=== PATIENT | female | born 1935 | race Caucasian/White ===

== ENCOUNTER 2020-04-22 07:34 | Outpatient (REF) | payer MEDICARE, SELFPAY ==
[2020-04-22 11:00] LABS: Alanine Aminotransferase 15 U/L (0-31); Albumin Level 4.4 g/dL (3.5-5.0); Alkaline Phosphatase 70 U/L (39-117); Anion Gap 14 (12-20); Aspartate Amino Transferase 21 U/L (5-31); Bilirubin Total 0.5 mg/dL (0.0-1.0); Blood Urea Nitrogen 15 mg/dL (9-16); Carbon Dioxide 26 mmol/L (22-29); Chloride 104 mmol/L (96-108); Estimated Glomerular Filt Rate > 60; Glucose Fasting 88 mg/dL (60-99); Potassium 4.1 mmol/l (3.3-5.1); Sodium 140 mmol/L (135-145)
[2020-04-22 11:11] LABS: Calcium 10.7 mg/dL (8.4-10.2)
[2020-04-22 11:14] LABS: Vitamin D 25-OH Total 26.2 ng/mL (>30)
[2020-04-30 01:57] LABS: N-Telopeptide 19 (see note); NTXCreaRU 128 mg/dL (20-275)
== END 2020-04-22 07:35 | disposition home or self-care (01) ==
LOC: HO.10HDL 07:34
PROVIDERS: Visit Provider Internal Medicine Endocrinology, Diabetes & Metabolism
DX: M81.0 Age-related osteoporosis without current pathological fracture (principal)
CPT/HCPCS: 80053; 82306; 82523

== ENCOUNTER 2020-04-25 13:48 | Outpatient (REF) | payer MEDICARE, SELFPAY ==
--- NOTE | 2020-04-25 | MM_ITS ---
EXAMINATION: MM SCREENING DIGITAL BREAST TOMOSYNTHESIS, BILATERAL CLINICAL INFORMATION: Screening. Asymptomatic. The lifetime risk of breast cancer based on the Tyrer-Cuzick Model is 1%. COMPARISON: Mammography: 04/20/2019, 01/10/2018, 10/08/2016, 04/16/2014 TECHNIQUE: Digital breast tomosynthesis is performed in both the craniocaudal and mediolateral oblique views along with computer-aided detection (CAD). Synthesized 2D images are generated from the tomosynthesis. FINDINGS: The breasts are heterogeneously dense, which may obscure small masses (ACR BI-RADS breast composition Category c). There are no significant masses, abnormal calcifications, or other abnormalities. Low left axillary tail node on MLO view similar to prior exams. There are bilateral vascular calcifications. The skin contours are smooth. MM/MM tomosynthesis screening BI IMPRESSION: No significant changes from prior studies. ASSESSMENT: BI-RADS 2: Benign RECOMMENDATION: Routine annual mammography screening. This patient's information was entered into a reminder system with a target due date for their next mammogram.
== END 2020-04-25 13:49 | disposition home or self-care (01) ==
LOC: HO.MAMMO 13:48
PROVIDERS: PCP Internal Medicine; Visit Provider Internal Medicine
DX: Z12.31 Encounter for screening mammogram for malignant neoplasm of breast (principal)
CPT/HCPCS: 77063; 77067

== ENCOUNTER → 2020-05-01 08:26 | Outpatient (BNVA) | payer MEDICARE, OTHER, SELFPAY | PROVIDERS: PCP Internal Medicine; Visit Provider Internal Medicine Endocrinology, Diabetes & Metabolism | DX: M81.0 Age-related osteoporosis without current pathological fracture (principal); E83.52 Hypercalcemia; E83.41 Hypermagnesemia; E55.9 Vitamin D deficiency, unspecified; Z79.899 Other long term (current) drug therapy | CPT/HCPCS: 96372; 99212; J0897 ==

== ENCOUNTER 2020-05-21 07:35 | Outpatient (REF) | payer MEDICARE, SELFPAY ==
[2020-05-21 10:22] LABS: Basophils Percent Auto 0.2 % (0-2); Eosinophils Percent Auto 0.9 % (0-4); Hematocrit 42.4 % (37-47); Hemoglobin 13.7 g/dl (12.0-16.0); Imm Gran Abs Auto 0.02 X10*3/uL (0.00-0.03); Imm Gran Pct Auto 0.4 % (0.0-0.4); Lymphocytes Absolute Auto 0.6 X10*3/uL (1.2-4.9); Lymphocytes Percent Auto 14.2 % (20-40); MANUAL DIFF FLAG SCAN; Mean Corpuscular HGB Conc 32.3 g/dl (31.0-35.0); Mean Corpuscular Hemoglobin 30.9 pg (27.0-33.0); Mean Corpuscular Volume 95.7 fL (80-98); Mean Platelet Volume 10.4 fL (9.4-12.3); Monocytes Absolute Auto 0.3 X10*3/uL (0.1-1.2); Monocytes Percent Auto 5.8 % (2-11); Neutrophils Absolute Auto 3.5 X10*3/uL (2.0-8.3); Neutrophils Percent Auto 78.5 % (45-73); Platelet Count 173 X10*3/uL (160-400); Red Blood Count 4.43 X10*6/uL (4.20-5.50); Red Cell Distribution Width 12.6 % (11.0-16.0); SCAN SMEAR FLAG 1; White Blood Count 4.5 X10*3/uL (4.8-10.8)
[2020-05-21 10:33] LABS: Alanine Aminotransferase 16 U/L (0-31); Albumin Level 4.3 g/dL (3.5-5.0); Alkaline Phosphatase 77 U/L (39-117); Anion Gap 12 (12-20); Aspartate Amino Transferase 21 U/L (5-31); Bilirubin Total 0.7 mg/dL (0.0-1.0); Blood Urea Nitrogen 17 mg/dL (9-16); Calcium 10.5 mg/dL (8.4-10.2); Carbon Dioxide 26 mmol/L (22-29); Chloride 107 mmol/L (96-108); Cholesterol 198 mg/dL; Estimated Glomerular Filt Rate > 60; Glucose Fasting 103 mg/dL (60-99); HDL Cholesterol 81 mg/dL; LDL Cholesterol Calculated 101 mg/dl; Potassium 3.8 mmol/l (3.3-5.1); Sodium 141 mmol/L (135-145); Total Protein 6.9 g/dL (6.5-8.0); Triglycerides 82 mg/dL
[2020-05-21 10:51] LABS: Glucose Urine UA NEG (NEG); Leukocyte Esterase Urine NEG (NEG); Nitrite Urine NEG (NEG); Specific Gravity - Urine 1.025 (1.005-1.025); Urine Blood NEG (NEG); Urine Ketones NEG (NEG); Urine Protein NEG (NEG-TRACE)
[2020-05-21 10:55] LABS: Appearance Urine CLEAR; Color Urine YELLOW
[2020-05-21 10:55] LABS: Vitamin D 25-OH Total 23.5 ng/mL (>30)
[2020-05-21 11:01] LABS: RBC Urine 0 /HPF (0); Squamous Epithelial Cell Urine 1+ /LPF; WBC Urine 0 /HPF (0-4)
[2020-05-21 11:36] LABS: SLIDE REVIEW VERIFIED
== END 2020-05-21 07:36 | disposition home or self-care (01) ==
LOC: HO.10HDL 07:35
PROVIDERS: Visit Provider Internal Medicine
DX: E78.5 Hyperlipidemia, unspecified (principal); I10 Essential (primary) hypertension; K21.9 Gastro-esophageal reflux disease without esophagitis; E83.52 Hypercalcemia; E55.9 Vitamin D deficiency, unspecified; M81.0 Age-related osteoporosis without current pathological fracture
CPT/HCPCS: 36415; 80053; 80061; 81001; 82306; 85025

== ENCOUNTER 2020-07-10 | Outpatient (REF) | payer MEDICARE, SELFPAY | END 2020-07-10 00:01 | disposition home or self-care (01) | LOC: HO.VC | PROVIDERS: Visit Provider Internal Medicine | DX: Z23 Encounter for immunization (principal) | CPT/HCPCS: 0011A ==

== ENCOUNTER 2020-08-06 | Outpatient (REF) | payer MEDICARE, SELFPAY | END 2020-08-06 00:01 | disposition home or self-care (01) | LOC: HO.VC | PROVIDERS: Visit Provider Internal Medicine | DX: Z23 Encounter for immunization (principal) | CPT/HCPCS: 0012A ==

== ENCOUNTER 2020-10-01 07:34 | Outpatient (REF) | payer MEDICARE, SELFPAY ==
[2020-10-01 10:43] LABS: Basophils Percent Auto 0.2 % (0-2); Eosinophils Percent Auto 0.7 % (0-4); Hematocrit 42.6 % (37-47); Hemoglobin 13.9 g/dl (12.0-16.0); Lymphocytes Absolute Auto 0.6 X10*3/uL (1.2-4.9); Lymphocytes Percent Auto 10.9 % (20-40); MANUAL DIFF FLAG SCAN; Mean Corpuscular HGB Conc 32.6 g/dl (31.0-35.0); Mean Corpuscular Hemoglobin 31.5 pg (27.0-33.0); Mean Corpuscular Volume 96.6 fL (80-98); Mean Platelet Volume 10.4 fL (9.4-12.3); Monocytes Absolute Auto 0.3 X10*3/uL (0.1-1.2); Monocytes Percent Auto 4.9 % (2-11); Neutrophils Absolute Auto 4.8 X10*3/uL (2.0-8.3); Neutrophils Percent Auto 83.3 % (45-73); Platelet Count 169 X10*3/uL (160-400); Red Blood Count 4.41 X10*6/uL (4.20-5.50); Red Cell Distribution Width 12.9 % (11.0-16.0); SCAN SMEAR FLAG 1; White Blood Count 5.7 X10*3/uL (4.8-10.8)
[2020-10-01 11:04] LABS: Glucose Urine UA NEG (NEG); Leukocyte Esterase Urine NEG (NEG); Nitrite Urine NEG (NEG); PH 5.5 (5.0-8.0); Specific Gravity - Urine 1.025 (1.005-1.025); Urine Blood TRACE (NEG); Urine Ketones NEG (NEG); Urine Protein NEG (NEG-TRACE)
[2020-10-01 11:06] LABS: Appearance Urine CLEAR; Color Urine YELLOW
[2020-10-01 11:16] LABS: SLIDE REVIEW VERIFIED
[2020-10-01 11:19] LABS: TSH reflex Free T4 1.47 uIU/mL (0.32-4.0)
[2020-10-01 11:23] LABS: Alanine Aminotransferase 12 U/L (0-31); Albumin Level 4.4 g/dL (3.5-5.0); Alkaline Phosphatase 75 U/L (39-117); Anion Gap 12 (12-20); Aspartate Amino Transferase 22 U/L (5-31); Bilirubin Total 0.7 mg/dL (0.0-1.0); Blood Urea Nitrogen 14 mg/dL (9-16); Carbon Dioxide 27 mmol/L (22-29); Chloride 106 mmol/L (96-108); Cholesterol 184 mg/dL; Estimated Glomerular Filt Rate > 60; Glucose Fasting 90 mg/dL (60-99); HDL Cholesterol 75 mg/dL; LDL Cholesterol Calculated 91 mg/dl; Potassium 3.9 mmol/L (3.3-5.1); Sodium 141 mmol/L (135-145); Triglycerides 91 mg/dL
[2020-10-01 11:30] LABS: WBC Urine 0-2 /HPF (0-4)
[2020-10-01 11:31] LABS: Mucus Urine 1+ /LPF; RBC Urine 0-2 /HPF (0); Squamous Epithelial Cell Urine 1+ /LPF
[2020-10-01 11:38] LABS: Calcium 11.4 mg/dL (8.4-10.2)
== END 2020-10-01 07:35 | disposition home or self-care (01) ==
LOC: HO.10HDL 07:34
PROVIDERS: Visit Provider Internal Medicine
DX: I10 Essential (primary) hypertension (principal); E78.00 Pure hypercholesterolemia, unspecified; K21.9 Gastro-esophageal reflux disease without esophagitis
CPT/HCPCS: 36415; 80053; 80061; 81001; 81003; 84443; 85025

== ENCOUNTER 2020-10-22 07:36 | Outpatient (REF) | payer MEDICARE, SELFPAY ==
[2020-10-22 10:49] LABS: Alanine Aminotransferase 20 U/L (0-31); Albumin Level 4.3 g/dL (3.5-5.0); Alkaline Phosphatase 76 U/L (39-117); Anion Gap 14 (12-20); Aspartate Amino Transferase 27 U/L (5-31); Bilirubin Total 0.8 mg/dL (0.0-1.0); Blood Urea Nitrogen 16 mg/dL (9-16); Carbon Dioxide 25 mmol/L (22-29); Chloride 107 mmol/L (96-108); Estimated Glomerular Filt Rate > 60; Glucose Fasting 85 mg/dL (60-99); Potassium 4.1 mmol/L (3.3-5.1); Sodium 142 mmol/L (135-145)
[2020-10-22 11:06] LABS: Vitamin D 25-OH Total 25.9 ng/mL (>30)
[2020-10-23 12:57] LABS: Calcium (PTHI) 10.9 mg/dL (8.6-10.4); PTHI 90 pg/mL (14-64)
[2020-10-27 06:02] LABS: N-Telopeptide 20 (see note); NTXCreaRU 121 mg/dL (20-275)
== END 2020-10-22 07:37 | disposition home or self-care (01) ==
LOC: HO.10HDL 07:36
PROVIDERS: Visit Provider Internal Medicine Endocrinology, Diabetes & Metabolism
DX: M81.0 Age-related osteoporosis without current pathological fracture (principal)
CPT/HCPCS: 36415; 80053; 82306; 82523; 83970

== ENCOUNTER → 2020-10-29 07:22 | Outpatient (BNVA) | payer MEDICARE, OTHER, SELFPAY | PROVIDERS: PCP Internal Medicine; Visit Provider Internal Medicine Endocrinology, Diabetes & Metabolism | DX: M81.0 Age-related osteoporosis without current pathological fracture (principal); E83.52 Hypercalcemia; E55.9 Vitamin D deficiency, unspecified | CPT/HCPCS: 96372; 99212; J0897 ==

== ENCOUNTER 2021-01-28 07:31 | Outpatient (REF) | payer MEDICARE, OTHER, SELFPAY ==
[2021-01-28 10:15] LABS: MANUAL DIFF FLAG NO
[2021-01-28 10:19] LABS: Basophils Percent Auto 0.4 % (0-2); Eosinophils Absolute Auto 0.1 X10*3/uL (0.0-0.4); Hematocrit 42.7 % (37-47); Hemoglobin 14.1 g/dl (12.0-16.0); Imm Gran Abs Auto 0.01 X10*3/uL (0.00-0.03); Imm Gran Pct Auto 0.2 % (0.0-0.4); Lymphocytes Absolute Auto 0.7 X10*3/uL (1.2-4.9); Mean Corpuscular Hemoglobin 31.7 pg (27.0-33.0); Mean Platelet Volume 10.9 fL (9.4-12.3); Monocytes Absolute Auto 0.3 X10*3/uL (0.1-1.2); Monocytes Percent Auto 5.3 % (2-11); Neutrophils Absolute Auto 3.9 X10*3/uL (2.0-8.3); Neutrophils Percent Auto 79.1 % (45-73); Platelet Count 166 X10*3/uL (160-400); Red Blood Count 4.45 X10*6/uL (4.20-5.50); White Blood Count 4.9 X10*3/uL (4.8-10.8)
[2021-01-28 10:58] LABS: TSH reflex Free T4 2.78 uIU/mL (0.32-4.0); Vitamin D 25-OH Total 29.2 ng/mL (>30)
[2021-01-28 11:02] LABS: Alanine Aminotransferase 13 U/L (0-31); Albumin Level 4.5 g/dL (3.5-5.0); Alkaline Phosphatase 71 U/L (39-117); Anion Gap 10 (12-20); Aspartate Amino Transferase 21 U/L (5-31); Bilirubin Total 0.7 mg/dL (0.0-1.0); Blood Urea Nitrogen 10 mg/dL (9-16); Calcium 11.5 mg/dL (8.4-10.2); Carbon Dioxide 29 mmol/L (22-29); Chloride 107 mmol/L (96-108); Cholesterol 185 mg/dL; Estimated Glomerular Filt Rate > 60; Glucose Fasting 96 mg/dL (60-99); HDL Cholesterol 79 mg/dL; LDL Cholesterol Calculated 87 mg/dl; Potassium 4.3 mmol/L (3.3-5.1); Sodium 142 mmol/L (135-145); Total Protein 7.2 g/dL (6.5-8.0); Triglycerides 95 mg/dL
[2021-01-28 13:17] LABS: Glucose Urine UA NEG (NEG); Leukocyte Esterase Urine NEG (NEG); Nitrite Urine NEG (NEG); PH 5.5 (5.0-8.0); Urine Blood NEG (NEG); Urine Ketones NEG (NEG); Urine Protein NEG (NEG-TRACE)
[2021-01-28 13:30] LABS: Appearance Urine HAZY; Color Urine YELLOW
== END 2021-01-28 07:32 | disposition home or self-care (01) ==
LOC: HO.10HDL 07:31
PROVIDERS: Visit Provider Internal Medicine
DX: E78.00 Pure hypercholesterolemia, unspecified (principal); E83.52 Hypercalcemia; I10 Essential (primary) hypertension; K21.9 Gastro-esophageal reflux disease without esophagitis
CPT/HCPCS: 36415; 80053; 80061; 81003; 82306; 84443; 85025

== ENCOUNTER → 2021-04-08 09:09 | Outpatient (BNVA) | payer MEDICARE, OTHER, SELFPAY | PROVIDERS: PCP Internal Medicine; Referring Provider Internal Medicine; Visit Provider Internal Medicine | DX: I10 Essential (primary) hypertension (principal); Z95.3 Presence of xenogenic heart valve | CPT/HCPCS: 93005; 99212 ==

== ENCOUNTER 2021-05-20 07:13 | Outpatient (REF) | payer MEDICARE, OTHER, SELFPAY ==
--- NOTE | ~2021-05-20 | MM_ITS ---
EXAMINATION: MM SCREENING DIGITAL BREAST TOMOSYNTHESIS, BILATERAL CLINICAL INFORMATION: Screening. Asymptomatic. The lifetime risk of breast cancer based on the Tyrer-Cuzick Model is under 1%. COMPARISON: Mammography: 04/25/2020 and prior studies dating back to 03/07/2009. TECHNIQUE: Digital breast tomosynthesis is performed in both the craniocaudal and mediolateral oblique views along with computer-aided detection (CAD). Synthesized 2D images are generated from the tomosynthesis. Additional exaggerated left CC view is provided. FINDINGS: The breasts are heterogeneously dense, which may obscure small masses (ACR BI-RADS breast composition Category c). There is focal asymmetric density around 1.2 cm in size posterior inferior breast just lateral to midline extending beyond the [id number] on MLO and exaggerated CC projections. Patient will be recalled for additional imaging. The right breast shows no significant changes from prior studies. There are bilateral vascular calcifications. The axilla and skin contours are unremarkable. MM/MM tomosynthesis screening BI IMPRESSION: 1. Left: Focal asymmetric density deep posterior inferior breast just lateral to midline and extending beyond field of view. 2. Right: No mammographic evidence of malignancy. ASSESSMENT: BI-RADS 0: Incomplete - Need Additional Imaging Evaluation RECOMMENDATION: 1. Additional views of the left breast (spot MLO; rolled exaggerated CC). 2. Targeted ultrasound left breast. 3. Radiology department staff will contact the patient for additional imaging. This patient's information was entered into a reminder system with a target due date for their next mammogram.
--- NOTE | 2021-05-20 08:04 | CA_ITS ---
Transthoracic Echocardiogram Patient (Last, First, Middle): Jordon Mobley E Gender: Female Date of : 1935 Age: 85 Procedure Date: 05/20/2021 Procedure Type: Transthoracic Echocardiogram Location: OP Height: 160.02 cm Weight: 55.79 kg BSA: 1.57 m2 Heart Rate: bpm BP: 140 / 80 mmHg Cabin Equipment Supervisor: DSEugenio Referring MD: Keo Tovar MD Symptoms: Z95.3 - Presence of xenogenic heart valve Conclusions: - 1. Normal LV systolic function with impaired relaxation filling pattern 2. Presence of bioprosthetic aortic valve with mean gradient of 26 mm Hg which is elevated, however finding suggestive of patient prosthesis mismatch, unchanged from before 3. Severe mitral calcification 4. Normal RV systolic pressure 5. No gross pericardial effusion 6. Mildly dilated ascending aorta Findings Left Ventricle Normal left ventricular size, thickness, and systolic function. The visually estimated ejection fraction is between 65-70%. Spectral Doppler is indicative of an impaired relaxation filling pattern. E/E prime ratio is between 8 and 15 consistent with indeterminate filling pressures. There is mild septal asymmetric hypertrophy. Right Ventricle Normal right ventricular cavity size and systolic function. Atria The left atrium is likely dilated. There is lipomatous hypertrophy of the interatrial septum. There is no evidence of interatrial shunt. The right atrium is mildly dilated. Aortic Valve A bioprosthetic aortic valve is present. The peak aortic gradient is 45 mmHg.The mean gradient is 26 mmHg. the valve is well seated with no abnormal rocking motion. The mean gradients are similar to study from last year. There is relatively steep upstroke of the aortic and will up consistent with patient prosthesis mismatch. Mitral Valve There is mild anterior and moderate posterior mitral leaflet thickening. There is severe mitral annular calcification. There is trace mitral valve regurgitation. There is no mitral valve stenosis. Pulmonic Valve The pulmonic valve was not well visualized. There is mild pulmonic valve regurgitation. Tricuspid Valve Normal tricuspid valve structure. There is mild tricuspid valve regurgitation. The right ventricular systolic pressure is normal. The right ventricular systolic pressure is 25 mmHg. Normal right atrial pressure. There is no evidence of pulmonary hypertension. Great Vessels The pulmonary artery was not well visualized. There is mild dilatation of the ascending aorta measuring 3.90 cm. Venous The inferior vena cava is normal in size and collapses greater than 50% with inspiration. Pericardium/Pleural There is no evidence of pericardial effusion. Prior Study Comparison No significant change compared to prior study dated: 12/01/2018. Measurements 2D Linear Measurements IVSd: 1.02 0.6-0.9/0.6-1.0 cm LVIDd: 4.19 3.9-5.3/4.2-5.9 cm LVIDd Index: 2.67 2.4-3.2/2.2-3.1 cm/m2 LVIDs: 2.60 2.0-3.6 cm LVPWd: 1.01 0.7-1.1 cm LA Diam: 3.70 2.7-3.8/3.0-4.0 cm LAIDs Index: 2.36 1.5-2.3 cm/m2 LV Mass: 173.77 67-162/88-224 g LV Mass Index: 110.68 43-95/49-115 g/m2 LVOT Diam: 1.80 3.0+(-)1.3 cm 2D Systolic Function EF 4C: 75.00 >55% Mitral Valve MV Pk E: 0.64 MV PK A: 0.95 MV Decel Time: 206.00 E/A: 0.70 E'Lateral: 4.90 E'Medial: 4.68 E/E' Med: 13.70 E/E' Lat: 13.10 PHT: 61.00 MVA PHT: 3.61 Decel [place]: 3.17 Aortic Valve AoV Pk Andrew: 3.34 AoV Mn Andrew: 2.33 AoV VTI: 0.70 AoV Pk Grad: 45.00 Aov Mn Grad: 26.00 ROSSY Cont.VTI: 0.83 LVOT LVOT Pk Andrew: 1.17 LVOT Mn Andrew: 0.86 LVOT VTI: 0.23 LVOT Pk Grad: 5.00 LVOT Mn Grad: 4.00 LVOT Diam: 1.80 LVOT Area: 2.54 Diastolic Function MV Pk E: 0.64 MV Pk A: 0.95 E/A: 0.70 E'Medial: 4.68 E/E' Med: 13.70 E' Laterial: 4.90 E/E' Lat: 13.10 Right Ventricle TAPSE (mm): 1.83 Tricuspid Valve TR Pk Andrew: 2.34 TR Pk Grad: 22.00 RA Press: 3.00 RVSP: 25.00 Great Vessels Aorta Ao Asc: 3.90 2.1-3.4 cm Updated in Other Vendor System with Status of Final Shelton Marina MD electronically signed on 05/20/2021 4:19:27 PM with status of Final
== END 2021-05-20 07:14 | disposition home or self-care (01) ==
LOC: HO.MAMMO 07:13
PROVIDERS: PCP Internal Medicine; Visit Provider Internal Medicine
DX: Z12.31 Encounter for screening mammogram for malignant neoplasm of breast (principal); Z95.3 Presence of xenogenic heart valve
CPT/HCPCS: 77063; 77067; 93306

== ENCOUNTER → 2021-05-21 08:23 | Outpatient (BNVA) | payer MEDICARE, OTHER, SELFPAY | PROVIDERS: PCP Internal Medicine; Visit Provider Internal Medicine | DX: M81.0 Age-related osteoporosis without current pathological fracture (principal) | CPT/HCPCS: 96372; J0897 ==

== ENCOUNTER 2021-05-26 12:32 | Outpatient (REF) | payer MEDICARE, OTHER, SELFPAY ==
--- NOTE | ~2021-05-26 | US_ITS ---
EXAMINATION: MM DIAGNOSTIC DIGITAL BREAST TOMOSYNTHESIS, LEFT US DIAGNOSTIC ULTRASOUND BREAST, LEFT CLINICAL INFORMATION: Recall from screening for focal asymmetric density deep posterior inferior left breast, lateral to midline, and extending beyond the [id number]. COMPARISON: Mammography: 05/20/2021 and prior studies dating back to 2009 TECHNIQUE: Digital breast tomosynthesis is performed. 2D images are generated from the tomosynthesis. The following views are obtained: Spot exaggerated CC, spot ML. Ultrasound left breast is targeted to the posterior lower outer quadrant using grayscale imaging and color Doppler without and with harmonics. Additional imaging left axilla also performed. FINDINGS: There are scattered areas of fibroglandular density (ACR BI-RADS breast composition Category b). The additional views show irregular mass at least at least 1.5 cm, extending beyond the posterior film margin posterior 5:00 position. This corresponds to finding on recent screening. Ultrasound demonstrates a macrolobulated heterogeneous hypoechoic mass posterior 5:00 position measuring approximately 2.1 x 1.7 x 1.0 cm. There is no increased or decreased through transmission of sound. There is prominent color flow associated with the lesion. The deep wall is defined. No visible chest wall involvement on ultrasound. Additional imaging left axilla shows no lymphadenopathy. Results are discussed with the patient at time of visit. Ultrasound-guided core biopsy is recommended. Results and recommendation called to medical office asst (Nika) for Dr. Rosario on 05/26/2021. US/US breast LT limited IMPRESSION: 1. Left breast mass posterior 5:00 position measuring 2.1 cm. 2. No visible lymphadenopathy left axilla. ASSESSMENT: BI-RADS 4: Suspicious (subcategory 4C: High suspicion for malignancy) RECOMMENDATION: Ultrasound-guided core biopsy. This patient's information was entered into a reminder system with a target due date for their next mammogram.
--- NOTE | ~2021-05-26 | MM_ITS ---
EXAMINATION: MM DIAGNOSTIC DIGITAL BREAST TOMOSYNTHESIS, LEFT US DIAGNOSTIC ULTRASOUND BREAST, LEFT CLINICAL INFORMATION: Recall from screening for focal asymmetric density deep posterior inferior left breast, lateral to midline, and extending beyond the [id number]. COMPARISON: Mammography: 05/20/2021 and prior studies dating back to 2009 TECHNIQUE: Digital breast tomosynthesis is performed. 2D images are generated from the tomosynthesis. The following views are obtained: Spot exaggerated CC, spot ML. Ultrasound left breast is targeted to the posterior lower outer quadrant using grayscale imaging and color Doppler without and with harmonics. Additional imaging left axilla also performed. FINDINGS: There are scattered areas of fibroglandular density (ACR BI-RADS breast composition Category b). The additional views show irregular mass at least at least 1.5 cm, extending beyond the posterior film margin posterior 5:00 position. This corresponds to finding on recent screening. Ultrasound demonstrates a macrolobulated heterogeneous hypoechoic mass posterior 5:00 position measuring approximately 2.1 x 1.7 x 1.0 cm. There is no increased or decreased through transmission of sound. There is prominent color flow associated with the lesion. The deep wall is defined. No visible chest wall involvement on ultrasound. Additional imaging left axilla shows no lymphadenopathy. Results are discussed with the patient at time of visit. Ultrasound-guided core biopsy is recommended. Results and recommendation called to central office equipment installer (Nika) for Dr. Rosario on 05/26/2021. MM/MM tomosynthesis added views L IMPRESSION: 1. Left breast mass posterior 5:00 position measuring 2.1 cm. 2. No visible lymphadenopathy left axilla. ASSESSMENT: BI-RADS 4: Suspicious (subcategory 4C: High suspicion for malignancy) RECOMMENDATION: Ultrasound-guided core biopsy. This patient's information was entered into a reminder system with a target due date for their next mammogram.
== END 2021-05-26 12:33 | disposition home or self-care (01) ==
LOC: HO.MAMMO 12:32
PROVIDERS: Visit Provider Internal Medicine
DX: R92.2 Inconclusive mammogram (principal)
CPT/HCPCS: 76642; 77061; 77065

== ENCOUNTER 2021-06-10 09:51 | Outpatient (REF) | payer MEDICARE, OTHER, SELFPAY ==
--- NOTE | ~2021-06-10 | MM_ITS ---
EXAMINATION: ULTRASOUND GUIDED CORE BIOPSY BREAST, LEFT POST PROCEDURE DIGITAL MAMMOGRAM, LEFT CLINICAL INFORMATION: Mass posterior 5:00 left breast, 2.1 cm. COMPARISON: Mammography 05/20/2021, 05/26/2021, targeted left breast ultrasound 05/26/2021. FINDINGS: Proper informed consent is obtained from the patient after discussion of the procedure, potential risks and complications, and alternatives. Patient was given an opportunity for questions. The patient appeared to understand. The patient consented to the procedure and signed the consent form. GUIDANCE: Ultrasound-guided; aseptic technique. LESION: Macrolobulated hypoechoic mass posterior 5:00 position 2.1 x 1.7 x 1.0 cm. APPROACH: Medial lateral. ANESTHESIA: 9 mL carbonated 1% lidocaine. DERMATOTOMY: Single skin rohith dermatotomy performed. NEEDLE: 14-gauge Achieve core biopsy device with 13.5-gauge co-axial guide needle. CORES: 5. CLIP: HydroMARK; shape: butterfly. Deployment of the clip is visualized during real-time ultrasound. Specular echo from clip imaged. POST PROCEDURE UNILATERAL DIGITAL MAMMOGRAM: The post biopsy mammogram is performed in separate room using separate digital mammography equipment from the biopsy procedure. CC, exaggerated CC x2, ML, MLO views are obtained. There are scattered areas of fibroglandular density (breast composition category: b). The clip marker is not within the [id number]. The lesion extends beyond the [id number]. No gross hematoma. The patient tolerated the procedure well. No immediate complications. Home instructions reviewed with the patient. Final pathology results are pending. MM/MM tomosynthesis diagnostic LT IMPRESSION: 1. Status post ultrasound-guided core biopsy left breast. 2. Clip placed: HydroMARK; shape: butterfly. Clip deployment visualized during real-time ultrasound (beyond field of view on post procedure mammography). 3. Pathology pending. An addendum report will be issued.
== END 2021-06-10 09:52 | disposition home or self-care (01) ==
LOC: HO.MAMMO 09:51
PROVIDERS: Visit Provider Surgery
DX: C50.512 Malignant neoplasm of lower-outer quadrant of left female breast (principal); Z17.0 Estrogen receptor positive status [ER+]; I10 Essential (primary) hypertension; E78.00 Pure hypercholesterolemia, unspecified; E55.9 Vitamin D deficiency, unspecified; M81.0 Age-related osteoporosis without current pathological fracture; Z95.2 Presence of prosthetic heart valve; Z83.3 Family history of diabetes mellitus; Z82.49 Family history of ischemic heart disease and other diseases of the circulatory system; Z83.6 Family history of other diseases of the respiratory system; Z81.1 Family history of alcohol abuse and dependence; Z88.8 Allergy status to other drugs, medicaments and biological substances; Z79.2 Long term (current) use of antibiotics; Z79.82 Long term (current) use of aspirin; Z79.899 Other long term (current) drug therapy
CPT/HCPCS: 19083; 77061; 77065; 88305; 88341; 88342; 88360; 99202

== ENCOUNTER 2021-06-11 07:35 | Outpatient (REF) | payer MEDICARE, OTHER, SELFPAY ==
[2021-06-11 07:54] LABS: MANUAL DIFF FLAG NO
[2021-06-11 08:41] LABS: Basophils Percent Auto 0.2 % (0-2); Eosinophils Percent Auto 0.7 % (0-4); Hematocrit 44.4 % (37.0-47.0); Hemoglobin 14.5 g/dl (12.0-16.0); Imm Gran Abs Auto 0.01 X10*3/uL (0.00-0.03); Imm Gran Pct Auto 0.2 % (0.0-0.4); Lymphocytes Absolute Auto 0.6 X10*3/uL (1.2-4.9); Lymphocytes Percent Auto 13.5 % (20-40); Mean Corpuscular HGB Conc 32.7 g/dl (31.0-35.0); Mean Corpuscular Hemoglobin 31.6 pg (27.0-33.0); Mean Corpuscular Volume 96.7 fL (80.0-98.0); Mean Platelet Volume 10.2 fL (9.4-12.3); Monocytes Absolute Auto 0.2 X10*3/uL (0.1-1.2); Monocytes Percent Auto 5.3 % (2-11); Neutrophils Absolute Auto 3.5 x10*3/uL (2.0-8.3); Neutrophils Percent Auto 80.1 % (45-73); Platelet Count 162 X10*3/uL (160-400); Red Blood Count 4.59 X10*6/uL (4.20-5.50); Red Cell Distribution Width 12.7 % (11.0-16.0); White Blood Count 4.4 X10*3/uL (4.8-10.8)
[2021-06-11 09:04] LABS: Albumin Level 4.5 g/dL (3.5-5.0)
[2021-06-11 09:12] LABS: Appearance Urine HAZY; Color Urine YELLOW; Glucose Urine UA NEG (NEG); Leukocyte Esterase Urine NEG (NEG); Nitrite Urine NEG (NEG); Urine Blood NEG (NEG); Urine Ketones NEG (NEG); Urine Protein NEG (NEG-TRACE)
[2021-06-11 09:18] LABS: Alanine Aminotransferase 15 U/L (0-31); Albumin Level 4.5 g/dL (3.5-5.0); Alkaline Phosphatase 81 U/L (39-117); Anion Gap 9 (12-20); Aspartate Amino Transferase 20 U/L (5-31); Bilirubin Total 0.7 mg/dL (0.0-1.0); Blood Urea Nitrogen 14 mg/dL (9-16); Calcium 10.8 mg/dL (8.4-10.2); Carbon Dioxide 27 mmol/L (22-29); Chloride 109 mmol/L (96-108); Cholesterol 187 mg/dL; Estimated Glomerular Filt Rate > 60; Glucose Fasting 92 mg/dL (60-99); HDL Cholesterol 80 mg/dL; LDL Cholesterol Calculated 92 mg/dl; Potassium 4.4 mmol/L (3.3-5.1); Sodium 141 mmol/L (135-145); Total Protein 7.3 g/dL (6.5-8.0); Triglycerides 75 mg/dL
[2021-06-11 09:28] LABS: TSH reflex Free T4 2.53 uIU/mL (0.32-4.0); Vitamin D 25-OH Total 23.2 ng/mL (>30)
[2021-06-12 12:26] LABS: Calcium (PTHI) 10.8 mg/dL (8.6-10.4); PTHI 163 pg/mL (14-64)
== END 2021-06-11 07:36 | disposition home or self-care (01) ==
LOC: HO.LAB 07:35
PROVIDERS: Internal Medicine; Internal Medicine Endocrinology, Diabetes & Metabolism; PCP Internal Medicine; Visit Provider Internal Medicine
DX: M81.0 Age-related osteoporosis without current pathological fracture (principal); I10 Essential (primary) hypertension; E55.9 Vitamin D deficiency, unspecified; E78.00 Pure hypercholesterolemia, unspecified
CPT/HCPCS: 36415; 80053; 80061; 81003; 82040; 82306; 82310; 83970; 84443; 85025

== ENCOUNTER → 2021-06-17 09:45 | Outpatient (BNVA) | payer MEDICARE, OTHER, SELFPAY | PROVIDERS: PCP Internal Medicine; Referring Provider Internal Medicine; Visit Provider Surgery | DX: R92.8 Other abnormal and inconclusive findings on diagnostic imaging of breast (principal) | CPT/HCPCS: 99212 ==

== ENCOUNTER 2021-06-20 08:15 | Outpatient (REF) | payer MEDICARE, OTHER, SELFPAY ==
[2021-06-20 10:47] LABS: Estimated Glomerular Filt Rate > 60
== END 2021-06-20 08:16 | disposition home or self-care (01) ==
LOC: HO.LAB 08:15
PROVIDERS: PCP Internal Medicine; Visit Provider Internal Medicine
DX: M81.0 Age-related osteoporosis without current pathological fracture (principal)
CPT/HCPCS: 36415; 82565

== ENCOUNTER 2021-07-02 06:50 | Day surgery (SDC) | payer MEDICARE, OTHER, SELFPAY ==
[2021-06-26 13:39] VITALS: BMI 21.2
--- NOTE | 2021-07-01 11:49 | HO.ANESPROP2 ---
Documented by User: Nohemi Nelson NP 07/01/21 11:53 HPI - Anesthesia Eval Consult details Narrative: 85yo F for Left [place] Node Biopsy, Breast Biopsy Needle Localization, Breast Lumpectomy Per cardiology 04/2021 visit with ECHO Echo is similar to before. Prosthetic valve is showing its age, but still functioning OK. 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 (Acute) Medicare annual wellness visit, initial (Acute) Status post aortic valve replacement with bioprosthetic valve (Acute) Essential hypertension (Acute) Abnormal mammogram of left breast (Acute) Abnormal ultrasound of breast (Acute) Left breast mass (Acute) GERD without esophagitis (Acute) Pure hypercholesterolemia (Acute) Benign essential hypertension (Acute) Vitamin D deficiency (Acute) Familial hypocalciuric hypercalcemia syndrome (Acute) Osteoporosis (Acute) Past Medical History Medical History Benign essential hypertension Familial hypocalciuric hypercalcemia syndrome GERD without esophagitis History of aortic valve stenosis 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 Left breast mass Osteoporosis Pure hypercholesterolemia Vitamin D deficiency Family History Family History Father Diabetes CVA (cerebral vascular accident) CVD (cardiovascular disease) Myocardial infarct Mother Emphysema of lung Alcoholism /alcohol abuse Surgical History Surgical History Hx of aortic valve replacement (~07/04/12) Hx of cataract removal with insertion of prosthetic lens (~08/2017) Social History Social History Housing: Condominium Are you a primary palliative care physician to a significant other at home: No Do you presently have visiting nurse or other home services: No Alcohol intake: current Alcohol intake frequency: holidays/special occasions only Alcohol type: wine Patient Tobacco Use Status: Never used Tobacco Second Hand Smoke Exposure: Yes Use of substances other than those prescribed or required for medical reasons: No Have you been hit, kicked, punched, or otherwise hurt by someone within the past year? If so, by whom?: No Are you DNR?: No Advance Directives: No Advance Directives Information Provided: Yes (Mailed to patient - States it would be her daughter Joann Gustafson) Advance Directives on File: No Recently lost weight without trying: No Eating poorly because of decreased appetite: No Nutrition Risks: No Nutritional Risk Patient : No service: No Current occupational status: retired Meds Allergies Allergy/AdvReac Type Severity Reaction Status Date / Time hydrochlorothiazide Allergy Unknown upset Verified 06/26/21 13:09 stomach,dizziness lisinopril Allergy Unknown SWOLLEN Verified 06/26/21 13:09 THROAT/angioedema metoprolol Allergy Unknown severe Verified 06/26/21 13:09 dizziness esomeprazole [Nexium] AdvReac Unknown headaches Verified 06/26/21 13:09 Home Medications Medication Instructions Recorded Confirmed Last Taken Type aspirin 81 mg tablet,delayed 81 mg PO DAILY 05/01/20 06/26/21 Unknown History release (Adult Aspirin Regimen) multivitamin,sn-qumw-xiheoxdf 1 tab PO DAILY 05/01/20 06/26/21 Unknown History (Complete Multivitamin) denosumab 60 mg/mL subcutaneous 60 mg SUBCUT [id number] 10/29/20 06/26/21 Unknown History syringe (Prolia) amoxicillin 500 mg tablet 2,000 mg PO ONCE PRN tab 06/17/21 Unknown History Exam Exam Date and Time: July 01, 2021 1149 Height,Weight and Vital Signs: Height 5 ft 3 in Weight 54.431 kg Pertinent Lab Results Pertinent Lab Results: Laboratory Tests 06/11/21 06/11/21 06/20/21 07:53 07:53 08:31 WBC 4.4 L Hgb 14.5 Hct 44.4 Plt Count 162 Sodium 141 Potassium 4.4 Chloride 109 H Carbon Dioxide 27 BUN 14 Creatinine 0.68 Narrative Narrative: EKG 04/2021 sinus rhythm at 63/Min; no significant ST-T changes and otherwise unremarkable ECHO 05/2021 Conclusions: - ? 1.? Normal LV systolic function with impaired relaxation ? ? filling pattern? 2. Presence of bioprosthetic aortic valve with mean gradient of? 26 mm Hg which is elevated, however finding suggestive of patient prosthesis mismatch, unchanged from before ? 3.? Severe mitral calcification? 4.? Normal RV systolic pressure? 5. No gross pericardial effusion ? 6. Mildly dilated ascending aorta? 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 Left breast mass Osteoporosis Pure hypercholesterolemia Vitamin D deficiency Family History Family History Father Diabetes CVA (cerebral vascular accident) CVD (cardiovascular disease) Myocardial infarct Mother Emphysema of lung Alcoholism /alcohol abuse Surgical History Surgical History Hx of aortic valve replacement (~07/04/12) Hx of cataract removal with insertion of prosthetic lens (~08/2017) History of Problems with Anesthesia: No Social History Social History Housing: Condominium Are you a primary palliative care physician to a significant other at home: No Do you presently have visiting nurse or other home services: No Alcohol intake: current Alcohol intake frequency: holidays/special occasions only Alcohol type: wine Patient Tobacco Use Status: Never used Tobacco Second Hand Smoke Exposure: Yes Use of substances other than those prescribed or required for medical reasons: No Have you been hit, kicked, punched, or otherwise hurt by someone within the past year? If so, by whom?: No Are you DNR?: No Advance Directives: No Advance Directives Information Provided: Yes (Mailed to patient - States it would be her daughter Joann Gustafson) Advance Directives on File: No Recently lost weight without trying: No Eating poorly because of decreased appetite: No Nutrition Risks: No Nutritional Risk Patient : No service: No Current occupational status: retired Meds Allergies Allergy/AdvReac Type Severity Reaction Status Date / Time hydrochlorothiazide Allergy Unknown upset Verified 06/26/21 13:09 stomach,dizziness lisinopril Allergy Unknown SWOLLEN Verified 06/26/21 13:09 THROAT/angioedema metoprolol Allergy Unknown severe Verified 06/26/21 13:09 dizziness esomeprazole [Nexium] AdvReac Unknown headaches Verified 06/26/21 13:09 Home Medications Medication Instructions Recorded Confirmed Last Taken Type aspirin 81 mg tablet,delayed 81 mg PO DAILY 05/01/20 06/26/21 Unknown History release (Adult Aspirin Regimen) multivitamin,qn-iyxr-uyzrcncv 1 tab PO DAILY 05/01/20 06/26/21 Unknown History (Complete Multivitamin) denosumab 60 mg/mL subcutaneous 60 mg SUBCUT [id number] 10/29/20 06/26/21 Unknown History syringe (Prolia) amoxicillin 500 mg tablet 2,000 mg PO ONCE PRN tab 06/17/21 Unknown History Exam Airway Mallampati Class: II TM Dist: >3cm Neck ROM: Limited Loose/Missing/Broken Teeth: No Heart: RRR Lungs: CTA Assessment and Plan Assessment Anesthesia Assessment: Anesthesia Plan Discussed Final Anesthetic Review History of Problems with Anesthesia: No NPO: Yes ASA Class: III Final Preanesthetic Review: Meds/Allgs Chart Reviewed, Consent Obtained/Reviewed and Anes Risks/Benef Reviewed Patient Risk: Intermediate Procedure Risk: Low Anesthetic Plan Anesthetic Plan: GA Disposition: Standard PACU
[2021-07-02] VITALS (12 sets, daily range): BP systolic 135–158; BP diastolic 61–76; PULSE 68–76; RESP 16–20; TEMP 36.7–36.8; O2SAT 96–100
--- NOTE | ~2021-07-02 | MM_ITS ---
EXAMINATION: US ULTRASOUND-GUIDED NEEDLE LOCALIZATION BREAST, LEFT MM DIGITAL MAMMOGRAPHY BREAST POST LOCALIZATION, LEFT NEEDLE LOCALIZATION SPECIMEN RADIOGRAPH FROM THE LEFT BREAST CLINICAL INFORMATION: Recent diagnosis invasive lobular cancer posterior 5:00 left breast. COMPARISON: Mammography 05/20/2021, 05/26/2021, 06/10/2021, ultrasound left breast 05/26/2021, ultrasound-guided biopsy 06/10/2021. TECHNIQUE NEEDLE LOC: Proper informed consent is obtained from the patient after discussion of the procedure, potential risks and complications, and alternatives including declining the procedure today. Consent for sentinel lymph node mapping also obtained at same discussion. Patient was given an opportunity for questions. The patient appeared to understand. The patient consented to the procedure and signed the consent form. GUIDANCE: Real time ultrasound guidance APPROACH: Medial Lateral TARGET: Irregular hypoechoic mass with biopsy clip marker posterior 5:00 position ANESTHESIA: 9 cc carbonated lidocaine 1% LOCALIZATION MARKER: Fordyce MammaLok 7.5 cm length. The skin is prepped and local anesthesia administered. The needle is positioned and position assessed with real time ultrasound. The wire is hooked into position. Ferdinand needle protector placed. The patient tolerated the procedure well and had no immediate complication. Following the procedure, 1% lidocaine ointment was administered to the left areola and covered with Tegaderm in anticipation of nuclear lymphoscintigraphy injection for sentinel lymph node mapping. Procedure findings called to medical housekeeper (Sofia) for Dr. Lewis prior to surgery. POSTPROCEDURE UNILATERAL DIGITAL MAMMOGRAM: Mammography is performed using digital mammography in [facility]. There are scattered areas of fibroglandular density (ACR BI-RADS breast composition Category b). The clip marker is visible. The localization needle passes adjacent to the clip marker and deep to the field of view. TECHNIQUE SPECIMEN RADIOGRAPH: Single radiograph of the excised breast tissue is performed. FINDINGS SPECIMEN RADIOGRAPH: The specimen shows the distal needle and distal hookwire are delivered intact. The proximal needle and hookwire are sectioned in the OR prior to delivery of the specimen. The biopsy clip marker is identified in the specimen. Results were called to Dr. Adiel Lewis in the operating room at the time of imaging. MM/MM tomosynthesis diagnostic BI IMPRESSION: 1. Status post ultrasound-guided left breast needle localization with wire hooked into position. 2. Postoperative specimen radiograph obtained.
--- NOTE | ~2021-07-02 | NM_ITS ---
EXAMINATION: NM LYMPHOSCINTIGRAPHY CLINICAL INFORMATION: Left breast invasive lobular carcinoma. COMPARISON: None TECHNIQUE: Following explaining left breast lymphoscintigraphy procedure, benefits and risk, a written consent was obtained by Dr. Valdez. The 4% lidocaine around the left breast areola was removed. The area around the left breast areola was cleaned in sterile fashion. 0.5 mCi of 99m technetium lymphoseek divided in 4 equal doses was injected in 4 quadrants around the left breast areola. Imaging was obtained up to 15 minutes. Patient tolerated procedure extremely well. FINDINGS: Imaging at 20 minutes and 50 minutes over the chest reveals four areas of isotope activity around the left breast areola. No abnormal activity seen in the left axilla or medial chest to suspect any sentinel nodes. NM/NM sentinel node w imaging IMPRESSION: No lymph node activity seen in the left axilla or the medial chest on left breast lymphoscintigraphy.
[2021-07-02] MEDS: Lactated Ringers 1,000 ML 100 ML IVCONT (07:38)
--- NOTE | 2021-07-02 10:59 | P.HPSUR_ITS ---
Pre-Procedural Eval Section A Date of Service: 07/02/21 The patient is an INPATIENT: No Changes since office visit: Yes Patient answered all questions; No Cold of Flu in the past 2 weeks, No New Medical Problems and No Changes in Medication The History & Physical has been completed within 30 days and I have reviewed it.: Yes Section B Chief Complaint: Abnormal ultrasound of breast Allergies: Allergies Allergy/AdvReac Type Severity Reaction Status Date / Time hydrochlorothiazi Allergy Unknown upset Verified 06/26/21 13:09 de stomach,dizzines s lisinopril Allergy Unknown SWOLLEN Verified 06/26/21 13:09 THROAT/angioedem a metoprolol Allergy Unknown severe Verified 06/26/21 13:09 dizziness esomeprazole AdvReac Unknown headaches Verified 06/26/21 13:09 [Nexium] Plan Diagnosis/Plan: Unchanged I have reviewed the history and physical and performed a pertinent physical examination on my patient. No changes have occurred unless specified.
--- NOTE | 2021-07-02 13:49 | W.PM.OPN ---
Operative Note Operative Note Date of Service: 07/02/21 Narrative: Preoperative diagnosis: Left breast invasive lobular carcinoma Postoperative diagnosis: same Procedure: left breast lumpectomy with needle localization, left axillary sentinel node biopsy Surgeon: Adiel Lewis MD Waste Machine Offbearer: no physician Anesthesia: general LMA Indications for procedure: 85-year-old female patient with a palpable mass in the left breast at the lower inner quadrant, status post ultrasound-guided core biopsy. Pathology revealed invasive lobular carcinoma. She returns today for ectomy and axillary sentinel node biopsy. Preoperative sentinel node identification scanning revealed no axillary nodes. Operative findings: Palpable tumor in the lower inner quadrant of the left breast extending close to chest wall. Tumor measures approximately 2 cm diameter. A single sentinel node was identified and removed. No other palpable nodes could be identified. Specimen: Left breast lumpectomy, left axillary sentinel node 1, Wider excision left breast Estimated blood loss: 20 mL Complications: none Procedure details: the patient was brought to the OR and placed in a supine position. After administering general anesthesia the patient's left breast was prepped with ChloraPrep and draped in a sterile fashion. A surgical time-out was called the consent confirmed. Patient received preoperative antibiotics and Venodyne boots were placed. Local anesthesia consisting of 0.5% Sensorcaine plain was infiltrated around the localizing needle in the lower inner quadrant. A transverse incision was made just below the localizing needle in the lower inner quadrant. Incision was carried down through subcutaneous tissue. Thin skin flaps were created both above and below the incision. Electrocautery and sharp dissection was then used to dissect the palpable tumor with the intact needle. The mass extended to the chest wall therefore portion of the pectoralis muscle was removed along with the specimen. The specimen was sent to pathology for further examination. Hemostasis was assured using electrocautery and free ties of 3-0 Polysorb. Attention was then directed to the left axilla. Scanning of the axilla with the Neoprobe revealed a small amount of radio activity in the anterior axilla. Incision was then made over this area after applying local anesthesia was carried out through subcutaneous tissue down around the pectoralis major muscle into the axillary compartment. Scanning of this area revealed very weak radio activity in the axilla. Palpation revealed a single palpable node which when scan with the a probe did in fact have a low level of radio activity ( 77). This was sent as sentinel node 1. Additional scanning of the axilla revealed no additional radio activity. Palpation revealed no additional palpable nodes. Wounds were then irrigated with saline solution suctioned dry. Dermis was then reapproximated using interrupted 3-0 Polysorb sutures. Skin was closed using a running subcuticular 4-0 Polysorb suture. Attention was then directed back to the breast. Pathology report indicated margins close to the posterior superior and posterior inferior margins. As a result a wider excision of this posterior superior down to posterior inferior margin was obtained. This was sent as a separate specimen. Wounds were then irrigated with saline solution and suctioned dry. Wounds were checked for hemostasis. Breast tissue was then mobilized over the chest wall and below the subcutaneous tissue. Breast tissue was the reapproximated to the inferior margin of the breast tissue. This was done using interrupted 3-0 Polysorb sutures. Subcutaneous tissue and dermis were then reapproximated using interrupted 3-0 Polysorb sutures. Skin was then closed using a running subcuticular 4-0 Polysorb suture. Steri-Strips, Telfa, and Tegaderm were then applied. The patient tolerated the procedure well. Sponge, instrument, and needle counts reported as correct. The patient was transferred to PACU in stable condition.
--- NOTE | 2021-07-02 13:52 | PC.NURSE ---
PATIENT RIGHT EYE SCHLERA NOTED TO BE RED. PER ANESTHESIA WAS SAME PREOP
[2021-07-02] MEDS: Acetaminophen 325 MG TABLET 650 MG PO (14:44)
[2021-07-02] MEDS: fentaNYL citrate/PF 100 MCG/2 ML VIAL 25 MCG IVPUSH ×2 (14:45→15:07)
== END 2021-07-02 16:20 | disposition home or self-care (01) ==
PROVIDERS: PCP Internal Medicine; Visit Provider Surgery
PROC: (CPT 19301; principal; 2021-07-02 11:00)
PROC: (CPT 19301; 2021-07-02 11:00)
PROC: (CPT 19301; 2021-07-02 11:00)
DX: C50.512 Malignant neoplasm of lower-outer quadrant of left female breast (principal); Z17.0 Estrogen receptor positive status [ER+]; M81.0 Age-related osteoporosis without current pathological fracture; I10 Essential (primary) hypertension; E83.52 Hypercalcemia; E78.00 Pure hypercholesterolemia, unspecified; K21.9 Gastro-esophageal reflux disease without esophagitis; Z79.01 Long term (current) use of anticoagulants; Z95.2 Presence of prosthetic heart valve; Z79.82 Long term (current) use of aspirin; Z79.899 Other long term (current) drug therapy; Z88.8 Allergy status to other drugs, medicaments and biological substances
CPT/HCPCS: 19301; 38525; 19285; 77062; 77066; 78195; 88307; 88329; 88341; 88342; A4648; A9520; J0690; J3010

== ENCOUNTER → 2021-07-11 09:49 | Outpatient (BNVA) | payer MEDICARE, OTHER, SELFPAY | PROVIDERS: PCP Internal Medicine; Referring Provider Internal Medicine; Visit Provider Surgery | DX: C50.512 Malignant neoplasm of lower-outer quadrant of left female breast (principal); Z17.0 Estrogen receptor positive status [ER+]; Z98.890 Other specified postprocedural states | CPT/HCPCS: 99212 ==

== ENCOUNTER → 2021-07-18 15:08 | Outpatient (BNV) | payer MEDICARE, OTHER, SELFPAY | PROVIDERS: PCP Internal Medicine; Referring Provider Surgery; Visit Provider Internal Medicine | DX: C50.912 Malignant neoplasm of unspecified site of left female breast (principal) | CPT/HCPCS: 99204; 99212; 99213; 99214; 99215 ==

== ENCOUNTER 2021-07-24 13:41 | Outpatient (REF) | payer MEDICARE, OTHER, SELFPAY ==
--- NOTE | ~2021-07-24 | MM_ITS ---
EXAMINATION: BONE DENSITOMETRY CLINICAL INDICATION: Osteoporosis, evaluate response to Prolia. COMPARISON: Previous BD dated 06/10/2018 and baseline BD dated 09/17/2006. TECHNIQUE: Using a [employer] DXA System (software version: 13.1) manufactured by [employer], dual-energy x-ray absorptiometry was performed of the lumbar spine and left hip. The images are of good technical quality. Summary results are attached. FINDINGS: AP SPINE L1-L4: Current: BMD 0.926 g/cm2, Z-score 0.1, T-score -2.1, osteopenia, 8.6% increase from previous, 15.3% increase from baseline (<5% change is not significant). Prior: BMD 0.853 g/cm2. Baseline: BMD 0.803 g/cm2. LEFT FEMUR, NECK: Current: BMD 0.720 g/cm2, Z-score 0.2, T-score -2.3, osteopenia. Prior: BMD 0.703 g/cm2. Baseline: BMD 0.727 g/cm2. LEFT FEMUR, TOTAL: Current: BMD 0.758 g/cm2, Z-score 0.4, T-score -2.0, osteopenia, 4.1% increase from previous, 2.0% increase from baseline (<5% change is not significant). Prior: BMD 0.728 g/cm2. Baseline: BMD 0.743 g/cm2. IDENTIFIED RISK FACTORS: Renal, dementia, low calcium intake. Early menopause, secondary osteoporosis. HISTORY OF FRACTURE: None listed. MEDICATIONS: Calcium supplements or multivitamin, vitamin D, Prolia. MM/XR DEXA axial skeleton IMPRESSION: 1. DIAGNOSIS: Osteopenia based on the lowest T-score value of -2.3 in the femoral neck applying World Health Organization criteria. 2. 10-YEAR FRACTURE RISK PREDICTION, FRAX: Major osteoporotic fracture (clinical spine, forearm, hip or shoulder) 17.3%. Hip fracture 6.0%. 3. Treatment Recommendations: NOF guidelines recommend consideration for treatment in postmenopausal women and men age 50 and older presenting with the following: -A hip or vertebral (clinical or morphometric) fracture. -T-score less than or equal to -2.5 at the femoral neck or spine after appropriate evaluation to exclude secondary causes. -Low bone mass at the hip or spine and a 10-year fracture probability by FRAX of greater than or equal to 3% for hip fracture or greater than or equal to 20% for major osteoporotic fracture based on the [place] adapted WHO algorithm. 4. Other Recommendations: All treatment decisions require clinical judgment and consideration of individual patient factors, including patient preferences, comorbidities, previous drug use, risk factors not captured in the FRAX model (e.g. frailty, falls, vitamin D deficiency, increased bone turnover, interval significant decline in bone density) and possible under or overestimation of fracture risk by FRAX. Additional medical evaluation for secondary cause of low bone mineral density may be appropriate. FUTURE SCAN RECOMMENDATION: People with diagnosed cases of osteoporosis or at high risk for fracture should have regular bone mineral density tests. For patients eligible for Medicare, routine testing is allowed once every 2 years. The testing frequency can be increased to one year for patients who have rapidly progressing disease, those who are receiving or discontinuing medical therapy to restore bone mass, or have additional risk factors.
== END 2021-07-24 13:42 | disposition home or self-care (01) ==
LOC: HO.MAMMO 13:41
PROVIDERS: Visit Provider Internal Medicine
DX: Z13.820 Encounter for screening for osteoporosis (principal); M81.0 Age-related osteoporosis without current pathological fracture; Z78.0 Asymptomatic menopausal state; Z79.899 Other long term (current) drug therapy
CPT/HCPCS: 77080

== ENCOUNTER → 2021-08-08 09:49 | Outpatient (BNVA) | payer MEDICARE, OTHER, SELFPAY | PROVIDERS: PCP Internal Medicine; Referring Provider Internal Medicine; Visit Provider Surgery | DX: C50.312 Malignant neoplasm of lower-inner quadrant of left female breast (principal); Z17.0 Estrogen receptor positive status [ER+]; E83.52 Hypercalcemia; M81.0 Age-related osteoporosis without current pathological fracture; I10 Essential (primary) hypertension; E78.00 Pure hypercholesterolemia, unspecified; Z88.8 Allergy status to other drugs, medicaments and biological substances; Z79.82 Long term (current) use of aspirin; Z79.899 Other long term (current) drug therapy | CPT/HCPCS: 99212 ==

== ENCOUNTER 2021-10-07 07:28 | Outpatient (REF) | payer MEDICARE, OTHER, SELFPAY ==
[2021-10-07 07:44] LABS: MANUAL DIFF FLAG NO
[2021-10-07 08:25] LABS: Basophils Percent Auto 0.2 % (0-2); Eosinophils Absolute Auto 0.1 X10*3/uL (0.0-0.4); Eosinophils Percent Auto 1.1 % (0-4); Hemoglobin 13.5 g/dl (12.0-16.0); Imm Gran Abs Auto 0.01 X10*3/uL (0.00-0.03); Imm Gran Pct Auto 0.2 % (0.0-0.4); Lymphocytes Absolute Auto 0.5 X10*3/uL (1.2-4.9); Lymphocytes Percent Auto 10.1 % (20-40); Mean Corpuscular HGB Conc 32.9 g/dl (31.0-35.0); Mean Corpuscular Hemoglobin 31.5 pg (27.0-33.0); Mean Corpuscular Volume 95.8 fL (80.0-98.0); Mean Platelet Volume 10.4 fL (9.4-12.3); Monocytes Absolute Auto 0.3 X10*3/uL (0.1-1.2); Monocytes Percent Auto 5.6 % (2-11); Neutrophils Absolute Auto 3.7 x10*3/uL (2.0-8.3); Neutrophils Percent Auto 82.8 % (45-73); Platelet Count 135 X10*3/uL (160-400); Red Blood Count 4.28 X10*6/uL (4.20-5.50); White Blood Count 4.5 X10*3/uL (4.8-10.8)
[2021-10-07 08:51] LABS: Alanine Aminotransferase 19 U/L (0-31); Albumin Level 4.1 g/dL (3.5-5.0); Alkaline Phosphatase 69 U/L (39-117); Anion Gap 11 (12-20); Aspartate Amino Transferase 25 U/L (5-31); Bilirubin Total 0.8 mg/dL (0.0-1.0); Blood Urea Nitrogen 14 mg/dL (9-16); Carbon Dioxide 29 mmol/L (22-29); Chloride 106 mmol/L (96-108); Cholesterol 196 mg/dL; Estimated Glomerular Filt Rate > 60; Glucose Fasting 91 mg/dL (60-99); HDL Cholesterol 76 mg/dL; LDL Cholesterol Calculated 103 mg/dl; Potassium 3.8 mmol/L (3.3-5.1); Sodium 142 mmol/L (135-145); Total Protein 6.9 g/dL (6.5-8.0); Triglycerides 86 mg/dL
[2021-10-07 08:55] LABS: Appearance Urine CLEAR; Color Urine YELLOW; Glucose Urine UA NEG (NEG); Leukocyte Esterase Urine NEG (NEG); Nitrite Urine NEG (NEG); Specific Gravity - Urine 1.015 (1.005-1.025); Urine Blood NEG (NEG); Urine Ketones NEG (NEG); Urine Protein NEG (NEG-TRACE)
[2021-10-07 09:03] LABS: Calcium 11.7 mg/dL (8.4-10.2)
[2021-10-07 09:12] LABS: TSH reflex Free T4 1.95 uIU/mL (0.32-4.0); Vitamin D 25-OH Total 24.7 ng/mL (>30)
== END 2021-10-07 07:29 | disposition home or self-care (01) ==
LOC: HO.LAB 07:28
PROVIDERS: PCP Internal Medicine; Visit Provider Internal Medicine
DX: E83.52 Hypercalcemia (principal); E55.9 Vitamin D deficiency, unspecified; I10 Essential (primary) hypertension; E78.00 Pure hypercholesterolemia, unspecified
CPT/HCPCS: 36415; 80053; 80061; 81003; 82306; 84443; 85025

== ENCOUNTER → 2021-11-11 09:33 | Outpatient (BNVA) | payer MEDICARE, OTHER, SELFPAY | PROVIDERS: PCP Internal Medicine; Referring Provider Internal Medicine; Visit Provider Surgery | DX: C50.912 Malignant neoplasm of unspecified site of left female breast (principal); Z79.811 Long term (current) use of aromatase inhibitors; Z17.0 Estrogen receptor positive status [ER+]; Z92.3 Personal history of irradiation | CPT/HCPCS: 99212 ==

== ENCOUNTER 2021-11-12 13:35 | Outpatient (REF) | payer MEDICARE, OTHER, SELFPAY ==
[2021-11-12 14:44] LABS: Albumin Level 4.3 g/dL (3.5-5.0); Estimated Glomerular Filt Rate > 60
[2021-11-13 15:51] LABS: Calcium (PTHI) 11.1 mg/dL (8.6-10.4); PTHI 125 pg/mL (16-77)
== END 2021-11-12 13:36 | disposition home or self-care (01) ==
LOC: HO.LAB 13:35
PROVIDERS: Absent Provider Internal Medicine; PCP Internal Medicine; Visit Provider Internal Medicine Endocrinology, Diabetes & Metabolism
DX: E83.52 Hypercalcemia (principal)
CPT/HCPCS: 36415; 82040; 82565; 83970

== ENCOUNTER 2021-11-19 08:53 | Outpatient (REF) | payer MEDICARE, OTHER, SELFPAY ==
[2021-11-19 10:13] LABS: Creatinine, mg/dL 58.16
[2021-11-19 10:19] LABS: Creatinine, 24Hr Urine 0.3 G/Day (1.0-2.0); Total Volume 24 Hour Urine 600 mL
[2021-11-21 18:41] LABS: Calcium, 24 Hr Urine 21 mg/24 h; Calcium/Creatinine Ratio 60 mg/g creat (30-275); Creatinine 24Hr Urine 0.35 g/24 h (0.50-2.15)
== END 2021-11-19 08:54 | disposition home or self-care (01) ==
LOC: HO.LNP 08:53
PROVIDERS: Visit Provider Internal Medicine Endocrinology, Diabetes & Metabolism
DX: E83.52 Hypercalcemia (principal)
CPT/HCPCS: 82340; 82570

== ENCOUNTER → 2021-11-25 08:24 | Outpatient (BNVA) | payer MEDICARE, OTHER, SELFPAY | PROVIDERS: PCP Internal Medicine; Visit Provider Internal Medicine Endocrinology, Diabetes & Metabolism | DX: M81.0 Age-related osteoporosis without current pathological fracture (principal); E83.52 Hypercalcemia | CPT/HCPCS: 96372; 99212; J0897 ==

== ENCOUNTER 2022-01-29 07:40 | Outpatient (REF) | payer MEDICARE, OTHER, SELFPAY ==
[2022-01-29 07:54] LABS: MANUAL DIFF FLAG NO
[2022-01-29 08:15] LABS: Basophils Percent Auto 0.5 % (0-2); Hematocrit 41.6 % (37.0-47.0); Hemoglobin 13.8 g/dl (12.0-16.0); Imm Gran Abs Auto 0.01 X10*3/uL (0.00-0.03); Imm Gran Pct Auto 0.2 % (0.0-0.4); Lymphocytes Absolute Auto 0.5 X10*3/uL (1.2-4.9); Lymphocytes Percent Auto 11.7 % (20-40); Mean Corpuscular HGB Conc 33.2 g/dl (31.0-35.0); Mean Corpuscular Hemoglobin 31.7 pg (27.0-33.0); Mean Corpuscular Volume 95.6 fL (80.0-98.0); Mean Platelet Volume 10.4 fL (9.4-12.3); Monocytes Absolute Auto 0.3 X10*3/uL (0.1-1.2); Monocytes Percent Auto 6.5 % (2-11); Neutrophils Absolute Auto 3.4 x10*3/uL (2.0-8.3); Neutrophils Percent Auto 80.1 % (45-73); Platelet Count 145 X10*3/uL (160-400); Red Blood Count 4.35 X10*6/uL (4.20-5.50); Red Cell Distribution Width 13.1 % (11.0-16.0); White Blood Count 4.2 X10*3/uL (4.8-10.8)
[2022-01-29 08:42] LABS: Alanine Aminotransferase 14 U/L (0-31); Albumin Level 4.2 g/dL (3.5-5.0); Alkaline Phosphatase 70 U/L (39-117); Anion Gap 12 (12-20); Aspartate Amino Transferase 20 U/L (5-31); Bilirubin Total 0.7 mg/dL (0.0-1.0); Blood Urea Nitrogen 14 mg/dL (9-16); Carbon Dioxide 28 mmol/L (22-29); Chloride 107 mmol/L (96-108); Cholesterol 178 mg/dL; Estimated Glomerular Filt Rate > 60; Glucose Fasting 93 mg/dL (60-99); HDL Cholesterol 77 mg/dL; LDL Cholesterol Calculated 87 mg/dl; Potassium 3.9 mmol/L (3.3-5.1); Sodium 143 mmol/L (135-145); Total Protein 6.8 g/dL (6.5-8.0); Triglycerides 71 mg/dL
[2022-01-29 09:04] LABS: TSH reflex Free T4 1.45 uIU/mL (0.32-4.0); Vitamin D 25-OH Total 25.5 ng/mL (>30)
[2022-01-29 10:34] LABS: Appearance Urine Clear; Color Urine Yellow; Glucose Urine UA Negative (Negative); Leukocyte Esterase Urine Negative (Negative); Nitrite Urine Negative (Negative); Urine Blood Negative (Negative); Urine Ketones Negative (Negative); Urine Protein Negative (Neg-Trace)
== END 2022-01-29 07:41 | disposition home or self-care (01) ==
LOC: HO.LAB 07:40
PROVIDERS: PCP Internal Medicine; Visit Provider Internal Medicine
DX: I10 Essential (primary) hypertension (principal); E55.9 Vitamin D deficiency, unspecified; E78.00 Pure hypercholesterolemia, unspecified
CPT/HCPCS: 36415; 80053; 80061; 81003; 82306; 84443; 85025

== ENCOUNTER → 2022-02-17 09:59 | Outpatient (BNVA) | payer MEDICARE, OTHER, SELFPAY | PROVIDERS: PCP Internal Medicine; Visit Provider Surgery | DX: C50.512 Malignant neoplasm of lower-outer quadrant of left female breast (principal); Z79.811 Long term (current) use of aromatase inhibitors; Z17.0 Estrogen receptor positive status [ER+]; Z79.899 Other long term (current) drug therapy | CPT/HCPCS: 99212 ==

== ENCOUNTER → 2022-05-21 08:53 | Outpatient (BNVA) | payer MEDICARE, OTHER, SELFPAY | PROVIDERS: PCP Internal Medicine; Visit Provider Surgery | DX: C50.512 Malignant neoplasm of lower-outer quadrant of left female breast (principal); Z17.0 Estrogen receptor positive status [ER+]; M81.0 Age-related osteoporosis without current pathological fracture; I10 Essential (primary) hypertension; E78.00 Pure hypercholesterolemia, unspecified; E55.9 Vitamin D deficiency, unspecified; Z92.3 Personal history of irradiation; Z79.890 Hormone replacement therapy | CPT/HCPCS: 99212 ==

== ENCOUNTER → 2022-05-25 12:48 | Outpatient (BNVA) | payer MEDICARE, OTHER, SELFPAY | PROVIDERS: PCP Internal Medicine; Visit Provider Internal Medicine | DX: I10 Essential (primary) hypertension (principal); Z95.3 Presence of xenogenic heart valve | CPT/HCPCS: 93005; 99212 ==

== ENCOUNTER 2022-06-03 08:32 | Outpatient (REF) | payer MEDICARE, OTHER, SELFPAY ==
--- NOTE | ~2022-06-03 | MM_ITS ---
EXAMINATION: MM DIAGNOSTIC DIGITAL BREAST TOMOSYNTHESIS, BILATERAL CLINICAL INFORMATION: Left lumpectomy July 02, 2021 COMPARISON: Mammography: July 02, 2021 and studies dating back to June 05, 2015 TECHNIQUE: Digital breast tomosynthesis is performed in both the craniocaudal and mediolateral oblique views along with computer-aided detection (CAD). Synthesized 2D images are generated from the tomosynthesis. Additional spot magnification views performed in craniocaudal and 90 degree mediolateral views. FINDINGS: The breasts are heterogeneously dense, which may obscure small masses (ACR BI-RADS breast composition Category c). There is a stable parenchymal pattern within the right breast with no new abnormal dominant mass or suspicious grouping of microcalcifications. Postsurgical changes seen within the left breast with no suspicious grouping of microcalcifications identified. Results are provided to the patient at time of visit by the technologist. MM/MM tomosynthesis diagnostic BI IMPRESSION: Status post left breast lumpectomy. No specific mammographic findings to suggest malignancy. ASSESSMENT: BI-RADS 2: Benign RECOMMENDATION: Diagnostic mammography at time of next annual exam, due in 12 months. This patient's information was entered into a reminder system with a target due date for their next mammogram.
== END 2022-06-03 08:33 | disposition home or self-care (01) ==
LOC: HO.MAMMO 08:32
PROVIDERS: Visit Provider Surgery
DX: Z85.3 Personal history of malignant neoplasm of breast (principal)
CPT/HCPCS: 77062; 77066

== ENCOUNTER → 2022-06-11 09:48 | Outpatient (REF) | payer MEDICARE, OTHER, SELFPAY ==
--- NOTE | 2022-06-11 09:51 | CA_ITS ---
Transthoracic Echocardiogram Patient (Last, First, Middle): Jordon Mobley E Gender: Female Date of : 1935 Age: 86 Procedure Date: 06/11/2022 Procedure Type: Transthoracic Echocardiogram Location: OP Height: 160.02 cm Weight: 53.98 kg BSA: 1.55 m2 Heart Rate: bpm BP: 130 / 68 mmHg Event Coordinator Marketing And Sales: TO Referring MD: Keo Tovar MD Symptoms: Z95.3 - Presence of xenogenic heart valve Study Quality: Fair ECG Rhythm: Sinus Conclusions: - The left ventricular systolic function is normal. The visually estimated ejection fraction is between 65-70%. - A bioprosthetic aortic valve is present. The prosthetic aortic valve appears to be functioning abnormally. - There is mild dilatation of the ascending aorta measuring 4.20 cm. Findings Left Ventricle Normal left ventricular cavity size. There is mildly increased left ventricular wall thickness. The left ventricular systolic function is normal. The visually estimated ejection fraction is between 65-70%. There is no evidence of regional wall motion abnormalities. Evidence suggests grade I (mild) diastolic dysfunction. Right Ventricle Normal right ventricular cavity size. There is mildly decreased right ventricular systolic function. Atria Both atria are normal in size. Aortic Valve A bioprosthetic aortic valve is present. The prosthetic aortic valve appears to be functioning abnormally. The peak aortic velocity is 3.70 m/s with a calculated peak gradient of 55 mmHg. The mean gradient is 30 mmHg. The aortic valve area is 0.68 cm2. There is no aortic valve regurgitation. Acceleration time 95ms. Overall, probable patient prosthesis mismatch +/- stenosis. Mitral Valve The mitral valve appears normal. There is mild mitral annular calcification. There is trace mitral valve regurgitation. There is no mitral valve stenosis. Pulmonic Valve There is trace pulmonic valve regurgitation. Tricuspid Valve There is mild tricuspid valve regurgitation. There is no evidence of pulmonary hypertension. Great Vessels There is mild dilatation of the ascending aorta measuring 4.20 cm. Venous The inferior vena cava is normal in size and collapses greater than 50% with inspiration. Pericardium/Pleural There is a small loculated pericardial effusion overlying the left ventricle and right atrium. Prior Study Comparison Changes noted compared to prior study dated: 04/20/2021. Gradients across the aortic valve higher. Pericardial effusion not described in prior study. Measurements 2D Linear Measurements IVSd: 1.15 0.6-0.9/0.6-1.0 cm LVIDd: 4.09 3.9-5.3/4.2-5.9 cm LVIDd Index: 2.64 2.4-3.2/2.2-3.1 cm/m2 LVIDs: 2.72 2.0-3.6 cm LVPWd: 1.07 0.7-1.1 cm LA Diam: 3.30 2.7-3.8/3.0-4.0 cm LAIDs Index: 2.13 1.5-2.3 cm/m2 LV Mass: 190.13 67-162/88-224 g LV Mass Index: 122.67 43-95/49-115 g/m2 LVOT Diam: 1.70 3.0+(-)1.3 cm 2D Systolic Function EF 4C: 59.90 >55% Mitral Valve MV Pk E: 0.57 MV PK A: 0.93 MV Decel Time: 301.00 E/A: 0.60 E'Lateral: 4.13 E'Medial: 4.68 E/E' Med: 12.30 E/E' Lat: 13.90 PHT: 88.00 MVA PHT: 2.50 Decel [place]: 1.91 Aortic Valve AoV Pk Andrew: 3.70 AoV Mn Andrew: 2.55 AoV VTI: 0.71 AoV Pk Grad: 55.00 Aov Mn Grad: 30.00 ROSSY Cont.VTI: 0.68 LVOT LVOT Pk Andrew: 1.17 LVOT Mn Andrew: 0.80 LVOT VTI: 0.21 LVOT Pk Grad: 5.00 LVOT Mn Grad: 3.00 LVOT Diam: 1.70 LVOT Area: 2.27 Diastolic Function MV Pk E: 0.57 MV Pk A: 0.93 E/A: 0.60 E'Medial: 4.68 E/E' Med: 12.30 E' Laterial: 4.13 E/E' Lat: 13.90 Right Ventricle TAPSE (mm): 13.00 TVS' Andrew: 9.25 Tricuspid Valve TR Pk Andrew: 2.47 TR Pk Grad: 24.00 RA Press: 3.00 RVSP: 27.00 Great Vessels Aorta Sinus of Valsalva: 3.32 2.0-3.5 cm Ao Asc: 4.20 2.1-3.4 cm Ao Arch: 3.30 Updated in Other Vendor System with Status of Final Keo Tovar MD electronically signed on 06/13/2022 12:09:59 PM with status of Final
== END ==
LOC: HO.CARD 09:48
PROVIDERS: Visit Provider Internal Medicine
DX: Z95.3 Presence of xenogenic heart valve (principal)
CPT/HCPCS: 93306

== ENCOUNTER 2022-07-06 13:52 | Emergency (ER) | payer MEDICARE, OTHER, SELFPAY ==
--- NOTE | ~2022-07-06 | XR_ITS ---
EXAMINATION: XR CHEST CLINICAL INFORMATION: Syncope. COMPARISON: None TECHNIQUE: 2 views of the chest were obtained. XR/XR chest 2V FINDINGS/IMPRESSION: There is no acute radiographic finding. No acute infiltrate, effusion, pneumothorax is seen. There are biapical fibrotic changes with mild retraction of the bharati. The heart is upper normal in size. The patient is status post aortic valve replacement. The aorta is mildly atherosclerotic and uncoiled, raising suspicion for hypertension. Suspect decreased bone mineral density. Mild degenerative changes of the spine. Status post median sternotomy.
--- NOTE | 2022-07-06 14:03 | ED.FALL ---
HPI - Fall General Chief Complaint: Fall Stated Complaint: fall Related Data Home Medications Medication Instructions Recorded Confirmed aspirin 81 mg tablet,delayed 81 mg PO DAILY 05/01/20 06/22/22 release (Adult Aspirin Regimen) multivitamin,mo-tbpj-navxdifi 1 tab PO DAILY 05/01/20 06/22/22 (Complete Multivitamin tablet) Previous Rx's Medication Instructions Recorded cholecalciferol (vitamin D3) 25 25 mcg PO DAILY 90 days #90 caps 10/29/20 mcg (1,000 unit) capsule amlodipine 2.5 mg tablet 2.5 mg PO DAILY 90 days #90 tabs 06/17/21 nystatin 100,000 unit/gram topical 1 appl topical BID #30 grams 11/10/21 powder (Nystop) letrozole 2.5 mg tablet 2.5 mg PO DAILY #30 tabs 03/03/22 simvastatin 5 mg tablet 5 mg PO BEDTIME 90 days #90 tabs 05/19/22 Allergies Allergy/AdvReac Type Severity Reaction Status Date / Time hydrochlorothiazide Allergy Unknown upset Verified 07/06/22 14:05 stomach,dizziness lisinopril Allergy Unknown SWOLLEN Verified 07/06/22 14:05 THROAT/angioedema metoprolol Allergy Unknown severe Verified 07/06/22 14:05 dizziness esomeprazole [Nexium] AdvReac Unknown headaches Verified 07/06/22 14:05 PMFSH Past Medical History Medical History Benign essential hypertension Familial hypocalciuric hypercalcemia syndrome GERD without esophagitis History of aortic valve stenosis 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 Osteoporosis Pure hypercholesterolemia Vitamin D deficiency Surgical History History of lumpectomy of left breast (~07/02/21) Hx of aortic valve replacement (~07/04/12) Hx of cataract removal with insertion of prosthetic lens (~08/2017) Family History Family History Father Diabetes CVA (cerebral vascular accident) CVD (cardiovascular disease) Myocardial infarct Mother Emphysema of lung Alcoholism /alcohol abuse Social History Social History Household Members: None Housing: Condominium Are you a primary care transition mgr to a significant other at home: No Do you presently have visiting nurse or other home services: No Alcohol intake: current Alcohol intake frequency: holidays/special occasions only Alcohol type: wine Patient Tobacco Use Status: Never used Tobacco e-Cigarette/Vaping Use: Never Used Second Hand Smoke Exposure: Yes service: No Current occupational status: retired Cognitive needs: No Hearing needs: Yes Vision needs: Yes Physical Exam Vital Signs: Vital Signs: Last Vital Signs Temp 97.5 F 07/06/22 14:11 Pulse 77 07/06/22 14:11 Resp 18 07/06/22 14:11 BP 125/65 07/06/22 14:11 Pulse Ox 100 07/06/22 14:11 O2 Del Method 07/06/22 14:11 BMI result Body Mass Index 21.0 Course Course Course Narrative: This is rapid medical exam. Deferred additional HPI, ROS, PE to primary provider. 86 yo female with past medical history of HLD, HTN, breast cancer s/p removal/radiation on oral chemotherapy, TAVR w/ bovine valve here with complaints of weakness with fall to the ground, felt vision go black and felt SOB but NO LOC. No injury from fall. Feels good now. Per daughter patient told recently she needs new heart valve. WIll obtain labs, EKG, CXR, covid screen. VSS Medical Decision Making Lab Data 07/06/22 14:24 07/06/22 14:24 Labs: Lab Results 07/06/22 07/06/22 07/06/22 Range/Units 14:24 14:24 14:24 WBC 7.3 (4.8-10.8) X10*3/uL RBC 4.07 L (4.20-5.50) X10*6/uL Hgb 12.7 (12.0-16.0) g/dl Hct 38.8 (37.0-47.0) % MCV 95.3 (80.0-98.0) fL MCH 31.2 (27.0-33.0) pg MCHC 32.7 (31.0-35.0) g/dl RDW 12.5 (11.0-16.0) % Plt Count 142 L (160-400) X10*3/uL MPV 10.2 (9.4-12.3) fL Immature Gran % (Auto) 0.4 (0.0-0.4) % Neut % (Auto) 89.7 H (45-73) % Lymph % (Auto) 5.1 L (20-40) % [place] % (Auto) 4.4 (2-11) % Eos % (Auto) 0.1 (0-4) % Baso % (Auto) 0.3 (0-2) % Lymph # (Auto) 0.4 L (1.2-4.9) X10*3/uL [place] # (Auto) 0.3 (0.1-1.2) X10*3/uL Eos # (Auto) 0.0 (0.0-0.4) X10*3/uL Baso # (Auto) 0.0 (0.0-0.2) X10*3/uL Abs Immat Gran (auto) 0.03 (0.00-0.03) X10*3/uL Absolute Neuts (auto) 6.5 (2.0-8.3) x10*3/uL Absolute Nucleated RBC 0.000 (0.0-0.012) X10*3/uL Nucleated RBC % (auto) 0.0 (0.0-0.2) /100WBC PT (10.0-13.1) SEC INR (0.9-1.1) Sodium 137 (135-145) mmol/L Potassium 4.2 (3.3-5.1) mmol/L Chloride 104 (96-108) mmol/L Carbon Dioxide 26 (22-29) mmol/L Anion Gap 11 L (12-20) BUN 16 (9-16) mg/dL Creatinine 0.77 (0.5-1.4) mg/dL Estim Creat Clear Calc 44.1 Estimated GFR > 60 Random Glucose 107 (60-115) mg/dL Calcium 11.0 H (8.4-10.2) mg/dL Magnesium 2.4 (1.6-2.6) mg/dL Total Bilirubin 0.6 (0.0-1.0) mg/dL Direct Bilirubin 0.2 (0.0-0.5) mg/dL AST 20 (5-31) U/L ALT 13 (0-31) U/L Alkaline Phosphatase 79 (39-117) U/L Troponin I High Sens 4.9 (<3.5-17.0) ng/L Total Protein 6.4 L (6.5-8.0) g/dL Albumin 4.0 (3.5-5.0) g/dL COVID-19 (DYLAN) (Negative) COVID-19 Clin Com 07/06/22 07/06/22 Range/Units 14:24 14:24 WBC (4.8-10.8) X10*3/uL RBC (4.20-5.50) X10*6/uL Hgb (12.0-16.0) g/dl Hct (37.0-47.0) % MCV (80.0-98.0) fL MCH (27.0-33.0) pg MCHC (31.0-35.0) g/dl RDW (11.0-16.0) % Plt Count (160-400) X10*3/uL MPV (9.4-12.3) fL Immature Gran % (Auto) (0.0-0.4) % Neut % (Auto) (45-73) % Lymph % (Auto) (20-40) % [place] % (Auto) (2-11) % Eos % (Auto) (0-4) % Baso % (Auto) (0-2) % Lymph # (Auto) (1.2-4.9) X10*3/uL [place] # (Auto) (0.1-1.2) X10*3/uL Eos # (Auto) (0.0-0.4) X10*3/uL Baso # (Auto) (0.0-0.2) X10*3/uL Abs Immat Gran (auto) (0.00-0.03) X10*3/uL Absolute Neuts (auto) (2.0-8.3) x10*3/uL Absolute Nucleated RBC (0.0-0.012) X10*3/uL Nucleated RBC % (auto) (0.0-0.2) /100WBC PT 11.2 (10.0-13.1) SEC INR 1.0 (0.9-1.1) Sodium (135-145) mmol/L Potassium (3.3-5.1) mmol/L Chloride (96-108) mmol/L Carbon Dioxide (22-29) mmol/L Anion Gap (12-20) BUN (9-16) mg/dL Creatinine (0.5-1.4) mg/dL Estim Creat Clear Calc Estimated GFR Random Glucose (60-115) mg/dL Calcium (8.4-10.2) mg/dL Magnesium (1.6-2.6) mg/dL Total Bilirubin (0.0-1.0) mg/dL Direct Bilirubin (0.0-0.5) mg/dL AST (5-31) U/L ALT (0-31) U/L Alkaline Phosphatase (39-117) U/L Troponin I High Sens (<3.5-17.0) ng/L Total Protein (6.5-8.0) g/dL Albumin (3.5-5.0) g/dL COVID-19 (DYLAN) Negative (Negative) COVID-19 Clin Com See Note Discharge Plan Discharge Clinical Impression: Fall Patient Disposition: Elopement Prescriptions: No Action simvastatin 5 mg tablet 5 mg PO BEDTIME 90 Days Qty: 90 1RF nystatin [Nystop] 100,000 unit/gram Powder 1 appl TOPICAL BID Qty: 30 0RF letrozole 2.5 mg Tablet 2.5 mg PO DAILY Qty: 30 5RF amlodipine 2.5 mg tablet 2.5 mg PO DAILY 90 Days Qty: 90 3RF Complete Multivitamin Tablet 1 tab PO DAILY aspirin [Adult Aspirin Regimen] 81 mg tablet,delayed release (DR/EC) 81 mg PO DAILY cholecalciferol (vitamin D3) 25 mcg (1,000 unit) capsule 25 mcg PO DAILY 90 Days Qty: 90 2RF Interventions: ED Discharge Assessment Last Done: 07/06/22 23:06 Discharge Date/Time: 07/06/22 23:06
[2022-07-06 14:05] VITALS: BP 125/65; PULSE 77; RESP 18; TEMP 36.4; O2SAT 100
--- NOTE | 2022-07-06 14:07 | ECG_ITS ---
Test Reason : weakness Blood Pressure : / mmHG Vent. Rate : 070 BPM Atrial Rate : 070 BPM P-R Int : 170 ms QRS Dur : 088 ms QT Int : 376 ms P-R-T Axes : 077 -06 043 degrees QTc Int : 406 ms Normal sinus rhythm Normal ECG When compared with ECG of 12-FEB-2020 07:46, No significant change was found Referred By: Munira Alicea Electronically Signed By:Alok De León
[2022-07-06 14:11] VITALS: BP 125/65; PULSE 77; RESP 18; TEMP 36.4; O2SAT 100; BMI 21.0
[2022-07-06 14:35] LABS: MANUAL DIFF FLAG NO
[2022-07-06 14:42] LABS: Prothrombin Time 11.2 SEC (10.0-13.1)
[2022-07-06 14:46] LABS: Basophils Percent Auto 0.3 % (0-2); Eosinophils Percent Auto 0.1 % (0-4); Hematocrit 38.8 % (37.0-47.0); Hemoglobin 12.7 g/dl (12.0-16.0); Imm Gran Abs Auto 0.03 X10*3/uL (0.00-0.03); Imm Gran Pct Auto 0.4 % (0.0-0.4); Lymphocytes Absolute Auto 0.4 X10*3/uL (1.2-4.9); Lymphocytes Percent Auto 5.1 % (20-40); Mean Corpuscular HGB Conc 32.7 g/dl (31.0-35.0); Mean Corpuscular Hemoglobin 31.2 pg (27.0-33.0); Mean Corpuscular Volume 95.3 fL (80.0-98.0); Mean Platelet Volume 10.2 fL (9.4-12.3); Monocytes Absolute Auto 0.3 X10*3/uL (0.1-1.2); Monocytes Percent Auto 4.4 % (2-11); Neutrophils Absolute Auto 6.5 x10*3/uL (2.0-8.3); Neutrophils Percent Auto 89.7 % (45-73); Platelet Count 142 X10*3/uL (160-400); Red Blood Count 4.07 X10*6/uL (4.20-5.50); Red Cell Distribution Width 12.5 % (11.0-16.0); White Blood Count 7.3 X10*3/uL (4.8-10.8)
[2022-07-06 15:02] LABS: COVID-19 Test Negative (Negative); IDNOW Serial# BCCEAD1C; Troponin-I High Sensitivity 4.9 ng/L (<3.5-17.0)
[2022-07-06 15:03] LABS: Alanine Aminotransferase 13 U/L (0-31); Alkaline Phosphatase 79 U/L (39-117); Anion Gap 11 (12-20); Aspartate Amino Transferase 20 U/L (5-31); Bilirubin Direct 0.2 mg/dL (0.0-0.5); Bilirubin Total 0.6 mg/dL (0.0-1.0); Blood Urea Nitrogen 16 mg/dL (9-16); Carbon Dioxide 26 mmol/L (22-29); Chloride 104 mmol/L (96-108); Creatinine Clr Calc Pharmacy 44.1; Estimated Glomerular Filt Rate > 60; Glucose Random 107 mg/dL (60-115); Magnesium 2.4 mg/dL (1.6-2.6); Potassium 4.2 mmol/L (3.3-5.1); Sodium 137 mmol/L (135-145); Total Protein 6.4 g/dL (6.5-8.0)
== END 2022-07-06 23:06 | disposition left against medical advice (07) ==
PROVIDERS: Nurse Practitioner Family; Emergency Provider Emergency Medicine
DX: S29.9XXA Unspecified injury of thorax, initial encounter (principal); R53.1 Weakness; R07.89 Other chest pain; W01.0XXA Fall on same level from slipping, tripping and stumbling without subsequent striking against object, initial encounter; Y93.9 Activity, unspecified; Y92.9 Unspecified place or not applicable; Y99.9 Unspecified external cause status; Z20.822 Contact with and (suspected) exposure to COVID-19; Z20.828 Contact with and (suspected) exposure to other viral communicable diseases; Z79.899 Other long term (current) drug therapy
CPT/HCPCS: 36415; 71046; 80048; 80076; 83735; 84484; 85025; 85610; 87635; 93005; 99283

== ENCOUNTER → 2022-07-16 13:50 | Outpatient (BNVA) | payer MEDICARE, OTHER, SELFPAY | PROVIDERS: PCP Internal Medicine; Referring Provider Internal Medicine; Visit Provider Internal Medicine | DX: I10 Essential (primary) hypertension (principal); I35.0 Nonrheumatic aortic (valve) stenosis; Z95.3 Presence of xenogenic heart valve | CPT/HCPCS: 99212 ==

== ENCOUNTER 2022-10-05 07:39 | Outpatient (REF) | payer MEDICARE, OTHER, SELFPAY ==
[2022-10-05 07:50] LABS: MANUAL DIFF FLAG NO
[2022-10-05 08:10] LABS: Basophils Percent Auto 0.4 % (0-2); Eosinophils Absolute Auto 0.1 X10*3/uL (0.0-0.4); Eosinophils Percent Auto 1.1 % (0-4); Hematocrit 40.5 % (37.0-47.0); Hemoglobin 13.4 g/dl (12.0-16.0); Imm Gran Abs Auto 0.02 X10*3/uL (0.00-0.03); Imm Gran Pct Auto 0.4 % (0.0-0.4); Lymphocytes Absolute Auto 0.5 X10*3/uL (1.2-4.9); Lymphocytes Percent Auto 11.2 % (20-40); Mean Corpuscular HGB Conc 33.1 g/dl (31.0-35.0); Mean Corpuscular Hemoglobin 31.8 pg (27.0-33.0); Mean Corpuscular Volume 96.2 fL (80.0-98.0); Mean Platelet Volume 9.9 fL (9.4-12.3); Monocytes Absolute Auto 0.3 X10*3/uL (0.1-1.2); Monocytes Percent Auto 5.8 % (2-11); Neutrophils Absolute Auto 3.8 x10*3/uL (2.0-8.3); Neutrophils Percent Auto 81.1 % (45-73); Platelet Count 175 X10*3/uL (160-400); Red Blood Count 4.21 X10*6/uL (4.20-5.50); Red Cell Distribution Width 12.9 % (11.0-16.0); White Blood Count 4.6 X10*3/uL (4.8-10.8)
[2022-10-05 08:49] LABS: Alanine Aminotransferase 15 U/L (0-31); Albumin Level 4.4 g/dL (3.5-5.0); Alkaline Phosphatase 119 U/L (39-117); Anion Gap 12 (12-20); Aspartate Amino Transferase 25 U/L (5-31); Bilirubin Total 0.6 mg/dL (0.0-1.0); Blood Urea Nitrogen 11 mg/dL (9-16); Carbon Dioxide 29 mmol/L (22-29); Chloride 107 mmol/L (96-108); Cholesterol 189 mg/dL; Estimated Glomerular Filt Rate > 60; Glucose Fasting 96 mg/dL (60-99); HDL Cholesterol 74 mg/dL; LDL Cholesterol Calculated 90 mg/dl; Potassium 4.1 mmol/L (3.3-5.1); Sodium 144 mmol/L (135-145); Total Protein 7.2 g/dL (6.5-8.0); Triglycerides 128 mg/dL
[2022-10-05 08:54] LABS: Calcium 12.6 mg/dL (8.4-10.2)
[2022-10-05 09:04] LABS: TSH reflex Free T4 1.72 uIU/mL (0.32-4.0); Vitamin D 25-OH Total 42.1 ng/mL (>30)
[2022-10-05 10:19] LABS: Appearance Urine Clear; Color Urine Yellow; Glucose Urine UA Negative (Negative); Leukocyte Esterase Urine Negative (Negative); Nitrite Urine Negative (Negative); Urine Blood Negative (Negative); Urine Ketones Negative (Negative); Urine Protein Negative (Neg-Trace)
== END 2022-10-05 07:40 | disposition home or self-care (01) ==
LOC: HO.LAB 07:39
PROVIDERS: PCP Internal Medicine; Visit Provider Internal Medicine
DX: E55.9 Vitamin D deficiency, unspecified (principal); E78.00 Pure hypercholesterolemia, unspecified; I10 Essential (primary) hypertension
CPT/HCPCS: 36415; 80053; 80061; 81003; 82306; 84443; 85025

== ENCOUNTER 2022-10-25 09:58 | Emergency (ER) | payer MEDICARE, OTHER, SELFPAY ==
--- NOTE | ~2022-10-25 | XR_ITS ---
EXAMINATION: XR CHEST CLINICAL INFORMATION: Back pain. COMPARISON: Chest radiographs dated 07/06/2022. TECHNIQUE: 2 views of the chest were obtained. FINDINGS: The lungs are clear. There are no pleural effusions. The cardiomediastinal silhouette is unchanged. Multilevel sternotomy wires are intact. Aortic valve prosthesis in place. XR/XR chest 2V IMPRESSION: No acute cardiopulmonary process.
--- NOTE | ~2022-10-25 | CT_ITS ---
EXAMINATION: CT ABDOMEN AND PELVIS WITH CONTRAST CLINICAL INFORMATION: Constipation lower back pain, history of breast cancer COMPARISON: None available. TECHNIQUE: Multidetector volumetric images were obtained from the superior aspect of the liver through the pubic symphysis following administration 85 mL of Omnipaque 350 intravenous contrast. Sagittal and coronal reformatted images were obtained on the technologist's workstation. Oral contrast: No Examination performed following uneventful administration of 85 mL of Omnipaque [address] examination was performed using dose optimization techniques as appropriate, variously including the following: *Automated exposure control *Adjustment of mA and/or kV according to patient size (this includes techniques or standardized protocols for targeted exams where dose is matched to indication/reason for exam; i.e. extremities or head) *Use of iterative reconstruction technique DLP: 318 mGy-cm FINDINGS: LUNG BASES: The visualized lung bases are unremarkable. Heart is enlarged with trace of pericardial effusion. LIVER, GALLBLADDER, AND BILIARY TREE: There are a few tiny low-attenuation lesions in the liver most likely very small hepatic cysts with the largest in the right lobe measured 0.6 cm. There is no intrahepatic masses or ductal dilatation. The gallbladder is unremarkable with no evidence of radiopaque gallstones, gallbladder wall thickening, or obvious pericholecystic inflammatory changes. CBD is not dilated. PANCREAS: Mildly prominent pancreatic duct, not dilated. No evidence of pancreatitis or pancreatic masses. SPLEEN: Unremarkable. ADRENAL GLANDS: Unremarkable. KIDNEYS AND URETERS: There is mild fullness of collecting system of both kidneys with postcontrast enhancement of the urothelium of the left kidney BLADDER: Unremarkable. GASTROINTESTINAL TRACT: There is constipation with large amount of retained feces seen through the redundant colon appendix is not seen. ABDOMINAL WALL: No significant hernia is appreciated. LYMPH NODES: Normal. VASCULAR: Unremarkable. PELVIC VISCERA: Calcifications seen in small uterus most likely degenerating uterine fibroids. OSSEOUS STRUCTURES: There are multilevel degenerative changes with mild compression deformity of L4 and large Schmorl's hernia hernia in L3. There are no lytic or blastic lesions seen. Partially visualized T10 suspicious for destructive lesions, follow-up by CT scan or MRI of thoracic spine CT/CT abdomen pelvis w IV con IMPRESSION: 1. Constipation. Redundancy of colon 2. Mild fullness of collecting system of both kidneys with postcontrast enhancement of the urothelium of the left kidney. Correlate with urinary tract infection. 3. Degenerative changes in the spine with mild compression deformity of L4 and large Schmorl's hernia in L3. 4. Partially visualized T10 suspicious for destructive lesions, follow-up by CT scan or MRI of thoracic spine is recommended. Fleischner guidelines were followed.
[2022-10-25 10:01] VITALS: BP 187/92; PULSE 76; RESP 18; TEMP 36.4; O2SAT 98; BMI 19.1
--- NOTE | 2022-10-25 10:32 | ED_ITS ---
HPI - Back Pain/Injury General Chief Complaint: Back Pain/Injury Stated Complaint: Back pain/Constipation Time Seen by Provider: 10/25/22 10:11 Source: patient Mode of arrival: ambulatory Limitations: no limitations History of Present Illness HPI Narrative: 86 yo female with past medical history of HLD, HTN, breast cancer s/p removal/radiation on oral chemotherapy, TAVR w/ bovine valve here with complaints of 2 months of lower back pain. Had fall in September but feels pain began before this. Pain has continued despite taking tylenol, using icy hot patches at home. Pain radiates from lower spine to right hip. Patient denies any radiation to the legs. No associated weakness, numbness or tingling of the leg. No numbness in the groin. No fevers or chills. No bowel or bladder incontinence. Patient reports that she went to Urgent Care on the . She was prescribed tramadol for pain. She took 1 dose but did not feel like it helped so she stopped taking. She reports last 4 days she has had constipation with inability to move her bowels. She denies any associated abdominal pain, vomiting, rectal pain or pressure. Related Data Home Medications Medication Instructions Recorded Confirmed aspirin 81 mg tablet,delayed 81 mg PO DAILY 05/01/20 10/13/22 release (Adult Aspirin Regimen) multivitamin,[id number]-klop-uxckavxr 1 tab PO DAILY 05/01/20 10/13/22 (Complete Multivitamin tablet) Previous Rx's Medication Instructions Recorded cholecalciferol (vitamin D3) 25 25 mcg PO DAILY 90 days #90 caps 10/29/20 mcg (1,000 unit) capsule amlodipine 2.5 mg tablet 2.5 mg PO DAILY 90 days #90 tabs 08/06/22 letrozole 2.5 mg tablet 2.5 mg PO DAILY #30 tabs 08/31/22 simvastatin 5 mg tablet 5 mg PO BEDTIME 90 days #90 tabs 10/14/22 lidocaine 4 % topical patch 1 patch topical DAILY PRN pain #15 10/21/22 (AsperFlex (lidocaine)) ea tramadol 50 mg tablet 25 mg PO BID PRN pain #6 tabs 10/21/22 dexamethasone 2 mg tablet 2 mg PO DAILY #10 tabs 10/25/22 docusate sodium 100 mg capsule 100 mg PO BID #60 caps 10/25/22 (Colace) lactulose 10 gram/15 mL oral 15 ml PO DAILY PRN constipation 10/25/22 solution #90 mL polyethylene glycol 3350 17 17 g PO BID #238 grams 10/25/22 gram/dose oral powder (Miralax) tramadol 50 mg tablet 50 mg PO BID PRN pain #8 tabs 10/25/22 Allergies Allergy/AdvReac Type Severity Reaction Status Date / Time hydrochlorothiazide Allergy Unknown upset Verified 10/25/22 10:01 stomach,dizziness lisinopril Allergy Unknown SWOLLEN Verified 10/25/22 10:01 THROAT/angioedema metoprolol Allergy Unknown severe Verified 10/25/22 10:01 dizziness esomeprazole [Nexium] AdvReac Unknown headaches Verified 10/25/22 10:01 Review of Systems Review of Systems: Yes all other systems are reviewed and are negative Constitutional: Constitutional: Reports no additional constitutional complaints, Denies body ache(s), Denies chills, Denies fever(s), Denies headache(s) and Denies weakness Eyes: Eyes: Reports no additional eye complaints and Denies change in vision ENT: Reports system reviewed and no additional complaints, except as documented, Denies dizziness, Denies headache(s), Denies nasal congestion, Denies nasal discharge and Denies neck pain Cardiovascular: Cardiovascular: Reports no additional cardiovascular complaints, Denies chest pain, Denies leg edema and Denies dyspnea Respiratory: Respiratory: Reports no additional respiratory complaints, Denies cough and Denies dyspnea Gastrointestinal: Gastrointestinal: Reports no additional gastrointestinal complaints, Denies abdominal pain, Reports constipation, Denies diarrhea, Denies nausea and Denies vomiting Genitourinary: Genitourinary: Reports no additional female genitourinary complaints and Denies urinary incontinence Musculoskeletal: Musculoskeletal: Reports no additional musculoskeletal complaints, Reports back pain, Denies arthralgias, Denies joint swelling, Denies neck pain, Denies numbness and Denies tingling Integumentary/Breasts: Skin/Breast: Reports system reviewed and no additional complaints, except as docu and Denies rash Neurologic: Reports system reviewed and no additional complaints, except as documented, Denies Abnormal speech present, Denies dizziness, Denies headache(s), Denies numbness, Denies tingling and Denies weakness PMFSH Past Medical History Attestation statement: The following information was validated with the patient. 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 Osteoporosis Pure hypercholesterolemia Vitamin D deficiency Surgical History History of lumpectomy of left breast (~07/02/21) Hx of aortic valve replacement (~07/04/12) Hx of cataract removal with insertion of prosthetic lens (~08/2017) Family History Family History Father Diabetes CVA (cerebral vascular accident) CVD (cardiovascular disease) Myocardial infarct Mother Emphysema of lung Alcoholism /alcohol abuse Social History Social History Household Members: None [facility] Are you a primary child care lead teacher to a significant other at home: No Do you presently have visiting nurse or other home services: No Alcohol intake: current Alcohol intake frequency: holidays/special occasions only Alcohol type: wine Patient Tobacco Use Status: Never used Tobacco Smoked in Last 30 Days: No e-Cigarette/Vaping Use: Never Used Second Hand Smoke Exposure: Yes Use of substances other than those prescribed or required for medical reasons: No Advance Directives: No Advance Directives Information Provided: No service: No Current occupational status: retired Cognitive needs: No Hearing needs: Yes Vision needs: Yes Physical Exam Vital Signs: Vital Signs: Last Vital Signs Temp 97.9 F 10/25/22 12:01 Pulse 75 10/25/22 14:00 Resp 16 10/25/22 14:00 BP 133/72 10/25/22 14:00 Pulse Ox 98 10/25/22 14:00 O2 Del Method Room Air 10/25/22 14:00 BMI result Body Mass Index 19.1 Const: General: cooperative, healthy appearing, comfortable and no acute distress Orientation/consciousness: patient oriented x3 Limitations: no limitations HEENT: Head: Yes normal to inspection Ears: hearing grossly normal bilaterally General nose exam: Normal external nose present Face and sinus: Yes normal facial exam Mouth: Normal oral and palatal mucosa present Throat: Yes posterior oropharynx normal Eyes: General: appearance normal, both eyes and all related structures Pupils: Equal, round and reactive pupils present Neck: Neck: Yes normal visual inspection Chest: Chest palpation & inspection: normal inspection of the chest Resp: Effort & Inspection: normal respiratory effort Auscultation: clear to auscultation bilaterally Cardio: Rate: regular rate Rhythm: regular rhythm Peripheral pulses: Peripheral pulses 2+ throughout GI: Inspection: Yes normal to inspection Palpation (GI): Soft to palpation and nontender Auscultation: normal bowel sounds Rectal Exam - Female: visual inspection normal, normal sphincter tone and No fecal impaction Back/Spine/Pelvis: Other: There is tenderness the lumbar mid spine as well as the lumbar soft tissues bilaterally with no midline step-offs, or deformities Pain is worsened with bilateral straight leg raise Thoracic/Lumbar Spine: thoracic and lumbar spine normal to inspection Skin: General skin exam: no rashes or lesions noted Neuro: General: patient oriented x3, no focal motor deficits and normal sensation to monofilament Cranial nerves: Yes CN's II-XII intact bilaterally, Yes Equal, round and reactive pupils present, Yes Bilaterally intact EOM present, Yes Nystagmus not present, Yes Normal facial strength present and Yes Midline tongue present Cognition (Neuro): normal cognition Speech: No Abnormal speech present Gait exam (Neuro): Normal gait present Motor exam (neuro): 5/5 motor strength present throughout Sensory Exam: Normal double simultaneous stimulation for sensation Deep tendon reflexes (DTR's): Right patellar reflex intensity grade: 2+ and Left patellar reflex intensity grade: 2+ Extrem: General: Yes normal to inspection, Yes no pedal edema and Yes no calf tenderness Course Course Course Narrative: The patient has a CT scan of concerning for a compression deformity at L4 as well as destructive lesions in the thoracic spine. With patient's history of breast cancer consider metastatic disease. Patient has no neurological deficits on exam to suggest stat MRI although I do believe that she will need urgent MRI outpatient. I did speak to her oncologist Dr. Ba who will follow-up with the patient outpatient. Her oncologist is requesting that we put her on 2 mg of dexamethasone daily. Patient has a few doses of tramadol left at home. I will give her a additional supply. I will also give her a bowel regimen as she has some mild constipation seen on CT scan. Patient is comfortable going home. She was able to walk into the emergency room with a steady gait. Reviewed worrisome signs and symptoms of when to return to the emergency room. Comfortable plan for discharge home. Medications Administered Discontinued Medications Generic Name Dose Route Start Last Admin Trade Name Lora PRN Reason Stop Dose Admin Acetaminophen 975 mg 10/25/22 13:12 10/25/22 13:17 Acetaminophen 325 Mg Tablet PO 10/25/22 13:13 975 mg ONCE ONE Administration Iohexol 100 ml 10/25/22 11:49 10/25/22 11:50 Iohexol 350 Mg/Ml 100 Ml Infus..Btl IV 10/25/22 11:50 85 ml ONCE ONE Administration Medical Decision Making Medical Decision Making [facility] Narrative: 86-year-old female here with 2 months of increasing back pain despite taking Tylenol and using icy Hot patches for pain. Patient with remote fall but feels that she may have had pain before the fall. Patient also complaining of constipation for the last 4 days. She has not tried any brlv-[id number]-[id number] medications for this. There is no associated abdominal pain or vomiting with th e constipation. Patient has no reports of red flag symptoms or neurological deficits (no fevers, chills, night sweats, weight loss) She does have midline lumbar TTP Will obtain labs, UA, CT A/P Differential Diagnosis Differential Diagnoses: The differential diagnosis associated with the presentation includes Constipation, low concern for bowel obstruction UTI, renal colic, pyelonephritis Malignancy cord compression/cauda equina, epidural abscess(less likely within normal neurological exam) Consult Healthcare Provider Management of the patient was discussed with: Adult Specialist Concern for bony metastatic disease seen on CT scan-spoke to patient's oncologist who will follow-up with the patient for an urgent MRI Lab Data [facility] Lab Attestation statement: I reviewed the patient's lab results. 10/25/22 10:38 10/25/22 10:37 Labs: Lab Results 10/25/22 10/25/22 10/25/22 Range/Units 10:37 10:38 12:03 WBC 5.6 (4.8-10.8) X10*3/uL RBC 3.86 L (4.20-5.50) X10*6/uL Hgb 12.3 (12.0-16.0) g/dl Hct 36.3 L (37.0-47.0) % MCV 94.0 (80.0-98.0) fL MCH 31.9 (27.0-33.0) pg MCHC 33.9 (31.0-35.0) g/dl RDW 13.1 (11.0-16.0) % Plt Count 163 (160-400) X10*3/uL MPV 9.2 L (9.4-12.3) fL Immature Gran % (Auto) 0.7 H (0.0-0.4) % Neut % (Auto) 87.8 H (45-73) % Lymph % (Auto) 5.9 L (20-40) % Trinity % (Auto) 5.0 (2-11) % Eos % (Auto) 0.2 (0-4) % Baso % (Auto) 0.4 (0-2) % Lymph # (Auto) 0.3 L (1.2-4.9) X10*3/uL [place] # (Auto) 0.3 (0.1-1.2) X10*3/uL Eos # (Auto) 0.0 (0.0-0.4) X10*3/uL Baso # (Auto) 0.0 (0.0-0.2) X10*3/uL Abs Immat Gran (auto) 0.04 H (0.00-0.03) X10*3/uL Absolute Neuts (auto) 4.9 (2.0-8.3) x10*3/uL Absolute Nucleated RBC 0.000 (0.0-0.012) X10*3/uL Nucleated RBC % (auto) 0.0 (0.0-0.2) /100WBC Sodium 137 (135-145) mmol/L Potassium 3.9 (3.3-5.1) mmol/L Chloride 103 (96-108) mmol/L Carbon Dioxide 27 (22-29) mmol/L Anion Gap 11 L (12-20) BUN 15 (9-16) mg/dL Creatinine 0.70 (0.5-1.4) mg/dL Estim Creat Clear Calc 45.4 Estimated GFR > 60 Random Glucose 113 (60-115) mg/dL Calcium 11.8 H D (8.4-10.2) mg/dL Total Bilirubin 0.9 (0.0-1.0) mg/dL Direct Bilirubin 0.3 (0.0-0.5) mg/dL AST 26 (5-31) U/L ALT 32 H (0-31) U/L Alkaline Phosphatase 148 H (39-117) U/L Total Protein 6.4 L (6.5-8.0) g/dL Albumin 4.0 (3.5-5.0) g/dL Lipase 31 (8-78) U/L Urine Color Yellow Urine Appearance Clear Urine pH 6.5 (5.0-9.0) Ur Specific [place] 1.015 (1.005-1.025) Urine Protein Negative (Neg-Trace) mg/dL Urine Glucose (UA) Negative (Negative) mg/dL Urine Ketones Trace (Negative) mg/dL Urine Blood Negative (Negative) Urine Nitrite Negative (Negative) Ur Leukocyte Esterase Negative (Negative) Independent Interpretation I performed an independent interpretation of an: Plain X-Ray and CT Scan Interpretation: I independently reviewed the CT scan and chest x-ray agree with radiologist's report Radiology Impression Discussion of test interpretation with radiology: I have reviewed the radiologist's reading. Radiologist Impression: * [address] [address]UD Scan ReportSigned Patient: Jordon Mobley [facility]#: [id number]: 1935cct:[id number]/Sex: 86 / FADM Date: 10/25/22Loc: [address] Dr: Ordering Physician: Munira Ji NP Date of Service: 10/25/22 Procedure(s): CT abdomen pelvis w IV con Accession Number(s): [id number] cc: Munira Ji NP~ EXAMINATION: CT ABDOMEN AND PELVIS WITH CONTRAST? CLINICAL INFORMATION: Constipation lower back pain, history of breast cancer? COMPARISON: None available. TECHNIQUE: Multidetector volumetric images were obtained from the superior aspect of the liver through the pubic symphysis following administration 85 mL of Omnipaque 350 intravenous contrast. Sagittal and coronal reformatted images were obtained on the technologist's workstation.? Oral contrast: No Examination performed following uneventful administration of 85 mL of Omnipaque [address] examination was performed using dose optimization techniques as appropriate, variously including the following: *Automated exposure control *Adjustment of mA and/or kV according to patient size (this includes techniques or standardized protocols for targeted exams where dose is matched to indication/reason for exam; i.e. extremities or head) *Use of iterative reconstruction technique DLP: 318 mGy-cm FINDINGS: LUNG BASES: The visualized lung bases are unremarkable. Heart is enlarged with trace of pericardial effusion. LIVER, GALLBLADDER, AND BILIARY TREE: There are a few tiny low-attenuation lesions in the liver most likely very small hepatic cysts with the largest in the right lobe measured 0.6 cm. There is no intrahepatic masses or ductal dilatation. The gallbladder is unremarkable with no evidence of radiopaque gallstones, gallbladder wall thickening, or obvious pericholecystic inflammatory changes. CBD is not dilated. PANCREAS: Mildly prominent pancreatic duct, not dilated. No evidence of pancreatitis or pancreatic masses.? SPLEEN: Unremarkable.? ADRENAL GLANDS: Unremarkable.? KIDNEYS AND URETERS: There is mild fullness of collecting system of both kidneys with postcontrast enhancement of the urothelium of the left kidney? BLADDER: Unremarkable.? GASTROINTESTINAL TRACT: There is constipation with large amount of retained feces seen through the redundant colon appendix is not seen.? ABDOMINAL WALL: No significant hernia is appreciated.? LYMPH NODES: Normal. VASCULAR: Unremarkable. PELVIC VISCERA: Calcifications seen in small uterus most likely degenerating uterine fibroids.? OSSEOUS STRUCTURES: There are multilevel degenerative changes with mild compression deformity of L4 and large Schmorl's hernia hernia in L3. There are no lytic or blastic lesions seen. Partially visualized T10 suspicious for destructive lesions, follow-up by CT scan or MRI of thoracic spine? CT/CT abdomen pelvis w IV con IMPRESSION: 1.? Constipation. Redundancy of colon 2.? Mild fullness of collecting system of both kidneys with postcontrast enhancement of the urothelium of the left kidney. Correlate with urinary tract infection. 3.? Degenerative changes in the spine with mild compression deformity of L4 and large Schmorl's hernia in L3. 4.? Partially visualized T10 suspicious for destructive lesions, follow-up by CT scan or MRI of thoracic spine is recommended. [address] [address] XRay Report Signed Patient: Jordon Mobley MR#: [id number] : 1935 Acct:[id number] Age/Sex: 86 / F ADM Date: 10/25/22 Loc: HO.ED Attending Dr: Ordering Physician: Munira Ji NP Date of Service: 10/25/22 Procedure(s): XR chest 2V Accession Number(s): [id number] cc: Munira Ji NP~ EXAMINATION: XR CHEST CLINICAL INFORMATION: Back pain. COMPARISON: Chest radiographs dated 07/06/2022. TECHNIQUE: 2 views of the chest were obtained. FINDINGS: The lungs are clear. There are no pleural effusions. The cardiomediastinal silhouette is unchanged. Multilevel sternotomy wires are intact. Aortic valve prosthesis in place. XR/XR chest 2V IMPRESSION: No acute cardiopulmonary process. ? Discharge Plan Discharge Clinical Impression: Compression fracture of lumbar vertebra, Constipation Patient Disposition: Home, Self-Care Instructions: Constipation (ED), Vertebral Compression Fracture (ED) Additional Instructions: Your CT scan shows a compression fracture in her lower spine which normally occurs from age. You also have some lesions noted in your mid spine and we are concerned that these may be lesions that have spread from your breast cancer. You will need to have an MRI outpatient to look at these further. We spoke to your oncologist Dr. Ba. We recommend that you call her tomorrow to schedule an appointment to follow-up with her office this week. Please return if you have fever, numbness in your groin, incontinence of urine or stool, difficulty walking You are constipated on your CT scan. Please increase your fluid and fiber in your diet You are being prescribed narcotic pain medication. This may make you sleepy so please be careful with taking this. Do not drive while taking this. Prescriptions: New polyethylene glycol 3350 [Miralax] 17 gram/dose powder 17 g PO BID Qty: 238 0RF docusate sodium [Colace] 100 mg capsule 100 mg PO BID Qty: 60 0RF lactulose 10 gram/15 mL solution 15 ml PO DAILY PRN (Reason: constipation) Qty: 90 0RF tramadol 50 mg tablet 50 mg PO BID PRN (Reason: pain) Qty: 8 0RF dexamethasone 2 mg tablet 2 mg PO DAILY Qty: 10 0RF No Action amlodipine 2.5 mg tablet 2.5 mg PO DAILY 90 Days Qty: 90 3RF simvastatin 5 mg tablet 5 mg PO BEDTIME 90 Days Qty: 90 1RF letrozole 2.5 mg Tablet 2.5 mg PO DAILY Qty: 30 5RF lidocaine [AsperFlex (lidocaine)] 4 % adhesive patch,medicated 1 patch topical DAILY PRN (Reason: pain) Qty: 15 0RF tramadol 50 mg tablet 25 mg PO BID PRN (Reason: pain) Qty: 6 0RF Complete Multivitamin Tablet 1 tab PO DAILY aspirin [Adult Aspirin Regimen] 81 mg tablet,delayed release (DR/EC) 81 mg PO DAILY cholecalciferol (vitamin D3) 25 mcg (1,000 unit) capsule 25 mcg PO DAILY 90 Days Qty: 90 2RF Interventions: ED Discharge Assessment Last Done: 10/25/22 14:29 Discharge Date/Time: 10/25/22 14:29
--- NOTE | 2022-10-25 10:43 | PC.NURSE ---
pt AOx3. reporting back pain and constipation x4 days. labs drawn and IV inserted, awaiting CT scan.
[2022-10-25 10:44] LABS: MANUAL DIFF FLAG NO
[2022-10-25 10:48] LABS: Basophils Percent Auto 0.4 % (0-2); Eosinophils Percent Auto 0.2 % (0-4); Hematocrit 36.3 % (37.0-47.0); Hemoglobin 12.3 g/dl (12.0-16.0); Imm Gran Abs Auto 0.04 X10*3/uL (0.00-0.03); Imm Gran Pct Auto 0.7 % (0.0-0.4); Lymphocytes Absolute Auto 0.3 X10*3/uL (1.2-4.9); Lymphocytes Percent Auto 5.9 % (20-40); Mean Corpuscular HGB Conc 33.9 g/dl (31.0-35.0); Mean Corpuscular Hemoglobin 31.9 pg (27.0-33.0); Mean Platelet Volume 9.2 fL (9.4-12.3); Monocytes Absolute Auto 0.3 X10*3/uL (0.1-1.2); Neutrophils Absolute Auto 4.9 x10*3/uL (2.0-8.3); Neutrophils Percent Auto 87.8 % (45-73); Platelet Count 163 X10*3/uL (160-400); Red Blood Count 3.86 X10*6/uL (4.20-5.50); Red Cell Distribution Width 13.1 % (11.0-16.0); White Blood Count 5.6 X10*3/uL (4.8-10.8)
[2022-10-25 11:16] LABS: Alanine Aminotransferase 32 U/L (0-31); Alkaline Phosphatase 148 U/L (39-117); Anion Gap 11 (12-20); Aspartate Amino Transferase 26 U/L (5-31); Bilirubin Direct 0.3 mg/dL (0.0-0.5); Bilirubin Total 0.9 mg/dL (0.0-1.0); Blood Urea Nitrogen 15 mg/dL (9-16); Calcium 11.8 mg/dL (8.4-10.2); Carbon Dioxide 27 mmol/L (22-29); Chloride 103 mmol/L (96-108); Creatinine Clr Calc Pharmacy 45.4; Estimated Glomerular Filt Rate > 60; Glucose Random 113 mg/dL (60-115); Lipase 31 U/L (8-78); Potassium 3.9 mmol/L (3.3-5.1); Sodium 137 mmol/L (135-145); Total Protein 6.4 g/dL (6.5-8.0)
[2022-10-25] MEDS: iohexoL 350 MG/ML 100 ML INFUS..BTL IV (11:50)
[2022-10-25 12:01] VITALS: BP 137/67; PULSE 73; RESP 18; TEMP 36.6; O2SAT 96
[2022-10-25 12:16] LABS: Appearance Urine Clear; Color Urine Yellow; Glucose Urine UA Negative (Negative); Leukocyte Esterase Urine Negative (Negative); Nitrite Urine Negative (Negative); PH 6.5 (5.0-9.0); Specific Gravity - Urine 1.015 (1.005-1.025); Urine Blood Negative (Negative); Urine Ketones Trace mg/dL (Negative); Urine Protein Negative (Neg-Trace)
--- NOTE | 2022-10-25 12:59 | PC.NURSE ---
pt reports severe pain in back, mostly on the right side. this is making it difficult for her to get up out of bed, for her to stand and walk.
[2022-10-25] MEDS: Acetaminophen 325 MG TABLET 975 MG PO (13:17)
[2022-10-25 14:00] VITALS: BP 133/72; PULSE 75; RESP 16; O2SAT 98
== END 2022-10-25 14:29 | disposition home or self-care (01) ==
PROVIDERS: Nurse Practitioner Family; Emergency Provider Emergency Medicine Emergency Medical Services; PCP Internal Medicine
DX: M54.50 Low back pain, unspecified (principal); K59.00 Constipation, unspecified; R07.89 Other chest pain; R10.10 Upper abdominal pain, unspecified; Z79.899 Other long term (current) drug therapy
CPT/HCPCS: 36415; 71046; 74177; 80048; 80076; 81003; 83690; 85025; 99284; Q9967

== ENCOUNTER → 2022-10-27 14:45 | Outpatient (BNVA) | payer MEDICARE, OTHER, SELFPAY | PROVIDERS: PCP Internal Medicine; Visit Provider Internal Medicine Endocrinology, Diabetes & Metabolism | DX: M81.0 Age-related osteoporosis without current pathological fracture (principal); E21.3 Hyperparathyroidism, unspecified; E55.9 Vitamin D deficiency, unspecified; Z79.620 Long term (current) use of immunosuppressive biologic | CPT/HCPCS: 99212 ==

== ENCOUNTER 2022-10-28 14:04 | Outpatient (REF) | payer MEDICARE, OTHER, SELFPAY ==
--- NOTE | ~2022-10-28 | CT_ITS ---
EXAMINATION: CT THORACIC SPINE WITHOUT CONTRAST CLINICAL INFORMATION: Bone metastases. Rule out cord compression. COMPARISON: CT of the abdomen and pelvis 10/25/2022 TECHNIQUE: Axial images through the thoracic spine without contrast. Sagittal and coronal reconstructions on the technologist workstation were performed. This CT examination was performed using dose optimization techniques as appropriate, variously including the following: *Automated exposure control *Adjustment of mA and/or kV according to patient size (this includes techniques or standardized protocols for targeted exams where dose is matched to indication/reason for exam; i.e. extremities or head) *Use of iterative reconstruction technique DLP: 314 mGy-cm FINDINGS: There are lytic lesions in the T2, T4, T10 and T8 T11 vertebral bodies. 1 cm lytic lesion in the posterior superior endplate of the T2 vertebral body. Question small amount of abnormal adjacent soft tissue in the spinal canal/questionable for impending cord compression. 1.2 x 1.5 cm lytic lesion in the T4 vertebral body without evidence of cord compression. There is a mild compression fracture of the T10 vertebral body. There is abnormal soft tissue seen in the right side of the spinal canal displacing the cord to the left suggestive of mild cord compression. There is also abnormal soft tissue seen in the right T9-T10 neuroforamen. There is abnormal paraspinal soft tissue seen and bone destruction adjacent to the right lower lobe. Small right posterior T11 vertebral body/proximal anterior pedicle lytic lesion measuring 5 mm. Mild compression fractures of the superior endplates of the L1 and L2 vertebral bodies these appear unchanged from previous CT of the abdomen and pelvis 10/25/2022. Multilevel degenerative changes of the spine. Median sternotomy wires. No rib lesion seen. The visualized lungs are clear. There is subsegmental atelectasis at the right lung base. The heart is slightly enlarged. Aortic valve replacement partially visualized. Coronary artery calcification. Low-attenuation liver lesions questionable for metastatic disease. CT/CT thoracic spine wo IV con IMPRESSION: Mild pathologic compression fracture of the T10 vertebral body. Abnormal soft tissue extending into the spinal canal displacing the cord to the left suggestive of mild cord compression. There is also abnormal soft tissue seen in the right T9-T10 neural foramen and abnormal paraspinal soft tissue. 1 cm lesion in the posterior superior endplate of the T2 vertebral body with slight abnormal posterior soft tissue in the spinal canal questionable for impending cord compression. Smaller lytic bone lesions in the T4 and T11 vertebral bodies. Likely pathologic compression fractures of L1 and L2 similar to recent abdominal and pelvic CT scan. Findings will be communicated by the [place] work flow development mechanic. Fleischner guidelines were followed.
== END 2022-10-28 14:05 | disposition home or self-care (01) ==
LOC: HO.CT 14:04
PROVIDERS: PCP Internal Medicine; Visit Provider Internal Medicine
DX: M89.9 Disorder of bone, unspecified (principal); C50.912 Malignant neoplasm of unspecified site of left female breast
CPT/HCPCS: 72128

== ENCOUNTER 2022-11-06 08:08 | Outpatient (REF) | payer MEDICARE, OTHER, SELFPAY ==
--- NOTE | ~2022-11-06 | MR_ITS ---
EXAMINATION: MR THORACIC SPINE WITH/WITHOUT CONTRAST MR LUMBAR SPINE WITH/WITHOUT CONTRAST CLINICAL INFORMATION: Back pain, history of breast cancer COMPARISON: Thoracic spine CT 10/28/[address] abdomen pelvis 10/25/2022 TECHNIQUE: MRI of the thoracic and lumbar spine was obtained using routine sequences with and without contrast. Intravenous contrast: Gadavist 4.5 mL. FINDINGS: Motion degraded examination. THORACIC SPINE: There are several enhancing marrow replacing lesions with corresponding osteolytic lesions on recent CT, compatible with osseous metastatic disease. A dominant lesion involving the T10 vertebral body extends into the right T10 pedicle with expansile and small volume epidural disease within the right ventral spinal canal and partially effacing the fat within the right T9-T10 and T10-T11 neural foramina. Associated pathologic T10 biconcave compression fracture with mild height loss no bony retropulsion. There is no significant spinal canal compromise or cord compression. Additional marrow replacing lesions in the T2 and T4 vertebral bodies are again noted. Enhancing marrow replacement along the anterior T11 upper endplate and left posterior T11 inferior endplate may reflect metastases versus type I Modic endplate change. Normal thoracic kyphosis is preserved. No significant spondylolisthesis. Diffuse disc desiccation with mild multilevel disc height loss. Trace annular disc bulge at T11-T12. There is no significant spinal canal or neural foraminal stenosis at any level. The thoracic spinal cord is normal in signal and morphology. No abnormal intramedullary or leptomeningeal enhancement within the limitations of motion artifact. 6 mm T1 hyperintense left thyroid nodule/cyst. Several enhancing lesions within the right hepatic lobe. Susceptibility artifact related to prior median sternotomy. The descending thoracic aorta is of normal contour and caliber. LUMBAR SPINE: Multiple enhancing marrow replacing lesions involving the L1, L3, L4, and L5 vertebral bodies, and S1 segment of the sacrum, compatible with osseous metastatic disease. Pathologic L4 compression fracture with approximately 35% height loss and mild bony retropulsion of the L4 posterior upper endplate. Diffuse marrow replacement of the L4 vertebral body probably a combination of metastatic infiltration and reactive marrow edema. Additional acute-appearing L1 and L2 endplate compression fractures with subjacent enhancing marrow edema paralleling the upper endplates on a background of osseous metastatic disease at L1. Resultant mild height loss, mild bony retropulsion of the posterior upper endplates without spinal canal compromise. L3 upper endplate compression fracture with subjacent Schmorl's node and metastasis with mild height loss without bony retropulsion. No epidural disease within the lumbar spine. No abnormal intramedullary or leptomeningeal enhancement. Normal lumbar lordosis is preserved. No significant spondylolisthesis. Diffuse disc desiccation with moderate L5-S1 disc height loss. Multilevel anterior osteophytic spurring is seen.There are multilevel degenerative changes with level by level detail as follows: L1-L2: Broad-based left paracentral disc protrusion and mild bilateral facet arthrosis. No spinal canal or neural foraminal stenosis. L2-L3: Trace annular disc bulge and mild bilateral facet arthrosis with ligamentum flavum thickening. No spinal canal or neural foraminal stenosis. L3-L4: Trace annular disc bulge with moderate bilateral facet arthrosis and ligamentum flavum thickening. No spinal canal stenosis, noting left-sided ligamentum flavum medially displaces several cauda equina within the left aspect of the thecal sac. Mild bilateral neural foraminal encroachment. L4-L5: Annular disc bulge with enhancing central annular fissure and moderate bilateral facet arthrosis and ligamentum flavum thickening. No spinal canal stenosis. Mild to moderate bilateral neural foraminal stenosis. L5-S1: Disc osteophyte complex with superimposed superiorly migrated central disc extrusion and mild bilateral facet arthrosis. No spinal canal stenosis. Mild to moderate right greater than left neural foraminal stenosis with mass effect along the extraforaminal right L5 nerve root from right lateral disc osteophyte. The conus medullaris terminates at the level of L1-L2. Moderate to severe fatty atrophy of the paraspinal musculature. Redemonstrated left greater than right hydroureteronephrosis. The abdominal aorta is of normal contour and caliber. MR/MR thoracic spine wo/w con IMPRESSION: 1. 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 2. Pathologic compression fractures of the T10 and L1-L4 vertebral bodies with up to 35% height loss at L4 and otherwise mild associated height loss. A dominant lesion T10 vertebral body metastasis extends into the right T10 pedicle with small volume epidural disease within the right ventral spinal canal and partially effacing the fat within the right T9-T10 and T10-T11 neural foramina. No significant spinal canal compromise or cord compression. 3. Several enhancing lesions in the right hepatic lobe may reflect hepatic metastases and can be correlated with PET-CT. 4. Redemonstrated left greater than right hydroureteronephrosis.
== END 2022-11-06 08:09 | disposition home or self-care (01) ==
LOC: HO.MRI 08:08
PROVIDERS: PCP Internal Medicine; Visit Provider Internal Medicine
DX: C50.912 Malignant neoplasm of unspecified site of left female breast (principal); M54.9 Dorsalgia, unspecified; M84.48XD Pathological fracture, other site, subsequent encounter for fracture with routine healing
CPT/HCPCS: 72157; 72158; A9585

== ENCOUNTER → 2022-11-10 08:57 | Outpatient (REF) | payer MEDICARE, OTHER, SELFPAY ==
--- NOTE | 2022-11-10 08:59 | CA_ITS ---
Transthoracic Echocardiogram Patient (Last, First, Middle): Jordon Mobley E Gender: Female Date of : 1935 Age: 86 Procedure Date: 11/10/2022 Procedure Type: Transthoracic Echocardiogram Location: OP Height: 160.02 cm Weight: 47.63 kg BSA: 1.47 m2 Heart Rate: bpm BP: 138 / 78 mmHg Child Care Leader: GEOVANNA Referring MD: Keo Tovar MD Symptoms: Z95.3 - Presence of xenogenic heart valve Study Quality: Adequate ECG Rhythm: Sinus Conclusions: - The left ventricular systolic function is normal. The calculated ejection fraction is 69% by biplane method. - A bioprosthetic aortic valve is present. The prosthetic aortic valve appears to be functioning abnormally. - There is mild dilatation of the ascending aorta measuring 4.20 cm. Findings Left Ventricle Normal left ventricular cavity size. The left ventricular systolic function is normal. The calculated ejection fraction is 69% by biplane method. There is no evidence of regional wall motion abnormalities. E/E prime ratio is >15, consistent with elevated filling pressures. Evidence suggests grade I (mild) diastolic dysfunction. There is mild septal and mild basal asymmetric hypertrophy. LV peak GLS -19.6%. Right Ventricle Mildly increased right ventricular cavity size. There is low normal right ventricular systolic function. Atria Mild biatrial enlargement. Aortic Valve A bioprosthetic aortic valve is present. The prosthetic aortic valve appears to be functioning abnormally. The peak aortic velocity is 4.08 m/s with a calculated peak gradient of 67 mmHg. The mean gradient is 36 mmHg. The aortic valve area is 0.67 cm2. There is no aortic valve regurgitation. Mitral Valve There is mild mitral annular calcification. There is mild mitral valve regurgitation. There is no mitral valve stenosis. Pulmonic Valve There is mild pulmonic valve regurgitation. Tricuspid Valve Normal tricuspid valve structure. There is mild tricuspid valve regurgitation. There is no evidence of pulmonary hypertension. Great Vessels There is mild dilatation of the ascending aorta measuring 4.20 cm. Small plaque is seen in the sino tubular ridge. Venous The inferior vena cava is normal in size and collapses greater than 50% with inspiration. Pericardium/Pleural There is a small loculated pericardial effusion overlying the left ventricle. Prior Study Comparison Changes noted compared to prior study dated: 06/11/2022. Increase in gradients across the aortic valve. Measurements 2D Linear Measurements IVSd: 1.11 0.6-0.9/0.6-1.0 cm LVIDd: 3.96 3.9-5.3/4.2-5.9 cm LVIDd Index: 2.69 2.4-3.2/2.2-3.1 cm/m2 LVIDs: 2.90 2.0-3.6 cm LVPWd: 0.92 0.7-1.1 cm LA Diam: 3.00 2.7-3.8/3.0-4.0 cm LAIDs Index: 2.04 1.5-2.3 cm/m2 LV Mass: 158.94 67-162/88-224 g LV Mass Index: 108.12 43-95/49-115 g/m2 LVOT Diam: 1.70 3.0+(-)1.3 cm 2D Systolic Function EF 4C: 70.00 >55% EF 2C: 66.80 >55% EF BiP: 69.40 >55% Mitral Valve MV Pk E: 0.72 MV PK A: 0.80 MV Decel Time: 301.00 E/A: 0.90 E'Lateral: 4.57 E'Medial: 3.81 E/E' Med: 18.90 E/E' Lat: 15.80 PHT: 88.00 MVA PHT: 2.50 Decel Greene: 2.39 Aortic Valve AoV Pk Andrew: 4.08 AoV Mn Andrew: 2.80 AoV VTI: 0.93 AoV Pk Grad: 67.00 Aov Mn Grad: 36.00 ROSSY Cont.VTI: 0.67 LVOT LVOT Pk Andrew: 1.19 LVOT Mn Andrew: 0.86 LVOT VTI: 0.27 LVOT Pk Grad: 6.00 LVOT Mn Grad: 3.00 LVOT Diam: 1.70 LVOT Area: 2.27 Diastolic Function MV Pk E: 0.72 MV Pk A: 0.80 E/A: 0.90 E'Medial: 3.81 E/E' Med: 18.90 E' Laterial: 4.57 E/E' Lat: 15.80 Right Ventricle TAPSE (mm): 19.20 TVS' Andrew: 10.10 Tricuspid Valve TR Pk Andrew: 2.67 TR Pk Grad: 29.00 RA Press: 3.00 RVSP: 32.00 Great Vessels Aorta Sinus of Valsalva: 3.30 2.0-3.[address] [place]: 2.16 1.7-3.4 cm Ao Asc: 4.20 2.1-3.4 cm Updated in Other Vendor System with Status of Final Keo Tovar MD electronically signed on 11/11/2022 11:57:45 AM with status of Final
== END ==
LOC: HO.CARD 08:57
PROVIDERS: PCP Internal Medicine; Visit Provider Internal Medicine
DX: Z95.3 Presence of xenogenic heart valve (principal)
CPT/HCPCS: 93306; 93356

== ENCOUNTER 2022-11-10 11:51 | Outpatient (REF) | payer MEDICARE, OTHER, SELFPAY ==
--- NOTE | ~2022-11-10 | PE_ITS ---
EXAMINATION: Fluorine-18 FDG PET/CT Scan CLINICAL INDICATION: Initial treatment management. Left breast carcinoma. Suspected osseous metastatic disease, initially identified on the CT of the abdomen and pelvis done on 10/25/2022 and subsequently confirmed with CT of the thoracic spine and MRI of the thoracic and lumbar spine done on 10/28/2022 and 11/06/2022 respectively. PROCEDURE: 67 minutes following the intravenous administration of 16.2 mCi of fluorine 18 FDG, images from the base of the skull to the mid thighs were obtained using a combined PET/CT scanner with CT scan based attenuation correction. No intravenous contrast was administered. Transverse, coronal, sagittal, and volume reconstruction projections were obtained. The patient's blood glucose as determined by a finger stick, was 87 mg/dl immediately prior to injection. The radiotracer was injected intravenously through right antecubital superficial vein, without any complications. Total CT exam dose-length product 187.86 mGy-cm * These CT images were obtained using dose optimization techniques as appropriate, variously including the following: Automated exposure control * Adjustment of mA and/or kV according to patient size (this includes techniques or standardized protocols for targeted exams where dose is matched to indication/reason for exam; i.e. extremities or head) * Use of iterative reconstruction technique COMPARISON: CT of the abdomen and pelvis done on 10/25/[address] of the thoracic spine done on 10/29/2019 through MRI of the thoracic and lumbar spine done on 11/06/2022. FINDINGS: NECK AND VISUALIZED HEAD: Asymmetric FDG avidity is noted within the right oropharynx with underlying punctate foci of calcification with SUV max of 4.6 (21/223), for which direct visualization/endoscopy is recommended. THORAX: No FDG avid mediastinal, hilar, axillary or internal mammary lymphadenopathy or FDG avid lung parenchymal or pleural disease. Hypoventilatory changes are present at both lung bases. Small volume simple appearing pericardial effusion is present with mean Hounsfield value of 5.1 (108/223). No evidence of any pleural disease/effusion. No FDG avid disease within either breast. ABDOMEN AND PELVIS: No FDG avid focal liver or splenic disease. The left adrenal gland appears thickened and nodular without any FDG avidity. The right adrenal gland is unremarkable. The gallbladder, biliary tree, pancreas appear unremarkable. Both kidneys as well as both adrenal pelvicalyceal system and both ureters and the bladder appear unremarkable. The bowel loops are decompressed. Significant fecal residual is noted within the large bowel. MUSCULOSKELETAL: Concordant with prior MRI of the thoracic and lumbosacral spine done on 11/06/2022, previously documented multifocal osseous disease involving T2, T4, T10 vertebral bodies and L1 vertebral body shows variable increased FDG avidity with most intense disease focus seen involving the right posterior part of T10 vertebral body with SUV max of 4.3 (97/223), remain suspicious for multifocal metastatic disease. Please note that the local disease extension is better delineated on prior MRI study. Focal abnormal increased FDG avidity is also noted within the S1 vertebral body to the left of the midline with SUV max of 3.1 (163/223), also suspicious for metastatic involvement.. VASCULAR: The ascending thoracic aorta measures 3.9 x 3.9 cm, upper limits of normal. Calcific atherosclerotic coronary arterial disease is present. Calcific atherosclerotic disease of the abdominal aorta and is branches. No evidence of any aneurysm. SUV max OF MEDIASTINAL BLOOD POOL: 1.7 SUV max OF LIVER: 2.0 PET/PET CT fusion skull to thigh IMPRESSION: 1. Concordant with prior CT of the thoracic spine and MRI of the thoracic and lumbosacral spine done on 10/28/2022 and 11/06/2022 respectively, there are FDG avid disease identified corresponding to the previously detected multifocal sites involving the thoracic and lumbosacral spine, consistent with osseous metastatic disease. The most intense FDG avid disease is present at T10 vertebral body with SUV max of 4.3 (97/223). 2. Asymmetric increased FDG avidity (SUV max of 4.6-21/223) is noted within the right-sided oropharynx associated underlying nonspecific calcifications, for which direct visualization is recommended. 3. No definite FDG avid focal liver disease to suspect metastasis. 4. Small volume non-FDG avid simple appearing pericardial effusion.
== END 2022-11-10 11:52 | disposition home or self-care (01) ==
LOC: HO.PET 11:51
PROVIDERS: PCP Internal Medicine; Visit Provider Internal Medicine
DX: Z13.89 Encounter for screening for other disorder (principal)

== ENCOUNTER 2022-11-19 10:11 | Day surgery (SDC) | payer MEDICARE, OTHER, SELFPAY ==
--- NOTE | 2022-11-16 10:02 | PC.NURSE ---
pt rescheduled by radiology
[2022-11-19] VITALS (7 sets, daily range): BP systolic 112–139; BP diastolic 51–73; PULSE 64–74; RESP 14–16; TEMP 36.2–36.6; O2SAT 95; BMI 18.7
--- NOTE | ~2022-11-19 | CT_ITS ---
PROCEDURE: CT GUIDED BIOPSY, BONE CLINICAL INFORMATION: Lytic lesion T12 vertebra with compression fracture. History of breast cancer. COMPARISON: None available. TECHNIQUE: Following explaining CT fluoroscopy-guided T10 bone marrow biopsy procedure, benefits and risks, a written consent was obtained. Patient was placed prone on CT fluoroscopy table and preliminary CT imaging was obtained from T9 through L1 vertebra. An optimal site was selected along the left paravertebral soft tissues on axial image and the area was marked. The marked area was cleaned and draped in usual sterile manner. 1% lidocaine was injected at puncture site. Through a small incision a 20-gauge Chiba needle was advanced from the skin along the left paravertebral soft tissues into the T12 bone marrow. The bone marrow is very soft. Aspiration biopsy was performed of T10 vertebra x3. Postprocedure, needle was withdrawn and complete hemostasis achieved at puncture site. Simple Band-Aid applied postprocedure. Patient tolerated the procedure extremely well. Conscious sedation was utilized for 35 minutes. Patient was monitored by IR nursing and radiologist. This CT examination was performed using dose optimization techniques as appropriate, variously including the following: *Automated exposure control *Adjustment of mA and/or kV according to patient size (this includes techniques or standardized protocols for targeted exams where dose is matched to indication/reason for exam; i.e. extremities or head) *Use of iterative reconstruction technique DLP: 152.46 mGy-cm FINDINGS: On preliminary CT imaging, there is a lytic lesion involving the entire T10 vertebra with mild loss of vertebral height. CT fluoroscopy guided left paravertebral T10 biopsy was performed x3. Preliminary results revealed abnormal cells. Definite results are pending. CT/CT biopsy bone deep IMPRESSION: Successful CT fluoroscopy-guided T10 vertebral body biopsy performed from the left paravertebral approach and without immediate complications.
[2022-11-19 10:36] LABS: MANUAL DIFF FLAG NO
[2022-11-19 10:39] LABS: Eosinophils Percent Auto 0.3 % (0-4); Hematocrit 40.3 % (37.0-47.0); Hemoglobin 13.1 g/dl (12.0-16.0); Imm Gran Abs Auto 0.03 X10*3/uL (0.00-0.03); Imm Gran Pct Auto 0.5 % (0.0-0.4); Lymphocytes Absolute Auto 0.3 X10*3/uL (1.2-4.9); Lymphocytes Percent Auto 4.9 % (20-40); Mean Corpuscular HGB Conc 32.5 g/dl (31.0-35.0); Mean Corpuscular Hemoglobin 31.3 pg (27.0-33.0); Mean Corpuscular Volume 96.2 fL (80.0-98.0); Mean Platelet Volume 9.5 fL (9.4-12.3); Monocytes Absolute Auto 0.5 X10*3/uL (0.1-1.2); Neutrophils Absolute Auto 5.2 x10*3/uL (2.0-8.3); Neutrophils Percent Auto 86.3 % (45-73); Platelet Count 148 X10*3/uL (160-400); Red Blood Count 4.19 X10*6/uL (4.20-5.50); Red Cell Distribution Width 14.6 % (11.0-16.0)
[2022-11-19 10:55] LABS: Anion Gap 9 (12-20); Blood Urea Nitrogen 13 mg/dL (9-16); Carbon Dioxide 27 mmol/L (22-29); Chloride 110 mmol/L (96-108); Estimated Glomerular Filt Rate > 60; Potassium 3.7 mmol/L (3.3-5.1); Sodium 142 mmol/L (135-145)
[2022-11-19 10:56] LABS: Partial Thromboplastin Time 24.9 SEC (26.0-36.4)
[2022-11-19 11:34] LABS: INTERNATIONAL NORM RATIO 0.9 (0.9-1.1); Prothrombin Time 10.4 SEC (10.0-13.1)
== END 2022-11-19 15:04 | disposition home or self-care (01) ==
PROVIDERS: PCP Internal Medicine; Visit Provider Radiology Diagnostic Radiology
DX: C79.51 Secondary malignant neoplasm of bone (principal); Z85.3 Personal history of malignant neoplasm of breast; Z79.82 Long term (current) use of aspirin; Z79.899 Other long term (current) drug therapy; Z88.8 Allergy status to other drugs, medicaments and biological substances
CPT/HCPCS: 20225; 36415; 77012; 80051; 82565; 84520; 85025; 85610; 85730; 88172; 88173; 88305; 88307; 88311; 88313; 88341; 88342; 88360; 99152; 99153; J2250; J3010

== ENCOUNTER 2022-11-24 10:41 | Outpatient (REF) | payer MEDICARE, OTHER, SELFPAY ==
[2022-11-24 15:53] LABS: Alanine Aminotransferase 12 U/L (0-31); Albumin Level 3.7 g/dL (3.5-5.0); Alkaline Phosphatase 102 U/L (39-117); Anion Gap 9 (12-20); Aspartate Amino Transferase 17 U/L (5-31); Bilirubin Total 0.8 mg/dL (0.0-1.0); Blood Urea Nitrogen 14 mg/dL (9-16); Calcium 9.2 mg/dL (8.4-10.2); Carbon Dioxide 26 mmol/L (22-29); Chloride 103 mmol/L (96-108); Estimated Glomerular Filt Rate > 60; Glucose Random 84 mg/dL (60-115); Potassium 3.7 mmol/L (3.3-5.1); Sodium 134 mmol/L (135-145); Total Protein 6.3 g/dL (6.5-8.0)
[2022-11-26 18:58] LABS: Calcium, Random Urine 2.4 mg/dL
== END 2022-11-24 10:42 | disposition home or self-care (01) ==
LOC: HO.HMGCLDS 10:41
PROVIDERS: PCP Internal Medicine; Visit Provider Internal Medicine
DX: E83.52 Hypercalcemia (principal)
CPT/HCPCS: 36415; 80053; 82310

== ENCOUNTER → 2022-11-25 14:32 | Outpatient (BNVA) | payer MEDICARE, OTHER, SELFPAY | PROVIDERS: PCP Internal Medicine; Referring Provider Internal Medicine; Visit Provider Internal Medicine | DX: I10 Essential (primary) hypertension (principal); M79.89 Other specified soft tissue disorders; Z95.3 Presence of xenogenic heart valve; Z79.899 Other long term (current) drug therapy | CPT/HCPCS: 99212 ==

== ENCOUNTER 2022-12-22 09:26 | Outpatient (REF) | payer MEDICARE, OTHER, SELFPAY ==
[2022-12-22 11:25] LABS: MANUAL DIFF FLAG NO
[2022-12-22 11:56] LABS: Basophils Percent Auto 0.3 % (0-2); Hematocrit 36.3 % (37.0-47.0); Hemoglobin 11.5 g/dl (12.0-16.0); Imm Gran Abs Auto 0.02 X10*3/uL (0.00-0.03); Imm Gran Pct Auto 0.5 % (0.0-0.4); Lymphocytes Absolute Auto 0.2 X10*3/uL (1.2-4.9); Lymphocytes Percent Auto 4.2 % (20-40); Mean Corpuscular HGB Conc 31.7 g/dl (31.0-35.0); Mean Corpuscular Hemoglobin 29.9 pg (27.0-33.0); Mean Corpuscular Volume 94.5 fL (80.0-98.0); Mean Platelet Volume 10.4 fL (9.4-12.3); Monocytes Absolute Auto 0.4 X10*3/uL (0.1-1.2); Monocytes Percent Auto 9.4 % (2-11); Neutrophils Absolute Auto 3.2 x10*3/uL (2.0-8.3); Neutrophils Percent Auto 84.6 % (45-73); Platelet Count 206 X10*3/uL (160-400); Red Blood Count 3.84 X10*6/uL (4.20-5.50); Red Cell Distribution Width 15.2 % (11.0-16.0); White Blood Count 3.8 X10*3/uL (4.8-10.8)
[2022-12-22 12:42] LABS: Alanine Aminotransferase 11 U/L (0-31); Albumin Level 3.5 g/dL (3.5-5.0); Alkaline Phosphatase 82 U/L (39-117); Anion Gap 9 (12-20); Aspartate Amino Transferase 18 U/L (5-31); Bilirubin Total 0.9 mg/dL (0.0-1.0); Blood Urea Nitrogen 11 mg/dL (9-16); Calcium 9.6 mg/dL (8.4-10.2); Carbon Dioxide 25 mmol/L (22-29); Chloride 104 mmol/L (96-108); Estimated Glomerular Filt Rate > 60; Glucose Random 117 mg/dL (60-115); Potassium 3.9 mmol/L (3.3-5.1); Sodium 134 mmol/L (135-145); Total Protein 6.3 g/dL (6.5-8.0)
== END 2022-12-22 09:27 | disposition home or self-care (01) ==
LOC: HO.HMGCLDS 09:26
PROVIDERS: PCP Internal Medicine; Visit Provider Internal Medicine
DX: C50.812 Malignant neoplasm of overlapping sites of left female breast (principal)
CPT/HCPCS: 36415; 80053; 85025

== ENCOUNTER 2023-01-05 09:00 | Outpatient (REF) | payer MEDICARE, OTHER, SELFPAY ==
[2023-01-05 11:31] LABS: Eosinophils Percent Auto 2.1 % (0-4); Hematocrit 31.2 % (37.0-47.0); Hemoglobin 9.9 g/dl (12.0-16.0); Imm Gran Abs Auto 0.01 X10*3/uL (0.00-0.03); Lymphocytes Absolute Auto 0.1 X10*3/uL (1.2-4.9); Lymphocytes Percent Auto 13.4 % (20-40); MANUAL DIFF FLAG SCAN; Mean Corpuscular HGB Conc 31.7 g/dl (31.0-35.0); Mean Corpuscular Hemoglobin 30.6 pg (27.0-33.0); Mean Corpuscular Volume 96.3 fL (80.0-98.0); Mean Platelet Volume 10.4 fL (9.4-12.3); Monocytes Percent Auto 4.1 % (2-11); Neutrophils Absolute Auto 0.8 x10*3/uL (2.0-8.3); Neutrophils Percent Auto 78.4 % (45-73); Platelet Count 106 X10*3/uL (160-400); Red Blood Count 3.24 X10*6/uL (4.20-5.50); Red Cell Distribution Width 16.5 % (11.0-16.0); SCAN SMEAR FLAG 1
[2023-01-05 12:04] LABS: SLIDE REVIEW VERIFIED
[2023-01-05 12:15] LABS: Alanine Aminotransferase 14 U/L (0-31); Albumin Level 3.6 g/dL (3.5-5.0); Alkaline Phosphatase 77 U/L (39-117); Anion Gap 14 (12-20); Aspartate Amino Transferase 18 U/L (5-31); Bilirubin Total 0.7 mg/dL (0.0-1.0); Blood Urea Nitrogen 12 mg/dL (9-16); Calcium 10.9 mg/dL (8.4-10.2); Carbon Dioxide 23 mmol/L (22-29); Chloride 110 mmol/L (96-108); Estimated Glomerular Filt Rate > 60; Glucose Random 126 mg/dL (60-115); Potassium 3.6 mmol/L (3.3-5.1); Sodium 143 mmol/L (135-145); Total Protein 6.3 g/dL (6.5-8.0)
== END 2023-01-05 09:01 | disposition home or self-care (01) ==
LOC: HO.HMGCLDS 09:00
PROVIDERS: PCP Internal Medicine; Visit Provider Internal Medicine
DX: C50.912 Malignant neoplasm of unspecified site of left female breast (principal)
CPT/HCPCS: 36415; 80053; 85025

== ENCOUNTER 2023-01-19 08:52 | Outpatient (REF) | payer MEDICARE, OTHER, SELFPAY ==
[2023-01-19 11:31] LABS: Basophils Percent Auto 1.6 % (0-2); Eosinophils Percent Auto 0.8 % (0-4); Hematocrit 27.5 % (37.0-47.0); Hemoglobin 8.8 g/dl (12.0-16.0); Imm Gran Abs Auto 0.01 X10*3/uL (0.00-0.03); Imm Gran Pct Auto 0.8 % (0.0-0.4); Lymphocytes Absolute Auto 0.2 X10*3/uL (1.2-4.9); Lymphocytes Percent Auto 12.4 % (20-40); MANUAL DIFF FLAG SCAN; Mean Corpuscular Hemoglobin 32.5 pg (27.0-33.0); Mean Corpuscular Volume 101.5 fL (80.0-98.0); Monocytes Absolute Auto 0.1 X10*3/uL (0.1-1.2); Monocytes Percent Auto 10.9 % (2-11); Neutrophils Percent Auto 73.5 % (45-73); Platelet Count 148 X10*3/uL (160-400); Red Blood Count 2.71 X10*6/uL (4.20-5.50); Red Cell Distribution Width 22.4 % (11.0-16.0); SCAN SMEAR FLAG 1; White Blood Count 1.3 X10*3/uL (4.8-10.8)
[2023-01-19 11:56] LABS: SLIDE REVIEW VERIFIED
[2023-01-19 13:21] LABS: Alanine Aminotransferase 7 U/L (0-31); Albumin Level 3.7 g/dL (3.5-5.0); Alkaline Phosphatase 58 U/L (39-117); Anion Gap 9 (12-20); Aspartate Amino Transferase 15 U/L (5-31); Bilirubin Total 0.4 mg/dL (0.0-1.0); Blood Urea Nitrogen 11 mg/dL (9-16); Calcium 9.8 mg/dL (8.4-10.2); Carbon Dioxide 24 mmol/L (22-29); Chloride 113 mmol/L (96-108); Estimated Glomerular Filt Rate > 60; Glucose Random 88 mg/dL (60-115); Potassium 3.4 mmol/L (3.3-5.1); Sodium 143 mmol/L (135-145); Total Protein 6.2 g/dL (6.5-8.0)
== END 2023-01-19 08:53 | disposition home or self-care (01) ==
LOC: HO.HMGCLDS 08:52
PROVIDERS: PCP Internal Medicine; Visit Provider Internal Medicine
DX: C50.912 Malignant neoplasm of unspecified site of left female breast (principal)
CPT/HCPCS: 36415; 80053; 85025

== ENCOUNTER 2023-02-09 07:45 | Outpatient (REF) | payer MEDICARE, OTHER, SELFPAY ==
[2023-02-09 08:43] LABS: Basophils Percent Auto 1.1 % (0-2); Eosinophils Percent Auto 1.1 % (0-4); Hematocrit 33.2 % (37.0-47.0); Hemoglobin 10.9 g/dl (12.0-16.0); Imm Gran Abs Auto 0.01 X10*3/uL (0.00-0.03); Imm Gran Pct Auto 0.5 % (0.0-0.4); Lymphocytes Absolute Auto 0.2 X10*3/uL (1.2-4.9); Lymphocytes Percent Auto 11.1 % (20-40); MANUAL DIFF FLAG SCAN; Mean Corpuscular HGB Conc 32.8 g/dl (31.0-35.0); Mean Corpuscular Hemoglobin 34.8 pg (27.0-33.0); Mean Corpuscular Volume 106.1 fL (80.0-98.0); Mean Platelet Volume 10.2 fL (9.4-12.3); Monocytes Absolute Auto 0.1 X10*3/uL (0.1-1.2); Monocytes Percent Auto 5.8 % (2-11); Neutrophils Absolute Auto 1.5 x10*3/uL (2.0-8.3); Neutrophils Percent Auto 80.4 % (45-73); Platelet Count 133 X10*3/uL (160-400); Red Blood Count 3.13 X10*6/uL (4.20-5.50); Red Cell Distribution Width 20.6 % (11.0-16.0); SCAN SMEAR FLAG 1; White Blood Count 1.9 X10*3/uL (4.8-10.8)
[2023-02-09 09:28] LABS: SLIDE REVIEW VERIFIED
[2023-02-09 09:42] LABS: Alanine Aminotransferase 10 U/L (0-31); Albumin Level 4.4 g/dL (3.5-5.0); Alkaline Phosphatase 64 U/L (39-117); Anion Gap 9 (12-20); Aspartate Amino Transferase 18 U/L (5-31); Bilirubin Total 0.7 mg/dL (0.0-1.0); Blood Urea Nitrogen 10 mg/dL (9-16); Calcium 10.8 mg/dL (8.4-10.2); Carbon Dioxide 26 mmol/L (22-29); Chloride 110 mmol/L (96-108); Cholesterol 182 mg/dL (<200); Estimated Glomerular Filt Rate > 60; Glucose Fasting 89 mg/dL (60-99); HDL Cholesterol 92 mg/dL (>40); LDL Cholesterol Calculated 75 mg/dL (<100); Potassium 3.3 mmol/L (3.3-5.1); Sodium 142 mmol/L (135-145); Triglycerides 76 mg/dL (<150)
[2023-02-09 09:59] LABS: TSH reflex Free T4 2.23 uIU/mL (0.32-4.0); Vitamin D 25-OH Total 30.1 ng/mL (>30)
[2023-02-09 10:51] LABS: Appearance Urine Clear; Color Urine Dark Yellow; Glucose Urine UA Negative (Negative); Leukocyte Esterase Urine Trace (Negative); Nitrite Urine Negative (Negative); PH 5.5 (5.0-9.0); UMIC TRIGGER UACC YES; Urine Blood Negative (Negative); Urine Ketones Trace mg/dL (Negative); Urine Protein 30 (1+) mg/dL (Neg-Trace)
[2023-02-09 10:55] LABS: Bacteria Urine None Seen (None Seen); Hyaline Casts Urine 0-2 /LPF (0-2); WBC Urine 0-5 /HPF (0-5)
== END 2023-02-09 07:46 | disposition home or self-care (01) ==
LOC: HO.LAB 07:45
PROVIDERS: PCP Internal Medicine; Visit Provider Internal Medicine
DX: E78.00 Pure hypercholesterolemia, unspecified (principal); E55.9 Vitamin D deficiency, unspecified; I10 Essential (primary) hypertension
CPT/HCPCS: 36415; 80053; 80061; 81001; 82306; 84443; 85025

== ENCOUNTER 2023-02-16 08:26 | Outpatient (REF) | payer MEDICARE, OTHER, SELFPAY ==
[2023-02-16 11:44] LABS: Basophils Percent Auto 1.3 % (0-2); Eosinophils Percent Auto 0.7 % (0-4); Hematocrit 30.5 % (37.0-47.0); Hemoglobin 10.4 g/dl (12.0-16.0); Lymphocytes Absolute Auto 0.2 X10*3/uL (1.2-4.9); Lymphocytes Percent Auto 11.1 % (20-40); MANUAL DIFF FLAG SCAN; Mean Corpuscular HGB Conc 34.1 g/dl (31.0-35.0); Mean Corpuscular Hemoglobin 36.5 pg (27.0-33.0); Mean Platelet Volume 10.8 fL (9.4-12.3); Monocytes Absolute Auto 0.1 X10*3/uL (0.1-1.2); Monocytes Percent Auto 6.5 % (2-11); Neutrophils Absolute Auto 1.2 x10*3/uL (2.0-8.3); Neutrophils Percent Auto 80.4 % (45-73); Platelet Count 105 X10*3/uL (160-400); Red Blood Count 2.85 X10*6/uL (4.20-5.50); Red Cell Distribution Width 20.2 % (11.0-16.0); SCAN SMEAR FLAG 1
[2023-02-16 11:45] LABS: White Blood Count 1.5 X10*3/uL (4.8-10.8)
[2023-02-16 11:58] LABS: Alanine Aminotransferase 11 U/L (0-31); Albumin Level 4.1 g/dL (3.5-5.0); Alkaline Phosphatase 57 U/L (39-117); Anion Gap 8 (12-20); Aspartate Amino Transferase 19 U/L (5-31); Bilirubin Total 0.7 mg/dL (0.0-1.0); Blood Urea Nitrogen 12 mg/dL (9-16); Calcium 10.8 mg/dL (8.4-10.2); Carbon Dioxide 25 mmol/L (22-29); Chloride 111 mmol/L (96-108); Estimated Glomerular Filt Rate > 60; Glucose Random 120 mg/dL (60-115); Potassium 3.8 mmol/L (3.3-5.1); Sodium 140 mmol/L (135-145); Total Protein 6.5 g/dL (6.5-8.0)
[2023-02-16 12:37] LABS: SLIDE REVIEW VERIFIED
[2023-02-22 09:44] LABS: CA 27.29 53 U/mL (<38)
== END 2023-02-16 08:27 | disposition home or self-care (01) ==
LOC: HO.HMGCLDS 08:26
PROVIDERS: Internal Medicine; PCP Internal Medicine; Visit Provider Internal Medicine
DX: C50.912 Malignant neoplasm of unspecified site of left female breast (principal)
CPT/HCPCS: 36415; 80053; 85025; 86300

== ENCOUNTER 2023-02-17 10:06 | Outpatient (AMB) | payer MEDICARE, OTHER, SELFPAY ==
[2023-02-17 10:12] VITALS: BP 130/82; PULSE 74; O2SAT 97; BMI 17.9
--- NOTE | 2023-02-17 10:12 | A.OFFPC_ITS ---
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 Accompanied by: Daughter Allergies hydrochlorothiazide Allergy (Unknown, Verified 02/17/23 12:41) upset stomach,dizziness lisinopril Allergy (Unknown, Verified 02/17/23 12:41) SWOLLEN THROAT/angioedema metoprolol Allergy (Unknown, Verified 02/17/23 12:41) severe dizziness esomeprazole [Nexium] Adverse Reaction (Unknown, Verified 02/17/23 12:41) headaches Medication List - Last Reconciled 02/17/23 by Lyndon Rosario MD amlodipine 2.5 mg PO DAILY 90 days aspirin (Adult Aspirin Regimen) 81 mg PO DAILY cholecalciferol (vitamin D3) 25 mcg PO DAILY 90 days docusate sodium (Colace) 100 mg PO BID food supplemt, lactose-reduced (Ensure oral liquid) 1 can bid lactulose 15 mL PO DAILY PRN lidocaine 4% (AsperFlex (lidocaine)) 1 patch topical DAILY PRN multivitamin,[id number] (Complete Multivitamin tablet) 1 tab PO DAILY ondansetron 8 mg PO Q8H PRN palbociclib (Ibrance) 100 mg PO DAILY simvastatin 5 mg PO BEDTIME 90 days walker As Directed Tobacco use date assessed: 10/13/22 Fall risk assessment: No Falls in past year Last assessed Fall Risk: 02/17/23 Dental Screening Dental Screen Date: 02/17/23 Did you have a dental visit in the last 12 months?: No Did you have a dental problem in the last 6 months where you did not have access to dental care?: No Was dental information given to patient?: Patient has dentist HPI hypercalcemia, hyperlipidemia, HTN HPI Details Patient comes in today for her follow up visit States that she currently feels okay Denies any increased fatigue and she is tolerating her current dose of Ibrance (dose was lowered a month or so ago due to leucopenia) States that she is eating well and takes Ensure as supplements She denies any headaches or dizziness Denies any chest pains, no increased SOB No nausea/vomiting, no abdominal pain No change in bowel habits noted She continues to follow up with Dr. 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 History of aortic valve stenosis GERD without esophagitis Pure hypercholesterolemia Benign essential hypertension Vitamin D deficiency Familial hypocalciuric hypercalcemia syndrome Osteoporosis Surgical History History of lumpectomy of left breast (~07/02/21) Hx of cataract removal with insertion of prosthetic lens (~08/2017) Hx of aortic valve replacement (~07/04/12) Family History Father Diabetes CVA (cerebral vascular accident) CVD (cardiovascular disease) Myocardial infarct Mother Emphysema of lung Alcoholism /alcohol abuse Social History Household Members: None Housing: Condominium Are you a primary rn wound care to a significant other at home: No Do you presently have visiting nurse or other home services: No Alcohol intake: current Alcohol intake frequency: holidays/special occasions only Alcohol type: wine Patient Tobacco Use Status: Never used Tobacco e-Cigarette/Vaping Use: Never Used Second Hand Smoke Exposure: Yes Use of substances other than those prescribed or required for medical reasons: No Have you been hit, kicked, punched, or otherwise hurt by someone within the past year? If so, by whom?: No Do you have thoughts of harming others: None Do you have a plan to hurt others: No Plan Do you have the means to hurt others: No Recently lost weight without trying: No service: No Current occupational status: retired Cognitive needs: No Hearing needs: Yes Vision needs: Yes Female Reproductive History Menstrual Age of Menarche: 16 Questionnaire Thrive Questionnaire Date Thrive assessed: 10/13/22 ISAÍAS-7 AMB Questionnaire ISAÍAS-7 Date ISAÍAS - 7 assessed: 10/13/22 Source: Developed by Drs. Raudel Toussaint, Tania Erickson, Morgan Corcoran and colleagues, with an educational shakira from [employer]. Review of Systems Const Denies chills, Denies fatigue, Denies fever(s) and Denies headache(s) ENT Denies dysphagia, Denies dizziness, Denies otalgia, Denies headache(s), Denies neck pain, Denies odynophagia and Denies sore throat Card Denies chest pain, Denies palpitations and Reports dyspnea on exertion (mild) Resp Denies cough, Reports dyspnea on exertion (mild) and Denies wheezing GI Denies abdominal pain, Denies bloating, Denies constipation, Denies dysphagia, Denies diarrhea, Denies nausea, Denies odynophagia and Denies vomiting Details: (+) urinary frequency lately Denies difficulty voiding, Reports nocturia, Denies dysuria and Denies urinary urgency Musc Reports back pain (mild, at times) and Denies neck pain Skin/Breast Denies rash Neuro Denies dizziness and Denies headache(s) Psych Denies depression Endo Denies fatigue, Reports polydipsia, Reports polyuria and Denies palpitations Aller/Immun Denies wheezing Physical exam (Primary Care) Vital Signs: Last Vital Signs Pulse 74 02/17/23 10:12 BP 130/82 02/17/23 10:12 Pulse Ox 97 02/17/23 10:12 Oxygen Delivery Method Room Air 02/17/23 10:12 BMI result Body Mass Index 17.9 Tobacco/Smoking Status: Tobacco use Status Tobacco use date assessed 10/13/22 02/17/23 10:18 Patient Tobacco Use Status Never used Tobacco 02/17/23 10:18 e-Cigarette/Vaping Use Never Used 02/17/23 10:18 Thrive Assessment: Date of Thrive Assessment Date Thrive assessed 10/13/22 02/17/23 10:18 Const General: no acute distress and alert HENMT Ears: TM's normal bilaterally and EAC's normal Throat: Yes posterior oropharynx normal and Yes tonsils normal (no TP congestion noted) Neck Neck: Yes no lymphadenopathy and Yes supple Resp Auscultation: clear to auscultation bilaterally, no rales and no wheezes Cardio Rate: regular rate Rhythm: regular rhythm Heart sounds: Clicking heart sound present ((+) loud click on the 2nd heart sound) and Murmur heart sound present systolic III/ and at the left sternal border GI Palpation (GI): Soft to palpation and nontender Auscultation: normal bowel sounds Extrem General: Yes no clubbing, cyanosis or edema Results Reviewed Results Reviewed: Laboratory Tests 02/09/23 02/09/23 02/09/23 07:54 07:54 07:54 WBC Hgb Hct Plt Count Sodium Potassium Creatinine Estimated GFR Fasting Glucose 89 Calcium AST ALT Triglycerides 76 Cholesterol 182 LDL Cholesterol, Calc 75 HDL Cholesterol 25-OH Vitamin D Total 30.1 TSH 2.23 Ur Specific [place] Urine Protein Urine Glucose (UA) Urine Blood 02/09/23 02/09/23 02/16/23 07:54 07:57 08:32 WBC 1.5 L Hgb 10.4 L Hct 30.5 L Plt Count 105 L Sodium Potassium 3.8 Creatinine 0.72 Estimated GFR > 60 Fasting Glucose Calcium AST ALT Triglycerides Cholesterol LDL Cholesterol, Calc HDL Cholesterol 92 25-OH Vitamin D Total TSH Ur Specific [place] 1.020 Urine Protein 30 (1+) H Urine Glucose (UA) Negative Urine Blood Negative 02/16/23 02/16/23 08:32 08:32 WBC Hgb Hct Plt Count Sodium 140 Potassium Creatinine Estimated GFR Fasting Glucose Calcium 10.8 H AST 19 ALT 11 Triglycerides Cholesterol LDL Cholesterol, Calc HDL Cholesterol 25-OH Vitamin D Total TSH Ur Specific [place] Urine Protein Urine Glucose (UA) Urine Blood Assessment and Plan Assessment & Plan (1) Pure hypercholesterolemia: Code(s): E78.00 - Pure hypercholesterolemia, unspecified Plan: Results of her labs done last week reviewed and discussed with patient Reinforced low cholesterol diet Continue Simvastatin 5 mg QD Will recheck her labs and fasting lipids in 4 months for follow-up (2) Familial hypocalciuric hypercalcemia syndrome: Code(s): E83.52 - Hypercalcemia Plan: Serum calcium level is still elevated at 10.8 on her recent labs Follow up with endocrinology as scheduled (3) Benign essential hypertension: Code(s): I10 - Essential (primary) hypertension Plan: Reinforced low-sodium diet -? goal is systolic BP of at least 140 mm or less Patient's blood pressure has improved significantly since her valve replacement surgery in 2012 although they have been running high lately Continue Amlodipine 2.5 mg QD (4) Aortic stenosis: Code(s): I35.0 - Nonrheumatic aortic (valve) stenosis Qualifiers: Cardiac valve disease etiology: nonrheumatic Qualified Code(s): I35.0 - Nonrheumatic aortic (valve) stenosis Plan: S/P AVR with a Bioprosthetic #21 mm Heidy -Reynoso pericardial valve (Dr. 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: Code(s): C50.912 - Malignant neoplasm of unspecified site of left female breast Plan: Was diagnosed with grade 3 invasive lobular carcinoma of the left breast in June 2021 Pathology was [id number], ER/MO positive, HER-2 negative Patient underwent lumpectomy and sentinel lymph node biopsy on 07/02/2021 - surgical margins were negative She also completed adjuvant radiation therapy to reduce risk of local recurrence Continue adjuvant treatment with Letrozole 2.5 mg QD to reduce risk of breast cancer recurrence Follow up with oncology as scheduled for continuing surveillance (6) Osteoporosis: Comment: Has been on Prolia since started by Dr. Mao on 04/25/2015 Code(s): M81.0 - Age-related osteoporosis without current pathological fracture Qualifiers: Osteoporosis type: age-related Presence of current pathological fracture: without current pathological fracture Qualified Code(s): M81.0 - Age-related osteoporosis without current pathological fracture Plan: Has been on Prolia 60 mg subcutaneous injection every 6 months since she was started on it by Dr. Mao but had to come off Rx when she was diagnosed with breast cancer Repeat BMD done on 07/24/2021 revealed (+) 8.6% increase in BMD from previous in the lumbar spine and 4.1% increase from previous in the left femur - findings are similar to what was seen on her previous BMD in June 2018 Was going to be started on Reclast back in April 2022 but she cancelled her appt back then; states that she has not rescheduled her appt since Will have her continue to follow-up with endocrinology for her osteoporosis (7) Vitamin D deficiency: Code(s): E55.9 - Vitamin D deficiency, unspecified Plan: Continue Vitamin D3 1000 units daily (8) GERD without esophagitis: Code(s): K21.9 - Gastro-esophageal reflux disease without esophagitis Plan: Dietary restrictions reinforced Plan Follow up in 4 months Orders: Orders Complete Blood Count Auto Diff 4 Months I10 - Essential (primary) hypertension Comprehensive [place]. Panel Fast 4 Months E78.00 - Pure hypercholesterolemia, unspecified TSH reflex Free T4 4 Months E78.00 - Pure hypercholesterolemia, unspecified UA CC w/rflx Micro + Cult 4 Months R30.0 - Dysuria Lipid Panel 4 Months E78.00 - Pure hypercholesterolemia, unspecified Vitamin D 25-OH Total 4 Months E55.9 - Vitamin D deficiency, unspecified Coding Level of Care Code Est Pt Level 4 (95667) Diagnoses Pure hypercholesterolemia E78.00 Familial hypocalciuric hypercalcemia syndrome E83.52 Benign essential hypertension I10 Nonrheumatic aortic valve stenosis I35.0 Cardiac valve disease etiology: nonrheumatic 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
== END 2023-02-17 11:03 | disposition home or self-care (01) ==
PROVIDERS: PCP Internal Medicine; Visit Provider Internal Medicine
DX: E83.52 Hypercalcemia (principal); I10 Essential (primary) hypertension; C50.912 Malignant neoplasm of unspecified site of left female breast; K21.9 Gastro-esophageal reflux disease without esophagitis; E78.00 Pure hypercholesterolemia, unspecified; I35.0 Nonrheumatic aortic (valve) stenosis; M81.0 Age-related osteoporosis without current pathological fracture
CPT/HCPCS: 99214

== ENCOUNTER 2023-04-12 08:31 | Outpatient (REF) | payer MEDICARE, OTHER, SELFPAY ==
[2023-04-12 11:19] LABS: Basophils Percent Auto 1.4 % (0-2); Eosinophils Percent Auto 0.5 % (0-4); Hematocrit 34.8 % (37.0-47.0); Hemoglobin 11.6 g/dl (12.0-16.0); Imm Gran Abs Auto 0.01 X10*3/uL (0.00-0.03); Imm Gran Pct Auto 0.5 % (0.0-0.4); Lymphocytes Absolute Auto 0.4 X10*3/uL (1.2-4.9); Lymphocytes Percent Auto 16.7 % (20-40); MANUAL DIFF FLAG SCAN; Mean Corpuscular HGB Conc 33.3 g/dl (31.0-35.0); Mean Corpuscular Hemoglobin 38.2 pg (27.0-33.0); Mean Corpuscular Volume 114.5 fL (80.0-98.0); Mean Platelet Volume 11.2 fL (9.4-12.3); Monocytes Absolute Auto 0.1 X10*3/uL (0.1-1.2); Monocytes Percent Auto 5.7 % (2-11); Neutrophils Absolute Auto 1.6 x10*3/uL (2.0-8.3); Neutrophils Percent Auto 75.2 % (45-73); Platelet Count 108 X10*3/uL (160-400); Red Blood Count 3.04 X10*6/uL (4.20-5.50); Red Cell Distribution Width 14.9 % (11.0-16.0); SCAN SMEAR FLAG 1; White Blood Count 2.1 X10*3/uL (4.8-10.8)
[2023-04-12 11:33] LABS: Alanine Aminotransferase 11 U/L (0-31); Albumin Level 4.6 g/dL (3.5-5.0); Alkaline Phosphatase 62 U/L (39-117); Anion Gap 11 (12-20); Aspartate Amino Transferase 20 U/L (5-31); Bilirubin Total 0.7 mg/dL (0.0-1.0); Blood Urea Nitrogen 13 mg/dL (9-16); Calcium 11.4 mg/dL (8.4-10.2); Carbon Dioxide 26 mmol/L (22-29); Chloride 108 mmol/L (96-108); Estimated Glomerular Filt Rate > 60; Glucose Random 90 mg/dL (60-115); Potassium 3.7 mmol/L (3.3-5.1); Sodium 141 mmol/L (135-145); Total Protein 7.3 g/dL (6.5-8.0)
[2023-04-12 11:39] LABS: SLIDE REVIEW VERIFIED
[2023-04-13 10:28] LABS: CA 27.29 63 U/mL (<38)
== END 2023-04-12 08:32 | disposition home or self-care (01) ==
LOC: HO.HMGCLDS 08:31
PROVIDERS: PCP Internal Medicine; Visit Provider Internal Medicine
DX: C50.912 Malignant neoplasm of unspecified site of left female breast (principal)
CPT/HCPCS: 36415; 80053; 85025; 86300

== ENCOUNTER 2023-05-10 08:36 | Outpatient (REF) | payer MEDICARE, OTHER, SELFPAY ==
[2023-05-10 11:55] LABS: Alanine Aminotransferase 10 U/L (0-31); Albumin Level 4.4 g/dL (3.5-5.0); Alkaline Phosphatase 59 U/L (39-117); Anion Gap 9 (12-20); Aspartate Amino Transferase 17 U/L (5-31); Basophils Percent Auto 0.9 % (0-2); Bilirubin Total 0.6 mg/dL (0.0-1.0); Blood Urea Nitrogen 18 mg/dL (9-16); Calcium 11.2 mg/dL (8.4-10.2); Carbon Dioxide 27 mmol/L (22-29); Chloride 110 mmol/L (96-108); Eosinophils Percent Auto 0.9 % (0-4); Estimated Glomerular Filt Rate > 60; Glucose Random 126 mg/dL (60-115); Hematocrit 35.1 % (37.0-47.0); Hemoglobin 11.9 g/dl (12.0-16.0); Imm Gran Abs Auto 0.01 X10*3/uL (0.00-0.03); Imm Gran Pct Auto 0.5 % (0.0-0.4); Lymphocytes Absolute Auto 0.3 X10*3/uL (1.2-4.9); Lymphocytes Percent Auto 13.9 % (20-40); MANUAL DIFF FLAG SCAN; Mean Corpuscular HGB Conc 33.9 g/dl (31.0-35.0); Monocytes Absolute Auto 0.1 X10*3/uL (0.1-1.2); Monocytes Percent Auto 4.2 % (2-11); Neutrophils Absolute Auto 1.7 x10*3/uL (2.0-8.3); Neutrophils Percent Auto 79.6 % (45-73); Platelet Count 103 X10*3/uL (160-400); Potassium 3.8 mmol/L (3.3-5.1); Red Blood Count 3.13 X10*6/uL (4.20-5.50); Red Cell Distribution Width 14.1 % (11.0-16.0); SCAN SMEAR FLAG 1; Sodium 142 mmol/L (135-145); Total Protein 7.1 g/dL (6.5-8.0)
[2023-05-10 11:56] LABS: Mean Corpuscular Volume 112.1 fL (80.0-98.0); White Blood Count 2.2 X10*3/uL (4.8-10.8)
[2023-05-10 12:42] LABS: SLIDE REVIEW VERIFIED
== END 2023-05-10 08:37 | disposition home or self-care (01) ==
LOC: HO.HMGCLDS 08:36
PROVIDERS: PCP Internal Medicine; Visit Provider Internal Medicine
DX: C50.912 Malignant neoplasm of unspecified site of left female breast (principal)
CPT/HCPCS: 36415; 80053; 85025

== ENCOUNTER 2023-05-25 08:54 | Outpatient (REF) | payer MEDICARE, OTHER, SELFPAY ==
--- NOTE | ~2023-05-25 | PE_ITS ---
EXAMINATION: Fluorine-18 FDG PET/CT Scan CLINICAL INDICATION: Subsequent treatment management. Assess response to therapy: Malignant neoplasm of left breast. PROCEDURE: 70 minutes following the intravenous administration of 16.7 mCi of fluorine 18 FDG, images from the base of the skull to the mid thighs were obtained using a combined PET/CT scanner with CT scan based attenuation correction. No oral contrast was administered. No intravenous contrast was administered. Transverse, coronal, sagittal, and volume reconstruction projections were obtained. The patient's blood glucose as determined by a finger stick, was 87 mg/dl immediately prior to injection. Total CT exam dose-length product 350.73 mGy-cm * These CT images were obtained using dose optimization techniques as appropriate, variously including the following: Automated exposure control * Adjustment of mA and/or kV according to patient size (this includes techniques or standardized protocols for targeted exams where dose is matched to indication/reason for exam; i.e. extremities or head) * Use of iterative reconstruction technique COMPARISON: The previous FDG PET CT scan dated 11/10/2022 is available for comparison. FINDINGS: NECK AND VISUALIZED HEAD: There is mildly increased activity in the right palatine tonsil region, SUVmax 4.7, slice 30/267. This is associated with a dense calcifications on the corresponding CT images, and there has not been a significant change of these findings since the 11/10/2022 prior, when this focus showed SUVmax 4.6. No other foci of abnormal FDG activity are noted. The distribution of FDG activity is physiological. There is no cervical lymphadenopathy. THORAX: There are no foci of abnormal FDG activity. No pulmonary nodules are visualized. There is no pleural fluid or pneumothorax. A small to moderate amount of pleural fluid is present with no associated abnormal FDG activity and unchanged in appearance from the 11/10/2022 study. There is no mediastinal, supraclavicular, or axillary lymphadenopathy. Poststernotomy changes including multiple sternal wires and a prosthetic aortic valve are unchanged in appearance from 11/10/2022 and neither shows associated abnormal FDG activity. ABDOMEN AND PELVIS: There is FDG activity of varying intensities present throughout the gastrointestinal tract without a suspicious focal component, and likely physiological. There is diverticulosis without evidence of diverticulitis. The hollow viscera are otherwise unremarkable. There is some prominence of the right ureter but this is not definitely abnormal and no hydronephrosis or hydroureter is suggested on the CT images. The liver, gallbladder, spleen, kidneys, adrenal glands and pancreas appear unremarkable. The pelvic organs are unremarkable. There is no retroperitoneal, mesenteric, pelvic or inguinal lymphadenopathy. MUSCULOSKELETAL: Foci of abnormally increased FDG activity in the lower thoracic and upper lumbar spine, most prominently at T10 noted on 11/10/2022 are no longer present. Mixed sclerotic and lytic changes at T2, T4, T10, T12, and L4 are present on the CT images and are similar in appearance to the 11/10/2022 CT images. A focus of mildly increased FDG activity in the left side of the lumbosacral junction present on 11/10/2022 has almost completely resolved with weak FDG activity now present at this site, SUVmax 2.2, slice 170/267 versus SUVmax 3.1 on 11/10/2022. There is mildly increased FDG activity associated with left-sided facet arthropathy at the C3-C4 level, similar in appearance to 11/10/2022. There are no additional foci of abnormal FDG activity now present in the osseous structures. VASCULAR: Diffuse vascular calcifications including coronary. Reference SUVmax Levels: Mediastinal Blood Pool: 2.0, Slice 89/267 Liver: 2.9, Slice 120/267 PET/PET CT fusion skull to thigh IMPRESSION: 1. 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 There are now no FDG avid osseous metastases. 2. Mild FDG activity is present in the left posterior elements of the mid cervical spine, slightly more prominent than on 11/10/2022 but likely due to facet arthropathy. 3. Stable FDG avidity in the right oropharynx region is probably inflammatory in etiology but nonspecific. This could be further characterized with direct visualization, if clinically indicated. 4. Stable non-FDG avid pericardial effusion. 5. No additional abnormalities suspicious for metastatic or other malignant lesions. 6. Vascular calcifications including coronary.
== END 2023-05-25 08:55 | disposition home or self-care (01) ==
LOC: HO.PET 08:54
PROVIDERS: PCP Internal Medicine; Visit Provider Internal Medicine
DX: Z13.89 Encounter for screening for other disorder (principal)

== ENCOUNTER → 2023-05-27 07:50 | Outpatient (REF) | payer MEDICARE, OTHER, SELFPAY ==
--- NOTE | 2023-05-27 07:53 | CA_ITS ---
Transthoracic Echocardiogram Patient (Last, First, Middle): Jordon Mobley E Gender: Female Date of : 1935 Age: 87 Procedure Date: 05/27/2023 Procedure Type: Transthoracic Echocardiogram Location: OP Height: 160.02 cm Weight: 47.17 kg BSA: 1.46 m2 Heart Rate: 69 bpm BP: 138 / 72 mmHg Audit Clerks Supervisor: FALGUNI/RADHA Referring MD: Keo Tovar MD Loss Prevention Detective: Shelton Marina MD Symptoms: I35.0 - Nonrheumatic aortic (valve) stenosis Study Quality: Adequate ECG Rhythm: Sinus Conclusions: - 1. Normal LV ejection fraction of 60 65% with impaired relaxation filling pattern 2. Mildly dilated left atrium 3. Severe stenosis of bioprosthetic aortic valve with mean gradient of 40 mmHg 4. Normal measured RV systolic pressure 5. Mildly dilated ascending aorta at 4.1 cm 6. Small pericardial effusion Findings Left Ventricle Normal left ventricular size, thickness, and systolic function. The visually estimated ejection fraction is between 60-65%. Spectral Doppler is indicative of an impaired relaxation filling pattern. There is mild septal asymmetric hypertrophy. Right Ventricle Normal right ventricular cavity size. There is moderately decreased right ventricular systolic function. Atria The left atrium is mildly dilated. Interatrial shunt cannot be excluded. The right atrium is normal in size. Aortic Valve A bioprosthetic aortic valve is present. The prosthetic aortic valve appears to be functioning abnormally. There is severe aortic valve stenosis. The mean gradient is 40 mmHg. The aortic valve area is 0.76 cm2. There is no aortic valve regurgitation. Mitral Valve There is mild anterior mitral leaflet thickening. There is mild mitral annular calcification. There is trace mitral valve regurgitation. There is no mitral valve stenosis. Pulmonic Valve The pulmonic valve was not well visualized. Tricuspid Valve Likely normal tricuspid valve structure and function. There is mild tricuspid valve regurgitation. The right ventricular systolic pressure is normal. The right ventricular systolic pressure is 25 mmHg. Normal right atrial pressure. There is no evidence of pulmonary hypertension. Great Vessels The pulmonary artery was not well visualized. There is mild dilatation of the ascending aorta measuring 4.10 cm. Venous The inferior vena cava is normal in size and collapses greater than 50% with inspiration. Pericardium/Pleural There is a small circumferential pericardial effusion. Prior Study Comparison No significant change compared to prior study dated: 11/10/2022. Measurements 2D Linear Measurements IVSd: 0.92 0.6-0.9/0.6-1.0 cm LVIDd: 4.51 3.9-5.3/4.2-5.9 cm LVIDd Index: 3.09 2.4-3.2/2.2-3.1 cm/m2 LVIDs: 2.43 2.0-3.6 cm LVPWd: 0.85 0.7-1.1 cm LA Diam: 4.30 2.7-3.8/3.0-4.0 cm LAIDs Index: 2.95 1.5-2.3 cm/m2 LV Mass: 161.19 67-162/88-224 g LV Mass Index: 110.41 43-95/49-115 g/m2 LVOT Diam: 1.90 3.0+(-)1.3 cm 2D Systolic Function EF 2C: 67.50 >55% Mitral Valve MV Pk E: 0.75 MV PK A: 1.04 MV Decel Time: 369.00 E/A: 0.70 E'Lateral: 5.55 E'Medial: 3.15 E/E' Med: 23.80 E/E' Lat: 13.50 PHT: 108.00 MVA PHT: 2.04 Decel [place]: 2.03 Aortic Valve AoV Pk Andrew: 4.39 AoV Mn Andrew: 2.97 AoV VTI: 0.90 AoV Pk Grad: 77.00 Aov Mn Grad: 40.00 ROSSY Cont.VTI: 0.76 LVOT LVOT Pk Andrew: 1.04 LVOT Mn Andrew: 0.75 LVOT VTI: 0.24 LVOT Pk Grad: 4.00 LVOT Mn Grad: 3.00 LVOT Diam: 1.90 LVOT Area: 2.84 Diastolic Function MV Pk E: 0.75 MV Pk A: 1.04 E/A: 0.70 E'Medial: 3.15 E/E' Med: 23.80 E' Laterial: 5.55 E/E' Lat: 13.50 Right Ventricle TAPSE (mm): 11.10 TVS' Andrew: 9.10 Tricuspid Valve TR Pk Andrew: 2.33 TR Pk Grad: 22.00 RA Press: 3.00 RVSP: 25.00 Great Vessels Aorta Sinus of Valsalva: 2.90 2.0-3.5 cm Ao Asc: 4.10 2.1-3.4 cm Ao Arch: 3.30 Pulmonary Valve PV Pk Andrew: 0.98 Peak PV Grad: 4.00 Updated in Other Vendor System with Status of Final Shelton Marina MD electronically signed on 05/28/2023 9:09:12 AM with status of Final
== END ==
LOC: HO.CARD 07:50
PROVIDERS: PCP Internal Medicine; Visit Provider Internal Medicine
DX: I35.0 Nonrheumatic aortic (valve) stenosis (principal)
CPT/HCPCS: 93306

== ENCOUNTER → 2023-05-27 07:53 | Outpatient (BNV) | payer MEDICARE, OTHER, SELFPAY | PROVIDERS: PCP Internal Medicine; Visit Provider Internal Medicine Cardiovascular Disease | DX: I35.0 Nonrheumatic aortic (valve) stenosis (principal); T82.390A Other mechanical complication of aortic (bifurcation) graft (replacement), initial encounter | CPT/HCPCS: 93306 ==

== ENCOUNTER 2023-06-03 12:23 | Outpatient (REF) | payer MEDICARE, OTHER, SELFPAY ==
--- NOTE | ~2023-06-03 | MM_ITS ---
EXAMINATION: MM DIAGNOSTIC DIGITAL BREAST TOMOSYNTHESIS, BILATERAL CLINICAL INFORMATION: Left lumpectomy July 02, 2021. Year 3 follow-up imaging postop. Patient also due for bilateral screening. COMPARISON: Mammography: PET/CT 05/25/2023. Mammography 05/26/2022, 07/02/2021, 06/10/2021, and studies dating back to June 05, 2015 TECHNIQUE: Digital breast tomosynthesis is performed in both the craniocaudal and mediolateral oblique views along with computer-aided detection (CAD). Synthesized 2D images are generated from the tomosynthesis. FINDINGS: The breasts are heterogeneously dense, which may obscure small masses (ACR BI-RADS breast composition Category c). Left breast is extremely small with extensive scarring present, unchanged. There are calcified vessels. The right breast is also somewhat small, with calcified vessels. There are no suspicious masses, suspicious grouped calcifications, or developing new areas of architectural distortion. The parenchymal pattern is stable from prior exams. Reason pelvis CT 05/25/2023 showed no residual PET avid disease in either breast or elsewhere. MM/MM tomosynthesis diagnostic BI IMPRESSION: There are no significant changes from prior study. Stable scarring and postop changes left breast. This completes the 3 year postop follow-up. No suspicious findings in the right breast. Stable benign breast calcifications. Recommend the patient resume routine annual screening mammography if warranted. ASSESSMENT: BI-RADS BI-RADS 2 - Benign Findings RECOMMENDATION: 1 year F/U Results were provided to the patient at time of visit by the technologist. This patient's information was entered into a reminder system with a target due date for their next mammogram.
== END 2023-06-03 12:24 | disposition home or self-care (01) ==
LOC: HO.MAMMO 12:23
PROVIDERS: PCP Internal Medicine; Visit Provider Surgery
DX: Z85.3 Personal history of malignant neoplasm of breast (principal)
CPT/HCPCS: 77062; 77066

== ENCOUNTER → 2023-06-03 13:00 | Outpatient (BNV) | payer MEDICARE, OTHER, SELFPAY | PROVIDERS: PCP Internal Medicine; Visit Provider Radiology Diagnostic Radiology | DX: R92.1 Mammographic calcification found on diagnostic imaging of breast (principal) | CPT/HCPCS: 77062; 77066 ==

== ENCOUNTER 2023-06-08 08:12 | Outpatient (REF) | payer MEDICARE, OTHER, SELFPAY ==
[2023-06-08 11:13] LABS: Appearance Urine Clear; Color Urine Dark Yellow; Glucose Urine UA Negative (Negative); Leukocyte Esterase Urine Negative (Negative); Nitrite Urine Negative (Negative); PH 5.5 (5.0-9.0); Specific Gravity - Urine 1.025 (1.005-1.025); Urine Blood Negative (Negative); Urine Ketones Negative (Negative); Urine Protein Trace mg/dL (Neg-Trace)
[2023-06-08 11:19] LABS: Eosinophils Percent Auto 0.5 % (0-4); Hematocrit 35.7 % (37.0-47.0); Hemoglobin 12.2 g/dl (12.0-16.0); Lymphocytes Absolute Auto 0.3 X10*3/uL (1.2-4.9); Lymphocytes Percent Auto 13.8 % (20-40); Mean Corpuscular HGB Conc 34.2 g/dl (31.0-35.0); Mean Corpuscular Hemoglobin 38.6 pg (27.0-33.0); Mean Platelet Volume 10.8 fL (9.4-12.3); Monocytes Absolute Auto 0.1 X10*3/uL (0.1-1.2); Monocytes Percent Auto 4.3 % (2-11); Neutrophils Absolute Auto 1.7 x10*3/uL (2.0-8.3); Neutrophils Percent Auto 80.4 % (45-73); Platelet Count 116 X10*3/uL (160-400); Red Blood Count 3.16 X10*6/uL (4.20-5.50); Red Cell Distribution Width 13.9 % (11.0-16.0)
[2023-06-08 11:20] LABS: White Blood Count 2.1 X10*3/uL (4.8-10.8)
[2023-06-08 12:00] LABS: Alanine Aminotransferase 15 U/L (0-31); Albumin Level 4.5 g/dL (3.5-5.0); Alkaline Phosphatase 59 U/L (39-117); Anion Gap 12 (12-20); Aspartate Amino Transferase 18 U/L (5-31); Bilirubin Total 0.6 mg/dL (0.0-1.0); Blood Urea Nitrogen 19 mg/dL (9-16); Calcium 10.9 mg/dL (8.4-10.2); Carbon Dioxide 26 mmol/L (22-29); Chloride 110 mmol/L (96-108); Cholesterol 177 mg/dL (<200); Estimated Glomerular Filt Rate > 60; Glucose Fasting 76 mg/dL (60-99); HDL Cholesterol 91 mg/dL (>40); LDL Cholesterol Calculated 67 mg/dL (<100); Potassium 3.8 mmol/L (3.3-5.1); Sodium 144 mmol/L (135-145); Total Protein 7.3 g/dL (6.5-8.0); Triglycerides 98 mg/dL (<150)
[2023-06-08 12:20] LABS: TSH reflex Free T4 1.55 uIU/mL (0.32-4.0); Vitamin D 25-OH Total 28.4 ng/mL (>30)
== END 2023-06-08 08:13 | disposition home or self-care (01) ==
LOC: HO.HMGCLDS 08:12
PROVIDERS: PCP Internal Medicine; Visit Provider Internal Medicine
DX: I10 Essential (primary) hypertension (principal); E78.00 Pure hypercholesterolemia, unspecified; R30.0 Dysuria; E55.9 Vitamin D deficiency, unspecified
CPT/HCPCS: 36415; 80053; 80061; 81003; 82306; 84443; 85025

== ENCOUNTER 2023-06-21 10:27 | Outpatient (AMB) | payer MEDICARE, OTHER, SELFPAY ==
[2023-06-21 10:30] VITALS: BP 134/70; PULSE 68; O2SAT 99; BMI 18.5
--- NOTE | 2023-06-21 10:30 | A.OFFPC_ITS ---
Vital Signs 06/21/23 10:30 Height 5 ft 3 in Weight 104 lb 4 oz BMI 18.5 BP 134/70 Blood Pressure Location Lt brachial Position Sitting Pulse 68 Pulse Source Pulse Oximeter Pulse Oximetry (%) 99 Oxygen Delivery Method Room Air Intake Visit Reasons: breast cancer, hyperlipidemia, HTN Credit Authorizer Required: No Accompanied by: Self / Same As Patient Allergies hydrochlorothiazide Allergy (Unknown, Verified 06/21/23 11:24) upset stomach,dizziness lisinopril Allergy (Unknown, Verified 06/21/23 11:24) SWOLLEN THROAT/angioedema metoprolol Allergy (Unknown, Verified 06/21/23 11:24) severe dizziness esomeprazole [Nexium] Adverse Reaction (Unknown, Verified 06/21/23 11:24) headaches Medication List - Last Reconciled 06/21/23 by Lyndon Rosario MD amlodipine 2.5 mg PO DAILY 90 days aspirin (Adult Aspirin Regimen) 81 mg PO DAILY cholecalciferol (vitamin D3) 25 mcg PO DAILY 90 days food supplemt, lactose-reduced (Ensure oral liquid) 1 can bid multivitamin,[id number] (Complete Multivitamin tablet) 1 tab PO DAILY palbociclib (Ibrance) 100 mg PO DAILY simvastatin 5 mg PO BEDTIME walker As Directed Tobacco use date assessed: 06/21/23 Fall risk assessment: 1 Fall in past year Last assessed Fall Risk: 06/21/23 Dental Screening Dental Screen Date: 06/21/23 Did you have a dental visit in the last 12 months?: No Did you have a dental problem in the last 6 months where you did not have access to dental care?: No Was dental information given to patient?: No HPI breast cancer, hyperlipidemia, HTN HPI Details Patient comes in today for her follow up visit States that she feels okay She denies any headaches or dizziness Denies any chest pains, no increased SOB No nausea/vomiting, no abdominal pain No change in bowel habits noted Needs her Amlodipine Rx refilled Had her follow up labs done a couple of weeks ago - to discuss her results [facility] 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 History of aortic valve stenosis GERD without esophagitis Pure hypercholesterolemia Benign essential hypertension Vitamin D deficiency Familial hypocalciuric hypercalcemia syndrome Osteoporosis Surgical History History of lumpectomy of left breast (~07/02/21) Hx of cataract removal with insertion of prosthetic lens (~08/2017) Hx of aortic valve replacement (~07/04/12) Family History Father Diabetes CVA (cerebral vascular accident) CVD (cardiovascular disease) Myocardial infarct Mother Emphysema of lung Alcoholism /alcohol abuse Social History Household Members: None Housing: Condominium Are you a primary assistant child care teacher to a significant other at home: No Do you presently have visiting nurse or other home services: No Alcohol intake: current Alcohol intake frequency: holidays/special occasions only Alcohol type: wine Patient Tobacco Use Status: Never used Tobacco e-Cigarette/Vaping Use: Never Used Second Hand Smoke Exposure: Yes service: No Current occupational status: retired Cognitive needs: No Hearing needs: Yes Vision needs: Yes Female Reproductive History Menstrual Age of Menarche: 16 Questionnaire PHQ-9 Over the last 2 weeks, how often have you been bothered by any of the following problems? 1. Little interest or pleasure in doing things: not at all 2. Feeling down, depressed, or hopeless: several days 3. Trouble falling or staying asleep, or sleeping too much: several days 4. Feeling tired or having little energy: not at all 5. Poor appetite or overeating: not at all 6. Feeling bad about yourself - or that you are a failure or have let yourself or your family down: not at all 7. Trouble concentrating on things, such as reading the newspaper or watching television: not at all 8. Moving or speaking so slowly that other people could have noticed. Or the opposite - being so fidgety or restless that you have been moving around a lot more than usual: not at all 9. Thoughts that you would be better off or of hurting yourself in some way: not at all Total score: 2 Depression Screening Interpretation: Negative Depression Screening Done: Yes 34936 - PHQ-9 Billing: Yes Source: Developed by Drs. Raudel L. Tania Toussaint Kurt Kroenke and colleagues, with an educational shakira from [employer]. Thrive Questionnaire Date Thrive assessed: 06/21/23 I am a: Patient What is your living situation today?: I have a steady place to live Within the past 12 months, did the food you bought not last and you didn't have the money to get more?: Never true Within the past 12 months, did you worry whether your food would run out before you got money to buy more?: Never true Do you have trouble paying for medicines?: No Do you have trouble getting transportation to medical appointments?: No Do you have trouble paying your heating and electricity bill?: No Do you have trouble taking care of your child, family member or friend?: No Do you have trouble with day-to-day activities such as bathing, preparing meals, shopping, managing finances, etc.?: No Are you currently unemployed and looking for a job?: No Are you interested in more education?: No Please select the resources that you would like help with: None Currently or been in a relationship where the following occur: no concerns reported AUDIT C Alcohol Use Questionnaire (AUDIT-C) 1. How often do you have a drink containing alcohol?: Never 3. How often do you have six or more drinks on one occasion?: Never Total Score: 0 Score Reviewed/Action Taken: Yes ISAÍAS-7 AMB Questionnaire ISAÍAS-7 Date ISAÍAS - 7 assessed: 06/21/23 Feeling nervous, anxious, or on edge: 0 = Not at all Not being able to stop or control worryin = Not at all Worrying too much about different things: 0 = Not at all Trouble relaxin = Not at all Being so restless that it is hard to sit still: 0 = Not at all Becoming easily annoyed or irritable: 0 = Not at all Feeling afraid as if something awful might happen: 0 = Not at all Total ISAÍAS-7 score (0-4 normal; 5-9 mild; 10-14 moderate; 15-21 severe): 0 Source: Developed by Drs. Raudel Toussaint, Morgan Camargo and colleagues, with an educational shakira from [employer]. Review of Systems Const Denies chills, Denies fatigue, Denies fever(s) and Denies headache(s) ENT Denies dysphagia, Denies dizziness, Denies otalgia, Denies headache(s), Denies neck pain, Denies odynophagia and Denies sore throat Card Denies chest pain, Denies palpitations and Reports dyspnea on exertion (mild) Resp Denies cough, Reports dyspnea on exertion (mild) and Denies wheezing GI Denies abdominal pain, Denies bloating, Denies constipation, Denies dysphagia, Denies diarrhea, Denies nausea, Denies odynophagia and Denies vomiting Denies difficulty voiding, Reports nocturia (a couple of times a night at least), Denies dysuria and Denies urinary urgency Musc Reports back pain (mild, at times) and Denies neck pain Skin/Breast Denies rash Neuro Denies dizziness and Denies headache(s) Psych Denies depression Endo Denies fatigue and Denies palpitations Aller/Immun Denies wheezing Physical exam (Primary Care) Vital Signs: Last Vital Signs Pulse 68 06/21/23 10:30 BP 134/70 06/21/23 10:30 Pulse Ox 99 06/21/23 10:30 Oxygen Delivery Method Room Air 06/21/23 10:30 BMI result Body Mass Index 18.5 Tobacco/Smoking Status: Tobacco use Status Tobacco use date assessed 06/21/23 06/21/23 10:32 Patient Tobacco Use Status Never used Tobacco 06/21/23 10:32 e-Cigarette/Vaping Use Never Used 06/21/23 10:32 PHQ-9: PHQ-9 Score PHQ-9: Total score 2 06/21/23 10:44 Depression Screening Interpretation: Negative Thrive Assessment: Date of Thrive Assessment Date Thrive assessed 06/21/23 06/21/23 10:32 Currently or been in a relationship where the following occur: no concerns reported Const General: no acute distress and alert HENMT Ears: TM's normal bilaterally and EAC's normal Throat: Yes posterior oropharynx normal and Yes tonsils normal (no TP congestion noted) Neck Neck: Yes no lymphadenopathy and Yes supple Resp Auscultation: clear to auscultation bilaterally, no rales and no wheezes Cardio Rate: regular rate Rhythm: regular rhythm Heart sounds: Clicking heart sound present ((+) loud click on the 2nd heart sound) and Murmur heart sound present systolic III/ and at the left sternal border GI Palpation (GI): Soft to palpation and nontender Auscultation: normal bowel sounds Extrem General: Yes no clubbing, cyanosis or edema Results Reviewed Results Reviewed: Laboratory Tests 06/08/23 06/08/23 06/08/23 08:18 08:18 08:18 WBC 2.1 L Hgb 12.2 Hct 35.7 L Plt Count 116 L Sodium 144 Potassium 3.8 Creatinine 0.71 Estimated GFR > 60 Fasting Glucose 76 Calcium 10.9 H AST 18 ALT 15 Triglycerides 98 Cholesterol 177 LDL Cholesterol, Calc 67 HDL Cholesterol 91 25-OH Vitamin D Total 28.4 L TSH 1.55 Ur Specific [place] Urine Protein Urine Glucose (UA) Urine Blood Urine Nitrite Ur Leukocyte Esterase 06/08/23 06/08/23 08:20 08:20 WBC Hgb Hct Plt Count Sodium Potassium Creatinine Estimated GFR Fasting Glucose Calcium AST ALT Triglycerides Cholesterol LDL Cholesterol, Calc HDL Cholesterol 25-OH Vitamin D Total TSH Ur Specific [place] 1.025 Urine Protein Trace Urine Glucose (UA) Negative Urine Blood Negative Urine Nitrite Negative Ur Leukocyte Esterase Negative Assessment and Plan Assessment & Plan (1) Pure hypercholesterolemia: Code(s): E78.00 - Pure hypercholesterolemia, unspecified Plan: Results of her labs done a couple of weeks ago reviewed and discussed with patient Reinforced low cholesterol diet Continue Simvastatin 5 mg QD Will recheck her labs and fasting lipids in 4 months for follow-up (2) Familial hypocalciuric hypercalcemia syndrome: Code(s): E83.52 - Hypercalcemia Plan: Serum calcium level is still elevated at 10.9 on her recent labs although they have been steady / controlled for a while now Was seeing endocrinology in the past but was advised by Dr. Stroud at her last visit last year that as long as her serum calcium level remains stable, she can just be followed up by her PCP and be referred back to endocrinology if her numbers change for the worse again (3) Benign essential hypertension: Code(s): I10 - Essential (primary) hypertension Plan: Reinforced low-sodium diet -? goal is systolic BP of at least 140 mm or less Patient's blood pressure has improved significantly since her valve replacement surgery in 2012 although they have been running high lately Continue Amlodipine 2.5 mg QD - Rx refilled (4) Aortic stenosis: Code(s): I35.0 - Nonrheumatic aortic (valve) stenosis Qualifiers: Cardiac valve disease etiology: nonrheumatic Qualified Code(s): I35.0 - Nonrheumatic aortic (valve) stenosis Plan: S/P AVR with a Bioprosthetic #21 mm Heidy -Reynoso pericardial valve (Dr. 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: Code(s): C50.912 - Malignant neoplasm of unspecified site of left female breast Plan: Was diagnosed with grade 3 invasive lobular carcinoma of the left breast in June 2021 Pathology was [id number], ER/WY positive, HER-2 negative Patient underwent lumpectomy and sentinel lymph node biopsy on 07/02/2021 - surgical margins were negative She also completed adjuvant radiation therapy to reduce risk of local recurrence 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 Mao on 04/25/2015 Code(s): M81.0 - Age-related osteoporosis without current pathological fracture Qualifiers: Osteoporosis type: age-related Presence of current pathological fracture: without current pathological fracture Qualified Code(s): M81.0 - Age- related osteoporosis without current pathological fracture Plan: Has been on Prolia 60 mg subcutaneous injection every 6 months since she was started on it by Dr. Mao but had to come off Rx when she was diagnosed with breast cancer Repeat BMD done on 07/24/2021 revealed (+) 8.6% increase in BMD from previous in the lumbar spine and 4.1% increase from previous in the left femur - findings are similar to what was seen on her previous BMD in June 2018 Was going to be started on Reclast back in April 2022 but she cancelled her appt back then; states that she has not rescheduled her appt since She now follows up with oncology (Dr. Ba) for management of her osteoporosis (7) Vitamin D deficiency: Code(s): E55.9 - Vitamin D deficiency, unspecified Plan: Continue Vitamin D3 1000 units daily (8) GERD without esophagitis: Code(s): K21.9 - Gastro-esophageal reflux disease without esophagitis Plan: Dietary restrictions reinforced Plan Follow up in 4 months Orders: Orders Comprehensive [place]. Panel Fast 4 Months E78.00 - Pure hypercholesterolemia, unspecified TSH reflex Free T4 4 Months E78.00 - Pure hypercholesterolemia, unspecified Vitamin D 25-OH Total 4 Months E55.9 - Vitamin D deficiency, unspecified Complete Blood Count Auto Diff 4 Months D64.9 - Anemia, unspecified Lipid Panel 4 Months E78.00 - Pure hypercholesterolemia, unspecified UA CC w/rflx Micro + Cult 4 Months R30.0 - Dysuria Medications: Refilled amlodipine 2.5 mg PO DAILY 90 days 90 tabs 3RF Coding Level of Care Code Est Pt Level 4 (70325) Diagnoses Pure hypercholesterolemia E78.00 Familial hypocalciuric hypercalcemia syndrome E83.52 Benign essential hypertension I10 Nonrheumatic aortic valve stenosis I35.0 Cardiac valve disease etiology: nonrheumatic 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
== END 2023-06-21 11:35 | disposition home or self-care (01) ==
PROVIDERS: PCP Internal Medicine; Visit Provider Internal Medicine
DX: E78.00 Pure hypercholesterolemia, unspecified (principal); C50.912 Malignant neoplasm of unspecified site of left female breast; E83.52 Hypercalcemia; I10 Essential (primary) hypertension; I35.0 Nonrheumatic aortic (valve) stenosis; M81.0 Age-related osteoporosis without current pathological fracture; E55.9 Vitamin D deficiency, unspecified; K21.9 Gastro-esophageal reflux disease without esophagitis
CPT/HCPCS: 99214

== ENCOUNTER 2023-07-05 09:44 | Outpatient (REF) | payer MEDICARE, OTHER, SELFPAY ==
[2023-07-05 13:24] LABS: Basophils Percent Auto 0.9 % (0-2); Eosinophils Percent Auto 0.4 % (0-4); Hematocrit 33.9 % (37.0-47.0); Hemoglobin 11.5 g/dl (12.0-16.0); Imm Gran Abs Auto 0.01 X10*3/uL (0.00-0.03); Imm Gran Pct Auto 0.4 % (0.0-0.4); Lymphocytes Absolute Auto 0.3 X10*3/uL (1.2-4.9); Lymphocytes Percent Auto 12.4 % (20-40); MANUAL DIFF FLAG SCAN; Mean Corpuscular HGB Conc 33.9 g/dl (31.0-35.0); Mean Corpuscular Hemoglobin 37.6 pg (27.0-33.0); Monocytes Absolute Auto 0.1 X10*3/uL (0.1-1.2); Monocytes Percent Auto 5.1 % (2-11); Neutrophils Absolute Auto 1.9 x10*3/uL (2.0-8.3); Neutrophils Percent Auto 80.8 % (45-73); Platelet Count 105 X10*3/uL (160-400); Red Blood Count 3.06 X10*6/uL (4.20-5.50); Red Cell Distribution Width 14.5 % (11.0-16.0); SCAN SMEAR FLAG 1
[2023-07-05 13:25] LABS: Mean Corpuscular Volume 110.8 fL (80.0-98.0); White Blood Count 2.3 X10*3/uL (4.8-10.8)
[2023-07-05 13:56] LABS: Alanine Aminotransferase 11 U/L (0-31); Albumin Level 4.4 g/dL (3.5-5.0); Alkaline Phosphatase 57 U/L (39-117); Anion Gap 13 (12-20); Aspartate Amino Transferase 19 U/L (5-31); Bilirubin Total 0.8 mg/dL (0.0-1.0); Blood Urea Nitrogen 19 mg/dL (9-16); Calcium 10.9 mg/dL (8.4-10.2); Carbon Dioxide 21 mmol/L (22-29); Chloride 111 mmol/L (96-108); Estimated Glomerular Filt Rate > 60; Glucose Random 98 mg/dL (60-115); Potassium 3.6 mmol/L (3.3-5.1); Sodium 141 mmol/L (135-145); Total Protein 7.1 g/dL (6.5-8.0)
[2023-07-05 14:03] LABS: SLIDE REVIEW VERIFIED
[2023-07-07 10:55] LABS: CA 27.29 56 U/mL (<38)
== END 2023-07-05 09:45 | disposition home or self-care (01) ==
LOC: HO.HMGCLDS 09:44
PROVIDERS: PCP Internal Medicine; Visit Provider Internal Medicine
DX: C50.912 Malignant neoplasm of unspecified site of left female breast (principal)
CPT/HCPCS: 36415; 80053; 85025; 86300

== ENCOUNTER 2023-07-09 08:14 | Outpatient (AMB) | payer MEDICARE, OTHER, SELFPAY ==
[2023-07-09 08:21] VITALS: BP 130/62; PULSE 72; BMI 18.9
--- NOTE | 2023-07-09 08:21 | A.OFFVIS_ITS ---
Intake Vital Signs 07/09/23 08:21 Height 5 ft 3 in Weight 106 lb 11.26 oz BMI 18.9 BP 130/62 Blood Pressure Location Lt brachial Position Sitting Pulse 72 Pulse Source Monitor Intake Visit Reasons: 6 month follow up echo Draw Bench Operator Required: No Rail Signal Worker: Rail Signal Worker Present Allergies hydrochlorothiazide Allergy (Unknown, Verified 07/09/23 08:23) upset stomach,dizziness lisinopril Allergy (Unknown, Verified 07/09/23 08:23) SWOLLEN THROAT/angioedema metoprolol Allergy (Unknown, Verified 07/09/23 08:23) severe dizziness esomeprazole [Nexium] Adverse Reaction (Unknown, Verified 07/09/23 08:23) headaches Medication List - Last Reconciled 07/09/23 by Lali Roach EXCEPTIONAL STUDENT EDUCATION AIDE-C amlodipine 2.5 mg PO DAILY 90 days aspirin (Adult Aspirin Regimen) 81 mg PO DAILY cholecalciferol (vitamin D3) 25 mcg PO DAILY 90 days food supplemt, lactose-reduced (Ensure oral liquid) 1 can bid multivitamin,[id number] (Complete Multivitamin tablet) 1 tab PO DAILY palbociclib (Ibrance) 100 mg PO DAILY simvastatin 5 mg PO BEDTIME walker As Directed HPI 6 month follow up echo HPI Details Jordon is an 87-year-old female with past medical history of hypertension, breast CA, bone Mets, bioprosthetic AVR approximately 10-11 years ago, severe stenosis of the bioprosthetic AVR who recently had echocardiogram and now presents for follow-up. Today she reports that she has been doing generally well since her last visit here 11/25/2022. She describes her breast cancer as being stable. No chest discomfort at rest or with activity. No shortness of breath at rest, PND, orthopnea or edema. She will have some shortness of breath if she over exerts. She mostly does only light activities. No palpitations, lightheadedness, presyncope, syncope, falls. Taking meds as directed. Daughter is present. 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 History of aortic valve stenosis GERD without esophagitis Pure hypercholesterolemia Benign essential hypertension Vitamin D deficiency Familial hypocalciuric hypercalcemia syndrome Osteoporosis Surgical History Hx of aortic valve replacement (~07/04/12) History of lumpectomy of left breast (~07/02/21) Hx of cataract removal with insertion of prosthetic lens (~08/2017) Family History Father Diabetes CVA (cerebral vascular accident) CVD (cardiovascular disease) Myocardial infarct Mother Emphysema of lung Alcoholism /alcohol abuse Social History Household Members: None Housing: Condominium Are you a primary home care rn to a significant other at home: No Do you presently have visiting nurse or other home services: No Alcohol intake: current Alcohol intake frequency: holidays/special occasions only Alcohol type: wine Patient Tobacco Use Status: Never used Tobacco e-Cigarette/Vaping Use: Never Used Second Hand Smoke Exposure: Yes service: No Current occupational status: retired Cognitive needs: No Hearing needs: Yes Vision needs: Yes Female Reproductive History Menstrual Age of Menarche: 16 Review of Systems Const All systems reviewed & are unremarkable except as noted in HPI and below ENT Denies dizziness Card Denies chest pain, Denies chest pain at rest, Denies chest pain with activity, Denies rapid heart rate, Denies pedal edema, Denies edema, Denies leg edema, Denies lightheadedness, Denies palpitations, Denies dyspnea, Reports dyspnea on exertion (Over exertion) and Denies orthopnea Resp Denies cough, Denies dyspnea and Reports dyspnea on exertion (Over exertion) GI Denies hematochezia and Denies change in stool character Musc Denies abnormal gait, Reports limited range of motion, Reports muscle cramps, Denies muscle weakness, Denies numbness, Denies radiating pain into limb, Denies stiffness and Denies tingling Neuro Denies abnormal gait, Denies dizziness, Denies numbness and Denies tingling Endo Denies palpitations Physical Exam Vital Signs: Last Vital Signs Pulse 72 07/09/23 08:21 BP 130/62 07/09/23 08:21 BMI result Body Mass Index 18.9 Const General: cooperative, healthy appearing, comfortable and no acute distress Orientation/consciousness: patient oriented x3 Neck Neck: Yes normal visual inspection Resp Effort & Inspection: normal respiratory effort Auscultation: clear to auscultation bilaterally, no crackles, no rales, no rhonchi and no wheezes Cardio Jugular venous distension: no JVD Rate: regular rate Rhythm: regular rhythm Heart sounds: S1 normal heart sound present, S2 normal heart sound present, Murmur heart sound present (3/6 systolic) and no rubs Neuro General: patient oriented x3 Extrem General: Yes normal to inspection, No no pedal edema and No calf tenderness Psych Appearance: grossly normal Mental Status: mental status grossly normal Speech and movement: Normal speech and movement present Office Procedures EKG Details: Today, read by me, normal sinus rhythm, can not exclude anterior infarct, age undetermined, rate 72, QTC 398 milliseconds [id number], Complete Assessment & Plan Assessment & Plan (1) Aortic stenosis: Code(s): I35.0 - Nonrheumatic aortic (valve) stenosis Qualifiers: Cardiac valve disease etiology: nonrheumatic Qualified Code(s): I35.0 - Nonrheumatic aortic (valve) stenosis Plan: History of severe aortic stenosis status post bioprosthetic AVR approximately 10-11 years ago. Echo cardiograms more recent have shown stenosis of the bioprosthetic AVR. Last echo done 05/27/2023 shows EF 60-65%, severe stenosis of bio AVR with mean gradient 40 mmHg, aortic valve area 0.76 centimeter sq. No significant change from echo 11/10/2022. Patient denies any chest discomfort, lightheadedness, presyncope, syncope. She does have some shortness of breath with stair climbing or exertional activities as reported by her daughter. Spent time reviewing echo findings, severe aortic stenosis and need for TAVR procedure. Prior to TAVR referral she will need cardiac catheterization to evaluate for coronary artery disease. Catheterization procedure, risks and potential findings reviewed with her in detail. She is agreeable to proceed. Will order diagnostic cardiac catheterization. Will order preprocedure labs, CBC, BMP, PT/INRs. Cardiology follow-up 2 weeks post procedure. (2) Hx of aortic valve replacement: Onset Date: ~07/04/12 Comment: S/P AVR with a Bioprosthetic #21 mm Heidy -Reynoso pericardial valve (Dr. Magdy Ferreira); no CABG Code(s): Z95.2 - Presence of prosthetic heart valve Plan: As above (3) Benign essential hypertension: Code(s): I10 - Essential (primary) hypertension Plan: Well controlled at present. No medication changes made. 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 Ba. Patient reports her condition as being stable. Plan Time spent on chart review, documentation, interview and assess Orders: Orders Cardiac Cath LT Diagnostic Today I35.0 - Nonrheumatic aortic (valve) stenosis, Z95.2 - Presence of prosthetic heart valve Complete Blood Count Auto Diff Today I35.0 - Nonrheumatic aortic (valve) stenosis Basic Metabolic Panel Today I35.0 - Nonrheumatic aortic (valve) stenosis AMB INR Today C50.912 - Malignant neoplasm of unspecified site of left female breast, Z13.9 - Encounter for screening, unspecified Coding Level of Care Code Est Pt Level 4 (24471) Diagnoses Nonrheumatic aortic valve stenosis I35.0 Cardiac valve disease etiology: nonrheumatic Hx of aortic valve replacement Z95.2 Benign essential hypertension I10 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
== END 2023-07-09 10:26 | disposition home or self-care (01) ==
PROVIDERS: PCP Internal Medicine; Visit Provider Nurse Practitioner Family
DX: I35.0 Nonrheumatic aortic (valve) stenosis (principal); Z95.2 Presence of prosthetic heart valve; I10 Essential (primary) hypertension; C50.912 Malignant neoplasm of unspecified site of left female breast
CPT/HCPCS: 93010; 99214

== ENCOUNTER → 2023-07-09 08:14 | Outpatient (BNVA) | payer MEDICARE, OTHER, SELFPAY | PROVIDERS: PCP Internal Medicine; Visit Provider Nurse Practitioner Family | DX: I35.0 Nonrheumatic aortic (valve) stenosis (principal); I10 Essential (primary) hypertension; C50.912 Malignant neoplasm of unspecified site of left female breast; Z95.2 Presence of prosthetic heart valve | CPT/HCPCS: 93005; 99212 ==

== ENCOUNTER 2023-07-12 07:45 | Outpatient (REF) | payer MEDICARE, OTHER, SELFPAY ==
[2023-07-12 08:51] LABS: Basophils Percent Auto 0.5 % (0-2); Eosinophils Percent Auto 0.5 % (0-4); Hematocrit 32.2 % (37.0-47.0); Hemoglobin 11.1 g/dl (12.0-16.0); Imm Gran Abs Auto 0.01 X10*3/uL (0.00-0.03); Imm Gran Pct Auto 0.5 % (0.0-0.4); Lymphocytes Absolute Auto 0.3 X10*3/uL (1.2-4.9); Lymphocytes Percent Auto 13.6 % (20-40); MANUAL DIFF FLAG SCAN; Mean Corpuscular HGB Conc 34.5 g/dl (31.0-35.0); Mean Platelet Volume 10.6 fL (9.4-12.3); Monocytes Absolute Auto 0.2 X10*3/uL (0.1-1.2); Monocytes Percent Auto 12.6 % (2-11); Neutrophils Absolute Auto 1.4 x10*3/uL (2.0-8.3); Neutrophils Percent Auto 72.3 % (45-73); Platelet Count 108 X10*3/uL (160-400); Red Blood Count 2.92 X10*6/uL (4.20-5.50); Red Cell Distribution Width 14.8 % (11.0-16.0); SCAN SMEAR FLAG 1
[2023-07-12 08:52] LABS: Mean Corpuscular Volume 110.3 fL (80.0-98.0); White Blood Count 1.9 X10*3/uL (4.8-10.8)
[2023-07-12 08:56] LABS: INTERNATIONAL NORM RATIO 0.9 (0.9-1.1); Prothrombin Time 11.3 SEC (11.1-13.3)
[2023-07-12 09:20] LABS: SLIDE REVIEW VERIFIED
[2023-07-12 09:23] LABS: Anion Gap 12 (12-20); Blood Urea Nitrogen 14 mg/dL (9-16); Calcium 10.9 mg/dL (8.4-10.2); Carbon Dioxide 25 mmol/L (22-29); Chloride 108 mmol/L (96-108); Estimated Glomerular Filt Rate > 60; Glucose Random 100 mg/dL (60-115); Potassium 3.9 mmol/L (3.3-5.1); Sodium 141 mmol/L (135-145)
== END 2023-07-12 07:46 | disposition home or self-care (01) ==
LOC: HO.LAB 07:45
PROVIDERS: Nurse Practitioner Family; Visit Provider Internal Medicine
DX: I35.0 Nonrheumatic aortic (valve) stenosis (principal)
CPT/HCPCS: 36415; 80048; 85025; 85610

== ENCOUNTER 2023-08-02 08:34 | Outpatient (REF) | payer MEDICARE, OTHER, SELFPAY ==
[2023-08-02 11:39] LABS: Basophils Percent Auto 0.9 % (0-2); Eosinophils Percent Auto 0.4 % (0-4); Hemoglobin 12.1 g/dl (12.0-16.0); Imm Gran Abs Auto 0.01 X10*3/uL (0.00-0.03); Imm Gran Pct Auto 0.4 % (0.0-0.4); Lymphocytes Absolute Auto 0.3 X10*3/uL (1.2-4.9); Lymphocytes Percent Auto 14.3 % (20-40); Mean Corpuscular HGB Conc 34.6 g/dl (31.0-35.0); Mean Corpuscular Hemoglobin 38.2 pg (27.0-33.0); Mean Platelet Volume 10.7 fL (9.4-12.3); Monocytes Absolute Auto 0.1 X10*3/uL (0.1-1.2); Monocytes Percent Auto 5.2 % (2-11); Neutrophils Absolute Auto 1.8 x10*3/uL (2.0-8.3); Neutrophils Percent Auto 78.8 % (45-73); Platelet Count 102 X10*3/uL (160-400); Red Blood Count 3.17 X10*6/uL (4.20-5.50)
[2023-08-02 11:40] LABS: Mean Corpuscular Volume 110.4 fL (80.0-98.0); White Blood Count 2.3 X10*3/uL (4.8-10.8)
[2023-08-02 12:01] LABS: Alanine Aminotransferase 9 U/L (0-31); Albumin Level 4.5 g/dL (3.5-5.0); Alkaline Phosphatase 59 U/L (39-117); Anion Gap 10 (12-20); Aspartate Amino Transferase 19 U/L (5-31); Bilirubin Total 0.8 mg/dL (0.0-1.0); Blood Urea Nitrogen 19 mg/dL (9-16); Calcium 11.3 mg/dL (8.4-10.2); Carbon Dioxide 27 mmol/L (22-29); Chloride 108 mmol/L (96-108); Estimated Glomerular Filt Rate > 60; Glucose Random 99 mg/dL (60-115); Potassium 3.6 mmol/L (3.3-5.1); Sodium 141 mmol/L (135-145); Total Protein 7.3 g/dL (6.5-8.0)
[2023-08-10 08:34] LABS: CA 27.29 61 U/mL (<38)
== END 2023-08-02 08:35 | disposition home or self-care (01) ==
LOC: HO.HMGCLDS 08:34
PROVIDERS: Visit Provider Internal Medicine
DX: C50.912 Malignant neoplasm of unspecified site of left female breast (principal)
CPT/HCPCS: 36415; 80053; 85025; 86300

== ENCOUNTER 2023-09-27 08:44 | Outpatient (REF) | payer MEDICARE, OTHER, SELFPAY ==
[2023-09-27 10:30] LABS: Basophils Percent Auto 1.4 % (0-2); Hemoglobin 10.8 g/dl (12.0-16.0); Lymphocytes Absolute Auto 0.2 X10*3/uL (1.2-4.9); MANUAL DIFF FLAG SCAN; Mean Corpuscular HGB Conc 33.8 g/dl (31.0-35.0); Mean Corpuscular Hemoglobin 37.6 pg (27.0-33.0); Mean Platelet Volume 11.3 fL (9.4-12.3); Monocytes Absolute Auto 0.1 X10*3/uL (0.1-1.2); Monocytes Percent Auto 4.1 % (2-11); Neutrophils Absolute Auto 1.2 x10*3/uL (2.0-8.3); Neutrophils Percent Auto 83.5 % (45-73); Platelet Count 104 X10*3/uL (160-400); Red Blood Count 2.87 X10*6/uL (4.20-5.50); SCAN SMEAR FLAG 1
[2023-09-27 10:31] LABS: Mean Corpuscular Volume 111.5 fL (80.0-98.0); White Blood Count 1.5 X10*3/uL (4.8-10.8)
[2023-09-27 11:01] LABS: Alanine Aminotransferase 11 U/L (0-31); Albumin Level 4.3 g/dL (3.5-5.0); Alkaline Phosphatase 71 U/L (39-117); Anion Gap 10 (12-20); Aspartate Amino Transferase 25 U/L (5-31); Bilirubin Total 0.9 mg/dL (0.0-1.0); Blood Urea Nitrogen 15 mg/dL (9-16); Calcium 11.3 mg/dL (8.4-10.2); Carbon Dioxide 26 mmol/L (22-29); Chloride 107 mmol/L (96-108); Estimated Glomerular Filt Rate > 60; Glucose Random 111 mg/dL (60-115); Potassium 3.6 mmol/L (3.3-5.1); Sodium 139 mmol/L (135-145); Total Protein 7.3 g/dL (6.5-8.0)
[2023-09-27 11:15] LABS: SLIDE REVIEW VERIFIED
[2023-09-28 09:53] LABS: CA 27.29 54 U/mL (<38)
== END 2023-09-27 08:45 | disposition home or self-care (01) ==
LOC: HO.HMGCLDS 08:44
PROVIDERS: PCP Internal Medicine; Visit Provider Internal Medicine
DX: C50.912 Malignant neoplasm of unspecified site of left female breast (principal)
CPT/HCPCS: 36415; 80053; 85025; 86300

== ENCOUNTER 2023-10-11 08:33 | Outpatient (REF) | payer MEDICARE, OTHER, SELFPAY ==
[2023-10-11 10:30] LABS: Appearance Urine Clear; Color Urine Yellow; Glucose Urine UA Negative (Negative); Leukocyte Esterase Urine Negative (Negative); Nitrite Urine Negative (Negative); PH 6.5 (5.0-9.0); Specific Gravity - Urine 1.015 (1.005-1.025); Urine Blood Negative (Negative); Urine Ketones Negative (Negative); Urine Protein Negative (Neg-Trace)
[2023-10-11 10:39] LABS: Eosinophils Percent Auto 0.5 % (0-4); Hematocrit 29.9 % (37.0-47.0); Hemoglobin 9.9 g/dl (12.0-16.0); Imm Gran Abs Auto 0.02 X10*3/uL (0.00-0.03); Lymphocytes Absolute Auto 0.1 X10*3/uL (1.2-4.9); Lymphocytes Percent Auto 6.3 % (20-40); MANUAL DIFF FLAG SCAN; Mean Corpuscular HGB Conc 33.1 g/dl (31.0-35.0); Mean Corpuscular Hemoglobin 37.2 pg (27.0-33.0); Mean Corpuscular Volume 112.4 fL (80.0-98.0); Mean Platelet Volume 10.4 fL (9.4-12.3); Monocytes Absolute Auto 0.1 X10*3/uL (0.1-1.2); Monocytes Percent Auto 3.4 % (2-11); Neutrophils Absolute Auto 1.8 x10*3/uL (2.0-8.3); Neutrophils Percent Auto 87.8 % (45-73); Platelet Count 217 X10*3/uL (160-400); Red Blood Count 2.66 X10*6/uL (4.20-5.50); Red Cell Distribution Width 15.7 % (11.0-16.0); SCAN SMEAR FLAG 1; White Blood Count 2.1 X10*3/uL (4.8-10.8)
[2023-10-11 11:14] LABS: Alanine Aminotransferase 12 U/L (0-31); Albumin Level 3.9 g/dL (3.5-5.0); Alkaline Phosphatase 66 U/L (39-117); Anion Gap 14 (12-20); Aspartate Amino Transferase 26 U/L (5-31); Bilirubin Total 0.9 mg/dL (0.0-1.0); Blood Urea Nitrogen 12 mg/dL (9-16); Calcium 11.1 mg/dL (8.4-10.2); Carbon Dioxide 23 mmol/L (22-29); Chloride 107 mmol/L (96-108); Cholesterol 154 mg/dL (<200); Estimated Glomerular Filt Rate > 60; Glucose Fasting 111 mg/dL (60-99); HDL Cholesterol 64 mg/dL (>40); LDL Cholesterol Calculated 74 mg/dL (<100); Potassium 3.9 mmol/L (3.3-5.1); Sodium 140 mmol/L (135-145); TSH reflex Free T4 2.23 uIU/mL (0.32-4.0); Total Protein 6.9 g/dL (6.5-8.0); Triglycerides 82 mg/dL (<150); Vitamin D 25-OH Total 37.3 ng/mL (>30)
[2023-10-11 11:38] LABS: SLIDE REVIEW VERIFIED
== END 2023-10-11 08:34 | disposition home or self-care (01) ==
LOC: HO.HMGCLDS 08:33
PROVIDERS: PCP Internal Medicine; Visit Provider Internal Medicine
DX: E78.00 Pure hypercholesterolemia, unspecified (principal); E55.9 Vitamin D deficiency, unspecified; D64.9 Anemia, unspecified; R30.0 Dysuria
CPT/HCPCS: 36415; 80053; 80061; 81003; 82306; 84443; 85025

== ENCOUNTER 2023-10-20 08:49 | Outpatient (AMB) | payer MEDICARE, OTHER, SELFPAY ==
[2023-10-20 08:53] VITALS: BP 118/60; PULSE 78; O2SAT 99; BMI 17.6
--- NOTE | 2023-10-20 08:53 | MHC.OFFVIS ---
Vital Signs 10/20/23 08:53 Height 5 ft 3 in Weight 99 lb 3.328 oz BMI 17.6 BP 118/60 Blood Pressure Location Lt brachial Position Sitting Pulse 78 Pulse Source Pulse Oximeter Pulse Oximetry (%) 99 Oxygen Delivery Method Room Air Intake Visit Reasons: R/S 2 month follow up Allergies hydrochlorothiazide Allergy (Unknown, Verified 09/28/23 11:34) upset stomach,dizziness lisinopril Allergy (Unknown, Verified 09/28/23 11:34) SWOLLEN THROAT/angioedema metoprolol Allergy (Unknown, Verified 09/28/23 11:34) severe dizziness esomeprazole [Nexium] Adverse Reaction (Unknown, Verified 09/28/23 11:34) headaches Medication List - Last Reconciled 10/20/23 by Keo Tovar MD amlodipine 2.5 mg PO DAILY 90 days aspirin (Adult Aspirin Regimen) 81 mg PO DAILY cholecalciferol (vitamin D3) 25 mcg PO DAILY 90 days food supplemt, lactose-reduced (Ensure oral liquid) 1 can bid multivitamin,[id number] (Complete Multivitamin tablet) 1 tab PO DAILY palbociclib (Ibrance) 100 mg PO DAILY simvastatin 5 mg PO BEDTIME walker As Directed HPI Comments Details: Jordon returns for follow-up regarding aortic valve replacement. She underwent bioprosthetic aortic valve replacement about 10 years ago. She had breast cancer diagnosed in 2021. It appears that she also got diagnosed with bone metastases. On chemotherapy. Overall, daughter feels that she is getting short of breath more so recently. She was sent for TAVR assessment. She is seen Dr. Jones. Also some memory issues. Overall, looks frail. 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 History of aortic valve stenosis GERD without esophagitis Pure hypercholesterolemia Benign essential hypertension Vitamin D deficiency Familial hypocalciuric hypercalcemia syndrome Osteoporosis Surgical History Hx of aortic valve replacement (~07/04/12) History of lumpectomy of left breast (~07/02/21) Hx of cataract removal with insertion of prosthetic lens (~08/2017) Family History Father Diabetes CVA (cerebral vascular accident) CVD (cardiovascular disease) Myocardial infarct Mother Emphysema of lung Alcoholism /alcohol abuse Social History Household Members: None Housing: Condominium Are you a primary acute care nurse to a significant other at home: No Do you presently have visiting nurse or other home services: No Alcohol intake: current Alcohol intake frequency: holidays/special occasions only Alcohol type: wine Patient Tobacco Use Status: Never used Tobacco e-Cigarette/Vaping Use: Never Used Second Hand Smoke Exposure: Yes service: No Current occupational status: retired Cognitive needs: No Hearing needs: Yes Vision needs: Yes Female Reproductive History Menstrual Age of Menarche: 16 Review of Systems Const Denies weakness ENT Denies dizziness Card Denies chest pain, Denies chest pain with activity, Denies syncope, Denies rapid heart rate, Denies pedal edema, Denies edema, Denies leg edema, Denies lightheadedness, Denies palpitations, Denies dyspnea, Denies dyspnea on exertion and Denies orthopnea Resp Denies cough, Denies dyspnea and Denies dyspnea on exertion GI Denies hematochezia and Denies change in stool character Musc Denies abnormal gait, Denies muscle cramps, Denies muscle weakness, Denies numbness, Denies radiating pain into limb and Denies tingling Neuro Denies abnormal gait, Denies dizziness, Denies syncope, Denies numbness, Denies tingling and Denies weakness Endo Denies palpitations Physical Exam Vital Signs: Last Vital Signs Pulse 78 10/20/23 08:53 BP 118/60 10/20/23 08:53 Pulse Ox 99 10/20/23 08:53 Oxygen Delivery Method Room Air 10/20/23 08:53 BMI result Body Mass Index 17.6 Const General: comfortable and no acute distress Orientation/consciousness: patient oriented x3 HEENT Other: Unremarkable Head: Yes normal to inspection Neck Neck: Yes normal visual inspection Chest Chest palpation & inspection: normal inspection of the chest Resp Auscultation: crackles and diminished lung sounds Cardio Palpation: normal PMI Heart sounds: S1 normal heart sound present, S2 normal heart sound present, no gallops, Murmur heart sound present systolic III/ and at the right sternal border and no rubs GI Palpation (GI): Soft to palpation Back/Spine/Pelvis Other: unremarkable Skin General skin exam: no rashes or lesions noted Neuro General: patient oriented x3 Extrem General: Yes normal to inspection Psych Mental Status: mental status grossly normal Assessment & Plan Assessment & Plan (1) Status post aortic valve replacement with bioprosthetic valve: Code(s): Z95.3 - Presence of xenogenic heart valve Category: Surgical Plan: In the last echocardiogram from May, mean gradient across aortic valve was 40 mm Hg with a peak of 77 mm Hg. Calculated valve area of 0.76 sq cm. She has been already seen by TAVR team. Considering her age, frailty, breast cancer history, her fernando procedural risks would be much higher than usual. However, daughter would still like her to go through the procedure. She needs a repeat echocardiogram as it has been almost 6 months. (2) Prosthetic valve dysfunction: Code(s): T82.09XA - Other mechanical complication of heart valve prosthesis, initial encounter Category: Medical Plan: As above. (3) Pericardial effusion: Code(s): I31.39 - Other pericardial effusion (noninflammatory) Category: Medical Plan: In the recent CT scan at [facility], description of moderate pericardial effusion. Will need to get an echocardiogram for further assessment. (4) Pulmonary edema: Code(s): J81.1 - Chronic pulmonary edema Category: Medical Plan: Chest CTA at [facility] also shows diffuse interstitial thickness/pulmonary edema. Not entirely clear if it is cardiogenic or noncardiogenic related to the malignancy history. Will discuss with Hematology. (5) Essential hypertension: Code(s): I10 - Essential (primary) hypertension Category: Medical Plan: Remains on amlodipine. No changes. Some side effects from Hydrochlorothiazide as well in the past. Plan Discussed with daughter who came for appointment. Orders: Orders CA echo transthoracic complete Today Z95.3 - Presence of xenogenic heart valve Coding Level of Care Code Est Pt Level 4 (17420) Diagnoses Status post aortic valve replacement with bioprosthetic valve Z95.3 Prosthetic valve dysfunction T82.09XA Pericardial effusion I31.39 Pulmonary edema J81.1 Essential hypertension I10
== END 2023-10-20 09:20 | disposition home or self-care (01) ==
PROVIDERS: PCP Internal Medicine; Referring Provider Internal Medicine; Visit Provider Internal Medicine
DX: T82.09XA Other mechanical complication of heart valve prosthesis, initial encounter (principal); I31.39 Other pericardial effusion (noninflammatory); J81.1 Chronic pulmonary edema; I10 Essential (primary) hypertension; I35.0 Nonrheumatic aortic (valve) stenosis
CPT/HCPCS: 93306; 99214

== ENCOUNTER → 2023-10-20 08:49 | Outpatient (BNVA) | payer MEDICARE, OTHER, SELFPAY | PROVIDERS: PCP Internal Medicine; Visit Provider Internal Medicine ==

== ENCOUNTER → 2023-10-20 14:32 | Outpatient (REF) | payer MEDICARE, OTHER, SELFPAY ==
--- NOTE | 2023-10-20 14:37 | CA_ITS ---
Transthoracic Echocardiogram Patient (Last, First, Middle): Jordon Mobley E Gender: Female Date of : 1935 Age: 87 Procedure Date: 10/20/2023 Procedure Type: Transthoracic Echocardiogram Location: OP Height: 160.02 cm Weight: 44.91 kg BSA: 1.43 m2 Heart Rate: 81 bpm BP: 122 / 64 mmHg Filler Shredder Machine: SB Referring MD: Keo Tovar MD Bookbinding Machine Operator: Shelton Marina MD Symptoms: Z95.3 - Presence of xenogenic heart valve Study Quality: Adequate ECG Rhythm: Sinus Conclusions: - 1. Moderate circumferential pericardial effusion with more severe near the right-sided chamber seen on the subcostal views with no evidence of tamponade 2. Severe stenosis of bioprosthetic aortic valve with mean gradient of 45 mm Hg 3. Normal LV ejection fraction at 65-70% with moderate LVH with impaired relaxation filling pattern 4. Mildly dilated ascending aorta at 4.2 cm 5. Mild to moderately elevated right ventricular systolic pressure Findings Left Ventricle Normal left ventricular size and systolic function. There is moderately increased left ventricular wall thickness. The visually estimated ejection fraction is between 65-70%. Spectral Doppler is indicative of an impaired relaxation filling pattern. E/E prime ratio is between 8 and 15 consistent with indeterminate filling pressures. Right Ventricle Normal right ventricular cavity size and systolic function. Atria The left atrium is moderately dilated. There is no evidence of interatrial shunt. The right atrium is mildly dilated. Aortic Valve A bioprosthetic aortic valve is present. The prosthetic aortic valve appears to be functioning abnormally. There is severe aortic valve stenosis. The mean gradient is 45 mmHg. The aortic valve area is 0.89 cm2. There is no aortic valve regurgitation. Mitral Valve There is mild anterior and posterior mitral leaflet thickening. There is mild mitral annular calcification. There is mild mitral valve regurgitation. There is no mitral valve stenosis. Pulmonic Valve The pulmonic valve was not well visualized. Tricuspid Valve Likely normal tricuspid valve structure and function. There is mild tricuspid valve regurgitation. Normal right atrial pressure. Mild to moderate pulmonary hypertension is present. Great Vessels The pulmonary artery was not well visualized. There is mild dilatation of the ascending aorta measuring 4.20 cm. Venous The inferior vena cava is normal in size and collapses greater than 50% with inspiration. Pericardium/Pleural There is a moderate circumferential pericardial effusion. There are no definitive echocardiographic findings of tamponade physiology. No discernable variation of the mitral valve and tricuspid valve Doppler velocities with respiration. More prominent near the right-sided chambers. Prior Study Comparison Changes noted compared to prior study dated: 05/27/2023. Severity of pericardial effusion is increased to moderate with no evidence of tamponade. Aortic valve mean gradient has increased to 45 mmHg Measurements 2D Linear Measurements IVSd: 1.36 0.6-0.9/0.6-1.0 cm LVIDd: 3.66 3.9-5.3/4.2-5.9 cm LVIDd Index: 2.56 2.4-3.2/2.2-3.1 cm/m2 LVIDs: 1.94 2.0-3.6 cm LVPWd: 1.49 0.7-1.1 cm LA Diam: 4.30 2.7-3.8/3.0-4.0 cm LAIDs Index: 3.01 1.5-2.3 cm/m2 LV Mass: 235.94 67-162/88-224 g LV Mass Index: 164.99 43-95/49-115 g/m2 LVOT Diam: 2.00 3.0+(-)1.3 cm 2D Systolic Function EF 4C: 71.00 >55% EF 2C: 70.40 >55% EF BiP: 69.50 >55% Mitral Valve MV Pk E: 0.82 MV PK A: 0.97 MV Decel Time: 264.00 E/A: 0.80 E'Lateral: 3.05 E'Medial: 4.35 E/E' Med: 18.90 E/E' Lat: 26.90 PHT: 77.00 MVA PHT: 2.86 Decel [place]: 3.11 Aortic Valve AoV Pk Andrew: 4.44 AoV Mn Andrew: 3.13 AoV VTI: 0.90 AoV Pk Grad: 79.00 Aov Mn Grad: 45.00 ROSSY Cont.VTI: 0.89 LVOT LVOT Pk Andrew: 1.21 LVOT Mn Andrew: 0.90 LVOT VTI: 0.25 LVOT Pk Grad: 6.00 LVOT Mn Grad: 4.00 LVOT Diam: 2.00 LVOT Area: 3.14 Diastolic Function MV Pk E: 0.82 MV Pk A: 0.97 E/A: 0.80 E'Medial: 4.35 E/E' Med: 18.90 E' Laterial: 3.05 E/E' Lat: 26.90 Right Ventricle TAPSE (mm): 13.10 TVS' Andrew: 9.57 Tricuspid Valve TR Pk Andrew: 3.26 TR Pk Grad: 43.00 RA Press: 3.00 RVSP: 46.00 Great Vessels Aorta Sinus of Valsalva: 3.00 2.0-3.5 cm Ao Asc: 4.20 2.1-3.4 cm Pulmonary Valve PV Pk Andrew: 1.19 Peak PV Grad: 6.00 Updated in Other Vendor System with Status of Final Shelton Marina MD electronically signed on 10/20/2023 4:03:45 PM with status of Final
== END ==
LOC: HO.CARD 14:32
PROVIDERS: Visit Provider Internal Medicine
DX: Z95.3 Presence of xenogenic heart valve (principal)
CPT/HCPCS: 93306; 99212

== ENCOUNTER 2023-10-21 09:52 | Outpatient (AMB) | payer MEDICARE, OTHER, SELFPAY ==
[2023-10-21 10:04] VITALS: BP 130/62; PULSE 87; O2SAT 90; BMI 17.9
--- NOTE | 2023-10-21 10:04 | MHC.PC.OV ---
Vital Signs 10/21/23 10:04 Height 5 ft 3 in Weight 101 lb BMI 17.9 BP 130/62 Blood Pressure Location Lt brachial Position Sitting Pulse 87 Pulse Source Pulse Oximeter Pulse Oximetry (%) 90 L Oxygen Delivery Method Room Air Intake Visit Reasons: 4 month f/u Ssrs Report Developer Required: No Allergies hydrochlorothiazide Allergy (Unknown, Verified 10/24/23 16:51) upset stomach,dizziness lisinopril Allergy (Unknown, Verified 10/24/23 16:51) SWOLLEN THROAT/angioedema metoprolol Allergy (Unknown, Verified 10/24/23 16:51) severe dizziness esomeprazole [Nexium] Adverse Reaction (Unknown, Verified 10/24/23 16:51) headaches Medication List - Last Reconciled 10/24/23 by Lyndon Rosario MD amlodipine 2.5 mg PO DAILY 90 days aspirin (Adult Aspirin Regimen) 81 mg PO DAILY cetirizine 10 mg PO DAILY PRN 90 days cholecalciferol (vitamin D3) 25 mcg PO DAILY 90 days food supplemt, lactose-reduced (Ensure oral liquid) 1 can bid multivitamin,[id number] (Complete Multivitamin tablet) 1 tab PO DAILY palbociclib (Ibrance) 100 mg PO DAILY simvastatin 5 mg PO BEDTIME walker As Directed Tobacco use date assessed: 10/21/23 Fall risk assessment: No Falls in past year Last assessed Fall Risk: 10/21/23 Dental Screening Dental Screen Date: 06/21/23 HPI 4 month f/u HPI Details Patient comes in today for her follow-up visit States that she feels okay but has been experiencing frequent runny nose, nasal congestion and on and off throat congestion lately She is concerned that she may be coming down with a cold She denies any headaches or dizziness; denies any fever or sore throat Denies any chest pains, no increased shortness of breath No nausea /vomiting, no abdominal pain No change in bowel habits noted Had her follow-up labs done last week - to discuss her results [facility] 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 History of aortic valve stenosis GERD without esophagitis Pure hypercholesterolemia Benign essential hypertension Vitamin D deficiency Familial hypocalciuric hypercalcemia syndrome Osteoporosis Surgical History Hx of aortic valve replacement (~07/04/12) History of lumpectomy of left breast (~07/02/21) Hx of cataract removal with insertion of prosthetic lens (~08/2017) Family History Father Diabetes CVA (cerebral vascular accident) CVD (cardiovascular disease) Myocardial infarct Mother Emphysema of lung Alcoholism /alcohol abuse Social History Household Members: None Housing: Condominium Are you a primary home care manager to a significant other at home: No Do you presently have visiting nurse or other home services: No Alcohol intake: current Alcohol intake frequency: holidays/special occasions only Alcohol type: wine Patient Tobacco Use Status: Never used Tobacco e-Cigarette/Vaping Use: Never Used Second Hand Smoke Exposure: Yes service: No Current occupational status: retired Cognitive needs: No Hearing needs: Yes Vision needs: Yes Female Reproductive History Menstrual Age of Menarche: 16 Questionnaire Thrive Questionnaire Date Thrive assessed: 06/21/23 AUDIT C Alcohol Use Questionnaire (AUDIT-C) 1. How often do you have a drink containing alcohol?: Never 3. How often do you have six or more drinks on one occasion?: Never Total Score: 0 Score Reviewed/Action Taken: Yes ISAÍAS-7 AMB Questionnaire ISAÍAS-7 Date ISAÍAS - 7 assessed: 06/21/23 Source: Developed by Drs. Raudel Toussaint, Tania Erickson, Morgan Corcoran and colleagues, with an educational shakira from [employer]formerly [employer]). Review of Systems Const Denies chills, Reports fatigue, Denies fever(s) and Denies headache(s) ENT Denies dysphagia, Denies dizziness, Denies otalgia, Denies headache(s), Reports nasal congestion (at times), Reports nasal discharge, Denies neck pain, Denies odynophagia and Denies sore throat Card Denies chest pain, Denies palpitations and Reports dyspnea on exertion Resp Denies cough, Reports dyspnea on exertion and Denies wheezing GI Denies abdominal pain, Denies bloating, Denies constipation, Denies dysphagia, Denies diarrhea, Denies nausea, Denies odynophagia and Denies vomiting Denies difficulty voiding, Reports nocturia (a couple of times a night at least), Denies dysuria and Denies urinary urgency Musc Reports back pain (mild, at times) and Denies neck pain Skin/Breast Denies rash Neuro Denies dizziness, Denies headache(s) and Reports memory loss (per daughter, gradually increasing) Psych Denies depression and Reports memory loss (per daughter, gradually increasing) Endo Reports fatigue and Denies palpitations Aller/Immun Denies wheezing Physical exam (Primary Care) Vital Signs: Last Vital Signs Pulse 87 10/21/23 10:04 BP 130/62 10/21/23 10:04 Pulse Ox 90 L 10/21/23 10:04 Oxygen Delivery Method Room Air 10/21/23 10:04 BMI result Body Mass Index 17.9 Tobacco/Smoking Status: Tobacco use Status Tobacco use date assessed 10/21/23 10/21/23 10:04 Patient Tobacco Use Status Never used Tobacco 10/21/23 10:04 e-Cigarette/Vaping Use Never Used 10/21/23 10:04 Thrive Assessment: Date of Thrive Assessment Date Thrive assessed 06/21/23 10/21/23 10:04 Const General: no acute distress and alert HENMT Ears: TM's normal bilaterally and EAC's normal General nose exam: Nasal discharge present clear Throat: Yes posterior oropharynx normal and Yes tonsils normal (no TP congestion noted) Neck Neck: Yes no lymphadenopathy and Yes supple Resp Auscultation: clear to auscultation bilaterally, no rales and no wheezes Cardio Rate: regular rate Rhythm: regular rhythm Heart sounds: Clicking heart sound present ((+) loud click on the 2nd heart sound) and Murmur heart sound present systolic III/ and at the left sternal border GI Palpation (GI): Soft to palpation and nontender Auscultation: normal bowel sounds Skin Rashes: no rashes Extrem General: Yes no clubbing, cyanosis or edema Results Reviewed Results Reviewed: Laboratory Tests 10/11/23 10/11/23 07:00 08:43 WBC 2.1 L Hgb 9.9 L Hct 29.9 L Plt Count 217 D Sodium 140 Potassium 3.9 Creatinine 0.76 Estimated GFR > 60 Fasting Glucose 111 H Calcium 11.1 H AST 26 ALT 12 Triglycerides 82 Cholesterol 154 LDL Cholesterol, Calc 74 HDL Cholesterol 64 25-OH Vitamin D Total 37.3 TSH 2.23 Ur Specific [place] 1.015 Urine Protein Negative Urine Glucose (UA) Negative Urine Blood Negative Urine Nitrite Negative Ur Leukocyte Esterase Negative Assessment and Plan Assessment & Plan (1) Pure hypercholesterolemia: Code(s): E78.00 - Pure hypercholesterolemia, unspecified Plan: Results of her labs done last week reviewed and discussed with patient Reinforced low cholesterol diet Continue Simvastatin 5 mg QD Will recheck her labs and fasting lipids in 4 months for follow-up (2) Familial hypocalciuric hypercalcemia syndrome: Code(s): E83.52 - Hypercalcemia Plan: Patient's serum calcium level is still elevated at 11.1 on her recent labs although they have been steady / controlled for a while now She was seeing endocrinology in the past but was advised by Dr. Stroud at her last visit last year that as long as her serum calcium level remains stable, she can just be followed up by her PCP and be referred back to endocrinology if her numbers change for the worse again (3) Benign essential hypertension: Code(s): I10 - Essential (primary) hypertension Plan: Reinforced low-sodium diet -? goal is systolic BP of at least 140 mm or less Patient's blood pressure has improved significantly since her valve replacement surgery in 2012 although they have been running high lately Continue Amlodipine 2.5 mg QD (4) Aortic stenosis: Code(s): I35.0 - Nonrheumatic aortic (valve) stenosis Qualifiers: Cardiac valve disease etiology: nonrheumatic Qualified Code(s): I35.0 - Nonrheumatic aortic (valve) stenosis Plan: S/P AVR with a Bioprosthetic #21 mm Heidy -Reynoso pericardial valve (Dr. Magdy Ferreira) in 2012; no CABG Echocardiogram done in May 2023 revealed normal LV ejection fraction of 60 65% with impaired relaxation filling pattern, mildly dilated left atrium, severe stenosis of bioprosthetic aortic valve with mean gradient of 40 mmHg; normal measured RV systolic pressure and mildly dilated ascending aorta at 4.1 cm Repeat echocardiogram done yesterday revealed moderate circumferential pericardial effusion that is more severe near the right-sided chamber but no evidence of tamponade; severe stenosis of the bioprosthetic aortic valve with mean gradient of 45 mm and mild to moderately elevated right ventricular systolic pressure She has been recommended for a TAVR and is scheduled to get this done sometime next month Follow up with cardiology as scheduled (5) 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: Code(s): C50.912 - Malignant neoplasm of unspecified site of left female breast Plan: Was diagnosed with grade 3 invasive lobular carcinoma of the left breast in June 2021 Pathology was [id number], ER/CA positive, HER-2 negative Patient underwent lumpectomy and sentinel lymph node biopsy on 07/02/2021 - surgical margins were negative She also completed adjuvant radiation therapy to reduce risk of local recurrence Patient unfortunately developed 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 Mao on 04/25/2015 Code(s): M81.0 - Age-related osteoporosis without current pathological fracture Qualifiers: Osteoporosis type: age-related Presence of current pathological fracture: without current pathological fracture Qualified Code(s): M81.0 - Age-related osteoporosis without current pathological fracture Plan: Has been on Prolia 60 mg subcutaneous injection every 6 months since she was started on it by Dr. Mao but had to come off Rx when she was diagnosed with breast cancer Repeat BMD done on 07/24/2021 revealed (+) 8.6% increase in BMD from previous in the lumbar spine and 4.1% increase from previous in the left femur - findings are similar to what was seen on her previous BMD in June 2018 Was going to be started on Reclast back in April 2022 but she cancelled her appt back then; states that she has not rescheduled her appt since She now follows up with oncology (Dr. Ba) for management of her osteoporosis (7) Vitamin D deficiency: Code(s): E55.9 - Vitamin D deficiency, unspecified Plan: Continue Vitamin D3 1000 units daily (8) GERD without esophagitis: Code(s): K21.9 - Gastro-esophageal reflux disease without esophagitis Plan: Dietary restrictions reinforced (9) Memory impairment: Code(s): R41.3 - Other amnesia Plan: Patient's daughter expressed her concerns about patient's ability to continue driving and would like to have her further evaluated first before deciding whether to stop her from driving or not Per request, will refer her to Neurology for further evaluation and management (10) Allergic rhinitis: Code(s): J30.9 - Allergic rhinitis, unspecified Qualifiers: Allergic rhinitis trigger: unspecified Allergic rhinitis seasonality: unspecified Qualified Code(s): J30.9 - Allergic rhinitis, unspecified Plan: Will start patient on Cetirizine 10 mg QD PRN Plan Follow up in 4 months Orders: Orders Comprehensive [place]. Panel Fast 4 Months E78.00 - Pure hypercholesterolemia, unspecified Lipid Panel 4 Months E78.00 - Pure hypercholesterolemia, unspecified Complete Blood Count Auto Diff 4 Months D64.9 - Anemia, unspecified TSH reflex Free T4 4 Months E78.00 - Pure hypercholesterolemia, unspecified UA CC w/rflx Micro + Cult 4 Months R30.0 - Dysuria Vitamin D 25-OH Total 4 Months E55.9 - Vitamin D deficiency, unspecified Referrals Neurology Referral R41.3 - Other amnesia Medications: New cetirizine 10 mg PO DAILY PRN 90 tabs 3RF allergy symptoms 90 days Coding Level of Care Code Est Pt Level 4 (48776) Diagnoses Pure hypercholesterolemia E78.00 Familial hypocalciuric hypercalcemia syndrome E83.52 Benign essential hypertension I10 Nonrheumatic aortic valve stenosis I35.0 Cardiac valve disease etiology: nonrheumatic 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
== END 2023-10-21 11:18 | disposition home or self-care (01) ==
PROVIDERS: PCP Internal Medicine; Visit Provider Internal Medicine
DX: E78.00 Pure hypercholesterolemia, unspecified (principal); E83.52 Hypercalcemia; C50.912 Malignant neoplasm of unspecified site of left female breast; I10 Essential (primary) hypertension; I35.0 Nonrheumatic aortic (valve) stenosis; M81.0 Age-related osteoporosis without current pathological fracture; E55.9 Vitamin D deficiency, unspecified; K21.9 Gastro-esophageal reflux disease without esophagitis; R41.3 Other amnesia; J30.9 Allergic rhinitis, unspecified
CPT/HCPCS: 99214

== ENCOUNTER 2023-10-26 11:34 | Inpatient (IN) | payer MEDICARE, OTHER, SELFPAY ==
[2023-10-26] VITALS (7 sets, daily range): BP systolic 114–148; BP diastolic 30–71; PULSE 77–96; RESP 24–36; TEMP 36.8; O2SAT 74–100; BMI 17.2
--- NOTE | ~2023-10-26 | CT_ITS ---
EXAMINATION: CT ANGIOGRAM OF THE CHEST WITH AND WITHOUT CONTRAST (CT PULMONARY ANGIOGRAM FOR PE) CLINICAL INFORMATION: Reason for Exam Breast cancer, hypoxia COMPARISON: PET/CT 11/10/2022. CT-guided thoracic spine 10/28/2022, MRI lumbar spine 07/27/2022. TECHNIQUE: Prior to contrast administration, noncontrast localization images were obtained. Subsequently, multidetector volumetric imaging was performed from the thoracic inlet to below the diaphragms following the administration of 65 mL Omnipaque 350 intravenous contrast. No contrast reaction reported Sagittal, coronal, and MIP oblique sagittal reformatted images were obtained on the CT workstation, uploaded to PACS, and reviewed. This CT examination was performed using dose optimization techniques as appropriate, variously including the following: *Automated exposure control *Adjustment of mA and/or kV according to patient size (this includes techniques or standardized protocols for targeted exams where dose is matched to indication/reason for exam; i.e. extremities or head) *Use of iterative reconstruction technique Total exam dose-length product 133 mGy-cm FINDINGS: QUALITY OF STUDY/CONTRAST BOLUS: Satisfactory. PULMONARY ARTERIES: No intraluminal filling defects are noted within the visualized pulmonary arterial system to suggest the presence of emboli. The main and central pulmonary arteries are normal in caliber. THORACIC AORTA: Mild scattered calcific atherosclerosis within the transverse aorta. Lung and pleura: Multisequence focal fine and medium pulmonary reticular opacities are present with areas of subpleural sparing the left pulmonary apex and superior segment of the left lower pulmonary lobe in particular are relatively clear. Minimal scattered subcentimeter areas of consolidation are visualized. Biapical pleural parenchymal scarring of the lungs is noted. *Scattered nodular densities are identified, for example a 7 mm rounded density within the right upper pulmonary lobe (series 8, image 22) and a vague 9 mm rounded density within the lingula (series 8 image 177). Scattered subpleural subcentimeter nodular densities are present within the left and right lungs. These vague nodular densities are without a clear correlate on the comparison PET/CT. Small bilateral dependent pleural effusions. MEDIASTINUM: No mediastinal lymphadenopathy. A moderate low-density pericardial effusion is present similar to findings present on 05/25/2023 examination. Partial visualization is made of an aortic valve prosthesis mild prominence of the left atrium visualized. CORONARY ARTERY CALCIFICATION: None visualized on this study. Partial visualization of at least mild scattered calcific plaques within the left anterior descending and posterior descending coronary arteries. CHEST WALL/AXILLA: No axillary lymphadenopathy identified. OSSEOUS STRUCTURES: Multiple lytic lesions are present throughout the thoracic spine corresponding to metastatic lesions visualized to better advantage on the 05/08/2023 examination. Prominent lesions are noted in the T5 and T11 vertebral bodies. The L1 vertebral body demonstrates inward deformity of the superior endplate which is progressed compared with 11/06/2022 with vacuum phenomena noted in the T12-L1 intervertebral disc space with approximate 25% loss of craniocaudal height and 4 mm focal retropulsion. Contemporaneous review of the comparison MRI suggests that a stat disease resides dilated in the super aspect of vertebral body at that time. Multiple median sternotomy wires are visualized. Moderate convex rightward scoliosis of the thoracic spine is visualized. UPPER ABDOMEN: Unremarkable. No reflux of contrast into the hepatic veins to suggest elevated right heart pressures. CT/CT angio chest PE protocol IMPRESSION: *CT pulmonary angiogram negative for pulmonary emboli. *Bilateral interstitial disease of the lungs with mild bilateral subpleural sparing and sparing of the left superior pulmonary apex and superior segment of the left lower pulmonary lobe. Findings are present in association with small bilateral dependent effusions. Findings are most suspicious for interstitial pulmonary edema. As noted on the comparison chest radiograph, viral or atypical pneumonia could present with similar interstitial disease. However, the extent and relative subpleural sparing favor interstitial pulmonary edema. *Moderate pericardial effusion similar to findings present 05/25/2023. *Vague number scattered subcentimeter rounded pulmonary densities which are without a correlate compared with PET/CT 05/25/2023. Findings are most suspicious for small areas of consolidation overlying extensive interstitial disease. However, pulmonary metastatic disease could have a similar appearance given the history of metastatic breast cancer. Consider further evaluation with dedicated CT of the thorax following resolution of acute pulmonary symptoms presumed to represent interstitial pulmonary edema. *Multifocal skeletal lesions suspicious for metastatic disease unchanged in extent compared with MRI of the thoracic spine 11/06/2022. L1 vertebral body compression deformity with 25% inward deformity of the superior endplate and 4 mm retropulsion is increased in extent compared with 11/06/2022 and may represent a pathologic compression deformity of indeterminate age. *Aortic valve prosthesis in situ. *Partially visualized mild scattered coronary artery calcific atherosclerosis within the left anterior descending coronary artery and posterior descending coronary artery. VTE: negative
--- NOTE | ~2023-10-26 | CT_ITS ---
EXAMINATION: CT CHEST WITHOUT CONTRAST CLINICAL INFORMATION: Hypoxic COMPARISON: CT angiogram from 10/26/2023 TECHNIQUE: Multidetector volumetric CT imaging of the chest was done. Axial MIP volume rendering provided. Sagittal and coronal reformatted images were obtained. This CT examination was performed using dose optimization techniques as appropriate, variously including the following: *Automated exposure control *Adjustment of mA and/or kV according to patient size (this includes techniques or standardized protocols for targeted exams where dose is matched to indication/reason for exam; i.e. extremities or head) *Use of iterative reconstruction technique DLP: 74 mGy-cm FINDINGS: LUNGS: There are diffuse groundglass opacities seen bilaterally more prominent through the right upper lobe, right lower lobe, left lower lobe and lingula by seen previously pleural effusion has been resolved. Central airways are patent. There are changes of emphysema. Apices are spared from opacification. There is possible ill-defined consolidation in the right upper lobe not seen on the previous examination, measured approximately 2.7 x 2.7 cm. There is ill-defined left upper lobe consolidation measured 1.3 x 1.3 cm. MEDIASTINUM: There is ascending aortic aneurysmal dilatation measured 4.4 cm with aortic valve prosthesis and there is small pericardial effusion. Small mediastinal lymphadenopathy present. CORONARY ARTERY CALCIFICATION: Seen PLEURA: There is small pleural effusion on the left, improved since previous examination AXILLA: No lymphadenopathy. UPPER ABDOMEN: Unremarkable. OSSEOUS STRUCTURES: There is diffuse osteopenia. Patient is status post median sternotomy. There are lytic lesions identified again in T5, T11 as well as compression deformity of L1 vertebral bodies. CT/CT chest wo IV con IMPRESSION: 1. Diffuse groundglass opacities seen bilaterally. 2. Ill-defined consolidation in the right upper lobe and left upper lobe. 3. Improved pleural effusion on the left. 4. Aneurysmal dilatation of ascending aorta. 5. Small pericardial effusion. 6. Lytic lesions in T5, T11 and compression deformity of L1 vertebral bodies. Fleischner guidelines were followed.
--- NOTE | ~2023-10-26 | XR_ITS ---
EXAMINATION: XR CHEST CLINICAL INFORMATION: Shortness of breath, hypoxic. Rule out hypoxia, pneumonia. COMPARISON: 10/25/2022 TECHNIQUE: Frontal view of the chest was obtained. FINDINGS: EKG leads overlie the chest. Sternal wires are intact. Prosthetic aortic valves unchanged in position. Surgical clips overlie the upper mediastinum. Normal lung volumes. Biapical pleural parenchymal scarring. Pulmonary venous congestion is noted along with diffuse interstitial opacities bilaterally, increased as compared to prior, most consistent with interstitial edema. Cardiac silhouette is involved. Atherosclerotic calcifications are present in the thoracic aorta. No appreciable effusion or pneumothorax. Degenerative spondylosis in the thoracic spine. Osteoarthritis is present in the acromioclavicular and glenohumeral joints. XR/XR chest 1V IMPRESSION: Cardiomegaly with pulmonary venous congestion and interstitial pulmonary edema. Viral or atypical pneumonia could have a similar interstitial appearance.
--- NOTE | 2023-10-26 11:50 | ED_ITS ---
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 Ba, GERD, hypercholesterolemia, hypertension, familial hypocalcemia hyper calcemia syndrome, osteoporosis, bioprosthetic aortic valve replacement who presents emergency department for evaluation of weakness, dyspnea on exertion, shortness of breath, loss of appetite with O2 saturation of 74% on room air. Patient most likely has memory deficits and is a poor informant. Information was obtained from EMS. Patient denied fever, chills, chest pain, abdominal pain, nausea or vomiting. I did obtain information from patient's daughter, Joann who can be reached at . Patient was feeling short of breath x2 weeks, seen by her PCP and had blood work on 10/11/2019 which revealed a macrocytic anemia with an H&H of 9.9 and 29.9 with an MCV of 112.4 Patient also was seen by Dr. Tovar on 10/20/2023 for possible TAVR due to increased aortic stenosis. Patient was noted to have moderate pericardial effusion on CT scan done at [facility]. Patient had a transesophageal echo echocardiogram done at that visit which revealed severe aortic stenosis but only a mild pericardial effusion, conclusion below was reviewed by me. Conclusions: - 1. Normal LV ejection fraction of 60 65% with impaired relaxation filling pattern 2. Mildly dilated left atrium 3. Severe stenosis of bioprosthetic aortic valve with mean gradient of 40 mmHg 4. Normal measured RV systolic pressure 5. Mildly dilated ascending aorta at 4.1 cm 6. Small pericardial effusion Related Data Home Medications ?Medication ?Instructions ?Recorded ?Confirmed multivitamin,[id number] 1 tab PO DAILY 05/01/20 10/24/23 (Complete Multivitamin tablet) Previous Rx's ?Medication ?Instructions ?Recorded cholecalciferol (vitamin D3) 25 25 mcg PO DAILY 90 days #90 caps 10/29/20 mcg (1,000 unit) capsule walker #1 ea 10/28/22 food supplemt, lactose-reduced See Rx Instructions .Route 12/23/22 (Ensure oral liquid) .COMPLEX #60 packets amlodipine 2.5 mg tablet 2.5 mg PO DAILY 90 days #90 tabs 06/21/23 palbociclib 100 mg tablet (Ibrance) 100 mg PO DAILY #21 tabs 08/05/23 cetirizine 10 mg tablet 10 mg PO DAILY PRN allergy 10/21/23 symptoms 90 days #90 tabs simvastatin 5 mg tablet 5 mg PO BEDTIME #90 tabs 10/22/23 Allergies Allergy/AdvReac Type Severity Reaction Status Date / Time hydrochlorothiazide Allergy Unknown upset Verified 10/26/23 11:44 stomach,dizziness lisinopril Allergy Unknown SWOLLEN Verified 10/26/23 11:44 THROAT/angioedema metoprolol Allergy Unknown severe Verified 10/26/23 11:44 dizziness esomeprazole [Nexium] AdvReac Unknown headaches Verified 10/26/23 11:44 Review of Systems 2 Review of Systems: Yes all other systems are reviewed and are negative [facility] Past Medical History [facility] Narrative: Social history: Reviewed below. Patient denies tobacco use, did have secondhand tobacco smoke exposure. It is she occasionally drinks alcohol. She denies drug use. 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 History of aortic valve stenosis GERD without esophagitis Pure hypercholesterolemia Benign essential hypertension Vitamin D deficiency Familial hypocalciuric hypercalcemia syndrome Osteoporosis Surgical History Hx of aortic valve replacement (~07/04/12) History of lumpectomy of left breast (~07/02/21) Hx of cataract removal with insertion of prosthetic lens (~08/2017) Family History Family History Father Diabetes CVA (cerebral vascular accident) CVD (cardiovascular disease) Myocardial infarct Mother Emphysema of lung Alcoholism /alcohol abuse Social History Social History Household Members: None Housing: Condominium Are you a primary pet care technician to a significant other at home: No Do you presently have visiting nurse or other home services: No Alcohol intake: current Alcohol intake frequency: holidays/special occasions only Alcohol type: wine Patient Tobacco Use Status: Never used Tobacco e-Cigarette/Vaping Use: Never Used Second Hand Smoke Exposure: Yes Advance Directives: Yes Advance Directives on File: Yes Advance Directives Date on File: 10/26/23 Do you have a plan to hurt others: No Plan service: No Current occupational status: retired Cognitive needs: No Hearing needs: Yes Vision needs: Yes Physical Exam 2 Vital Signs: Vital Signs: Last Vital Signs Temp 98.3 F 10/26/23 15:20 Pulse 77 10/26/23 15:20 Resp 24 H 10/26/23 15:20 BP 124/71 10/26/23 15:46 Pulse Ox 100 10/26/23 15:20 O2 Del Method Oxymask 10/26/23 15:20 O2 Flow Rate 15 10/26/23 15:20 BMI result Body Mass Index 17.2 Signs revealed an elevated respiratory rate of 36 and low O2 saturation of 74% on room air. Exam: General: Awake, alert in no distress. Oriented to person, lacks insight as to why she is here. Head: Normocephalic, atraumatic EENT: PERRL, Lids normal, sclera normal, conjunctiva normal, nose normal , ears normal, throat without erythema or exudates Neck: Supple, no adenopathy Lung: Breath sounds were symmetric bilaterally, rales at the left base compared to the right, no wheezing or rhonchi. Chest: symmetric movement, nontender Heart: regular rate and rhythm, normal S1, S2 , 3/6 systolic murmur best heard in the right upper sternal border about her diffusely as well. Abdomen: soft, non-tender, nondistended, normal bowel sounds Back: no vertebral tenderness, no CVAT Extremities: Trace to 1+ pitting edema bilaterally symmetric Neuro: Awake, alert, oriented to person only, normal speech, cranial nerves intact, moves all extremities symmetrically Psych: Pleasant, cooperative Medications Administered Discontinued Medications Generic Name Dose Route Start Last Admin Trade Name Freq PRN Reason Stop Dose Admin Furosemide 20 mg 10/26/23 15:35 10/26/23 15:46 Furosemide 20 Mg/2 Ml Vial IVPUSH 10/26/23 15:36 20 mg ONCE ONE Administration Protocol Iohexol 100 ml 10/26/23 13:49 10/26/23 13:49 Iohexol 350 Mg/Ml 100 Ml Infus..Btl IV 10/26/23 13:50 65 ml ONCE ONE Administration Medical Decision Making Medical Decision Making MDM Narrative: 87-year-old female with a history of aortic stenosis, invasive lobular carcinoma of left breast 1st diagnosed in 2021 now 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 Patient most likely has memory deficits and is a poor informant. Vital signs revealed an elevated respiratory rate and O2 saturation of 74% on room air. Physical exam did reveal a a systolic murmur consistent with aortic stenosis and rales at the right base. She also has trace to 1+ pitting edema in her lower extremities. Differential diagnosis: ?Includes but is not limited to pulmonary embolism, congestive heart failure, pneumonia, anemia, severe aortic stenosis, anemia, electrolyte abnormalities Following evaluation was ordered: CBC, CMP, BNP, D-dimer, PT/INR, PTT, lactic acid, lipase, magnesium, troponin, VBG, urinalysis, COVID-19, influenza, RSV, chest x-ray one view, CT pulmonary angiogram PE protocol Patient was initially treated with the following: IV insert, cardiac monitoring, O2 saturation monitoring, oxygen via OxyMask Course: 12:53 Interpretation patient's laboratory evaluation as follows: Leukopenia with a WBC of 2000, with an absolute neutrophil count 1800. Macrocytic anemia with an H&H of 8.0 and 23.4 with an MCV of 113 this anemia has gotten worse compared to 10/11/2023 when it was 9.9 and 29.9 PT/INR were normal. PTT was low 21.4. D- dimer elevated 2311. CO2 low 20. BUN normal 23 with a creatinine of 0.72 GFR greater than 60. Glucose elevated 146. Calcium elevated 10.4 T bili elevated 2.3. AST elevated 33. High sensitive troponin I elevated at 50.2. BNP elevated 467. Lipase normal 20. Lactic acid was normal at 1.4 . VBG revealed an elevated pH of 7.49 with a low pCO2 of 29 consistent with hyperventilation. BNP elevated 467. Rectal exam revealed brown stool which was trace Hemoccult positive on my evaluation, laboratory stool was positive Patient's chest x-ray is abnormal and she has increased interstitial infiltrates possibly small circular lesions bilaterally which could be metastatic disease. 12 EKG was unremarkable. 15:09 CT pulmonary angiogram PE protocol revealed multiple findings however underlying finding is most consistent with pulmonary edema. Given his given her severe aortic stenosis I will discuss management of her pulmonary edema with our covering lyft driver. Patient was ordered to get Lasix 20 mg IV 17:00 Repeat troponin was 66.2 which is less than 50% increased from her 1st troponin of 50.2. Patient is now on 5 L oxygen via OxyMask. I did discuss management with the covering lyft driver, Dr. De León who recommended gentle diuresis given her aortic stenosis. He will consult on the patient. I did discuss patient's presentation with the covering hospitalist, nurse practitioner Carissa Glover and the patient will be admitted for further management. Admission/Observation Consideration of admission/observation: Escalation of care including admission/observation considered Consult Healthcare Provider Management of the patient was discussed with: Hospitalist (Carissa Glover, nurse practitioner) and Family Resource Management Specialist (Dr. De León) Lab Data MDM Lab Attestation statement: I reviewed the patient's lab results. 10/26/23 12:01 10/26/23 12:01 Labs: Lab Results 10/26/23 10/26/23 10/26/23 Range/Units 12:01 12:04 12:10 WBC 2.0 L (4.8-10.8) X10*3/uL RBC 2.07 L D (4.20-5.50) X10*6/uL Hgb 8.0 L (12.0-16.0) g/dl Hct 23.4 L D (37.0-47.0) % MCV 113.0 H (80.0-98.0) fL MCH 38.6 H (27.0-33.0) pg MCHC 34.2 (31.0-35.0) g/dl RDW 18.9 H (11.0-16.0) % Plt Count 80 L D (160-400) X10*3/uL MPV 12.5 H (9.4-12.3) fL Immature Gran % (Auto) 1.0 H (0.0-0.4) % Neut % (Auto) 89.7 H (45-73) % Lymph % (Auto) 5.9 L (20-40) % [place] % (Auto) 3.4 (2-11) % Eos % (Auto) 0.0 (0-4) % Baso % (Auto) 0.0 (0-2) % Lymph # (Auto) 0.1 L (1.2-4.9) X10*3/uL [place] # (Auto) 0.1 (0.1-1.2) X10*3/uL Eos # (Auto) 0.0 (0.0-0.4) X10*3/uL Baso # (Auto) 0.0 (0.0-0.2) X10*3/uL Abs Immat Gran (auto) 0.02 (0.00-0.03) X10*3/uL Absolute Neuts (auto) 1.8 L (2.0-8.3) x10*3/uL Absolute Nucleated RBC 0.000 (0.0-0.012) X10*3/uL Nucleated RBC % (auto) 0.0 (0.0-0.2) /100WBC Smear Tech's Comments VERIFIED PT 13.0 (11.1-13.3) SEC INR 1.1 (0.9-1.1) APTT 21.4 L (26.0-36.8) SEC D-Dimer High Sensitivty 2311 NG/ML VBG pH 7.49 H (7.32-7.43) VBG pCO2 29 mmHg VBG pO2 73 mmHg VBG HCO3 23 (22-26) mmol/L VBG O2 Saturation 94.0 % VBG Base Excess 0.5 mmol/L Sodium 141 (135-145) mmol/L Potassium 3.5 (3.3-5.1) mmol/L Chloride 108 (96-108) mmol/L Carbon Dioxide 20 L (22-29) mmol/L Anion Gap 17 (12-20) BUN 23 H (9-16) mg/dL Creatinine 0.72 (0.5-1.4) mg/dL Estim Creat Clear Calc 40.1 Estimated GFR > 60 Random Glucose 146 H (60-115) mg/dL Lactic Acid 1.4 (0.5-2.0) mmol/L Calcium 10.4 H D (8.4-10.2) mg/dL Magnesium 2.6 (1.6-2.6) mg/dL Total Bilirubin 2.3 H (0.0-1.0) mg/dL AST 33 H (5-31) U/L ALT 12 (0-31) U/L Alkaline Phosphatase 80 (39-117) U/L Troponin I High Sens 50.2 H* D (<3.5-17.0) ng/L B-Natriuretic Peptide 467 H (<100) pg/mL Total Protein 6.4 L (6.5-8.0) g/dL Albumin 3.5 (3.5-5.0) g/dL Lipase 20 (8-78) U/L Stool Occult Blood (NEGATIVE) Influenza Type A (PCR) NEGATIVE (Negative) Influenza Type B (PCR) NEGATIVE (Negative) RSV RNA Qual (PCR) NEGATIVE (Negative) SARS-CoV-2 RNA (RT-PCR) NEGATIVE (Negative) Blood Type O Positive Antibody Screen NEGATIVE 10/26/23 10/26/23 Range/Units 13:45 15:28 WBC (4.8-10.8) X10*3/uL RBC (4.20-5.50) X10*6/uL Hgb (12.0-16.0) g/dl Hct (37.0-47.0) % MCV (80.0-98.0) fL MCH (27.0-33.0) pg MCHC (31.0-35.0) g/dl RDW (11.0-16.0) % Plt Count (160-400) X10*3/uL MPV (9.4-12.3) fL Immature Gran % (Auto) (0.0-0.4) % Neut % (Auto) (45-73) % Lymph % (Auto) (20-40) % [place] % (Auto) (2-11) % Eos % (Auto) (0-4) % Baso % (Auto) (0-2) % Lymph # (Auto) (1.2-4.9) X10*3/uL [place] # (Auto) (0.1-1.2) X10*3/uL Eos # (Auto) (0.0-0.4) X10*3/uL Baso # (Auto) (0.0-0.2) X10*3/uL Abs Immat Gran (auto) (0.00-0.03) X10*3/uL Absolute Neuts (auto) (2.0-8.3) x10*3/uL Absolute Nucleated RBC (0.0-0.012) X10*3/uL Nucleated RBC % (auto) (0.0-0.2) /100WBC Smear Tech's Comments PT (11.1-13.3) SEC INR (0.9-1.1) APTT (26.0-36.8) SEC D-Dimer High Sensitivty NG/ML VBG pH (7.32-7.43) VBG pCO2 mmHg VBG pO2 mmHg VBG HCO3 (22-26) mmol/L VBG O2 Saturation % VBG Base Excess mmol/L Sodium (135-145) mmol/L Potassium (3.3-5.1) mmol/L Chloride (96-108) mmol/L Carbon Dioxide (22-29) mmol/L Anion Gap (12-20) BUN (9-16) mg/dL Creatinine (0.5-1.4) mg/dL Estim Creat Clear Calc Estimated GFR Random Glucose (60-115) mg/dL Lactic Acid (0.5-2.0) mmol/L Calcium (8.4-10.2) mg/dL Magnesium (1.6-2.6) mg/dL Total Bilirubin (0.0-1.0) mg/dL AST (5-31) U/L ALT (0-31) U/L Alkaline Phosphatase (39-117) U/L Troponin I High Sens 66.2 H* (<3.5-17.0) ng/L B-Natriuretic Peptide (<100) pg/mL Total Protein (6.5-8.0) g/dL Albumin (3.5-5.0) g/dL Lipase (8-78) U/L Stool Occult Blood POSITIVE (NEGATIVE) Influenza Type A (PCR) (Negative) Influenza Type B (PCR) (Negative) RSV RNA Qual (PCR) (Negative) SARS-CoV-2 RNA (RT-PCR) (Negative) Blood Type Antibody Screen Independent Interpretation I performed an independent interpretation of an: EKG and Plain X-Ray Interpretation: My interpretation patient's 1 view chest x-ray is as follows: Increased interstitial markings compared to an chest x-ray done 1 year prior, patient may have small circular lesions bilaterally which could be consistent with metastatic disease. My independent interpretation patient's 12 EKG done at 12:41 hours is as follows: Normal sinus rhythm with a rate of 79, normal AL interval, QRS duration QTC interval, no ST segment elevation, no ST segment depression, no PACs, no PVCs, no significant T-wave abnormalities Radiology Impression Discussion of test interpretation with radiology: I have reviewed the radiologist's reading. Radiologist Impression: CT/CT angio chest PE protocol IMPRESSION: *CT pulmonary angiogram negative for pulmonary emboli. *Bilateral interstitial disease of the lungs with mild bilateral subpleural sparing and sparing of the left superior pulmonary apex and superior segment of the left lower pulmonary lobe. Findings are present in association with small bilateral dependent effusions. Findings are most suspicious for interstitial pulmonary edema. As noted on the comparison chest radiograph, viral or atypical pneumonia could present with similar interstitial disease. However, the extent and relative subpleural sparing favor interstitial pulmonary edema. *Moderate pericardial effusion similar to findings present 05/25/2023. *Vague number scattered subcentimeter rounded pulmonary densities which are without a correlate compared with PET/CT 05/25/2023. Findings are most suspicious for small areas of consolidation overlying extensive interstitial disease. However, pulmonary metastatic disease could have a similar appearance given the history of metastatic breast cancer. Consider further evaluation with dedicated CT of the thorax following resolution of acute pulmonary symptoms presumed to represent interstitial pulmonary edema. *Multifocal skeletal lesions suspicious for metastatic disease unchanged in extent compared with MRI of the thoracic spine 11/06/2022. L1 vertebral body compression deformity with 25% inward deformity of the superior endplate and 4 mm retropulsion is increased in extent compared with 11/06/2022 and may represent a pathologic compression deformity of indeterminate age. *Aortic valve prosthesis in situ. *Partially visualized mild scattered coronary artery calcific atherosclerosis within the left anterior descending coronary artery and posterior descending coronary artery. VTE: negative Dictated By: Manolo Mckeon MD Independent Historian Clinical information obtained from an independent historian. History obtained from or confirmed by: Other (Daughter who was made the patient's healthcare proxy) External Record Review External record reviewed: Office record Chronic Conditions Patient?s care impacted by: Other (Breast cancer metastatic to spine) Critical Care Time Critical Care Time Critical Care Time: Yes Total Critical Care Time: 55 Attestation: Critical Care: The patient was critically ill with a high probability of imminent or life threatening deterioration. I spent greater than 30 minutes of discontinuous time evaluating the patient,delivering critical care at the bedside, discussing and evaluating pertinent data with consultants. Critical care time does not include time spent performing separately billable procedures or teaching. Total time spent performing critical care was 55 minutes. Discharge Plan Discharge Clinical Impression: Congestive heart failure, Aortic stenosis, Hypoxia, Anemia, macrocytic, Breast cancer metastasized to bone Patient Disposition: Admitted As Inpatient Prescriptions: No Action simvastatin 5 mg tablet 5 mg PO BEDTIME Qty: 90 1RF (DME) walker Misc Qty: 1 0RF Rx Instructions: As Directed Ensure Liquid See Rx Instructions .ROUTE .COMPLEX Qty: 60 0RF Rx Instructions: 1 can bid Ibrance 100 mg Tablet 100 mg PO DAILY Qty: 21 3RF Rx Instructions: administer on days 1 through 21 of a 28-day treatment cycle amlodipine 2.5 mg tablet 2.5 mg PO DAILY 90 Days Qty: 90 3RF cetirizine 10 mg tablet 10 mg PO DAILY PRN (Reason: allergy symptoms) 90 Days Qty: 90 3RF Complete Multivitamin Tablet 1 tab PO DAILY aspirin [Adult Aspirin Regimen] 81 mg tablet,delayed release (DR/EC) 81 mg PO DAILY cholecalciferol (vitamin D3) 25 mcg (1,000 unit) capsule 25 mcg PO DAILY 90 Days Qty: 90 2RF Print Language: Georgian
--- NOTE | 2023-10-26 11:51 | ECG_ITS ---
Test Reason : SOB Blood Pressure : / mmHG Vent. Rate : 079 BPM Atrial Rate : 079 BPM P-R Int : 162 ms QRS Dur : 088 ms QT Int : 368 ms P-R-T Axes : 044 001 036 degrees QTc Int : 421 ms Normal sinus rhythm Normal ECG When compared with ECG of 06-JUL-2022 14:16, No significant change was found Referred By: Bon Guillermo Electronically Signed By:VENITA CABRERA MD
--- NOTE | 2023-10-26 11:57 | PC.NURSE ---
placed on oxymask at 15L, patient currently 86%
[2023-10-26 12:08] LABS: Hematocrit 23.4 % (37.0-47.0); Imm Gran Abs Auto 0.02 X10*3/uL (0.00-0.03); Lymphocytes Absolute Auto 0.1 X10*3/uL (1.2-4.9); Lymphocytes Percent Auto 5.9 % (20-40); MANUAL DIFF FLAG SCAN; Mean Corpuscular HGB Conc 34.2 g/dl (31.0-35.0); Mean Corpuscular Hemoglobin 38.6 pg (27.0-33.0); Monocytes Absolute Auto 0.1 X10*3/uL (0.1-1.2); Monocytes Percent Auto 3.4 % (2-11); Neutrophils Absolute Auto 1.8 x10*3/uL (2.0-8.3); Neutrophils Percent Auto 89.7 % (45-73); Red Blood Count 2.07 X10*6/uL (4.20-5.50); Red Cell Distribution Width 18.9 % (11.0-16.0); SCAN SMEAR FLAG 1
[2023-10-26 12:10] LABS: VBG Base Excess 0.5 mmol/L; VBG HCO3 23 mmol/L (22-26); VBG pCO2 29 mmHg; VBG pH 7.49 (7.32-7.43); VBG pO2 73 mmHg
[2023-10-26 12:15] LABS: INTERNATIONAL NORM RATIO 1.1 (0.9-1.1)
[2023-10-26 12:17] LABS: D Dimer High Sensitivity 2311 NG/ML
--- NOTE | 2023-10-26 12:20 | PC.NURSE ---
oxymask at 15L, 100% at this time. bilateral IV's established, labs obtained and sent. provider at bedside speaking with daughter, Joann.
[2023-10-26 12:23] LABS: Alanine Aminotransferase 12 U/L (0-31); Albumin Level 3.5 g/dL (3.5-5.0); Alkaline Phosphatase 80 U/L (39-117); Anion Gap 17 (12-20); Aspartate Amino Transferase 33 U/L (5-31); Bilirubin Total 2.3 mg/dL (0.0-1.0); Blood Urea Nitrogen 23 mg/dL (9-16); Calcium 10.4 mg/dL (8.4-10.2); Carbon Dioxide 20 mmol/L (22-29); Chloride 108 mmol/L (96-108); Creatinine Clr Calc Pharmacy 40.1; Estimated Glomerular Filt Rate > 60; Glucose Random 146 mg/dL (60-115); Lipase 20 U/L (8-78); Magnesium 2.6 mg/dL (1.6-2.6); Potassium 3.5 mmol/L (3.3-5.1); Sodium 141 mmol/L (135-145); Total Protein 6.4 g/dL (6.5-8.0)
[2023-10-26 12:27] LABS: Venous Blood Gas Refer to POC result
[2023-10-26 12:28] LABS: B Type Natriuretic Peptide 467 pg/mL (<100)
[2023-10-26 12:35] LABS: Partial Thromboplastin Time 21.4 SEC (26.0-36.8); Troponin-I High Sensitivity 50.2 ng/L (<3.5-17.0)
[2023-10-26 12:37] LABS: Mean Platelet Volume 12.5 fL (9.4-12.3); Platelet Count 80 X10*3/uL (160-400); SLIDE REVIEW VERIFIED
[2023-10-26 12:42] LABS: Lactic Acid 1.4 mmol/L (0.5-2.0)
--- NOTE | 2023-10-26 13:03 | MHC.CM.ED ---
Received notification from Dr Guillermo that patient is requesting to complete HCP. HCP completed, signed and witnessed with patient. Original given to patient. Copy placed in chart.
[2023-10-26 13:11] LABS: Influenza A PCR NEGATIVE (Negative); Influenza B PCR NEGATIVE (Negative); Resp Syncy Virus RNA Qual PCR NEGATIVE (Negative); SARS COV2 PCR INHOUSE NEGATIVE (Negative)
[2023-10-26 13:49] LABS: OBS Int Ctl Valid YES; OBS1 POSITIVE (NEGATIVE)
[2023-10-26] MEDS: iohexoL 350 MG/ML 100 ML INFUS..BTL IV (13:49)
--- NOTE | 2023-10-26 15:31 | PC.NURSE ---
attempting to titrate down patient on oxygen, repeat troponin obtained
[2023-10-26] MEDS: Furosemide 20 MG/2 ML VIAL IVPUSH (15:46)
[2023-10-26 16:18] LABS: Troponin-I High Sensitivity 66.2 ng/L (<3.5-17.0)
--- NOTE | 2023-10-26 16:20 | PC.NURSE ---
able to titrate oxygen to 9L oxymask at this time
--- NOTE | 2023-10-26 17:17 | PHA.MEDREC ---
Pharmacy Consult ? Medication Reconciliation Pharmacy has completed the medication reconciliation. Used pharmacy claims, patient has memory issues
[2023-10-26 17:26] LABS: Appearance Urine Clear; Color Urine Yellow; Glucose Urine UA Negative (Negative); Leukocyte Esterase Urine Negative (Negative); Nitrite Urine Negative (Negative); Specific Gravity - Urine 1.015 (1.005-1.025); Urine Blood Negative (Negative); Urine Ketones Negative (Negative); Urine Protein Negative (Neg-Trace)
--- NOTE | 2023-10-26 18:38 | PM.IMHP ---
History of Present Illness Date of Service: 10/26/23 Attending physician on admission: Anthony Dickerson Chief Complaint: weakness, sob 86 yo female with past medical history of HLD, HTN, metastatic breast cancer s/p removal/radiation on oral chemotherapy, TAVR w/ bioprosthetic valve, severe aortic stenosis, among others presented to the ED earlier today for evaluation of sudden onset WIGGINS that started this morning while ambulating with a cane. States she has also had intermittent palpitations. NO fevers, chills, abd pain, n/v/d, urinary symptoms, recent illness, lightheadedness, syncope, or chest pain. Denies melena or hematochezia. Pt is oriented x 3 but seems somewhat aloof with poor insight. Pt patient's daughter the patient has been experiencing sob x 2 weeks. She has seen cardiology due to increased for possible TAVR. JOHN performed 10/19 revealed severe with small pericardial effusion with normal LV systolic fx EF 60-65%. She also follows with Dr. Ba with recent diagnosis of bony mets related to breast cancer and is taking ibrance. On arrival, patient was noted to be hypoxic to 70% and was placed on OxyMask and has been weaned to 5 L now maintaining oximetry around 96%. Has had intermittent tachypnea. Vitals otherwise stable. She is a chronic pancytopenia though anemia appears to be worse than baseline with H/H 8.0/23.4% (was 9.9/29.9% on 10/10). Renal function baseline, electrolyte levels normal except for chronic hypercalcemia 10.4. Total bilirubin 2.3, AST 33, ALT 12. Initial troponin 50.2, repeat 66.2. BNP 467. CTA chest negative for PE but shows bilateral interstitial disease with mild bilateral subpleural sparing and sparing of the left superior pulmonary apex and superior segment of left lower pulmonary lobe. Most consistent with small bilateral dependent effusions and interstitial pulmonary edema though viral or atypical pneumonia can not be ruled out. There is also moderate pericardial effusion that appears stable compared to prior imaging among other findings which correlate with prior PET/CT findings. Clinical presentation most suspicious for CHF exacerbation. ED did discuss case with Cardiology recommending admission to medicine. She was given 20 mg of IV Lasix which did allow for further titration of supplemental O2. Review of Systems Review of Systems: General: No fevers, malaise, unintentional weight loss HEENT: No blurred vision, diplopia. No sore throat, nasal congestion, rhinorrhea, sinus pain, ear pain Cardiovascular: No chest pain, palpitations, or leg edema Respiratory: +wiggins. No orthopnea. 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 History of aortic valve stenosis GERD without esophagitis Pure hypercholesterolemia Benign essential hypertension Vitamin D deficiency Familial hypocalciuric hypercalcemia syndrome Osteoporosis Family History Father Diabetes CVA (cerebral vascular accident) CVD (cardiovascular disease) Myocardial infarct Mother Emphysema of lung Alcoholism /alcohol abuse Surgical History Hx of aortic valve replacement (~07/04/12) History of lumpectomy of left breast (~07/02/21) Hx of cataract removal with insertion of prosthetic lens (~08/2017) Social History Household Members: None Housing: Condominium Are you a primary respiratory care practitioner to a significant other at home: No Do you presently have visiting nurse or other home services: No Alcohol intake: current Alcohol intake frequency: holidays/special occasions only Alcohol type: wine Patient Tobacco Use Status: Never used Tobacco e-Cigarette/Vaping Use: Never Used Second Hand Smoke Exposure: Yes Advance Directives: Yes Advance Directives on File: Yes Advance Directives Date on File: 10/26/23 Do you have a plan to hurt others: No Plan service: No Current occupational status: retired Cognitive needs: No Hearing needs: Yes Vision needs: Yes Meds Allergies Allergy/AdvReac Type Severity Reaction Status Date / Time hydrochlorothiazide Allergy Unknown upset Verified 10/26/23 11:44 stomach,dizziness lisinopril Allergy Unknown SWOLLEN Verified 10/26/23 11:44 THROAT/angioedema metoprolol Allergy Unknown severe Verified 10/26/23 11:44 dizziness esomeprazole [Nexium] AdvReac Unknown headaches Verified 10/26/23 11:44 Home Medications ?Medication ?Instructions ?Recorded ?Confirmed ?Last Taken ?Type multivitamin,xd-wykw-[id number] 1 tab PO DAILY 05/01/20 10/26/23 Unknown History (Complete Multivitamin tablet) Physical Exam Vital Signs and Narrative: Vital Signs: Last Vital Signs Temp 98.3 F 10/26/23 15:20 Pulse 90 10/26/23 17:14 Resp 24 H 10/26/23 17:14 BP 125/66 10/26/23 17:14 Pulse Ox 97 10/26/23 17:14 O2 Del Method Simple Mask 10/26/23 17:14 O2 Flow Rate 5 10/26/23 17:14 BMI result Body Mass Index 17.2 Constitutional - Awake and Alert, No apparent distress Eyes - PERRLA, EOMI Cardiovascular - S1S2, RRR, 1+ ble edema . +JVD Respiratory - Normal lung expansion, Normal respiratory effort, No respiratory distress, bibasilar crackles Gastrointestinal - NT / ND; +BS; No rebound or guarding Extremities - no calf tenderness bilaterally, no swelling Skin - Warm/Dry Neurological - Alert & oriented x3 Psychological - Appropriate affect Results Labs 10/26/23 12:01 10/26/23 12:01 Labs: Laboratory Results - last 24 hr 10/26/23 10/26/23 10/26/23 12:01 12:04 12:10 MCV 113.0 H MCH 38.6 H MCHC 34.2 RDW 18.9 H Plt Count 80 L D MPV 12.5 H Immature Gran % (Auto) 1.0 H Neut % (Auto) 89.7 H Lymph % (Auto) 5.9 L [place] % (Auto) 3.4 Eos % (Auto) 0.0 Baso % (Auto) 0.0 Lymph # (Auto) 0.1 L [place] # (Auto) 0.1 Eos # (Auto) 0.0 Baso # (Auto) 0.0 Abs Immat Gran (auto) 0.02 Absolute Neuts (auto) 1.8 L Absolute Nucleated RBC 0.000 Nucleated RBC % (auto) 0.0 Smear Tech's Comments VERIFIED PT 13.0 INR 1.1 APTT 21.4 L D-Dimer High Sensitivty 2311 VBG pH 7.49 H VBG pCO2 29 VBG pO2 73 VBG HCO3 23 VBG O2 Saturation 94.0 VBG Base Excess 0.5 Anion Gap 17 Estim Creat Clear Calc 40.1 Estimated GFR > 60 Random Glucose 146 H Lactic Acid 1.4 Calcium 10.4 H D Magnesium 2.6 Total Bilirubin 2.3 H AST 33 H ALT 12 Alkaline Phosphatase 80 Troponin I High Sens 50.2 H* D B-Natriuretic Peptide 467 H Total Protein 6.4 L Albumin 3.5 Lipase 20 Urine Color Urine Appearance Urine pH Ur Specific [place] Urine Protein Urine Glucose (UA) Urine Ketones Urine Blood Urine Nitrite Ur Leukocyte Esterase Stool Occult Blood Influenza Type A (PCR) NEGATIVE Influenza Type B (PCR) NEGATIVE RSV RNA Qual (PCR) NEGATIVE SARS-CoV-2 RNA (RT-PCR) NEGATIVE Blood Type O Positive Antibody Screen NEGATIVE 10/26/23 10/26/23 10/26/23 13:45 15:28 17:17 MCV MCH MCHC RDW Plt Count MPV Immature Gran % (Auto) Neut % (Auto) Lymph % (Auto) [place] % (Auto) Eos % (Auto) Baso % (Auto) Lymph # (Auto) [place] # (Auto) Eos # (Auto) Baso # (Auto) Abs Immat Gran (auto) Absolute Neuts (auto) Absolute Nucleated RBC Nucleated RBC % (auto) Smear Tech's Comments PT INR APTT D-Dimer High Sensitivty VBG pH VBG pCO2 VBG pO2 VBG HCO3 VBG O2 Saturation VBG Base Excess Anion Gap Estim Creat Clear Calc Estimated GFR Random Glucose Lactic Acid Calcium Magnesium Total Bilirubin AST ALT Alkaline Phosphatase Troponin I High Sens 66.2 H* B-Natriuretic Peptide Total Protein Albumin Lipase Urine Color Yellow Urine Appearance Clear Urine pH 6.0 Ur Specific [place] 1.015 Urine Protein Negative Urine Glucose (UA) Negative Urine Ketones Negative Urine Blood Negative Urine Nitrite Negative Ur Leukocyte Esterase Negative Stool Occult Blood POSITIVE Influenza Type A (PCR) Influenza Type B (PCR) RSV RNA Qual (PCR) SARS-CoV-2 RNA (RT-PCR) Blood Type Antibody Screen Imaging Radiologist's Impressions: Impressions Chest X-Ray 10/26/23 12:14 IMPRESSION: Cardiomegaly with pulmonary venous congestion and interstitial pulmonary edema. Viral or atypical pneumonia could have a similar interstitial appearance. Chest CTA 10/26/23 13:56 IMPRESSION: *CT pulmonary angiogram negative for pulmonary emboli. *Bilateral interstitial disease of the lungs with mild bilateral subpleural sparing and sparing of the left superior pulmonary apex and superior segment of the left lower pulmonary lobe. Findings are present in association with small bilateral dependent effusions. Findings are most suspicious for interstitial pulmonary edema. As noted on the comparison chest radiograph, viral or atypical pneumonia could present with similar interstitial disease. However, the extent and relative subpleural sparing favor interstitial pulmonary edema. *Moderate pericardial effusion similar to findings present 05/25/2023. *Vague number scattered subcentimeter rounded pulmonary densities which are without a correlate compared with PET/CT 05/25/2023. Findings are most suspicious for small areas of consolidation overlying extensive interstitial disease. However, pulmonary metastatic disease could have a similar appearance given the history of metastatic breast cancer. Consider further evaluation with dedicated CT of the thorax following resolution of acute pulmonary symptoms presumed to represent interstitial pulmonary edema. *Multifocal skeletal lesions suspicious for metastatic disease unchanged in extent compared with MRI of the thoracic spine 11/06/2022. L1 vertebral body compression deformity with 25% inward deformity of the superior endplate and 4 mm retropulsion is increased in extent compared with 11/06/2022 and may represent a pathologic compression deformity of indeterminate age. *Aortic valve prosthesis in situ. *Partially visualized mild scattered coronary artery calcific atherosclerosis within the left anterior descending coronary artery and posterior descending coronary artery. VTE: negative Assessment and Plan (1) CHF exacerbation: Status: Acute (2) Severe aortic stenosis: Status: Acute (3) Acute hypoxemic respiratory failure: Status: Acute Plan 86 yo female with past medical history of HLD, HTN, metastatic breast cancer s/p removal/radiation on oral chemotherapy, TAVR w/ bioprosthetic valve, severe aortic stenosis, among others admitted for further management of CHF exacebration and concern for acute GI bleed #CHF exacerbation with acute hypoxemic respiratory failure -CTA chest with bilateral effusions and pulmonary edema. BNP >400 -echo 10/19 showed normal LV systolic function with EF 55-60% -20mg IV lasix daily -strict I&O -daily weights -low sodium diet, fluid restrict to 1.5L -cardiology consult -monitor on telemetry given coincident severe and pt reported palpitations -follow renal fx/lytes -continue supplemental O2 to maintain oximetry greater than 92%, wean as tolerated per protocol #Acute on chronic macrocytic anemia with concern for acute GI bleed -H/h 8.0/23.4%, last 9./ 9.9% on 10/10. Above transfusion threshold at this time. Stool occult blood positive -abdominal exam benign. Denies melena or hematochezia -clear liquid diet -IV PPI -GI consult, Oncology consult -vitamin B12 and folic acid levels pending -follow H/H # severe with bioprosthetic valve in place -last echo 10/19 shows severe aortic stenosis -cardiology consult #Pericardial effusion -appears stable on imaging/echo -cardiology consult # metastatic breast cancer -oncology consult -continue Ibrance # Familial hypocalciuric hypercalcemia syndrome -calcium 10.4 -monitor for now # hypertension -blood pressure reasonably controlled -continue amlodipine # hyperlipidemia -statin DVT prophylaxis-Lovenox Full code Patient requires inpatient stay at least 2 midnights for management of CHF exacerbation with acute hypoxemic respiratory failure requiring supplemental O2 with titration, IV diuresis, close monitoring renal function electrolyte levels as well as expert consultation. Given stool occult positive result with acute on chronic anemia, will also require close monitoring for GI bleed and expert consultation Quality Stroke Does the patient have a stroke diagnosis?: No VTE Prior VTE?: No VTE Risk Level:: Medical - moderate - high VTE Device Contraindication: Treatment Not Indicated VTE Drug Contraindication: N/A - Med Ordered
[2023-10-26] MEDS: Atorvastatin Calcium 10 MG TABLET 5 MG PO (20:53)
[2023-10-26] MEDS: Pantoprazole Sodium 40 MG/10 ML VIAL IVPUSH (20:53)
--- NOTE | 2023-10-26 21:42 | PC.NURSE ---
pt placed into hospital bed. attempted to titrate down O2 via oxymask however at 5L pt drops down to 86%. MD Dickerson aware. titrated back up to 6L, pt resting comfortably. call cassidy within reach. commode at bedside.
[2023-10-27] VITALS (10 sets, daily range): BP systolic 114–145; BP diastolic 57–72; PULSE 82–92; RESP 18–32; TEMP 36.1–37.1; O2SAT 86–100
[2023-10-27 00:18] LABS: Folate 9.4 ng/mL (> or = 4.0); Vitamin B12 981 pg/mL (200-900)
[2023-10-27 05:17] LABS: Basophils Percent Auto 0.8 % (0-2); Eosinophils Percent Auto 0.8 % (0-4); Imm Gran Abs Auto 0.01 X10*3/uL (0.00-0.03); Imm Gran Pct Auto 0.8 % (0.0-0.4); Lymphocytes Absolute Auto 0.1 X10*3/uL (1.2-4.9); Lymphocytes Percent Auto 6.9 % (20-40); MANUAL DIFF FLAG SCAN; Mean Corpuscular HGB Conc 34.5 g/dl (31.0-35.0); Mean Corpuscular Hemoglobin 38.4 pg (27.0-33.0); Mean Platelet Volume 12.2 fL (9.4-12.3); Monocytes Percent Auto 3.1 % (2-11); Neutrophils Absolute Auto 1.1 x10*3/uL (2.0-8.3); Neutrophils Percent Auto 87.6 % (45-73); Red Blood Count 1.77 X10*6/uL (4.20-5.50); Red Cell Distribution Width 18.8 % (11.0-16.0); SCAN SMEAR FLAG 1
[2023-10-27 05:26] LABS: Mean Corpuscular Volume 111.3 fL (80.0-98.0); Platelet Count 56 X10*3/uL (160-400); White Blood Count 1.3 X10*3/uL (4.8-10.8)
[2023-10-27 05:27] LABS: Hematocrit 19.7 % (37.0-47.0); Hemoglobin 6.8 g/dl (12.0-16.0)
[2023-10-27 05:36] LABS: Anion Gap 12 (12-20); Blood Urea Nitrogen 18 mg/dL (9-16); Calcium 9.6 mg/dL (8.4-10.2); Carbon Dioxide 23 mmol/L (22-29); Chloride 109 mmol/L (96-108); Creatinine Clr Calc Pharmacy 48.1; Estimated Glomerular Filt Rate > 60; Glucose Random 106 mg/dL (60-115); Potassium 3.2 mmol/L (3.3-5.1); Sodium 141 mmol/L (135-145)
[2023-10-27 05:44] LABS: SLIDE REVIEW VERIFIED
--- NOTE | 2023-10-27 06:26 | PC.NURSE ---
Blood is ready for package pick up. When discussing blood transfusion with pt to obtain vitals, pt expressed concern and states I don't want that . [place] text sent to Dr. Dickerson. Dr. Dickerson at bedside providing further education.
--- NOTE | 2023-10-27 06:39 | PM.EVENT ---
Event Note Date of Service: 10/27/23 Event Note: Patient with hemoglobin less than 7 the same. Ordered 1 unit PRBC. Patient is on IV Protonix and Gastroenterology has been consulted Time Spent With Patient Time: Total time managing care of this patient today ____ minutes.
[2023-10-27] MEDS: Pantoprazole Sodium 40 MG/10 ML VIAL IVPUSH ×2 (06:41→18:01)
[2023-10-27 07:48] LABS: Alanine Aminotransferase 10 U/L (0-31); Alkaline Phosphatase 73 U/L (39-117); Aspartate Amino Transferase 28 U/L (5-31); Bilirubin Total 1.9 mg/dL (0.0-1.0); Lactate Dehydrogenase 580 U/L (122-220); Total Protein 5.4 g/dL (6.5-8.0)
[2023-10-27] MEDS: Furosemide 40 MG/4 ML VIAL IVPUSH ×2 (07:48→18:00)
--- NOTE | 2023-10-27 08:03 | PC.RT ---
attempted to place patient on hfnc per MD request. Upon placing patient on hfnc, patient immediately refused stating I don't want anything in my nose RN at bedside, MD aware.
--- NOTE | 2023-10-27 08:22 | P.CNHO_ITS ---
Subjective - Subjective Chief complaint: Shortness of breath Patient: known to practice within the last 3 years Consult date: 10/27/23 Primary Care Provider: Lyndon Rosario MD Medical Summary: Diagnosis: Left breast invasive lobular carcinoma diagnosed June 2021. Patient presented with palpable mass in the left breast at 05:00 o'clock position. Screening mammography on 05/20/2021 followed by ultrasound and subsequent focused mammogram on 05/26/2021 confirm solid density in the 5 o'clock position measuring 2.1 cm suspicious for malignancy. 06/10/2021 core biopsy of left breast mass, pathology-invasive lobular carcinoma, MS BR grade 2. Estrogen receptor positive 100%, progesterone receptor positive 30%, HER2 negative. Proliferation index high, 50% by Ki 67 immunostaining. She does not recall any hormone replacement therapy or use of control pills. She denies any previous abnormal mammograms or breast biopsies. She has had open-heart surgery in 2012. She has osteoporosis and has been on Prolia every 6 months administered by her phys asst. She denies any previous fractures. She denies any other cancer history. She has 3 children. She underwent lumpectomy with sentinel node biopsy on 07/02/2021. Pathology revealed invasive lobular carcinoma, grade 2, 2 cm in size, margins negative, high proliferation index, Ki 67 -50% One sentinel node negative for metastatic carcinoma. ER/WY positive, HER2 negative. Pathological stage pT1c pN0, clinical/prognostic stage IA. Oncotype DX recurrence score was low, chemotherapy deferred. She completed adjuvant radiation therapy at [facility] on 09/19/2021. She started letrozole 2.5 mg once daily from 10/05/2021. Unfortunately, she presented with worsening back pain and was found to have multiple lytic lesions in her spine. CT thoracic spine performed 10/28/2022 shows mild compression fracture of T10 vertebral body with abnormal soft tissue extending into spinal can now. Suggesting mild cord compression. Abnormal soft tissue in T9/T10 neural foramen, pathological compression fracture L1 and L2. She does not have any symptoms of cord compression. She received palliative radiation therapy at [facility]. HPI - Consult Narrative Reason for consult: Pancytopenia, history of breast cancer Narrative: Jordon Mobley is a 87 year old female was diagnosed with metastatic breast cancer in October 2022 and has been on hormonal therapy ever since. She presented to emergency department on 10/26/2023 with symptoms of sudden onset dyspnea and intermittent palpitations. No history of fever, chills, nausea, lightheadedness, chest pain or abdominal pain. No change in bowel habits. She is being followed closely by Cardiology for aortic stenosis. On arrival, she was noted to be hypoxic with pulse ox of 70% on room air. She is now on oxygen. She underwent CT angiogram of chest which was negative for PE but showed bilateral interstitial disease most consistent with pulmonary edema. Viral or atypical pneumonia was also in the differential diagnosis. She is on Lasix. Review of Systems - Constitutional Reports as per HPI, Reports malaise, Denies poor appetite, Denies weight loss - Cardiovascular Reports no additional cardiovascular complaints - Respiratory Reports no additional respiratory complaints, Reports dyspnea PMFSH Medical History: Medical History (Last Reviewed 10/26/23 @ 19:58 by STACI Ordonez) Aortic stenosis Benign essential hypertension Familial hypocalciuric hypercalcemia syndrome GERD without esophagitis History of aortic valve stenosis 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 Osteoporosis Pure hypercholesterolemia Vitamin D deficiency Family History: Family History (Last Reviewed 10/26/23 @ 19:58 by STACI Ordonez) Father Diabetes CVA (cerebral vascular accident) CVD (cardiovascular disease) Myocardial infarct Mother Emphysema of lung Alcoholism /alcohol abuse Surgical History: Surgical History (Last Reviewed 10/26/23 @ 19:58 by STACI Ordonez) History of lumpectomy of left breast Onset Date: ~07/02/21 Hx of aortic valve replacement Onset Date: ~07/04/12 Hx of cataract removal with insertion of prosthetic lens Onset Date: ~08/2017 Social History: Social History (Last Reviewed 10/26/23 @ 19:58 by STACI Ordonez) Living Situation History: Household Members: None Housing: Condominium Are you a primary medicare specialist to a significant other at home: No Do you presently have visiting nurse or other home services: No Alcohol History Details: 1. How often do you have a drink containing alcohol?: a. Never AUDIT-C Alcohol total score: 0 Tobacco History: Patient Tobacco Use Status: Never used Tobacco e-Cigarette/Vaping Use: Never Used Second Hand Smoke Exposure: Yes Advance Directives: Advance Directives: Yes Advance Directives on File: Yes Advance Directives Date on File: 10/26/23 Homicidal Assessment: Do you have a plan to hurt others: No Plan Nutrition Assessment: Nutrition Risks: No Nutritional Risk Occupation Assessmet: service: No Current occupational status: retired Home Medications and Allergies Current Medications: Current Medications Acetaminophen (Acetaminophen 325 Mg Tablet) 650 mg PO Q6H PRN PRN Reason: Pain, Mild (Pain Scale 1-3) Amlodipine Besylate (Amlodipine Besylate 2.5 Mg Tablet) 2.5 mg PO DAILY [facility]; Protocol Atorvastatin Calcium (Atorvastatin Calcium 10 Mg Tablet) 5 mg PO BEDTIME [facility] Last Admin: 10/26/23 20:53 Dose: 5 mg Furosemide (Furosemide 20 Mg/2 Ml Vial) 20 mg IVPUSH DAILY [facility]; Protocol Loratadine (Loratadine 10 Mg Tablet) 10 mg PO DAILY PRN PRN Reason: allergy symptoms Magnesium Hydroxide (Milk Of Magnesia 30 Ml Oral.Susp) 30 ml PO DAILY PRN PRN Reason: Constipation Multivitamins/Vitamin C (Multivitamin Tablet) 1 tab PO DAILY [facility] Ondansetron HCl (Ondansetron Hcl 4 Mg/2 Ml Vial) 4 mg IVPUSH Q8H PRN PRN Reason: Nausea and Vomiting Pantoprazole Sodium (Pantoprazole Sodium 40 Mg/10 Ml Vial) 40 mg IVPUSH BID@0630,1630 [facility] Last Admin: 10/27/23 06:41 Dose: 40 mg Sodium Chloride (0.9 % Sodium Chloride Flush 3 Ml Syringe) 3 ml IVFLUSH QSHIFT [facility] Last Admin: 10/27/23 07:49 Dose: Not Given Vitamin D (Cholecalciferol (Vitamin D3) 25 Mcg Tablet) 25 mcg PO DAILY [facility] Home Medications ?Medication ?Instructions ?Recorded ?Confirmed ?Type multivitamin,[id number] 1 tab PO DAILY 05/01/20 10/26/23 History (Complete Multivitamin tablet) Allergies Allergy/AdvReac Type Severity Reaction Status Date / Time hydrochlorothiazide Allergy Unknown upset Verified 10/26/23 11:44 stomach,dizziness lisinopril Allergy Unknown SWOLLEN Verified 10/26/23 11:44 THROAT/angioedema metoprolol Allergy Unknown severe Verified 10/26/23 11:44 dizziness esomeprazole [Nexium] AdvReac Unknown headaches Verified 10/26/23 11:44 Physical Exam Vital signs: Vital Signs Temp 98.8 F 10/27/23 07:35 Pulse 88 10/27/23 07:48 Resp 32 H 10/27/23 07:48 BP 140/64 H 10/27/23 07:48 Pulse Ox 86 L 10/27/23 07:48 O2 Del Method Oxymask 10/27/23 07:48 O2 Flow Rate 10 10/27/23 07:48 Intake & Output 10/26/23 10/27/23 10/27/23 18:59 06:59 18:59 Intake Total 0 / 0 0 / 0 Output Total 800 / 800 Balance -800 / -800 0 / 0 Urine Output (Average ml/kg/hr) 1.47 1.47 Intake: Intake, Oral Amount 0 / 0 Intake (Blood Product) Amount 0 / 0 Red Blood Cells Aph (E0685) 0 / 0 Unit [id number] Output: Output, Urine Amount 800 / 800 Other: Urine Bedside Commode Urine Color Yellow Weight 45.359 kg Weight 45.359 kg - Constitutional Present: mild distress - Routine HEENT Exam Head: Present: normal inspection Eye: Present: PERRL - Routine Neck Exam Present: supple - Routine Respiratory Exam Present: accessory muscle use, decreased breath sounds - Routine Cardiovascular Exam Cardiovascular: Present: S1, S2 - Routine Abdominal Exam Present: soft - Routine Skin Exam Present: intact Hem/Onc Consult Result - Labs CBC & Chem 7: 10/27/23 05:02 10/27/23 05:02 Labs: Short CBC 10/26/23 10/27/23 Range/Units 12:01 05:02 WBC 2.0 L 1.3 L (4.8-10.8) X10*3/uL Hgb 8.0 L 6.8 L* (12.0-16.0) g/dl Hct 23.4 L D 19.7 L* (37.0-47.0) % Plt Count 80 L D 56 L D (160-400) X10*3/uL BMP 10/26/23 10/27/23 12:01 05:02 Sodium 141 141 Potassium 3.5 3.2 L Chloride 108 109 H Carbon Dioxide 20 L 23 BUN 23 H 18 H Creatinine 0.72 0.60 Calcium 10.4 H D 9.6 D Liver Function 10/26/23 10/27/23 Range/Units 12:01 05:02 Total Bilirubin 2.3 H 1.9 H (0.0-1.0) mg/dL Direct Bilirubin 1.0 H (0.0-0.5) mg/dL AST 33 H 28 (5-31) U/L ALT 12 10 (0-31) U/L Alkaline Phosphatase 80 73 (39-117) U/L Albumin 3.5 3.0 L (3.5-5.0) g/dL Urine 10/26/23 Range/Units 17:17 Urine Color Yellow Urine Appearance Clear Urine pH 6.0 (5.0-9.0) Ur Specific [place] 1.015 (1.005-1.025) Urine Protein Negative (Neg-Trace) mg/dL Urine Glucose (UA) Negative (Negative) mg/dL Assessment and Plan Patient Active problem list reviewed?: Yes (1) Breast cancer metastasized to bone Status: Chronic Assessment and plan: 1. This is a pleasant 87-year-old woman with left breast invasive lobular carcinoma diagnosed in June 2021, metastatic cancer dx on 11/2022. She underwent CT-guided biopsy of T10 vertebral body on 11/19/2022. Pathology revealed metastatic carcinoma consistent with breast origin. She received palliative radiation therapy to T10 vertebral body, she did not complete treatment because it was uncomfortable getting on and off the table. She started on Faslodex from . She started palbociclib 125 mg daily from 12/23/2022. This was reduced to 100 mg daily because of neutropenia in January 2023. Last imaging for metastatic cancer, PET-CT performed 05/26/2023 showed no active metastatic disease. Bone Mets in the spine were healed. She is currently admitted for congestive heart failure secondary to tight aortic stenosis. She is being diuresed. She is noted to have worsening pancytopenia/anemia. This is probably multifactorial. 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 No symptoms or signs of acute GI bleeding. Ferritin level is pending. Normal vitamin B12 and folate levels. LDH is slightly elevated, submit haptoglobin, total bilirubin is mildly elevated without significant indirect hyperbilirubinemia. Her kidney functions are stable. Agree with blood transfusion. She remains quite hypoxemic. She is being evaluated by Cardiology for TAVR. Will follow with you. I thank you for the consult. - Time Spent With Patient Time Spent with Patient (in minutes): 20
[2023-10-27 08:37] LABS: Immature Retic Fraction 28.2 % (3.0-15.9); Retic HGB Equivalent 42.1 pg (30.0-35.0); Reticulocytes Absolute 0.073 X10*6/uL (0.026-0.095)
--- NOTE | 2023-10-27 08:58 | PM.DS ---
DS: Providers Provider Date of Service: 10/27/23 Date of admission: 10/26/23 20:21 Primary care physician: Lyndon Rosario MD Consults: 10/26/23 17:02 Consult to Cardiology Routine Consulting Provider: [facility] Cardiovascular Services Reason for consultation: Aortic stenosis, CHF Has provider been notified: Yes 10/26/23 19:51 Consult to Gastroenterology Routine Consulting Provider: Raudel Parra Reason for consultation: ?GI bleed 10/26/23 19:52 Consult to Hematology / Oncology Routine Consulting Provider: Fabiola Ba Reason for consultation: chf, metastatic breast cancer patient, worsening anemia DS: Diagnosis Discharge Diagnosis (1) Breast cancer metastasized to bone: Status: Chronic DS: Summary Hospital Course Hospital Course: from initial hpi: 86 yo female with past medical history of HLD, HTN, metastatic breast cancer s/p removal/radiation on oral chemotherapy, TAVR w/ bioprosthetic valve, severe aortic stenosis, among others presented to the ED earlier today for evaluation of sudden onset GAMBOA that started this morning while ambulating with a cane. States she has also had intermittent palpitations. NO fevers, chills, abd pain, n/v/d, urinary symptoms, recent illness, lightheadedness, syncope, or chest pain. Denies melena or hematochezia. Pt is oriented x 3 but seems somewhat aloof with poor insight. Pt patient's daughter the patient has been experiencing sob x 2 weeks. She has seen cardiology due to increased for possible TAVR. JOHN performed 10/19 revealed severe with small pericardial effusion with normal LV systolic fx EF 60-65%. She also follows with Dr. Ba with recent diagnosis of bony mets related to breast cancer and is taking ibrance. On arrival, patient was noted to be hypoxic to 70% and was placed on OxyMask and has been weaned to 5 L now maintaining oximetry around 96%. Has had intermittent tachypnea. Vitals otherwise stable. She is a chronic pancytopenia though anemia appears to be worse than baseline with H/H 8.0/23.4% (was 9.9/29.9% on 10/10). Renal function baseline, electrolyte levels normal except for chronic hypercalcemia 10.4. Total bilirubin 2.3, AST 33, ALT 12. Initial troponin 50.2, repeat 66.2. BNP 467. CTA chest negative for PE but shows bilateral interstitial disease with mild bilateral subpleural sparing and sparing of the left superior pulmonary apex and superior segment of left lower pulmonary lobe. Most consistent with small bilateral dependent effusions and interstitial pulmonary edema though viral or atypical pneumonia can not be ruled out. There is also moderate pericardial effusion that appears stable compared to prior imaging among other findings which correlate with prior PET/CT findings. Clinical presentation most suspicious for CHF exacerbation. ED did discuss case with Cardiology recommending admission to medicine. She was given 20 mg of IV Lasix which did allow for further titration of supplemental O2. hospital course: Patient admitted for acute hypoxic respiratory failure secondary to chronic diastolic CHF with severe aortic stenosis with acute decompensation. She was given IV Lasix, respiratory status continued to decline. Seen by Cardiology recommended transfer to [facility] for possible TAVR. Also noted to have acute on chronic pancytopenia, likely due to chemotherapy, transfusing 1 unit PRBC, chemotherapy held. Patient has no moderate pericardial effusion which appears stable. For metastatic breast cancer her chemotherapy has been held for pancytopenia. Her most recent PET scan was reassuring and prognosis is felt to be greater than 6 months specifically for breast cancer. For hypertension she was continued on amlodipine. For hyperlipidemia she was continued on statin. Patient will be transferred to [facility]. Time Attestation Discharge Coordination Time (in mins): 38 Quality: Safe Use of Opioids Does Pt have an Active Cancer Diagnosis on the Problem List?: Yes Opioid Measure Date for [facility] Report: 09/27/23 Opioid Measure Time for [facility] Report: 08:59 Quality: Stroke Does the patient have a stroke diagnosis?: No Physical Exam Vital Signs: Vital Signs: Last Vital Signs Temp 98.8 F 10/27/23 07:35 Pulse 88 10/27/23 07:48 Resp 32 H 10/27/23 07:48 BP 140/64 H 10/27/23 07:48 Pulse Ox 86 L 10/27/23 07:48 O2 Del Method Oxymask 10/27/23 07:48 O2 Flow Rate 10 10/27/23 07:48 BMI result Body Mass Index 17.2 alert, ill appearing, tachypnea, murmur, accessory msucels, bilateral crackles DS: Data Data Completed and Pending Labs on day of discharge: Laboratory Results - last 24 hr 10/26/23 10/26/2310/25/24 12:01 12:04 12:10 WBC 2.0 L RBC 2.07 L D Hgb 8.0 L Hct 23.4 L D MCV 113.0 H MCH 38.6 H MCHC 34.2 RDW 18.9 H Plt Count 80 L D MPV 12.5 H Immature Gran % (Auto) 1.0 H Neut % (Auto) 89.7 H Lymph % (Auto) 5.9 L [place] % (Auto) 3.4 Eos % (Auto) 0.0 Baso % (Auto) 0.0 Lymph # (Auto) 0.1 L [place] # (Auto) 0.1 Eos # (Auto) 0.0 Baso # (Auto) 0.0 Abs Immat Gran (auto) 0.02 Absolute Neuts (auto) 1.8 L Absolute Nucleated RBC 0.000 Nucleated RBC % (auto) 0.0 Smear Tech's Comments VERIFIED Smear Path Review Absolute Retic Percent Retic Immature Retic Fraction Retic Hgb Equivalent PT 13.0 INR 1.1 APTT 21.4 L D-Dimer High Sensitivty 2311 VBG pH 7.49 H VBG pCO2 29 VBG pO2 73 VBG HCO3 23 VBG O2 Saturation 94.0 VBG Base Excess 0.5 Sodium 141 Potassium 3.5 Chloride 108 Carbon Dioxide 20 L Anion Gap 17 BUN 23 H Creatinine 0.72 Estim Creat Clear Calc 40.1 Estimated GFR > 60 Random Glucose 146 H Lactic Acid 1.4 Calcium 10.4 H D Magnesium 2.6 Total Bilirubin 2.3 H Direct Bilirubin AST 33 H ALT 12 Alkaline Phosphatase 80 Lactate Dehydrogenase Troponin I High Sens 50.2 H* D B-Natriuretic Peptide 467 H Total Protein 6.4 L Albumin 3.5 Lipase 20 Vitamin B12 Folate Urine Color Urine Appearance Urine pH Ur Specific [place] Urine Protein Urine Glucose (UA) Urine Ketones Urine Blood Urine Nitrite Ur Leukocyte Esterase Stool Occult Blood Influenza Type A (PCR) NEGATIVE Influenza Type B (PCR) NEGATIVE RSV RNA Qual (PCR) NEGATIVE SARS-CoV-2 RNA (RT-PCR) NEGATIVE Blood Type O Positive Antibody Screen NEGATIVE Crossmatch See Detail 10/26/23 10/26/23 10/26/23 13:45 15:28 17:17 WBC RBC Hgb Hct MCV MCH MCHC RDW Plt Count MPV Immature Gran % (Auto) Neut % (Auto) Lymph % (Auto) [place] % (Auto) Eos % (Auto) Baso % (Auto) Lymph # (Auto) [place] # (Auto) Eos # (Auto) Baso # (Auto) Abs Immat Gran (auto) Absolute Neuts (auto) Absolute Nucleated RBC Nucleated RBC % (auto) Smear Tech's Comments Smear Path Review Absolute Retic Percent Retic Immature Retic Fraction Retic Hgb Equivalent PT INR APTT D-Dimer High Sensitivty VBG pH VBG pCO2 VBG pO2 VBG HCO3 VBG O2 Saturation VBG Base Excess Sodium Potassium Chloride Carbon Dioxide Anion Gap BUN Creatinine Estim Creat Clear Calc Estimated GFR Random Glucose Lactic Acid Calcium Magnesium Total Bilirubin Direct Bilirubin AST ALT Alkaline Phosphatase Lactate Dehydrogenase Troponin I High Sens 66.2 H* B-Natriuretic Peptide Total Protein Albumin Lipase Vitamin B12 Folate Urine Color Yellow Urine Appearance Clear Urine pH 6.0 Ur Specific [place] 1.015 Urine Protein Negative Urine Glucose (UA) Negative Urine Ketones Negative Urine Blood Negative Urine Nitrite Negative Ur Leukocyte Esterase Negative Stool Occult Blood POSITIVE Influenza Type A (PCR) Influenza Type B (PCR) RSV RNA Qual (PCR) SARS-CoV-2 RNA (RT-PCR) Blood Type Antibody Screen Crossmatch 10/26/23 10/27/23 20:46 05:02 WBC 1.3 L RBC 1.77 L Hgb 6.8 L* Hct 19.7 L* MCV 111.3 H MCH 38.4 H MCHC 34.5 RDW 18.8 H Plt Count 56 L D MPV 12.2 Immature Gran % (Auto) 0.8 H Neut % (Auto) 87.6 H Lymph % (Auto) 6.9 L [place] % (Auto) 3.1 Eos % (Auto) 0.8 Baso % (Auto) 0.8 Lymph # (Auto) 0.1 L [place] # (Auto) 0.0 L Eos # (Auto) 0.0 Baso # (Auto) 0.0 Abs Immat Gran (auto) 0.01 Absolute Neuts (auto) 1.1 L Absolute Nucleated RBC 0.000 Nucleated RBC % (auto) 0.0 Smear Tech's Comments VERIFIED Smear Path Review SEE NOTE Absolute Retic 0.073 Percent Retic 4.0 H Immature Retic Fraction 28.2 H Retic Hgb Equivalent 42.1 H PT INR APTT D-Dimer High Sensitivty VBG pH VBG pCO2 VBG pO2 VBG HCO3 VBG O2 Saturation VBG Base Excess Sodium 141 Potassium 3.2 L Chloride 109 H Carbon Dioxide 23 Anion Gap 12 BUN 18 H Creatinine 0.60 Estim Creat Clear Calc 48.1 Estimated GFR > 60 Random Glucose 106 Lactic Acid Calcium 9.6 D Magnesium Total Bilirubin 1.9 H Direct Bilirubin 1.0 H AST 28 ALT 10 Alkaline Phosphatase 73 Lactate Dehydrogenase 580 H Troponin I High Sens B-Natriuretic Peptide Total Protein 5.4 L Albumin 3.0 L Lipase Vitamin B12 981 H Folate 9.4 Urine Color Urine Appearance Urine pH Ur Specific [place] Urine Protein Urine Glucose (UA) Urine Ketones Urine Blood Urine Nitrite Ur Leukocyte Esterase Stool Occult Blood Influenza Type A (PCR) Influenza Type B (PCR) RSV RNA Qual (PCR) SARS-CoV-2 RNA (RT-PCR) Blood Type Antibody Screen Crossmatch Discharge Plan Discharge Anticipated Discharge Date/Time: 10/27/23 08:55 Patient Disposition: Xfer Acute [facility] Discharge Diagnosis: hypoxic resp failure, pancytopenia, severe Referrals: Lyndon Rosario MD [Primary Care Provider] - 1 Week Discharge Medications: New furosemide 10 mg/mL Solution 40 mg IVPUSH BID@0900,1800 Qty: 0 0RF Protocol: Hold for SBP< HOLD for SBP < : 90 Continued simvastatin 5 mg tablet 5 mg PO BEDTIME Qty: 90 1RF (DME) deuce Misc Qty: 1 0RF Rx Instructions: As Directed Ensure Liquid See Rx Instructions .ROUTE .COMPLEX Qty: 60 0RF Rx Instructions: 1 can bid amlodipine 2.5 mg tablet 2.5 mg PO DAILY 90 Days Qty: 90 3RF cetirizine 10 mg tablet 10 mg PO DAILY PRN (Reason: allergy symptoms) 90 Days Qty: 90 3RF Complete Multivitamin Tablet 1 tab PO DAILY cholecalciferol (vitamin D3) 25 mcg (1,000 unit) capsule 25 mcg PO DAILY 90 Days Qty: 90 2RF Discontinued Ibrance 100 mg Tablet 100 mg PO DAILY Qty: 21 3RF Rx Instructions: administer on days 1 through 21 of a 28-day treatment cycle Discharge Orders: Discharge Order (Routine); Ordered 10/27/23 Ordered By: Alan Frankel Diet: Advance to usual diet Activity on Discharge: As tolerated Stand Alone Forms: Patient Portal Discharge page Print Language: Divehi Care Plan Goals: recovery Health Concerns: severe Plan of Treatment: diuresis, [place] [facility] [place] Assessment: see above
[2023-10-27 09:44] LABS: Ferritin 1897 ng/mL (10-250)
[2023-10-27] MEDS: Cholecalciferol (Vitamin D3) 25 MCG TABLET PO (10:32)
[2023-10-27] MEDS: amLODIPine Besylate 2.5 MG TABLET PO (10:32)
[2023-10-27] MEDS: Multivitamin TABLET 1 TAB PO (10:32)
--- NOTE | 2023-10-27 10:59 | PC.NURSE ---
This Rn resumed care at 0700, MD at bedside and within communication multiple times throughout shift, Pt O2 continues to be low with any movement/stress, multiple mdes of O2 attempted, pt refusing high flow at this time, pt remains on non-rebreather. Pt to be transferred to [facility] per cardiology request. Pt remains having a RR of 20-28. Family at bedside and updated to plan in place. Pt tolerated blood transfusion at this time.
--- NOTE | 2023-10-27 11:07 | P.PNIM_ITS ---
Subjective Subjective Date of Service: 10/27/23 Interval History: sob Physical Exam 2 Vital Signs: Vital Signs: Last Vital Signs Temp 97 F 10/27/23 10:30 Pulse 86 10/27/23 10:30 Resp 25 H 10/27/23 10:30 BP 145/72 H 10/27/23 10:32 Pulse Ox 86 L 10/27/23 07:48 O2 Del Method Oxymask 10/27/23 07:48 O2 Flow Rate 10 10/27/23 07:48 BMI result Body Mass Index 17.2 General: AO X 3, tachypneic, dyspneic, ill appearing, hard of hearing Resp: crackles bilateral, accessory muscles used CVS: S1,S2,RRR, murmur GI: soft, non tender, non distended Neuro: motor grossly intact, alert Psych: appropriate affect, appropriate insight Objective Data Active Medications Acetaminophen (Acetaminophen 325 Mg Tablet) 650 mg PO Q6H PRN PRN Reason: Pain, Mild (Pain Scale 1-3) Amlodipine Besylate (Amlodipine Besylate 2.5 Mg Tablet) 2.5 mg PO DAILY [facility]; Protocol Last Admin: 10/27/23 10:32 Dose: 2.5 mg Documented By: KIEL Atorvastatin Calcium (Atorvastatin Calcium 10 Mg Tablet) 5 mg PO BEDTIME [facility] Last Admin: 10/26/23 20:53 Dose: 5 mg Documented By: REI Furosemide (Furosemide 40 Mg/4 Ml Vial) 40 mg IVPUSH BID@0900,1800 [facility]; Protocol Last Admin: 10/27/23 10:31 Dose: Not Given Documented By: KIEL Non-Admin Reason: Physician Held Med Loratadine (Loratadine 10 Mg Tablet) 10 mg PO DAILY PRN PRN Reason: allergy symptoms Magnesium Hydroxide (Milk Of Magnesia 30 Ml Oral.Susp) 30 ml PO DAILY PRN PRN Reason: Constipation Multivitamins/Vitamin C (Multivitamin Tablet) 1 tab PO DAILY [facility] Last Admin: 10/27/23 10:32 Dose: 1 tab Documented By: KIEL Ondansetron HCl (Ondansetron Hcl 4 Mg/2 Ml Vial) 4 mg IVPUSH Q8H PRN PRN Reason: Nausea and Vomiting Pantoprazole Sodium (Pantoprazole Sodium 40 Mg/10 Ml Vial) 40 mg IVPUSH BID@0630,1630 [facility] Last Admin: 10/27/23 06:41 Dose: 40 mg Documented By: TANO Sodium Chloride (0.9 % Sodium Chloride Flush 3 Ml Syringe) 3 ml IVFLUSH QSHIFT [facility] Last Admin: 10/27/23 07:49 Dose: Not Given Documented By: KIEL Non-Admin Reason: IV Running Vitamin D (Cholecalciferol (Vitamin D3) 25 Mcg Tablet) 25 mcg PO DAILY [facility] Last Admin: 10/27/23 10:32 Dose: 25 mcg Documented By: KIEL Labs 10/27/23 05:02 10/27/23 05:02 Labs: Laboratory Results - last 24 hr 10/26/23 10/26/23 10/26/23 12:01 12:04 12:10 MCV 113.0 H MCH 38.6 H MCHC 34.2 RDW 18.9 H Plt Count 80 L D MPV 12.5 H Immature Gran % (Auto) 1.0 H Neut % (Auto) 89.7 H Lymph % (Auto) 5.9 L [place] % (Auto) 3.4 Eos % (Auto) 0.0 Baso % (Auto) 0.0 Lymph # (Auto) 0.1 L [place] # (Auto) 0.1 Eos # (Auto) 0.0 Baso # (Auto) 0.0 Abs Immat Gran (auto) 0.02 Absolute Neuts (auto) 1.8 L Absolute Nucleated RBC 0.000 Nucleated RBC % (auto) 0.0 Smear Tech's Comments VERIFIED Smear Path Review Absolute Retic Percent Retic Immature Retic Fraction Retic Hgb Equivalent PT 13.0 INR 1.1 APTT 21.4 L D-Dimer High Sensitivty 2311 VBG pH 7.49 H VBG pCO2 29 VBG pO2 73 VBG HCO3 23 VBG O2 Saturation 94.0 VBG Base Excess 0.5 Anion Gap 17 Estim Creat Clear Calc 40.1 Estimated GFR > 60 Random Glucose 146 H Lactic Acid 1.4 Calcium 10.4 H D Magnesium 2.6 Ferritin Total Bilirubin 2.3 H Direct Bilirubin AST 33 H ALT 12 Alkaline Phosphatase 80 Lactate Dehydrogenase Troponin I High Sens 50.2 H* D B-Natriuretic Peptide 467 H Total Protein 6.4 L Albumin 3.5 Lipase 20 Vitamin B12 Folate Urine Color Urine Appearance Urine pH Ur Specific [place] Urine Protein Urine Glucose (UA) Urine Ketones Urine Blood Urine Nitrite Ur Leukocyte Esterase Stool Occult Blood Influenza Type A (PCR) NEGATIVE Influenza Type B (PCR) NEGATIVE RSV RNA Qual (PCR) NEGATIVE SARS-CoV-2 RNA (RT-PCR) NEGATIVE Blood Type O Positive Antibody Screen NEGATIVE Crossmatch See Detail 10/26/23 10/26/23 10/26/23 13:45 15:28 17:17 MCV MCH MCHC RDW Plt Count MPV Immature Gran % (Auto) Neut % (Auto) Lymph % (Auto) [place] % (Auto) Eos % (Auto) Baso % (Auto) Lymph # (Auto) [place] # (Auto) Eos # (Auto) Baso # (Auto) Abs Immat Gran (auto) Absolute Neuts (auto) Absolute Nucleated RBC Nucleated RBC % (auto) Smear Tech's Comments Smear Path Review Absolute Retic Percent Retic Immature Retic Fraction Retic Hgb Equivalent PT INR APTT D-Dimer High Sensitivty VBG pH VBG pCO2 VBG pO2 VBG HCO3 VBG O2 Saturation VBG Base Excess Anion Gap Estim Creat Clear Calc Estimated GFR Random Glucose Lactic Acid Calcium Magnesium Ferritin Total Bilirubin Direct Bilirubin AST ALT Alkaline Phosphatase Lactate Dehydrogenase Troponin I High Sens 66.2 H* B-Natriuretic Peptide Total Protein Albumin Lipase Vitamin B12 Folate Urine Color Yellow Urine Appearance Clear Urine pH 6.0 Ur Specific [place] 1.015 Urine Protein Negative Urine Glucose (UA) Negative Urine Ketones Negative Urine Blood Negative Urine Nitrite Negative Ur Leukocyte Esterase Negative Stool Occult Blood POSITIVE Influenza Type A (PCR) Influenza Type B (PCR) RSV RNA Qual (PCR) SARS-CoV-2 RNA (RT-PCR) Blood Type Antibody Screen Crossmatch 10/26/23 10/27/23 20:46 05:02 MCV 111.3 H MCH 38.4 H MCHC 34.5 RDW 18.8 H Plt Count 56 L D MPV 12.2 Immature Gran % (Auto) 0.8 H Neut % (Auto) 87.6 H Lymph % (Auto) 6.9 L [place] % (Auto) 3.1 Eos % (Auto) 0.8 Baso % (Auto) 0.8 Lymph # (Auto) 0.1 L [place] # (Auto) 0.0 L Eos # (Auto) 0.0 Baso # (Auto) 0.0 Abs Immat Gran (auto) 0.01 Absolute Neuts (auto) 1.1 L Absolute Nucleated RBC 0.000 Nucleated RBC % (auto) 0.0 Smear Tech's Comments VERIFIED Smear Path Review SEE NOTE Absolute Retic 0.073 Percent Retic 4.0 H Immature Retic Fraction 28.2 H Retic Hgb Equivalent 42.1 H PT INR APTT D-Dimer High Sensitivty VBG pH VBG pCO2 VBG pO2 VBG HCO3 VBG O2 Saturation VBG Base Excess Anion Gap 12 Estim Creat Clear Calc 48.1 Estimated GFR > 60 Random Glucose 106 Lactic Acid Calcium 9.6 D Magnesium Ferritin 1897 H Total Bilirubin 1.9 H Direct Bilirubin 1.0 H AST 28 ALT 10 Alkaline Phosphatase 73 Lactate Dehydrogenase 580 H Troponin I High Sens B-Natriuretic Peptide Total Protein 5.4 L Albumin 3.0 L Lipase Vitamin B12 981 H Folate 9.4 Urine Color Urine Appearance Urine pH Ur Specific [place] Urine Protein Urine Glucose (UA) Urine Ketones Urine Blood Urine Nitrite Ur Leukocyte Esterase Stool Occult Blood Influenza Type A (PCR) Influenza Type B (PCR) RSV RNA Qual (PCR) SARS-CoV-2 RNA (RT-PCR) Blood Type Antibody Screen Crossmatch Assessment and Plan (1) Acute hypoxemic respiratory failure: Status: Acute Plan 86F PMH HLD, HTN, metastatic breast cancer s/p removal/radiation on oral chemotherapy - with response on most recent PET, TAVR w/ bioprosthetic valve now with recurrent severe aortic stenosis, presented with sob Acute hypoxic respiratory failure due to acute on chronic diastolic CHF with severe aortic stenosis IV Lasix, plan for transfer to [facility] Pancytopenia Due to chemotherapy for metastatic breast cancer (responsive to current therapy per recent PET scan, prognosis expected to be greater than 6 months) Holding Ibrance Transfuse 1 unit PRBC Pericardial effusion Stable Hypertension Amlodipine Familial hypocalciuric hypercalcemia syndrome Stable Full code Quality Stroke Does the patient have a stroke diagnosis?: No VTE Prior VTE?: No VTE Risk Level:: Medical - moderate - high VTE Device Contraindication: Treatment Not Indicated VTE Drug Contraindication: N/A - Med Ordered
--- NOTE | 2023-10-27 12:53 | MHC.CM.PN ---
IMM 10/27/23, Pt lives alone, she does not have a HCP, and she declined to complete one. She does not have home care services, and said her daughter is in the process of setting this up with herself as caregiver. She uses a cane, only recently. DC plan, home with services. PCP: confirmed, Dr. Rosario. CM to follow for DC planning.
--- NOTE | 2023-10-27 13:14 | PM.CNCAR ---
History of Present Illness History of Present Illness Date of Service: 10/27/23 Requesting physician: Alan Frankel Chief complaint: chf, severe Narrative: [age] year female presenting with progressive shortness of breath and congestive heart failure. She has known history of bioprosthetic aortic valve stenosis and was being considered for transcatheter aortic valve replacement. She is complex history otherwise with metastatic breast cancer and has been on Palbociclib. She has been noticed to have pancytopenia and significant anemia with hemoglobin 6.8. She has been transfused. She was significantly short of breath but with diuresis and blood transfusion she is feeling better. No chest discomfort. No syncope. No obvious bleeding. Her Palbociclib has been discontinued that is point. She also has a moderate pericardial effusion on echocardiography but there is no tamponade physiology. 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 History of aortic valve stenosis GERD without esophagitis Pure hypercholesterolemia Benign essential hypertension Vitamin D deficiency Familial hypocalciuric hypercalcemia syndrome Osteoporosis Family History Family History Father Diabetes CVA (cerebral vascular accident) CVD (cardiovascular disease) Myocardial infarct Mother Emphysema of lung Alcoholism /alcohol abuse Surgical History Surgical History Hx of aortic valve replacement (~07/04/12) History of lumpectomy of left breast (~07/02/21) Hx of cataract removal with insertion of prosthetic lens (~08/2017) Social History Social History Household Members: None Housing: Condominium Are you a primary healthcare receptionist to a significant other at home: No Do you presently have visiting nurse or other home services: No Alcohol intake: current Alcohol intake frequency: holidays/special occasions only Alcohol type: wine Patient Tobacco Use Status: Never used Tobacco e-Cigarette/Vaping Use: Never Used Second Hand Smoke Exposure: Yes Advance Directives: Yes Advance Directives on File: Yes Advance Directives Date on File: 10/26/23 Do you have a plan to hurt others: No Plan Nutrition Risks: No Nutritional Risk service: Yes (thru late ) Current occupational status: retired Cognitive needs: No Hearing needs: Yes Vision needs: Yes Meds Allergies Allergy/AdvReac Type Severity Reaction Status Date / Time hydrochlorothiazide Allergy Unknown upset Verified 10/26/23 11:44 stomach,dizziness lisinopril Allergy Unknown SWOLLEN Verified 10/26/23 11:44 THROAT/angioedema metoprolol Allergy Unknown severe Verified 10/26/23 11:44 dizziness esomeprazole [Nexium] AdvReac Unknown headaches Verified 10/26/23 11:44 Active Medications: Current Medications Acetaminophen (Acetaminophen 325 Mg Tablet) 650 mg PO Q6H PRN PRN Reason: Pain, Mild (Pain Scale 1-3) Amlodipine Besylate (Amlodipine Besylate 2.5 Mg Tablet) 2.5 mg PO DAILY [facility]; Protocol Last Admin: 10/27/23 10:32 Dose: 2.5 mg Atorvastatin Calcium (Atorvastatin Calcium 10 Mg Tablet) 5 mg PO BEDTIME [facility] Last Admin: 10/26/23 20:53 Dose: 5 mg Furosemide (Furosemide 40 Mg/4 Ml Vial) 40 mg IVPUSH BID@0900,1800 [facility]; Protocol Last Admin: 10/27/23 10:31 Dose: Not Given Loratadine (Loratadine 10 Mg Tablet) 10 mg PO DAILY PRN PRN Reason: allergy symptoms Magnesium Hydroxide (Milk Of Magnesia 30 Ml Oral.Susp) 30 ml PO DAILY PRN PRN Reason: Constipation Multivitamins/Vitamin C (Multivitamin Tablet) 1 tab PO DAILY [facility] Last Admin: 10/27/23 10:32 Dose: 1 tab Ondansetron HCl (Ondansetron Hcl 4 Mg/2 Ml Vial) 4 mg IVPUSH Q8H PRN PRN Reason: Nausea and Vomiting Pantoprazole Sodium (Pantoprazole Sodium 40 Mg/10 Ml Vial) 40 mg IVPUSH BID@0630,1630 [facility] Last Admin: 10/27/23 06:41 Dose: 40 mg Sodium Chloride (0.9 % Sodium Chloride Flush 3 Ml Syringe) 3 ml IVFLUSH QSHIFT [facility] Last Admin: 10/27/23 07:49 Dose: Not Given Vitamin D (Cholecalciferol (Vitamin D3) 25 Mcg Tablet) 25 mcg PO DAILY [facility] Last Admin: 10/27/23 10:32 Dose: 25 mcg Home Medications ?Medication ?Instructions ?Recorded ?Confirmed ?Last Taken ?Type multivitamin,[id number] 1 tab PO DAILY 05/01/20 10/26/23 Unknown History (Complete Multivitamin tablet) Physical Exam Vital Signs: Vital Signs: Last Vital Signs Temp 98.3 F 10/27/23 12:14 Pulse 82 10/27/23 12:14 Resp 22 H 10/27/23 12:14 BP 114/67 10/27/23 12:14 Pulse Ox 100 10/27/23 12:14 O2 Del Method Non-Rebreather Ma sk 10/27/23 12:14 O2 Flow Rate 10 10/27/23 07:48 BMI result Body Mass Index 17.2 GENERAL APPEARANCE: Frail lady, mild dyspnea on non-rebreather currently. NECK: no carotid bruit, no significant jugular venous distention. SKIN: no suspicious lesions, warm and dry. HEART: Ejection systolic murmur aortic area with preserved 2nd heart sound, regular rate and rhythm. LUNGS: Crackles both bases. ABDOMEN: soft, nontender. EXTREMITIES: no edema. PERIPHERAL PULSES: equal. NEUROLOGIC: No gross deficits, AAO X 3 Objective Labs and Meds 10/27/23 05:02 10/27/23 05:02 Lab results: Laboratory Results - last 24 hr 10/26/23 10/26/23 10/26/23 12:01 13:45 15:28 WBC RBC Hgb Hct MCV MCH MCHC RDW Plt Count MPV Immature Gran % (Auto) Neut % (Auto) Lymph % (Auto) [place] % (Auto) Eos % (Auto) Baso % (Auto) Lymph # (Auto) [place] # (Auto) Eos # (Auto) Baso # (Auto) Abs Immat Gran (auto) Absolute Neuts (auto) Absolute Nucleated RBC Nucleated RBC % (auto) Smear Tech's Comments Smear Path Review Absolute Retic Percent Retic Immature Retic Fraction Retic Hgb Equivalent Sodium Potassium Chloride Carbon Dioxide Anion Gap BUN Creatinine Estim Creat Clear Calc Estimated GFR Random Glucose Calcium Ferritin Total Bilirubin Direct Bilirubin AST ALT Alkaline Phosphatase Lactate Dehydrogenase Troponin I High Sens 66.2 H* Total Protein Albumin Vitamin B12 Folate Urine Color Urine Appearance Urine pH Ur Specific [place] Urine Protein Urine Glucose (UA) Urine Ketones Urine Blood Urine Nitrite Ur Leukocyte Esterase Stool Occult Blood POSITIVE Blood Type O Positive Antibody Screen NEGATIVE Crossmatch See Detail 10/26/23 10/26/23 10/27/23 17:17 20:46 05:02 WBC 1.3 L RBC 1.77 L Hgb 6.8 L* Hct 19.7 L* MCV 111.3 H MCH 38.4 H MCHC 34.5 RDW 18.8 H Plt Count 56 L D MPV 12.2 Immature Gran % (Auto) 0.8 H Neut % (Auto) 87.6 H Lymph % (Auto) 6.9 L [place] % (Auto) 3.1 Eos % (Auto) 0.8 Baso % (Auto) 0.8 Lymph # (Auto) 0.1 L [place] # (Auto) 0.0 L Eos # (Auto) 0.0 Baso # (Auto) 0.0 Abs Immat Gran (auto) 0.01 Absolute Neuts (auto) 1.1 L Absolute Nucleated RBC 0.000 Nucleated RBC % (auto) 0.0 Smear Tech's Comments VERIFIED Smear Path Review SEE NOTE Absolute Retic 0.073 Percent Retic 4.0 H Immature Retic Fraction 28.2 H Retic Hgb Equivalent 42.1 H Sodium 141 Potassium 3.2 L Chloride 109 H Carbon Dioxide 23 Anion Gap 12 BUN 18 H Creatinine 0.60 Estim Creat Clear Calc 48.1 Estimated GFR > 60 Random Glucose 106 Calcium 9.6 D Ferritin 1897 H Total Bilirubin 1.9 H Direct Bilirubin 1.0 H AST 28 ALT 10 Alkaline Phosphatase 73 Lactate Dehydrogenase 580 H Troponin I High Sens Total Protein 5.4 L Albumin 3.0 L Vitamin B12 981 H Folate 9.4 Urine Color Yellow Urine Appearance Clear Urine pH 6.0 Ur Specific [place] 1.015 Urine Protein Negative Urine Glucose (UA) Negative Urine Ketones Negative Urine Blood Negative Urine Nitrite Negative Ur Leukocyte Esterase Negative Stool Occult Blood Blood Type Antibody Screen Crossmatch Imaging Radiologist's impression: Impressions Chest X-Ray 10/26/23 12:14 IMPRESSION: Cardiomegaly with pulmonary venous congestion and interstitial pulmonary edema. Viral or atypical pneumonia could have a similar interstitial appearance. Chest CTA 10/26/23 13:56 IMPRESSION: *CT pulmonary angiogram negative for pulmonary emboli. *Bilateral interstitial disease of the lungs with mild bilateral subpleural sparing and sparing of the left superior pulmonary apex and superior segment of the left lower pulmonary lobe. Findings are present in association with small bilateral dependent effusions. Findings are most suspicious for interstitial pulmonary edema. As noted on the comparison chest radiograph, viral or atypical pneumonia could present with similar interstitial disease. However, the extent and relative subpleural sparing favor interstitial pulmonary edema. *Moderate pericardial effusion similar to findings present 05/25/2023. *Vague number scattered subcentimeter rounded pulmonary densities which are without a correlate compared with PET/CT 05/25/2023. Findings are most suspicious for small areas of consolidation overlying extensive interstitial disease. However, pulmonary metastatic disease could have a similar appearance given the history of metastatic breast cancer. Consider further evaluation with dedicated CT of the thorax following resolution of acute pulmonary symptoms presumed to represent interstitial pulmonary edema. *Multifocal skeletal lesions suspicious for metastatic disease unchanged in extent compared with MRI of the thoracic spine 11/06/2022. L1 vertebral body compression deformity with 25% inward deformity of the superior endplate and 4 mm retropulsion is increased in extent compared with 11/06/2022 and may represent a pathologic compression deformity of indeterminate age. *Aortic valve prosthesis in situ. *Partially visualized mild scattered coronary artery calcific atherosclerosis within the left anterior descending coronary artery and posterior descending coronary artery. VTE: negative Assessment and Plan (1) Acute hypoxemic respiratory failure: Status: Acute (2) Severe aortic stenosis: Status: Acute (3) CHF exacerbation: Status: Acute (4) Anemia, macrocytic: Status: Acute Plan Pleasant 87-year-old female with complex medical issues including metastatic breast cancer and severe bioprosthetic aortic valve stenosis who is presenting with worsening shortness of breath in the setting of severe anemia. Clinically she was noticed to be in heart failure. She has been given diuretics and blood transfusion and has improved somewhat. Still on non-rebreather. CTA did not show pulmonary embolism but did show bilateral interstitial disease with differentials of congestive heart failure versus atypical pneumonia. Clinically she has responded well to diuretics at this point. She still has significant crackles in both her lungs. I think we continue diuretics. I think she should get 1 more unit of blood. I had a detailed discussion with the patient and her family. Given her presentation with pancytopenia any procedure currently will be challenging. I think we conservatively treat her and then work her up further as outpatient for transcatheter aortic valve replacement. She has seen Dr. Jones but still needs to see Cardiothoracic surgery. We will follow along with you. Thank you for allowing me to participate in the care of your patient. Please feel free to contact me if you have any questions. Procedures Date of Service Date of Service: 10/27/23
[2023-10-27] MEDS: 0.9 % Sodium Chloride Flush 3 ML SYRINGE IVFLUSH (18:01)
[2023-10-28] VITALS (10 sets, daily range): BP systolic 109–134; BP diastolic 56–64; PULSE 79–88; RESP 18–26; TEMP 36.3–37.3; O2SAT 89–100; BMI 17.2
[2023-10-28] MEDS: Pantoprazole Sodium 40 MG/10 ML VIAL IVPUSH ×2 (06:59→17:53)
[2023-10-28 08:12] LABS: Hematocrit 23.8 % (37.0-47.0); Hemoglobin 8.2 g/dl (12.0-16.0); Mean Corpuscular HGB Conc 34.5 g/dl (31.0-35.0); Mean Corpuscular Hemoglobin 36.3 pg (27.0-33.0); Mean Corpuscular Volume 105.3 fL (80.0-98.0); Mean Platelet Volume 12.5 fL (9.4-12.3); Red Blood Count 2.26 X10*6/uL (4.20-5.50); Red Cell Distribution Width 22.5 % (11.0-16.0)
[2023-10-28 08:31] LABS: Platelet Count 48 X10*3/uL (160-400); White Blood Count 1.4 X10*3/uL (4.8-10.8)
[2023-10-28 08:34] LABS: Alanine Aminotransferase 12 U/L (0-31); Albumin Level 3.3 g/dL (3.5-5.0); Alkaline Phosphatase 92 U/L (39-117); Anion Gap 16 (12-20); Aspartate Amino Transferase 31 U/L (5-31); Bilirubin Direct 1.6 mg/dL (0.0-0.5); Bilirubin Total 2.9 mg/dL (0.0-1.0); Blood Urea Nitrogen 19 mg/dL (9-16); Calcium 9.5 mg/dL (8.4-10.2); Carbon Dioxide 29 mmol/L (22-29); Chloride 103 mmol/L (96-108); Creatinine Clr Calc Pharmacy 54.5; Estimated Glomerular Filt Rate > 60; Glucose Random 121 mg/dL (60-115); Sodium 145 mmol/L (135-145); Total Protein 5.8 g/dL (6.5-8.0)
[2023-10-28 08:39] LABS: Potassium 2.8 mmol/L (3.3-5.1)
[2023-10-28] MEDS: Multivitamin TABLET 1 TAB PO (09:08)
[2023-10-28] MEDS: amLODIPine Besylate 2.5 MG TABLET PO (09:08)
[2023-10-28] MEDS: Cholecalciferol (Vitamin D3) 25 MCG TABLET PO (09:08)
[2023-10-28] MEDS: Potassium Chloride ER 20 MEQ TAB.ER.PRT 40 MEQ PO (09:08)
[2023-10-28] MEDS: 0.9 % Sodium Chloride Flush 3 ML SYRINGE IVFLUSH ×4 (09:09→22:44)
[2023-10-28] MEDS: Furosemide 40 MG/4 ML VIAL IVPUSH ×2 (09:17→17:53)
--- NOTE | 2023-10-28 10:11 | HO.PM.IMPN ---
Subjective Subjective Date of Service: 10/28/23 Interval History: sob improving Physical Exam Vital Signs: Vital Signs: Last Vital Signs Temp 97.7 F 10/28/23 07:51 Pulse 79 10/28/23 07:51 Resp 20 10/28/23 07:51 BP 123/64 10/28/23 07:51 Pulse Ox 100 10/28/23 07:51 O2 Del Method Non-Rebreather Ma sk 10/28/23 07:51 O2 Flow Rate 15 10/28/23 07:51 BMI result Body Mass Index 17.2 GENERAL APPEARANCE: Frail lady, mild dyspnea on non-rebreather currently. NECK: no carotid bruit, no significant jugular venous distention. SKIN: no suspicious lesions, warm and dry. HEART: Ejection systolic murmur aortic area with preserved 2nd heart sound, regular rate and rhythm. LUNGS: Crackles both bases. ABDOMEN: soft, nontender. EXTREMITIES: no edema. PERIPHERAL PULSES: equal. NEUROLOGIC: No gross deficits, AAO X 3 Objective Data Active Medications Acetaminophen (Acetaminophen 325 Mg Tablet) 650 mg PO Q6H PRN PRN Reason: Pain, Mild (Pain Scale 1-3) Amlodipine Besylate (Amlodipine Besylate 2.5 Mg Tablet) 2.5 mg PO DAILY [facility]; Protocol Last Admin: 10/28/23 09:08 Dose: 2.5 mg Documented By: BREANNA Atorvastatin Calcium (Atorvastatin Calcium 10 Mg Tablet) 5 mg PO BEDTIME [facility] Last Admin: 10/27/23 22:30 Dose: Not Given Documented By: LOUIS Non-Admin Reason: Patient Refused Furosemide (Furosemide 40 Mg/4 Ml Vial) 40 mg IVPUSH BID@0900,1800 [facility]; Protocol Last Admin: 10/28/23 09:17 Dose: 40 mg Documented By: BREANNA Loratadine (Loratadine 10 Mg Tablet) 10 mg PO DAILY PRN PRN Reason: allergy symptoms Magnesium Hydroxide (Milk Of Magnesia 30 Ml Oral.Susp) 30 ml PO DAILY PRN PRN Reason: Constipation Multivitamins/Vitamin C (Multivitamin Tablet) 1 tab PO DAILY [facility] Last Admin: 10/28/23 09:08 Dose: 1 tab Documented By: BREANNA Ondansetron HCl (Ondansetron Hcl 4 Mg/2 Ml Vial) 4 mg IVPUSH Q8H PRN PRN Reason: Nausea and Vomiting Pantoprazole Sodium (Pantoprazole Sodium 40 Mg/10 Ml Vial) 40 mg IVPUSH BID@0630,1630 [facility] Last Admin: 10/28/23 06:59 Dose: 40 mg Documented By: LOUIS Sodium Chloride (0.9 % Sodium Chloride Flush 3 Ml Syringe) 3 ml IVFLUSH QSHIFT [facility] Last Admin: 10/28/23 09:25 Dose: 3 ml Documented By: BREANNA Vitamin D (Cholecalciferol (Vitamin D3) 25 Mcg Tablet) 25 mcg PO DAILY [facility] Last Admin: 10/28/23 09:08 Dose: 25 mcg Documented By: BREANNA Labs 10/28/23 07:21 10/28/23 07:21 Labs: Laboratory Results - last 24 hr 10/26/23 10/28/23 12:01 07:21 MCV 105.3 H D MCH 36.3 H MCHC 34.5 RDW 22.5 H Plt Count 48 L MPV 12.5 H Absolute Nucleated RBC 0.000 Nucleated RBC % (auto) 0.0 Anion Gap 16 Estim Creat Clear Calc 54.5 Estimated GFR > 60 Random Glucose 121 H Calcium 9.5 Total Bilirubin 2.9 H Direct Bilirubin 1.6 H AST 31 ALT 12 Alkaline Phosphatase 92 Total Protein 5.8 L Albumin 3.3 L Crossmatch See Detail Microbiology Microbiology Results: Microbiology 10/26/23 12:10 Blood Culture - Preliminary Blood - Venous No growth after 24 hours. 10/26/23 12:01 Blood Culture - Preliminary Blood - Venous No growth after 24 hours. Assessment and Plan (1) Acute hypoxemic respiratory failure: Status: Acute Plan 86F PMH HLD, HTN, metastatic breast cancer s/p removal/radiation on oral chemotherapy - with response on most recent PET, TAVR w/ bioprosthetic valve now with recurrent severe aortic stenosis, presented with sob Acute hypoxic respiratory failure due to acute on chronic diastolic CHF with severe aortic stenosis continue iv lasix, weaning o2 Pancytopenia Due to chemotherapy for metastatic breast cancer (responsive to current therapy per recent PET scan, prognosis expected to be greater than 6 months) Holding Ibrance Transfused 1 unit PRBC, hgb improved appropriately hypokalemia replace and monitor Pericardial effusion Stable Hypertension Amlodipine Familial hypocalciuric hypercalcemia syndrome Stable Full code reason for continued hospitalization:hypoxia Quality Stroke Does the patient have a stroke diagnosis?: No VTE Prior VTE?: No VTE Risk Level:: Medical - moderate - high VTE Device Contraindication: Treatment Not Indicated VTE Drug Contraindication: N/A - Med Ordered
--- NOTE | 2023-10-28 10:13 | P.CDIM_ITS ---
PROVIDER RESPONSE TEXT: To clarify, the appropriate diagnosis supported by the clinical indicators: Underweight QUERY TEXT: PHYSICIAN'S DOCUMENTATION REQUEST Date of Query: 10/28/2023 10:05 AM EDT Patient Name: Jordon Mobley Admit Date: 10/27/2023 Dear Alan Frankel, A review of the medical record indicates additional documentation may be needed. Please review below and update the documentation accordingly. Clinical Indicators: Height: ( ) 5'4 Weight: ( ) 45.359 kg BMI: ( ) 17.2 Other Clinical Notes Supporting Significance of the BMI: no Nutritional Assessment If possible, please provide an associated diagnosis related to the abnormal BMI, such as: Underweight Weight loss Cachexia Anorexia Malnutrition, please specify if mild, moderate, or severe Other (explain) Clinically unable to determine (explain) Thank you, Julia Byrne RN Use of terms such as suspected, likely, concern for, or probable (associated with a specific diagnosi s that is being evaluated, monitored, or treated as if it exists) are acceptable and can be coded in the inpatient se tting, when documented at the time of discharge. Please use your independent medical judgment in providing your response. THIS QUERY IS PART OF THE PERMANENT MEDICAL RECORD
--- NOTE | 2023-10-28 11:28 | P.PNCA_ITS ---
Subjective Subjective Date of Service: 10/28/23 Interval history: seen and examined at bedside. still SOB but improving. Physical Exam Vital Signs: Last Vital Signs Temp 99.1 F 10/28/23 11:05 Pulse 83 10/28/23 11:05 Resp 20 10/28/23 11:05 BP 109/58 L 10/28/23 11:05 Pulse Ox 100 10/28/23 11:05 O2 Del Method Non-Rebreather Mask 10/28/23 11:05 O2 Flow Rate 15 10/28/23 11:05 BMI result Body Mass Index 17.2 GENERAL APPEARANCE: Frail lady, on supplemental oxygen. NECK: no carotid bruit, + jugular venous distention. SKIN: no suspicious lesions, warm and dry. HEART: Ejection systolic murmur aortic area with preserved 2nd heart sound, regular rate and rhythm. LUNGS: Lung sound better than yesterday. No significant crackles drip. ABDOMEN: soft, nontender. EXTREMITIES: no edema. PERIPHERAL PULSES: equal. NEUROLOGIC: No gross deficits, AAO X 3 Objective Labs and Meds 10/28/23 07:21 10/28/23 07:21 Lab results: Laboratory Results - last 24 hr 10/28/23 07:21 WBC 1.4 L RBC 2.26 L D Hgb 8.2 L D Hct 23.8 L D MCV 105.3 H D MCH 36.3 H MCHC 34.5 RDW 22.5 H Plt Count 48 L MPV 12.5 H Absolute Nucleated RBC 0.000 Nucleated RBC % (auto) 0.0 Sodium 145 Potassium 2.8 L* Chloride 103 Carbon Dioxide 29 Anion Gap 16 BUN 19 H Creatinine 0.53 Estim Creat Clear Calc 54.5 Estimated GFR > 60 Random Glucose 121 H Calcium 9.5 Total Bilirubin 2.9 H Direct Bilirubin 1.6 H AST 31 ALT 12 Alkaline Phosphatase 92 Total Protein 5.8 L Albumin 3.3 L Progress Note: A&P Assessment and plan (1) Severe aortic stenosis: Status: Acute (2) CHF exacerbation: Status: Acute Plan [age] year female presenting for congestive heart failure on background of bioprosthetic aortic valve stenosis and significant anemia. She has metastatic breast cancer and has been chemotherapy which led to pancytopenia. Potassium is significantly low. This should be repleted. Check magnesium also. If BP allows then can start 25 mg of spironolactone. I think she would benefit from 1 more unit of blood. Head CT scan was abnormal at [facility] with bilateral infiltrates-there is some pulmonary process in addition to congestive heart failure. SB diurese and she improves further I think we should repeat her imaging to see if these infiltrates are going away. Other possibilities like lymphangitic spread of cancer may need to be considered if the infiltrates are not changing. Thank you for allowing me to participate in the care of your patient. Please feel free to contact me if you have any questions. Time Spent With Patient Time: Total time managing care of this patient today ____ minutes. Progress Note: Quality Stroke Does the patient have a stroke diagnosis?: No Procedures Date of Service Date of Service: 10/28/23
--- NOTE | 2023-10-28 12:26 | MHC.CLN ---
PT IS MODERATELY MALNOURISHED PT WITH MILDLY DEPLETED SUBCUTANEOUS FAT AND MUSCLE MASS WITH BMI 17.2 AND 8% NONSIGNIFICANT WT LOSS X1 YEAR WITH CHRONIC POOR PO INTAKE R/T CHEMO TX PT CURRENTLY ON CLEAR LIQUIDS 0% PO RECORDED X 2 MEALS RECOMMEND ADDING ENSURE CLEAR TO INCREASE KCALS WILL ADD MORE SUPPLEMENTS DIET ADVANCES ENSURE CLEAR TO PROVIDE 720KCALS, 24G PROTEIN MONITOR PO INTAKE AND ENCOURAGE SUPPLEMENTS SEE ALSO FULL CLINCAL NUTRITION ASSESSMENT
[2023-10-28 13:09] LABS: Haptoglobin <10 mg/dL (43-212)
[2023-10-28] MEDS: Atorvastatin Calcium 10 MG TABLET 5 MG PO (22:43)
[2023-10-29] VITALS (8 sets, daily range): BP systolic 102–123; BP diastolic 54–59; PULSE 75–87; RESP 14–22; TEMP 36.2–36.7; O2SAT 93–99
[2023-10-29] MEDS: Pantoprazole Sodium 40 MG/10 ML VIAL IVPUSH (06:23)
[2023-10-29 07:06] LABS: Hematocrit 25.5 % (37.0-47.0); Hemoglobin 8.7 g/dl (12.0-16.0); Mean Corpuscular HGB Conc 34.1 g/dl (31.0-35.0); Mean Corpuscular Hemoglobin 36.1 pg (27.0-33.0); Mean Corpuscular Volume 105.8 fL (80.0-98.0); Mean Platelet Volume 11.4 fL (9.4-12.3); Red Blood Count 2.41 X10*6/uL (4.20-5.50); Red Cell Distribution Width 21.7 % (11.0-16.0)
[2023-10-29 07:07] LABS: Platelet Count 41 X10*3/uL (160-400); White Blood Count 1.7 X10*3/uL (4.8-10.8)
[2023-10-29 07:25] LABS: Anion Gap 12 (12-20); Blood Urea Nitrogen 22 mg/dL (9-16); Carbon Dioxide 34 mmol/L (22-29); Chloride 101 mmol/L (96-108); Creatinine Clr Calc Pharmacy 47.3; Estimated Glomerular Filt Rate > 60; Glucose Fasting 117 mg/dL (60-99); Magnesium 2.2 mg/dL (1.6-2.6); Potassium 3.1 mmol/L (3.3-5.1); Sodium 144 mmol/L (135-145)
[2023-10-29] MEDS: Potassium Chloride ER 20 MEQ TAB.ER.PRT 40 MEQ PO (08:00)
[2023-10-29] MEDS: 0.9 % Sodium Chloride Flush 3 ML SYRINGE IVFLUSH ×3 (08:00→20:28)
[2023-10-29] MEDS: Cholecalciferol (Vitamin D3) 25 MCG TABLET PO (08:00)
[2023-10-29] MEDS: amLODIPine Besylate 2.5 MG TABLET PO (08:00)
[2023-10-29] MEDS: Multivitamin TABLET 1 TAB PO (08:00)
[2023-10-29] MEDS: Furosemide 40 MG/4 ML VIAL IVPUSH (08:09)
--- NOTE | 2023-10-29 10:49 | P.PNIM_ITS ---
Subjective Subjective Date of Service: 10/29/23 Interval History: still sob, but imrpoved Physical Exam 2 Vital Signs: Vital Signs: Last Vital Signs Temp 97.9 F 10/29/23 07:15 Pulse 80 10/29/23 07:15 Resp 20 10/29/23 07:15 BP 123/56 L 10/29/23 08:09 Pulse Ox 93 10/29/23 07:15 O2 Del Method Oxymask 10/29/23 07:15 O2 Flow Rate 7 10/29/23 07:15 BMI result Body Mass Index 17.2 GENERAL APPEARANCE: Frail lady, on supplemental oxygen. NECK: no carotid bruit, + jugular venous distention. SKIN: no suspicious lesions, warm and dry. HEART: Ejection systolic murmur aortic area with preserved 2nd heart sound, regular rate and rhythm. LUNGS: Lung sound better than yesterday. No significant crackles drip. ABDOMEN: soft, nontender. EXTREMITIES: no edema. PERIPHERAL PULSES: equal. NEUROLOGIC: No gross deficits, AAO X 3 Objective Data Active Medications Acetaminophen (Acetaminophen 325 Mg Tablet) 650 mg PO Q6H PRN PRN Reason: Pain, Mild (Pain Scale 1-3) Amlodipine Besylate (Amlodipine Besylate 2.5 Mg Tablet) 2.5 mg PO DAILY [facility]; Protocol Last Admin: 10/29/23 08:00 Dose: 2.5 mg Documented By: DEANDRA Atorvastatin Calcium (Atorvastatin Calcium 10 Mg Tablet) 5 mg PO BEDTIME [facility] Last Admin: 10/28/23 22:43 Dose: 5 mg Documented By: ALEXANDRA Furosemide (Furosemide 40 Mg Tablet) 40 mg PO DAILY [facility]; Protocol Loratadine (Loratadine 10 Mg Tablet) 10 mg PO DAILY PRN PRN Reason: allergy symptoms Magnesium Hydroxide (Milk Of Magnesia 30 Ml Oral.Susp) 30 ml PO DAILY PRN PRN Reason: Constipation Multivitamins/Vitamin C (Multivitamin Tablet) 1 tab PO DAILY [facility] Last Admin: 10/29/23 08:00 Dose: 1 tab Documented By: DEANDRA Ondansetron HCl (Ondansetron Hcl 4 Mg/2 Ml Vial) 4 mg IVPUSH Q8H PRN PRN Reason: Nausea and Vomiting Sodium Chloride (0.9 % Sodium Chloride Flush 3 Ml Syringe) 3 ml IVFLUSH QSHIFT [facility] Last Admin: 10/29/23 08:00 Dose: 3 ml Documented By: DEANDRA Vitamin D (Cholecalciferol (Vitamin D3) 25 Mcg Tablet) 25 mcg PO DAILY [facility] Last Admin: 10/29/23 08:00 Dose: 25 mcg Documented By: DEANDRA Labs 10/29/23 06:42 10/29/23 06:42 Labs: Laboratory Results - last 24 hr 10/27/23 10/29/23 12:28 06:42 MCV 105.8 H MCH 36.1 H MCHC 34.1 RDW 21.7 H Plt Count 41 L MPV 11.4 Absolute Nucleated RBC 0.000 Nucleated RBC % (auto) 0.0 Haptoglobin <10 L Anion Gap 12 Estim Creat Clear Calc 47.3 Estimated GFR > 60 Fasting Glucose 117 H Calcium 10.0 Magnesium 2.2 Microbiology Microbiology Results: Microbiology 10/26/23 12:10 Blood Culture - Preliminary Blood - Venous No growth after 48 hours. 10/26/23 12:01 Blood Culture - Preliminary Blood - Venous No growth after 48 hours. Assessment and Plan (1) Acute hypoxemic respiratory failure: Status: Acute Plan 86F PMH HLD, HTN, metastatic breast cancer s/p removal/radiation on oral chemotherapy - with response on most recent PET, TAVR w/ bioprosthetic valve now with recurrent severe aortic stenosis, presented with sob Acute hypoxic respiratory failure due to acute on chronic diastolic CHF with severe aortic stenosis diuresed well but still hypoxic needing 7L will change to po lasix and check repeat ct chest - ? additional compoenent of ILD from chemo vs metastatic disease Pancytopenia Due to chemotherapy for metastatic breast cancer (responsive to current therapy per recent PET scan, prognosis expected to be greater than 6 months) Holding Ibrance Transfused 1 unit PRBC, hgb improved appropriately hypokalemia replace and monitor Pericardial effusion Stable Hypertension Amlodipine Familial hypocalciuric hypercalcemia syndrome Stable Full code reason for continued hospitalization:hypoxia Quality Stroke Does the patient have a stroke diagnosis?: No VTE Prior VTE?: No VTE Risk Level:: Medical - moderate - high VTE Device Contraindication: Treatment Not Indicated VTE Drug Contraindication: N/A - Med Ordered
--- NOTE | 2023-10-29 11:23 | PM.PNCARD ---
Subjective Subjective Date of Service: 10/29/23 Interval history: Seen examined at bedside. She is saying that she is feeling better. Still on facemask. Physical Exam Vital Signs: Last Vital Signs Temp 98.0 F 10/29/23 11:00 Pulse 84 10/29/23 11:00 Resp 20 10/29/23 11:00 BP 104/57 L 10/29/23 11:00 Pulse Ox 97 10/29/23 11:00 O2 Del Method Oxymask 10/29/23 11:00 O2 Flow Rate 6 10/29/23 11:00 BMI result Body Mass Index 17.2 GENERAL APPEARANCE: Frail lady, on supplemental oxygen. NECK: no carotid bruit, no jugular venous distention. SKIN: no suspicious lesions, warm and dry. HEART: Ejection systolic murmur aortic area with preserved 2nd heart sound, regular rate and rhythm. LUNGS: Lung sound better than yesterday. Fine crackles at bases. ABDOMEN: soft, nontender. EXTREMITIES: no edema. PERIPHERAL PULSES: equal. NEUROLOGIC: No gross deficits, AAO X 3 Objective Labs and Meds 10/29/23 06:42 10/29/23 06:42 Lab results: Laboratory Results - last 24 hr 10/27/23 10/29/23 12:28 06:42 WBC 1.7 L RBC 2.41 L Hgb 8.7 L Hct 25.5 L MCV 105.8 H MCH 36.1 H MCHC 34.1 RDW 21.7 H Plt Count 41 L MPV 11.4 Absolute Nucleated RBC 0.000 Nucleated RBC % (auto) 0.0 Haptoglobin <10 L Sodium 144 Potassium 3.1 L Chloride 101 Carbon Dioxide 34 H Anion Gap 12 BUN 22 H Creatinine 0.61 Estim Creat Clear Calc 47.3 Estimated GFR > 60 Fasting Glucose 117 H Calcium 10.0 Magnesium 2.2 Progress Note: A&P Assessment and plan (1) Severe aortic stenosis: Status: Acute (2) CHF exacerbation: Status: Acute Plan 84-year-old female with metastatic breast cancer and bioprosthetic aortic valve stenosis. Came with anemia and heart failure. Transfused and diuresed and clinically has improved. She still has some crackles but I think she has some interstitial process which is involving the lung other than fluid currently. Can change to oral diuretics 40 mg twice a day. Monitor electrolytes closely. Hemoglobin is stable at more than 8. Plan would be as she improves further to aim toward home and get further workup as outpatient for transcatheter aortic valve replacement. She has significant comorbidities and this will require some discussion with the heart team. Thank you for allowing me to participate in the care of your patient. Please feel free to contact me if you have any questions. Time Spent With Patient Time: Total time managing care of this patient today ____ minutes. Progress Note: Quality Stroke Does the patient have a stroke diagnosis?: No Procedures Date of Service Date of Service: 10/29/23
--- NOTE | 2023-10-29 12:34 | P.PNHO-ONC_ITS ---
Medical Summary - Medical Summary Date of Service: 10/29/23 Chief complaint: Shortness of breath Primary Care Provider: Lyndon Rosario MD Medical Summary: Diagnosis: Left breast invasive lobular carcinoma diagnosed June 2021. Patient presented with palpable mass in the left breast at 05:00 o'clock position. Screening mammography on 05/20/2021 followed by ultrasound and subsequent focused mammogram on 05/26/2021 confirm solid density in the 5 o'clock position measuring 2.1 cm suspicious for malignancy. 06/10/2021 core biopsy of left breast mass, pathology-invasive lobular carcinoma, MS BR grade 2. Estrogen receptor positive 100%, progesterone receptor positive 30%, HER2 negative. Proliferation index high, 50% by Ki 67 immunostaining. She does not recall any hormone replacement therapy or use of control pills. She denies any previous abnormal mammograms or breast biopsies. She has had open-heart surgery in 2012. 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 She denies any previous fractures. She denies any other cancer history. She has 3 children. She underwent lumpectomy with sentinel node biopsy on 07/02/2021. Pathology revealed invasive lobular carcinoma, grade 2, 2 cm in size, margins negative, high proliferation index, Ki 67 -50% One sentinel node negative for metastatic carcinoma. ER/PA positive, HER2 negative. Pathological stage pT1c pN0, clinical/prognostic stage IA. Oncotype DX recurrence score was low, chemotherapy deferred. She completed adjuvant radiation therapy at [facility] on 09/19/2021. She started letrozole 2.5 mg once daily from 10/05/2021. Unfortunately, she presented with worsening back pain and was found to have multiple lytic lesions in her spine. CT thoracic spine performed 10/28/2022 shows mild compression fracture of T10 vertebral body with abnormal soft tissue extending into spinal can now. Suggesting mild cord compression. Abnormal soft tissue in T9/T10 neural foramen, pathological compression fracture L1 and L2. She does not have any symptoms of cord compression. She received palliative radiation therapy at [facility]. Interval History Interval history: Jordon Mobley is a 87 year old female was diagnosed with metastatic breast cancer in October 2022 and has been on hormonal therapy ever since. She presented to emergency department on 10/26/2023 with symptoms of sudden onset dyspnea and intermittent palpitations. No history of fever, chills, nausea, lightheadedness, chest pain or abdominal pain. No change in bowel habits. She is being followed closely by Cardiology for aortic stenosis. On arrival, she was noted to be hypoxic with pulse ox of 70% on room air. She is now on oxygen. She underwent CT angiogram of chest which was negative for PE but showed bilateral interstitial disease most consistent with pulmonary edema. Viral or atypical pneumonia was also in the differential diagnosis. She is on Lasix. She feels a bit better today. She is still on oxygen mass, she does not want to use nasal cannula. [facility] Medical History: Medical History (Last Reviewed 10/26/23 @ 19:58 by STACI Ordonez) Aortic stenosis Benign essential hypertension Familial hypocalciuric hypercalcemia syndrome GERD without esophagitis History of aortic valve stenosis 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 Osteoporosis Pure hypercholesterolemia Vitamin D deficiency Family History: Family History (Last Reviewed 10/26/23 @ 19:58 by STACI Ordonez) Father Diabetes CVA (cerebral vascular accident) CVD (cardiovascular disease) Myocardial infarct Mother Emphysema of lung Alcoholism /alcohol abuse Surgical History: Surgical History (Last Reviewed 10/26/23 @ 19:58 by STACI Ordonez) History of lumpectomy of left breast Onset Date: ~07/02/21 Hx of aortic valve replacement Onset Date: ~07/04/12 Hx of cataract removal with insertion of prosthetic lens Onset Date: ~08/2017 Social History: Social History (Last Reviewed 10/26/23 @ 19:58 by STACI Ordonez) Living Situation History: Household Members: None Housing: Condominium Are you a primary home health care worker to a significant other at home: No Do you presently have visiting nurse or other home services: No Tobacco History: Patient Tobacco Use Status: Never used Tobacco e-Cigarette/Vaping Use: Never Used Second Hand Smoke Exposure: Yes Advance Directives: Advance Directives Date on File: 10/26/23 Occupation Assessmet: service: Yes service comment: thru late Current occupational status: retired Home Medications and Allergies Current Medications: Current Medications Acetaminophen (Acetaminophen 325 Mg Tablet) 650 mg PO Q6H PRN PRN Reason: Pain, Mild (Pain Scale 1-3) Amlodipine Besylate (Amlodipine Besylate 2.5 Mg Tablet) 2.5 mg PO DAILY [facility]; Protocol Last Admin: 10/29/23 08:00 Dose: 2.5 mg Atorvastatin Calcium (Atorvastatin Calcium 10 Mg Tablet) 5 mg PO BEDTIME [facility] Last Admin: 10/28/23 22:43 Dose: 5 mg Furosemide (Furosemide 40 Mg Tablet) 40 mg PO DAILY [facility]; Protocol Loratadine (Loratadine 10 Mg Tablet) 10 mg PO DAILY PRN PRN Reason: allergy symptoms Magnesium Hydroxide (Milk Of Magnesia 30 Ml Oral.Susp) 30 ml PO DAILY PRN PRN Reason: Constipation Multivitamins/Vitamin C (Multivitamin Tablet) 1 tab PO DAILY [facility] Last Admin: 10/29/23 08:00 Dose: 1 tab Ondansetron HCl (Ondansetron Hcl 4 Mg/2 Ml Vial) 4 mg IVPUSH Q8H PRN PRN Reason: Nausea and Vomiting Sodium Chloride (0.9 % Sodium Chloride Flush 3 Ml Syringe) 3 ml IVFLUSH QSHIFT [facility] Last Admin: 10/29/23 08:00 Dose: 3 ml Vitamin D (Cholecalciferol (Vitamin D3) 25 Mcg Tablet) 25 mcg PO DAILY [facility] Last Admin: 10/29/23 08:00 Dose: 25 mcg Home Medications ?Medication ?Instructions ?Recorded ?Confirmed ?Type multivitamin,[id number] 1 tab PO DAILY 05/01/20 10/26/23 History (Complete Multivitamin tablet) Allergies Allergy/AdvReac Type Severity Reaction Status Date / Time hydrochlorothiazide Allergy Unknown upset Verified 10/26/23 11:44 stomach,dizziness lisinopril Allergy Unknown SWOLLEN Verified 10/26/23 11:44 THROAT/angioedema metoprolol Allergy Unknown severe Verified 10/26/23 11:44 dizziness esomeprazole [Nexium] AdvReac Unknown headaches Verified 10/26/23 11:44 Exam Vital signs: Vital Signs Temp 98.0 F 10/29/23 11:00 Pulse 84 10/29/23 11:00 Resp 20 10/29/23 11:00 BP 104/57 L 10/29/23 11:00 Pulse Ox 97 10/29/23 11:00 O2 Del Method Oxymask 10/29/23 11:00 O2 Flow Rate 6 10/29/23 11:00 Intake & Output 10/28/23 10/29/23 10/29/23 18:59 06:59 18:59 Intake Total 600 / 820 220 / 820 Output Total 600 / 600 Balance 0 / 220 220 / 220 Urine Output (Average ml/kg/hr) 1.10 1.10 Intake: Intake, Oral Amount 600 / 820 220 / 820 Output: Output, Urine Amount 600 / 600 Other: Breakfast % Eaten 0% Lunch % Eaten 0% Number of Unmeasured Voids 1 2 Number of Bowel Movements 1 Urine Bedside Commode Bedside Commode Urine Color Concentrated Yellow Last Bowel Movement 10/28/23 Weight 45.359 kg Weight 45.359 kg BMI result Body Mass Index 17.2 - Constitutional Present: mild distress - Routine HEENT Exam Head: Present: normal inspection - Routine Respiratory Exam Present: accessory muscle use, decreased breath sounds - Routine Cardiovascular Exam Cardiovascular: Present: S1, S2 - Routine Abdominal Exam Present: soft - Routine Skin Exam Present: intact Data - Labs CBC & Chem 7: 10/29/23 06:42 10/29/23 06:42 Labs: Laboratory Last Values WBC 1.7 X10*3/uL (4.8-10.8) L 10/29/23 06:42 RBC 2.41 X10*6/uL (4.20-5.50) L 10/29/23 06:42 Hgb 8.7 g/dl (12.0-16.0) L 10/29/23 06:42 Hct 25.5 % (37.0-47.0) L 10/29/23 06:42 MCV 105.8 fL (80.0-98.0) H 10/29/23 06:42 MCH 36.1 pg (27.0-33.0) H 10/29/23 06:42 MCHC 34.1 g/dl (31.0-35.0) 10/29/23 06:42 RDW 21.7 % (11.0-16.0) H 10/29/23 06:42 Plt Count 41 X10*3/uL (160-400) L 10/29/23 06:42 MPV 11.4 fL (9.4-12.3) 10/29/23 06:42 Immature Gran % (Auto) 0.8 % (0.0-0.4) H 10/27/23 05:02 Neut % (Auto) 87.6 % (45-73) H 10/27/23 05:02 Lymph % (Auto) 6.9 % (20-40) L 10/27/23 05:02 [place] % (Auto) 3.1 % (2-11) 10/27/23 05:02 Eos % (Auto) 0.8 % (0-4) 10/27/23 05:02 Baso % (Auto) 0.8 % (0-2) 10/27/23 05:02 Lymph # (Auto) 0.1 X10*3/uL (1.2-4.9) L 10/27/23 05:02 [place] # (Auto) 0.0 X10*3/uL (0.1-1.2) L 10/27/23 05:02 Eos # (Auto) 0.0 X10*3/uL (0.0-0.4) 10/27/23 05:02 Baso # (Auto) 0.0 X10*3/uL (0.0-0.2) 10/27/23 05:02 Abs Immat Gran (auto) 0.01 X10*3/uL (0.00-0.03) 10/27/23 05:02 Absolute Neuts (auto) 1.1 x10*3/uL (2.0-8.3) L 10/27/23 05:02 Absolute Nucleated RBC 0.000 X10*3/uL (0.0-0.012) 10/29/23 06:42 Nucleated RBC % (auto) 0.0 /100WBC (0.0-0.2) 10/29/23 06:42 Smear Tech's Comments VERIFIED 10/27/23 05:02 Smear Path Review SEE NOTE 10/27/23 05:02 Absolute Retic 0.073 X10*6/uL (0.026-0.095) 10/27/23 05:02 Percent Retic 4.0 % (0.5-1.8) H 10/27/23 05:02 Immature Retic Fraction 28.2 % (3.0-15.9) H 10/27/23 05:02 Retic Hgb Equivalent 42.1 pg (30.0-35.0) H 10/27/23 05:02 Haptoglobin <10 mg/dL (43-212) L 10/27/23 12:28 PT 13.0 SEC (11.1-13.3) 10/26/23 12:01 INR 1.1 (0.9-1.1) 10/26/23 12:01 APTT 21.4 SEC (26.0-36.8) L 10/26/23 12:01 D-Dimer High Sensitivty 2311 NG/ML 10/26/23 12:01 VBG pH 7.49 (7.32-7.43) H 10/26/23 12:04 VBG pCO2 29 mmHg 10/26/23 12:04 VBG pO2 73 mmHg 10/26/23 12:04 VBG HCO3 23 mmol/L (22-26) 10/26/23 12:04 VBG O2 Saturation 94.0 % 10/26/23 12:04 VBG Base Excess 0.5 mmol/L 10/26/23 12:04 Sodium 144 mmol/L (135-145) 10/29/23 06:42 Potassium 3.1 mmol/L (3.3-5.1) L 10/29/23 06:42 Chloride 101 mmol/L (96-108) 10/29/23 06:42 Carbon Dioxide 34 mmol/L (22-29) H 10/29/23 06:42 Anion Gap 12 (12-20) 10/29/23 06:42 BUN 22 mg/dL (9-16) H 10/29/23 06:42 Creatinine 0.61 mg/dL (0.5-1.4) 10/29/23 06:42 Estim Creat Clear Calc 47.3 10/29/23 06:42 Estimated GFR > 60 10/29/23 06:42 Random Glucose 121 mg/dL (60-115) H 10/28/23 07:21 Fasting Glucose 117 mg/dL (60-99) H 10/29/23 06:42 Lactic Acid 1.4 mmol/L (0.5-2.0) 10/26/23 12:10 Calcium 10.0 mg/dL (8.4-10.2) 10/29/23 06:42 Magnesium 2.2 mg/dL (1.6-2.6) 10/29/23 06:42 Ferritin 1897 ng/mL (10-250) H 10/27/23 05:02 Total Bilirubin 2.9 mg/dL (0.0-1.0) H 10/28/23 07:21 Direct Bilirubin 1.6 mg/dL (0.0-0.5) H 10/28/23 07:21 AST 31 U/L (5-31) 10/28/23 07:21 ALT 12 U/L (0-31) 10/28/23 07:21 Alkaline Phosphatase 92 U/L (39-117) 10/28/23 07:21 Lactate Dehydrogenase 580 U/L (122-220) H 10/27/23 05:02 Troponin I High Sens 66.2 ng/L (<3.5-17.0) H* 10/26/23 15:28 B-Natriuretic Peptide 467 pg/mL (<100) H 10/26/23 12:01 Total Protein 5.8 g/dL (6.5-8.0) L 10/28/23 07:21 Albumin 3.3 g/dL (3.5-5.0) L 10/28/23 07:21 Lipase 20 U/L (8-78) 10/26/23 12:01 Vitamin B12 981 pg/mL (200-900) H 10/26/23 20:46 Folate 9.4 ng/mL (> or = 4.0) 10/26/23 20:46 Urine Color Yellow 10/26/23 17:17 Urine Appearance Clear 10/26/23 17:17 Urine pH 6.0 (5.0-9.0) 10/26/23 17:17 Ur Specific [place] 1.015 (1.005-1.025) 10/26/23 17:17 Urine Protein Negative mg/dL (Neg-Trace) 10/26/23 17:17 Urine Glucose (UA) Negative mg/dL (Negative) 10/26/23 17:17 Urine Ketones Negative mg/dL (Negative) 10/26/23 17:17 Urine Blood Negative (Negative) 10/26/23 17:17 Urine Nitrite Negative (Negative) 10/26/23 17:17 Ur Leukocyte Esterase Negative (Negative) 10/26/23 17:17 Stool Occult Blood POSITIVE (NEGATIVE) 10/26/23 13:45 Influenza Type A (PCR) NEGATIVE (Negative) 10/26/23 12:10 Influenza Type B (PCR) NEGATIVE (Negative) 10/26/23 12:10 RSV RNA Qual (PCR) NEGATIVE (Negative) 10/26/23 12:10 SARS-CoV-2 RNA (RT-PCR) NEGATIVE (Negative) 10/26/23 12:10 Blood Type O Positive 10/26/23 12:01 Antibody Screen NEGATIVE 10/26/23 12:01 Crossmatch See Detail 10/26/23 12:01 - Imaging Radiologist's impression: ITS Impressions Chest X-Ray 10/26/23 12:14 IMPRESSION: Cardiomegaly with pulmonary venous congestion and interstitial pulmonary edema. Viral or atypical pneumonia could have a similar interstitial appearance. Chest CTA 10/26/23 13:56 IMPRESSION: *CT pulmonary angiogram negative for pulmonary emboli. *Bilateral interstitial disease of the lungs with mild bilateral subpleural sparing and sparing of the left superior pulmonary apex and superior segment of the left lower pulmonary lobe. Findings are present in association with small bilateral dependent effusions. Findings are most suspicious for interstitial pulmonary edema. As noted on the comparison chest radiograph, viral or atypical pneumonia could present with similar interstitial disease. However, the extent and relative subpleural sparing favor interstitial pulmonary edema. *Moderate pericardial effusion similar to findings present 05/25/2023. *Vague number scattered subcentimeter rounded pulmonary densities which are without a correlate compared with PET/CT 05/25/2023. Findings are most suspicious for small areas of consolidation overlying extensive interstitial disease. However, pulmonary metastatic disease could have a similar appearance given the history of metastatic breast cancer. Consider further evaluation with dedicated CT of the thorax following resolution of acute pulmonary symptoms presumed to represent interstitial pulmonary edema. *Multifocal skeletal lesions suspicious for metastatic disease unchanged in extent compared with MRI of the thoracic spine 11/06/2022. L1 vertebral body compression deformity with 25% inward deformity of the superior endplate and 4 mm retropulsion is increased in extent compared with 11/06/2022 and may represent a pathologic compression deformity of indeterminate age. *Aortic valve prosthesis in situ. *Partially visualized mild scattered coronary artery calcific atherosclerosis within the left anterior descending coronary artery and posterior descending coronary artery. VTE: negative Assessment and Plan Patient Active problem list reviewed?: Yes (1) Breast cancer metastasized to bone Status: Chronic Assessment and plan: 1. This is a pleasant 87-year-old woman with left breast invasive lobular carcinoma diagnosed in June 2021, metastatic cancer dx on 11/2022. She underwent CT-guided biopsy of T10 vertebral body on 11/19/2022. Pathology revealed metastatic carcinoma consistent with breast origin. She received palliative radiation therapy to T10 vertebral body, she did not complete treatment because it was uncomfortable getting on and off the table. She started on Faslodex from . She started palbociclib 125 mg daily from 12/23/2022. This was reduced to 100 mg daily because of neutropenia in January 2023. Last imaging for metastatic cancer, PET-CT performed 05/26/2023 showed no active metastatic disease. Bone Mets in the spine were healed. She is currently admitted for congestive heart failure secondary to tight aortic stenosis. She is being diuresed. She is noted to have worsening pancytopenia/anemia. This is probably multifactorial. 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 No symptoms or signs of acute GI bleeding. Ferritin level is pending. Normal vitamin B12 and folate levels. LDH is slightly elevated, total bilirubin is mildly elevated without significant indirect hyperbilirubinemia. Her kidney functions are stable. Haptoglobin is less than 10. Kidney functions are stable. She may have hemolysis secondary to tight aortic stenosis, shear stress. She responded well to blood transfusion. She has been taken off palbociclib because of myelosuppression and pancytopenia. She had another CT chest today which shows bilateral upper lobe infiltrates. Unclear if this is pneumonia, lymphangitic spread or pneumonitis secondary to palbociclib. She has lytic lesions in her spine, T5, T11 as well as compression deformity of L1. She may have progression of her cancer. ? Trial of antibiotics for atypical pneumonia or steroids. She will need outpatient PET-CT to determine extent of disease. Will follow with you. - Time Spent With Patient Time Spent with Patient (in minutes): 15
[2023-10-29 13:21] LABS: Lactate Dehydrogenase 722 U/L (122-220)
--- NOTE | 2023-10-29 14:00 | MHC.CLN ---
F/U PT IS MODERATELY MALNOURISHED SEE FULL CLINCAL NUTRITION ASSESSMENT DATED 10/28/23 PT CURRENTLY ON CLEAR LIQUIDS CONTINUES WITH 0% INTAKE DAY 3 PT RECEIVING ENSURE CLEAR TO INCREASE KCALS WILL ADD MORE SUPPLEMENTS DIET ADVANCES ENSURE CLEAR TO PROVIDE 720KCALS, 24G PROTEIN MONITOR PO INTAKE AND ENCOURAGE SUPPLEMENTS RD CAN BE REACHED VIS TIGER CONNECT DURING OFF HOURS IF NEEDED IF PT REQUIRES PPN OVER WEEKEND; RECOMMEND PPN AT 30ML/HR TO PROVIDE 367KCALS, 72G DEXTROSE, 31G PROTEIN
--- NOTE | 2023-10-29 14:07 | MHC.CM.PN ---
Per rounds, pt is still requiring acute care. DC plan likely home with services, CM to follow and assist with DC planning.
[2023-10-29] MEDS: methylPREDNISolone Sod Succ 40 MG/ML VIAL IVPUSH (14:36)
[2023-10-29] MEDS: Atorvastatin Calcium 10 MG TABLET 5 MG PO (20:18)
[2023-10-30] VITALS: BP 102/57; PULSE 79; RESP 20; TEMP 36.2; O2SAT 92
[2023-10-30] MEDS: methylPREDNISolone Sod Succ 40 MG/ML VIAL IVPUSH ×2 (02:58→16:04)
[2023-10-30 03:41] VITALS: BP 112/62; PULSE 75; RESP 20; TEMP 36.1; O2SAT 92
[2023-10-30 07:07] VITALS: BP 100/55; PULSE 72; RESP 18; TEMP 36; O2SAT 98
[2023-10-30 07:33] LABS: Hematocrit 29.3 % (37.0-47.0); Mean Corpuscular HGB Conc 34.1 g/dl (31.0-35.0); Mean Corpuscular Volume 105.4 fL (80.0-98.0); Mean Platelet Volume 12.4 fL (9.4-12.3); Red Blood Count 2.78 X10*6/uL (4.20-5.50); Red Cell Distribution Width 21.3 % (11.0-16.0)
[2023-10-30 07:34] LABS: PLT ABN DIST 1; Platelet Count 51 X10*3/uL (160-400)
[2023-10-30 07:56] LABS: Alanine Aminotransferase 12 U/L (0-31); Albumin Level 3.7 g/dL (3.5-5.0); Alkaline Phosphatase 125 U/L (39-117); Anion Gap 17 (12-20); Aspartate Amino Transferase 25 U/L (5-31); Bilirubin Direct 1.4 mg/dL (0.0-0.5); Bilirubin Total 2.4 mg/dL (0.0-1.0); Blood Urea Nitrogen 28 mg/dL (9-16); Calcium 10.1 mg/dL (8.4-10.2); Carbon Dioxide 29 mmol/L (22-29); Chloride 100 mmol/L (96-108); Creatinine Clr Calc Pharmacy 43.8; Estimated Glomerular Filt Rate > 60; Glucose Fasting 151 mg/dL (60-99); Magnesium 2.5 mg/dL (1.6-2.6); Potassium 3.1 mmol/L (3.3-5.1); Sodium 143 mmol/L (135-145); Total Protein 6.7 g/dL (6.5-8.0)
[2023-10-30] MEDS: Multivitamin TABLET 1 TAB PO (09:25)
[2023-10-30] MEDS: Cholecalciferol (Vitamin D3) 25 MCG TABLET PO (09:25)
[2023-10-30] MEDS: Furosemide 40 MG TABLET PO (09:25)
[2023-10-30] MEDS: 0.9 % Sodium Chloride Flush 3 ML SYRINGE IVFLUSH ×3 (09:26→22:02)
--- NOTE | 2023-10-30 10:12 | P.PNIM_ITS ---
Subjective Subjective Date of Service: 10/30/23 Interval History: still sob, but imrpoved Physical Exam 2 Vital Signs: Vital Signs: Last Vital Signs Temp 96.8 F 10/30/23 07:07 Pulse 72 10/30/23 07:07 Resp 18 10/30/23 07:07 BP 100/55 L 10/30/23 07:07 Pulse Ox 98 10/30/23 07:07 O2 Del Method Oxymask 10/30/23 07:07 O2 Flow Rate 7 10/30/23 07:07 BMI result Body Mass Index 17.2 GENERAL APPEARANCE: Frail lady, on supplemental oxygen. NECK: no carotid bruit, no jugular venous distention. SKIN: no suspicious lesions, warm and dry. HEART: Ejection systolic murmur aortic area with preserved 2nd heart sound, regular rate and rhythm. LUNGS: Lung sound better than yesterday. Fine crackles at bases. ABDOMEN: soft, nontender. EXTREMITIES: no edema. PERIPHERAL PULSES: equal. NEUROLOGIC: No gross deficits, AAO X 3 Objective Data Active Medications Acetaminophen (Acetaminophen 325 Mg Tablet) 650 mg PO Q6H PRN PRN Reason: Pain, Mild (Pain Scale 1-3) Amlodipine Besylate (Amlodipine Besylate 2.5 Mg Tablet) 2.5 mg PO DAILY [facility]; Protocol Last Admin: 10/30/23 09:20 Dose: Not Given Documented By: CALLIE Non-Admin Reason: Physician Held Med Comments: do to low bp 100/54 Atorvastatin Calcium (Atorvastatin Calcium 10 Mg Tablet) 5 mg PO BEDTIME [facility] Last Admin: 10/29/23 20:18 Dose: 5 mg Documented By: TONO Furosemide (Furosemide 40 Mg Tablet) 40 mg PO DAILY [facility]; Protocol Last Admin: 10/30/23 09:25 Dose: 40 mg Documented By: CALLIE Loratadine (Loratadine 10 Mg Tablet) 10 mg PO DAILY PRN PRN Reason: allergy symptoms Magnesium Hydroxide (Milk Of Magnesia 30 Ml Oral.Susp) 30 ml PO DAILY PRN PRN Reason: Constipation Methylprednisolone Sodium Succinate (Methylprednisolone Sod Succ 40 Mg/Ml Vial) 40 mg IVPUSH Q12H [facility] Last Admin: 10/30/23 02:58 Dose: 40 mg Documented By: TONO Multivitamins/Vitamin C (Multivitamin Tablet) 1 tab PO DAILY [facility] Last Admin: 10/30/23 09:25 Dose: 1 tab Documented By: CALLIE Ondansetron HCl (Ondansetron Hcl 4 Mg/2 Ml Vial) 4 mg IVPUSH Q8H PRN PRN Reason: Nausea and Vomiting Sodium Chloride (0.9 % Sodium Chloride Flush 3 Ml Syringe) 3 ml IVFLUSH QSHIFT [facility] Last Admin: 10/30/23 09:26 Dose: 3 ml Documented By: CALLIE Vitamin D (Cholecalciferol (Vitamin D3) 25 Mcg Tablet) 25 mcg PO DAILY [facility] Last Admin: 10/30/23 09:25 Dose: 25 mcg Documented By: CALLIE Labs 10/30/23 06:39 10/30/23 06:39 Labs: Laboratory Results - last 24 hr 10/29/23 10/30/23 06:42 06:39 MCV 105.4 H MCH 36.0 H MCHC 34.1 RDW 21.3 H Plt Count 51 L MPV 12.4 H Absolute Nucleated RBC 0.000 Nucleated RBC % (auto) 0.0 Anion Gap 17 Estim Creat Clear Calc 43.8 Estimated GFR > 60 Fasting Glucose 151 H Calcium 10.1 Magnesium 2.5 Total Bilirubin 2.4 H Direct Bilirubin 1.4 H AST 25 ALT 12 Alkaline Phosphatase 125 H Lactate Dehydrogenase 722 H Total Protein 6.7 Albumin 3.7 Assessment and Plan (1) Acute hypoxemic respiratory failure: Status: Acute Plan 86F PMH HLD, HTN, metastatic breast cancer s/p removal/radiation on oral chemotherapy - with response on most recent PET, TAVR w/ bioprosthetic valve now with recurrent severe aortic stenosis, presented with sob Acute hypoxic respiratory failure due to acute on chronic diastolic CHF with severe aortic stenosis diuresed well but still hypoxic needing 7L, desaturates to 60s on room air, refusing nasal canula changed po lasix repeat ct chest - with persistent opacities, likely additional compoenent of penumonitis/ild from chemo vs metastatic disease Pancytopenia Due to chemotherapy for metastatic breast cancer (responsive to current therapy per recent PET scan, prognosis expected to be greater than 6 months) Holding Ibrance Transfused 1 unit PRBC, hgb improved appropriately hypokalemia replace and monitor Pericardial effusion Stable Hypertension Amlodipine Familial hypocalciuric hypercalcemia syndrome Stable Full code reason for continued hospitalization:hypoxia Quality Stroke Does the patient have a stroke diagnosis?: No VTE Prior VTE?: No VTE Risk Level:: Medical - moderate - high VTE Device Contraindication: Treatment Not Indicated VTE Drug Contraindication: N/A - Med Ordered
[2023-10-30] MEDS: Potassium Chloride ER 20 MEQ TAB.ER.PRT 40 MEQ PO (11:06)
[2023-10-30 12:00] VITALS: BP 107/56; PULSE 91; RESP 18; TEMP 36.4; O2SAT 93
[2023-10-30 15:52] VITALS: BP 114/61; PULSE 88; RESP 18; TEMP 36.4; O2SAT 92
[2023-10-30 20:00] VITALS: BP 109/55; PULSE 78; RESP 20; TEMP 37; O2SAT 91
[2023-10-30] MEDS: Atorvastatin Calcium 10 MG TABLET 5 MG PO (21:58)
[2023-10-31] VITALS (7 sets, daily range): BP systolic 111–128; BP diastolic 56–66; PULSE 59–85; RESP 20–22; TEMP 36.1–36.9; O2SAT 91–100
[2023-10-31] MEDS: methylPREDNISolone Sod Succ 40 MG/ML VIAL IVPUSH ×2 (01:37→15:23)
[2023-10-31 08:34] LABS: Hematocrit 27.9 % (37.0-47.0); Hemoglobin 9.4 g/dl (12.0-16.0); Mean Corpuscular HGB Conc 33.7 g/dl (31.0-35.0); Mean Corpuscular Volume 106.9 fL (80.0-98.0); Mean Platelet Volume 12.6 fL (9.4-12.3); NRBC Pct Auto 1.2 /100WBC (0.0-0.2); Platelet Count 51 X10*3/uL (160-400); Red Blood Count 2.61 X10*6/uL (4.20-5.50); Red Cell Distribution Width 20.8 % (11.0-16.0); White Blood Count 2.4 X10*3/uL (4.8-10.8)
[2023-10-31 08:50] LABS: Anion Gap 14 (12-20); Blood Urea Nitrogen 40 mg/dL (9-16); Calcium 10.3 mg/dL (8.4-10.2); Carbon Dioxide 29 mmol/L (22-29); Chloride 102 mmol/L (96-108); Creatinine Clr Calc Pharmacy 42.5; Estimated Glomerular Filt Rate > 60; Glucose Fasting 146 mg/dL (60-99); Sodium 141 mmol/L (135-145)
--- NOTE | 2023-10-31 09:03 | HO.PM.IMPN ---
Subjective Subjective Date of Service: 10/31/23 Interval History: feeling weak, sob Physical Exam Vital Signs: Vital Signs: Last Vital Signs Temp 96.9 F 10/31/23 04:00 Pulse 59 10/31/23 04:00 Resp 20 10/31/23 04:00 BP 126/62 10/31/23 04:00 Pulse Ox 100 10/31/23 04:00 O2 Del Method Oxymask 10/31/23 04:00 O2 Flow Rate 7 10/31/23 04:00 BMI result Body Mass Index 17.2 GENERAL APPEARANCE: Frail lady, on supplemental oxygen. NECK: no carotid bruit, no jugular venous distention. SKIN: no suspicious lesions, warm and dry. HEART: Ejection systolic murmur aortic area with preserved 2nd heart sound, regular rate and rhythm. LUNGS: Lung sound better than yesterday. Fine crackles at bases. ABDOMEN: soft, nontender. EXTREMITIES: no edema. PERIPHERAL PULSES: equal. NEUROLOGIC: No gross deficits, AAO X 3 Objective Data Active Medications Acetaminophen (Acetaminophen 325 Mg Tablet) 650 mg PO Q6H PRN PRN Reason: Pain, Mild (Pain Scale 1-3) Amlodipine Besylate (Amlodipine Besylate 2.5 Mg Tablet) 2.5 mg PO DAILY [facility]; Protocol Last Admin: 10/30/23 09:20 Dose: Not Given Documented By: CALLIE Non-Admin Reason: Physician Held Med Comments: do to low bp 100/54 Atorvastatin Calcium (Atorvastatin Calcium 10 Mg Tablet) 5 mg PO BEDTIME [facility] Last Admin: 10/30/23 21:58 Dose: 5 mg Documented By: LOUIS Furosemide (Furosemide 40 Mg Tablet) 40 mg PO DAILY [facility]; Protocol Last Admin: 10/30/23 09:25 Dose: 40 mg Documented By: CALLIE Loratadine (Loratadine 10 Mg Tablet) 10 mg PO DAILY PRN PRN Reason: allergy symptoms Magnesium Hydroxide (Milk Of Magnesia 30 Ml Oral.Susp) 30 ml PO DAILY PRN PRN Reason: Constipation Methylprednisolone Sodium Succinate (Methylprednisolone Sod Succ 40 Mg/Ml Vial) 40 mg IVPUSH Q12H [facility] Last Admin: 10/31/23 01:37 Dose: 40 mg Documented By: LOUIS Multivitamins/Vitamin C (Multivitamin Tablet) 1 tab PO DAILY [facility] Last Admin: 05/25/24 09:25 Dose: 1 tab Documented By: CALLIE Ondansetron HCl (Ondansetron Hcl 4 Mg/2 Ml Vial) 4 mg IVPUSH Q8H PRN PRN Reason: Nausea and Vomiting Sodium Chloride (0.9 % Sodium Chloride Flush 3 Ml Syringe) 3 ml IVFLUSH QSHIFT [facility] Last Admin: 10/30/23 22:02 Dose: 3 ml Documented By: LOUIS Vitamin D (Cholecalciferol (Vitamin D3) 25 Mcg Tablet) 25 mcg PO DAILY [facility] Last Admin: 10/30/23 09:25 Dose: 25 mcg Documented By: CALLIE Labs 10/31/23 08:03 10/31/23 08:03 Labs: Laboratory Results - last 24 hr 10/31/23 08:03 MCV 106.9 H MCH 36.0 H MCHC 33.7 RDW 20.8 H Plt Count 51 L MPV 12.6 H Absolute Nucleated RBC 0.030 H Nucleated RBC % (auto) 1.2 H Anion Gap 14 Estim Creat Clear Calc 42.5 Estimated GFR > 60 Fasting Glucose 146 H Calcium 10.3 H Assessment and Plan (1) Acute hypoxemic respiratory failure: Status: Acute Plan 86F PMH HLD, HTN, metastatic breast cancer s/p removal/radiation on oral chemotherapy - with response on most recent PET, TAVR w/ bioprosthetic valve now with recurrent severe aortic stenosis, presented with sob Acute hypoxic respiratory failure due to acute on chronic diastolic CHF with severe aortic stenosis diuresed well but still hypoxic needing 5L, desaturates to 60s on room air, refusing nasal canula changed po lasix repeat ct chest - with persistent opacities, likely additional component of penumonitis/ild from chemo vs metastatic disease - continue iv steroids Pancytopenia Due to chemotherapy for metastatic breast cancer (responsive to current therapy per recent PET scan, prognosis expected to be greater than 6 months) Holding Ibrance Transfused 1 unit PRBC, hgb improved appropriately hypokalemia replaced Pericardial effusion Stable Hypertension Amlodipine Familial hypocalciuric hypercalcemia syndrome Stable Full code reason for continued hospitalization:hypoxia Quality Stroke Does the patient have a stroke diagnosis?: No VTE Prior VTE?: No VTE Risk Level:: Medical - moderate - high VTE Device Contraindication: Treatment Not Indicated VTE Drug Contraindication: N/A - Med Ordered
[2023-10-31] MEDS: Multivitamin TABLET 1 TAB PO (09:32)
[2023-10-31] MEDS: amLODIPine Besylate 2.5 MG TABLET PO (09:32)
[2023-10-31] MEDS: Cholecalciferol (Vitamin D3) 25 MCG TABLET PO (09:33)
[2023-10-31] MEDS: 0.9 % Sodium Chloride Flush 3 ML SYRINGE IVFLUSH ×3 (09:33→19:55)
[2023-10-31] MEDS: Furosemide 40 MG TABLET PO (09:33)
--- NOTE | 2023-10-31 12:26 | PM.PNCARD ---
Subjective Subjective Date of Service: 10/31/23 Interval history: Seen examined at bedside. On supplemental oxygen. Physical Exam Vital Signs: Last Vital Signs Temp 98.4 F 10/31/23 11:59 Pulse 78 10/31/23 11:59 Resp 20 10/31/23 11:59 BP 111/58 L 10/31/23 11:59 Pulse Ox 92 10/31/23 11:59 O2 Del Method Oxymask 10/31/23 11:59 O2 Flow Rate 5 10/31/23 11:59 BMI result Body Mass Index 17.2 GENERAL APPEARANCE: Frail lady, on supplemental oxygen. NECK: no carotid bruit, no jugular venous distention. SKIN: no suspicious lesions, warm and dry. HEART: Ejection systolic murmur aortic area with preserved 2nd heart sound, regular rate and rhythm. LUNGS: Lung sound better than yesterday. Fine crackles at bases. ABDOMEN: soft, nontender. EXTREMITIES: no edema. PERIPHERAL PULSES: equal. NEUROLOGIC: No gross deficits, AAO X 3 Objective Labs and Meds 10/31/23 08:03 10/31/23 08:03 Lab results: Laboratory Results - last 24 hr 10/31/23 08:03 WBC 2.4 L RBC 2.61 L Hgb 9.4 L Hct 27.9 L MCV 106.9 H MCH 36.0 H MCHC 33.7 RDW 20.8 H Plt Count 51 L MPV 12.6 H Absolute Nucleated RBC 0.030 H Nucleated RBC % (auto) 1.2 H Sodium 141 Potassium 4.0 D Chloride 102 Carbon Dioxide 29 Anion Gap 14 BUN 40 H Creatinine 0.68 Estim Creat Clear Calc 42.5 Estimated GFR > 60 Fasting Glucose 146 H Calcium 10.3 H Progress Note: A&P Assessment and plan (1) Severe aortic stenosis: Status: Acute (2) CHF exacerbation: Status: Acute Plan 87-year-old female with metastatic breast cancer and bioprosthetic aortic valve stenosis. Came with anemia and heart failure. Transfused and diuresed and clinically has improved. She still has some crackles but I think she has some interstitial process which is involving the lung other than fluid currently. Hemoglobin has been stable. She is on oral diuretics. Her repeat CT scan has shown bilateral infiltrates raising concern for pneumonitis versus lymphangitic spread. She is on steroids to see if the lung findings improved. She also has some metastatic disease picked up in the spine. We will follow along with you. Thank you for allowing me to participate in the care of your patient. Please feel free to contact me if you have any questions. Time Spent With Patient Time: Total time managing care of this patient today ____ minutes. Progress Note: Quality Stroke Does the patient have a stroke diagnosis?: No Procedures Date of Service Date of Service: 10/31/23
[2023-10-31] MEDS: Atorvastatin Calcium 10 MG TABLET 5 MG PO (19:52)
[2023-11-01] VITALS: BP 117/63; PULSE 77; RESP 20; TEMP 36.7; O2SAT 95
[2023-11-01] MEDS: methylPREDNISolone Sod Succ 40 MG/ML VIAL IVPUSH ×2 (02:11→13:40)
[2023-11-01 04:00] VITALS: BP 130/66; PULSE 72; RESP 20; TEMP 36.7; O2SAT 97
[2023-11-01 07:59] VITALS: BP 140/66; PULSE 69; RESP 19; TEMP 36.6
[2023-11-01] MEDS: amLODIPine Besylate 2.5 MG TABLET PO (08:51)
[2023-11-01] MEDS: Multivitamin TABLET 1 TAB PO (08:51)
[2023-11-01] MEDS: Furosemide 40 MG TABLET PO (08:51)
[2023-11-01] MEDS: Cholecalciferol (Vitamin D3) 25 MCG TABLET PO (08:51)
--- NOTE | 2023-11-01 11:22 | P.PNIM_ITS ---
Subjective Subjective Date of Service: 11/01/23 Interval History: much improved today Physical Exam 2 Vital Signs: Vital Signs: Last Vital Signs Temp 97.8 F 11/01/23 07:59 Pulse 69 11/01/23 07:59 Resp 19 11/01/23 07:59 BP 140/66 H 11/01/23 07:59 Pulse Ox 97 11/01/23 04:00 O2 Del Method Oxymask 11/01/23 07:59 O2 Flow Rate 2 11/01/23 07:59 BMI result Body Mass Index 17.2 GENERAL APPEARANCE: Frail lady, on supplemental oxygen. NECK: no carotid bruit, no jugular venous distention. SKIN: no suspicious lesions, warm and dry. HEART: Ejection systolic murmur aortic area with preserved 2nd heart sound, regular rate and rhythm. LUNGS: Lung sound better than yesterday. Fine crackles at bases. ABDOMEN: soft, nontender. EXTREMITIES: no edema. PERIPHERAL PULSES: equal. NEUROLOGIC: No gross deficits, AAO X 3 Objective Data Active Medications Acetaminophen (Acetaminophen 325 Mg Tablet) 650 mg PO Q6H PRN PRN Reason: Pain, Mild (Pain Scale 1-3) Amlodipine Besylate (Amlodipine Besylate 2.5 Mg Tablet) 2.5 mg PO DAILY [facility]; Protocol Last Admin: 11/01/23 08:51 Dose: 2.5 mg Documented By: WILMER Atorvastatin Calcium (Atorvastatin Calcium 10 Mg Tablet) 5 mg PO BEDTIME [facility] Last Admin: 10/31/23 19:52 Dose: 5 mg Documented By: LOUIS Furosemide (Furosemide 40 Mg Tablet) 40 mg PO DAILY [facility]; Protocol Last Admin: 11/01/23 08:51 Dose: 40 mg Documented By: WILMER Loratadine (Loratadine 10 Mg Tablet) 10 mg PO DAILY PRN PRN Reason: allergy symptoms Magnesium Hydroxide (Milk Of Magnesia 30 Ml Oral.Susp) 30 ml PO DAILY PRN PRN Reason: Constipation Methylprednisolone Sodium Succinate (Methylprednisolone Sod Succ 40 Mg/Ml Vial) 40 mg IVPUSH Q12H [facility] Last Admin: 11/01/23 02:11 Dose: 40 mg Documented By: LOUIS Multivitamins/Vitamin C (Multivitamin Tablet) 1 tab PO DAILY [facility] Last Admin: 11/01/23 08:51 Dose: 1 tab Documented By: HO.SOFFAA Ondansetron HCl (Ondansetron Hcl 4 Mg/2 Ml Vial) 4 mg IVPUSH Q8H PRN PRN Reason: Nausea and Vomiting Sodium Chloride (0.9 % Sodium Chloride Flush 3 Ml Syringe) 3 ml IVFLUSH QSHIFT [facility] Last Admin: 11/01/23 07:38 Dose: Not Given Documented By: WILMER Non-Admin Reason: Previously Administered Vitamin D (Cholecalciferol (Vitamin D3) 25 Mcg Tablet) 25 mcg PO DAILY [facility] Last Admin: 11/01/23 08:51 Dose: 25 mcg Documented By: WILMER Labs 10/31/23 08:03 10/31/23 08:03 Microbiology Microbiology Results: Microbiology 10/26/23 12:10 Blood Culture - Final Blood - Venous No growth after 5 days. 10/26/23 12:01 Blood Culture - Final Blood - Venous No growth after 5 days. Assessment and Plan (1) Acute hypoxemic respiratory failure: Status: Acute Plan 86F PMH HLD, HTN, metastatic breast cancer s/p removal/radiation on oral chemotherapy - with response on most recent PET, TAVR w/ bioprosthetic valve now with recurrent severe aortic stenosis, presented with sob Acute hypoxic respiratory failure due to acute on chronic diastolic CHF with severe aortic stenosis diuresed well but still hypoxic needing 2L changed po lasix repeat ct chest - with persistent opacities, likely additional component of penumonitis/ild from chemo vs metastatic disease - continue iv steroids Pancytopenia Due to chemotherapy for metastatic breast cancer (responsive to current therapy per recent PET scan, prognosis expected to be greater than 6 months) Holding Ibrance Transfused 1 unit PRBC, hgb improved appropriately hypokalemia replaced Pericardial effusion Stable Hypertension Amlodipine Familial hypocalciuric hypercalcemia syndrome Stable Full code reason for continued hospitalization:hypoxia Quality Stroke Does the patient have a stroke diagnosis?: No VTE Prior VTE?: No VTE Risk Level:: Medical - moderate - high VTE Device Contraindication: Treatment Not Indicated VTE Drug Contraindication: N/A - Med Ordered
--- NOTE | 2023-11-01 14:35 | MHC.CLN ---
F/U DIET ADVANCED TO REGULAR ON 10/29. INTAKE SINCE DIET ADVANCEMENT SHOWS ONE MEAL X 50% AND 2 MEALS X 75%. ADDING ENSURE BID TO INCREASE NUTRITIONAL INTAKE. SUPPLEMENT PROVIDES 700 KCALS, 40 G PROTEIN. MONITOR PO INTAKE AND ENCOURAGE SUPPLEMENTS.
--- NOTE | 2023-11-01 15:39 | MHC.CM.PN ---
EMR reviewed and per MD rounds, pt is not medically cleared for discharge due to management of hypoxia.
[2023-11-01 16:00] VITALS: BP 122/62; PULSE 74; RESP 20; TEMP 36.7; O2SAT 97
[2023-11-01 20:00] VITALS: BP 122/57; PULSE 76; RESP 19; TEMP 36.8; O2SAT 98
[2023-11-01] MEDS: Atorvastatin Calcium 10 MG TABLET 5 MG PO (20:16)
[2023-11-01] MEDS: 0.9 % Sodium Chloride Flush 3 ML SYRINGE IVFLUSH (20:18)
[2023-11-01 23:40] VITALS: BP 133/67; PULSE 78; RESP 19; TEMP 36.4; O2SAT 95
[2023-11-02] MEDS: methylPREDNISolone Sod Succ 40 MG/ML VIAL IVPUSH (02:45)
[2023-11-02 04:00] VITALS: BP 131/61; PULSE 68; RESP 18; TEMP 36.5; O2SAT 96
[2023-11-02 07:17] LABS: Hematocrit 27.6 % (37.0-47.0); Hemoglobin 9.4 g/dl (12.0-16.0); Mean Corpuscular HGB Conc 34.1 g/dl (31.0-35.0); Mean Corpuscular Volume 105.7 fL (80.0-98.0); NRBC Pct Auto 0.8 /100WBC (0.0-0.2); Red Blood Count 2.61 X10*6/uL (4.20-5.50); Red Cell Distribution Width 20.2 % (11.0-16.0); White Blood Count 2.6 X10*3/uL (4.8-10.8)
[2023-11-02 07:20] LABS: Platelet Count 72 X10*3/uL (160-400)
[2023-11-02 07:22] LABS: Anion Gap 13 (12-20); Blood Urea Nitrogen 28 mg/dL (9-16); Calcium 10.5 mg/dL (8.4-10.2); Carbon Dioxide 30 mmol/L (22-29); Chloride 102 mmol/L (96-108); Creatinine Clr Calc Pharmacy 46.6; Estimated Glomerular Filt Rate > 60; Glucose Fasting 113 mg/dL (60-99); Potassium 3.8 mmol/L (3.3-5.1); Sodium 141 mmol/L (135-145)
[2023-11-02 07:58] VITALS: BP 129/69; PULSE 76; RESP 20; TEMP 36.2; O2SAT 99
[2023-11-02] MEDS: Cholecalciferol (Vitamin D3) 25 MCG TABLET PO (09:28)
[2023-11-02] MEDS: Multivitamin TABLET 1 TAB PO (09:28)
[2023-11-02] MEDS: amLODIPine Besylate 2.5 MG TABLET PO (09:28)
--- NOTE | 2023-11-02 09:28 | PM.PNCARD ---
Subjective Subjective Date of Service: 11/02/23 Interval history: She denies any shortness of breath. However, not clear if she is having any confusion at this time. Per hospitalist, she is also refusing lot of things. Review of Systems Review of Systems Yes all other systems are reviewed and are negative Constitutional: Reports as per HPI and Reports no additional constitutional complaints Eyes: Reports as per HPI and Denies no additional eye complaints Denies system reviewed and no additional complaints, except as documented and Reports as per HPI Cardiovascular: Reports as per HPI, Reports no additional cardiovascular complaints, Denies acrocyanosis, Denies cool extremities, Denies chest pain, Denies leg edema, Denies lightheadedness, Denies palpitations and Denies dyspnea Respiratory: Reports as per HPI, Denies no additional respiratory complaints and Denies dyspnea Gastrointestinal: Reports as per HPI and Denies no additional gastrointestinal complaints Genitourinary: Reports as per HPI Musculoskeletal: Reports no additional musculoskeletal complaints and Reports as per HPI Skin/Breast: Reports system reviewed and no additional complaints, except as docu Reports system reviewed and no additional complaints, except as documented and Reports as per HPI Psychiatric: Reports no additional psychiatric complaints and Reports as per HPI Endocrine: Reports no additional endocrine complaints, Reports as per HPI and Denies palpitations Hematologic/Lymphatic: Reports no additional hematologic/lymphatic complaints and Reports as per HPI Allergic/Immunologic: Reports no additional allergic/immunologic complaints and Reports as per HPI Physical Exam Vital Signs: Last Vital Signs Temp 97.1 F 11/02/23 07:58 Pulse 76 11/02/23 07:58 Resp 20 11/02/23 07:58 BP 129/69 11/02/23 07:58 Pulse Ox 99 11/02/23 07:58 O2 Del Method Oxymask 11/02/23 07:58 O2 Flow Rate 3 11/02/23 07:58 BMI result Body Mass Index 17.2 Const General: comfortable and no acute distress Orientation/consciousness: patient oriented x3 HEENT Other: Unremarkable Head: Yes normal to inspection Neck Neck: Yes normal visual inspection Chest Chest palpation & inspection: normal inspection of the chest Resp Auscultation: rales and diminished lung sounds Cardio Palpation: normal PMI Heart sounds: S1 normal heart sound present, S2 normal heart sound present, no gallops, Murmur heart sound present systolic III/ and at the right sternal border and no rubs GI Palpation (GI): Soft to palpation Back/Spine/Pelvis Other: unremarkable Skin General skin exam: no rashes or lesions noted Neuro General: patient oriented x3 Extrem General: Yes normal to inspection Psych Mental Status: mental status grossly abnormal Objective Labs and Meds 11/02/23 06:34 11/02/23 06:34 Lab results: Laboratory Results - last 24 hr 11/02/23 06:34 WBC 2.6 L RBC 2.61 L Hgb 9.4 L Hct 27.6 L MCV 105.7 H MCH 36.0 H MCHC 34.1 RDW 20.2 H Plt Count 72 L D MPV 12.0 Absolute Nucleated RBC 0.020 H Nucleated RBC % (auto) 0.8 H Sodium 141 Potassium 3.8 Chloride 102 Carbon Dioxide 30 H Anion Gap 13 BUN 28 H Creatinine 0.62 Estim Creat Clear Calc 46.6 Estimated GFR > 60 Fasting Glucose 113 H Calcium 10.5 H Progress Note: A&P Assessment and plan (1) Acute hypoxemic respiratory failure: Status: Acute (2) Severe aortic stenosis: Status: Acute (3) Breast cancer metastasized to bone: Status: Chronic Plan Patient is known to me and recent cardiac studies reviewed and also discussed with Dr. Frankel. Also reviewed her CT findings. Overall, suspect that she may have some component of congestive heart failure but more than likely also has malignancy related interstitial findings. She is quite frail as well. Not clear if mental status is normal either as she may be somewhat confused. In this situation, do not really believe that she has a good candidate for TAVR evaluation at this time. Will need to probably be conservative and may need to discuss palliative care/hospice options as well. Hospitalist will reach out to her daughter. Time Spent With Patient Time: Total time managing care of this patient today ____ minutes. Progress Note: Quality Stroke Does the patient have a stroke diagnosis?: No Procedures Date of Service Date of Service: 11/02/23
[2023-11-02] MEDS: Furosemide 40 MG TABLET PO (09:29)
[2023-11-02] MEDS: 0.9 % Sodium Chloride Flush 3 ML SYRINGE IVFLUSH ×2 (09:29→21:12)
--- NOTE | 2023-11-02 10:38 | P.PNIM_ITS ---
Subjective Subjective Date of Service: 11/02/23 Interval History: has made significant improvement since admission, still with sob Physical Exam 2 Vital Signs: Vital Signs: Last Vital Signs Temp 97.1 F 11/02/23 07:58 Pulse 76 11/02/23 07:58 Resp 20 11/02/23 07:58 BP 129/69 11/02/23 07:58 Pulse Ox 99 11/02/23 07:58 O2 Del Method Oxymask 11/02/23 07:58 O2 Flow Rate 3 11/02/23 07:58 BMI result Body Mass Index 17.2 Const: General: comfortable and no acute distress O rientation/consciousness: patient oriented x3 HEENT: Other: Unremarkable Head: Yes normal to inspection Neck: Neck: Yes normal visual inspection Chest: Chest palpation & inspection: normal inspection of the chest Resp: Auscultation: rales and diminished lung sounds Cardio: Palpation: normal PMI Heart sounds: S1 normal heart sound present, S2 normal heart sound present, no gallops, Murmur heart sound present systolic III/ and at the right sternal border and no rubs GI: Palpation (GI): Soft to palpation Back/Spine/Pelvis: Other: unremarkable Skin: General skin exam: no rashes or lesions noted Neuro: General: patient oriented x3 Extrem: General: Yes normal to inspection Psych: Mental Status: mental status grossly abnormal Objective Data Active Medications Acetaminophen (Acetaminophen 325 Mg Tablet) 650 mg PO Q6H PRN PRN Reason: Pain, Mild (Pain Scale 1-3) Amlodipine Besylate (Amlodipine Besylate 2.5 Mg Tablet) 2.5 mg PO DAILY [facility]; Protocol Last Admin: 11/02/23 09:28 Dose: 2.5 mg Documented By: BRITANY Atorvastatin Calcium (Atorvastatin Calcium 10 Mg Tablet) 5 mg PO BEDTIME [facility] Last Admin: 11/01/23 20:16 Dose: 5 mg Documented By: MATTHEW Furosemide (Furosemide 40 Mg Tablet) 40 mg PO DAILY [facility]; Protocol Last Admin: 11/02/23 09:29 Dose: 40 mg Documented By: BRITANY Loratadine (Loratadine 10 Mg Tablet) 10 mg PO DAILY PRN PRN Reason: allergy symptoms Magnesium Hydroxide (Milk Of Magnesia 30 Ml Oral.Susp) 30 ml PO DAILY PRN PRN Reason: Constipation Methylprednisolone Sodium Succinate (Methylprednisolone Sod Succ 40 Mg/Ml Vial) 40 mg IVPUSH Q12H [facility] Last Admin: 11/02/23 02:45 Dose: 40 mg Documented By: SAUD Multivitamins/Vitamin C (Multivitamin Tablet) 1 tab PO DAILY [facility] Last Admin: 11/02/23 09:28 Dose: 1 tab Documented By: BRITANY Ondansetron HCl (Ondansetron Hcl 4 Mg/2 Ml Vial) 4 mg IVPUSH Q8H PRN PRN Reason: Nausea and Vomiting Sodium Chloride (0.9 % Sodium Chloride Flush 3 Ml Syringe) 3 ml IVFLUSH QSHIFT [facility] Last Admin: 11/02/23 09:29 Dose: 3 ml Documented By: BRITANY Vitamin D (Cholecalciferol (Vitamin D3) 25 Mcg Tablet) 25 mcg PO DAILY [facility] Last Admin: 11/02/23 09:28 Dose: 25 mcg Documented By: BRITANY Labs 11/02/23 06:34 11/02/23 06:34 Labs: Laboratory Results - last 24 hr 11/02/23 06:34 MCV 105.7 H MCH 36.0 H MCHC 34.1 RDW 20.2 H Plt Count 72 L D MPV 12.0 Absolute Nucleated RBC 0.020 H Nucleated RBC % (auto) 0.8 H Anion Gap 13 Estim Creat Clear Calc 46.6 Estimated GFR > 60 Fasting Glucose 113 H Calcium 10.5 H Assessment and Plan (1) Acute hypoxemic respiratory failure: Status: Acute Plan 86F PMH HLD, HTN, metastatic breast cancer s/p removal/radiation on oral chemotherapy - with response on most recent PET, TAVR w/ bioprosthetic valve now with recurrent severe aortic stenosis, presented with sob Acute hypoxic respiratory failure due to acute on chronic diastolic CHF with severe aortic stenosis diuresed well but still hypoxic needing 2L changed to po lasix repeat ct chest - with persistent opacities, likely additional component of penumonitis/ild from chemo vs metastatic lymphangitic disease - will change to po prednisone no longer candidate for TAVR Pancytopenia Due to chemotherapy for metastatic breast cancer, plus element of hemolytic anemia from severe Holding Ibrance, okay to continue faslodex if not hospice Transfused 1 unit PRBC, hgb improved appropriately and stable hypokalemia replaced Pericardial effusion Stable Hypertension Amlodipine Familial hypocalciuric hypercalcemia syndrome Stable dispo - d/w hcp, to discuss and plan with patient regarding options of STR vs home with 24 hr care +/- on hospice. Full code reason for continued hospitalization:hypoxia, dispo planning Quality Stroke Does the patient have a stroke diagnosis?: No VTE Prior VTE?: No VTE Risk Level:: Medical - moderate - high VTE Device Contraindication: Treatment Not Indicated VTE Drug Contraindication: N/A - Med Ordered
[2023-11-02 11:45] VITALS: BP 106/59; PULSE 78; RESP 20; TEMP 37.1; O2SAT 99
--- NOTE | 2023-11-02 13:39 | MHC.CM.PN ---
JAMAAL met with pt and spoke to her dtr / HCP (Joann) on the phone to discuss DC plan. They would like pt to have Hospice services, provider had spoken to dtr about this prior. Plan is to bring pt home, where she lives alone, with 24 hour care through her [employer] ins benefit. Dtr is working on arranging this. JAMAAL sent daughter info via careport / email on local Hospice providers at her request. She will call CM to inform which org she would like referral to.
[2023-11-02 16:00] VITALS: BP 123/61; PULSE 60; RESP 20; TEMP 36.6; O2SAT 97
[2023-11-02 20:00] VITALS: BP 106/58; PULSE 79; RESP 16; TEMP 36.6; O2SAT 97
[2023-11-02] MEDS: Atorvastatin Calcium 10 MG TABLET 5 MG PO (21:10)
[2023-11-03] VITALS (7 sets, daily range): BP systolic 111–137; BP diastolic 58–67; PULSE 68–94; RESP 16–20; TEMP 36–36.9; O2SAT 94–100
[2023-11-03] MEDS: Cholecalciferol (Vitamin D3) 25 MCG TABLET PO (09:24)
[2023-11-03] MEDS: 0.9 % Sodium Chloride Flush 3 ML SYRINGE IVFLUSH ×3 (09:24→20:51)
[2023-11-03] MEDS: predniSONE 20 MG TABLET 40 MG PO (09:25)
[2023-11-03] MEDS: amLODIPine Besylate 2.5 MG TABLET PO (09:25)
[2023-11-03] MEDS: Furosemide 40 MG TABLET PO (09:25)
[2023-11-03] MEDS: Multivitamin TABLET 1 TAB PO (09:25)
--- NOTE | 2023-11-03 10:54 | MHC.CLN ---
F/U INTAKE SINCE DIET ADVANCEMENT SHOWS 75% X 3 MEALS AND 25% X 2 MEALS (10/31-11/01) DIET ADVANCED TO REGULAR ON 10/29 PT RECEIVING ENSURE BID TO INCREASE NUTRITIONAL INTAKE SUPPLEMENT PROVIDES 700 KCALS, 40 G PROTEIN WITH 100% ACCEPTANCE MONITOR PO INTAKE AND ENCOURAGE SUPPLEMENTS
--- NOTE | 2023-11-03 13:47 | HO.PM.IMPN ---
Subjective Subjective Date of Service: 11/03/23 Interval History: Seen and evaluated this morning sitting comfortable for her bed no overnight events Review of Systems Review of Systems: Yes all other systems are reviewed and are negative Physical Exam Vital Signs: Vital Signs: Last Vital Signs Temp 98.5 F 11/03/23 12:00 Pulse 84 11/03/23 12:00 Resp 20 11/03/23 12:00 BP 122/59 L 11/03/23 12:00 Pulse Ox 94 11/03/23 12:00 O2 Del Method Oxymask 11/03/23 12:00 O2 Flow Rate 1 11/03/23 12:00 BMI result Body Mass Index 17.2 Const: Other: Constitutional : Awake, interactive, not in distress Neck : Normal inspection, Supple Cardiovascular : RRR, no JVP, no lower extremity edema Respiratory : good bilateral air entry, no crackles, wheezes or rhonchi Gastrointestinal: soft, lax, Normal bowel sounds, Non tender Skin : Warm, Dry Neurological : Alert & oriented x3, No focal deficit Objective Data Active Medications Acetaminophen (Acetaminophen 325 Mg Tablet) 650 mg PO Q6H PRN PRN Reason: Pain, Mild (Pain Scale 1-3) Amlodipine Besylate (Amlodipine Besylate 2.5 Mg Tablet) 2.5 mg PO DAILY [facility]; Protocol Last Admin: 11/03/23 09:25 Dose: 2.5 mg Documented By: BREANNA Atorvastatin Calcium (Atorvastatin Calcium 10 Mg Tablet) 5 mg PO BEDTIME EVANGELINA Last Admin: 11/02/23 21:10 Dose: 5 mg Documented By: MATTHEW Furosemide (Furosemide 40 Mg Tablet) 40 mg PO DAILY [facility]; Protocol Last Admin: 11/03/23 09:25 Dose: 40 mg Documented By: BREANNA Loratadine (Loratadine 10 Mg Tablet) 10 mg PO DAILY PRN PRN Reason: allergy symptoms Magnesium Hydroxide (Milk Of Magnesia 30 Ml Oral.Susp) 30 ml PO DAILY PRN PRN Reason: Constipation Multivitamins/Vitamin C (Multivitamin Tablet) 1 tab PO DAILY [facility] Last Admin: 11/03/23 09:25 Dose: 1 tab Documented By: BREANNA Ondansetron HCl (Ondansetron Hcl 4 Mg/2 Ml Vial) 4 mg IVPUSH Q8H PRN PRN Reason: Nausea and Vomiting Prednisone (Prednisone 20 Mg Tablet) 40 mg PO DAILY [facility] Last Admin: 11/03/23 09:25 Dose: 40 mg Documented By: BREANNA Sodium Chloride (0.9 % Sodium Chloride Flush 3 Ml Syringe) 3 ml IVFLUSH QSHIFT [facility] Last Admin: 11/03/23 09:24 Dose: 3 ml Documented By: BREANNA Vitamin D (Cholecalciferol (Vitamin D3) 25 Mcg Tablet) 25 mcg PO DAILY [facility] Last Admin: 11/03/23 09:24 Dose: 25 mcg Documented By: BREANNA Labs 11/02/23 06:34 11/02/23 06:34 Assessment and Plan (1) Acute hypoxemic respiratory failure: Status: Acute (2) Severe aortic stenosis: Status: Acute (3) CHF exacerbation: Status: Acute Plan 86F PMH HLD, HTN, metastatic breast cancer s/p removal/radiation on oral chemotherapy - with response on most recent PET, TAVR w/ bioprosthetic valve now with recurrent severe aortic stenosis, presented with sob Acute hypoxic respiratory failure due to acute on chronic diastolic CHF with severe aortic stenosis resolving, diuresed well , wean down O2 as tolerated changed to po lasix repeat ct chest - with persistent opacities, likely additional component of penumonitis/ild from chemo vs metastatic lymphangitic disease - will change to po prednisone no longer candidate for TAVR Pancytopenia Due to chemotherapy for metastatic breast cancer, plus element of hemolytic anemia from severe Holding Ibrance, okay to continue faslodex if not hospice Transfused 1 unit PRBC, hgb improved appropriately and stable hypokalemia replaced Pericardial effusion Stable Hypertension Amlodipine Familial hypocalciuric hypercalcemia syndrome Stable dispo - d/w hcp, to discuss and plan with patient regarding options of STR vs home with 24 hr care +/- on hospice. They are leaning toward hospice care at nursing facility. Full code reason for continued hospitalization:hypoxia, dispo planning Quality Stroke Does the patient have a stroke diagnosis?: No VTE Prior VTE?: No VTE Risk Level:: Medical - moderate - high VTE Device Contraindication: Treatment Not Indicated VTE Drug Contraindication: N/A - Med Ordered
--- NOTE | 2023-11-03 15:44 | MHC.CM.PN ---
This CM met with pt and her daughter/HCP Joann and pts sister at bedside to discuss discharge plans. Pt would like hospice services either at home with 24/7 care, or in a SNF. Pts daughter Joann states she is not able to provide 24/7 care to her mother on her own and would need to hire caregivers. This CM discussed that Medicare would cover the hospice services in a SNF, but would not cover the cost of room and board which is about $400-500/day. Pts daughter Joann states that her brother is in charge of the finances and he may have more insight as to what she can afford but she thinks she would be able to pay privately for room and board for a little while. is supplemental insurance but they would not cover cost the room and board. SNF referrals placed to 5 facilities. [facility] accept pt, their daily rate is $452/day and the center would need 30 days up front. [facility] live-in care handout given to pts cherelle David to pursue as the cost is $299/day at home. Pts daughter Joann and pts sister will discuss these options.
[2023-11-03] MEDS: Atorvastatin Calcium 10 MG TABLET 5 MG PO (20:48)
[2023-11-04] VITALS (9 sets, daily range): BP systolic 108–148; BP diastolic 50–70; PULSE 75–94; RESP 16–20; TEMP 36.1–36.6; O2SAT 84–99
[2023-11-04] MEDS: Multivitamin TABLET 1 TAB PO (08:39)
[2023-11-04] MEDS: Furosemide 40 MG TABLET PO (08:39)
[2023-11-04] MEDS: amLODIPine Besylate 2.5 MG TABLET PO (08:39)
[2023-11-04] MEDS: Cholecalciferol (Vitamin D3) 25 MCG TABLET PO (08:40)
[2023-11-04] MEDS: predniSONE 20 MG TABLET 40 MG PO (08:40)
[2023-11-04] MEDS: 0.9 % Sodium Chloride Flush 3 ML SYRINGE IVFLUSH ×2 (08:40→15:33)
--- NOTE | 2023-11-04 08:59 | HO.PM.IMPN ---
Subjective Subjective Date of Service: 11/04/23 Interval History: Seen and evaluated this morning laying comfortable in her bed no overnight events Review of Systems Review of Systems: Yes all other systems are reviewed and are negative Physical Exam Vital Signs: Vital Signs: Last Vital Signs Temp 97.5 F 11/04/23 07:57 Pulse 78 11/04/23 07:57 Resp 20 11/04/23 07:57 BP 129/60 11/04/23 07:57 Pulse Ox 97 11/04/23 07:57 O2 Del Method Oxymask 11/04/23 07:57 O2 Flow Rate 1 11/04/23 07:57 BMI result Body Mass Index 17.2 Const: Other: Constitutional : interactive, not in distress Cardiovascular : RRR, no lower extremity edema Respiratory : good bilateral air entry, no crackles Gastrointestinal: soft, lax, Non tender Skin : Warm, Dry Neurological : Alert & oriented to self, No focal deficit Objective Data Active Medications Acetaminophen (Acetaminophen 325 Mg Tablet) 650 mg PO Q6H PRN PRN Reason: Pain, Mild (Pain Scale 1-3) Amlodipine Besylate (Amlodipine Besylate 2.5 Mg Tablet) 2.5 mg PO DAILY [facility]; Protocol Last Admin: 11/04/23 08:39 Dose: 2.5 mg Documented By: BREANNA Atorvastatin Calcium (Atorvastatin Calcium 10 Mg Tablet) 5 mg PO BEDTIME [facility] Last Admin: 11/03/23 20:48 Dose: 5 mg Documented By: MATTHEW Furosemide (Furosemide 40 Mg Tablet) 40 mg PO DAILY [facility]; Protocol Last Admin: 11/04/23 08:39 Dose: 40 mg Documented By: BREANNA Loratadine (Loratadine 10 Mg Tablet) 10 mg PO DAILY PRN PRN Reason: allergy symptoms Magnesium Hydroxide (Milk Of Magnesia 30 Ml Oral.Susp) 30 ml PO DAILY PRN PRN Reason: Constipation Multivitamins/Vitamin C (Multivitamin Tablet) 1 tab PO DAILY [facility] Last Admin: 11/04/23 08:39 Dose: 1 tab Documented By: BREANNA Ondansetron HCl (Ondansetron Hcl 4 Mg/2 Ml Vial) 4 mg IVPUSH Q8H PRN PRN Reason: Nausea and Vomiting Prednisone (Prednisone 20 Mg Tablet) 40 mg PO DAILY [facility] Last Admin: 11/04/23 08:40 Dose: 40 mg Documented By: BREANNA Sodium Chloride (0.9 % Sodium Chloride Flush 3 Ml Syringe) 3 ml IVFLUSH QSHIFT [facility] Last Admin: 11/04/23 08:40 Dose: 3 ml Documented By: BREANNA Vitamin D (Cholecalciferol (Vitamin D3) 25 Mcg Tablet) 25 mcg PO DAILY [facility] Last Admin: 11/04/23 08:40 Dose: 25 mcg Documented By: BREANNA Labs 11/02/23 06:34 11/02/23 06:34 Assessment and Plan (1) Severe aortic stenosis: Status: Acute Plan 86F PMH HLD, HTN, metastatic breast cancer s/p removal/radiation on oral chemotherapy - with response on most recent PET, TAVR w/ bioprosthetic valve now with recurrent severe aortic stenosis, presented with sob Acute hypoxic respiratory failure due to acute on chronic diastolic CHF with severe aortic stenosis resolving, diuresed well , wean down O2 as tolerated changed to po lasix repeat ct chest - with persistent opacities, likely additional component of penumonitis/ild from chemo vs metastatic lymphangitic disease - will change to po prednisone no longer candidate for TAVR Pancytopenia Due to chemotherapy for metastatic breast cancer, plus element of hemolytic anemia from severe Holding Ibrance, okay to continue faslodex if not hospice Transfused 1 unit PRBC, hgb improved appropriately and stable hypokalemia replaced Pericardial effusion Stable Hypertension Amlodipine Familial hypocalciuric hypercalcemia syndrome Stable dispo - d/w hcp, to discuss and plan with patient regarding options of STR vs home with 24 hr care +/- on hospice. They are leaning toward hospice care at nursing facility. Patient still as Full code, HCP did not leaf size picker yesterday reason for continued hospitalization:hypoxia, dispo planning Quality Stroke Does the patient have a stroke diagnosis?: No VTE Prior VTE?: No VTE Risk Level:: Medical - moderate - high VTE Device Contraindication: Treatment Not Indicated VTE Drug Contraindication: N/A - Med Ordered
--- NOTE | 2023-11-04 13:53 | MHC.CM.PN ---
IMM 11/04/23 The discharge plan has changed to STR. [facility] offered a bed. Joann plans to tour [facility] 11/04/23. [facility] has not responded to the STR referral. A VM was left for [facility]. Two message have been sent thru [facility] asking for a STR bed. DP to STR via BLS 11/05/23. Joann to decide which bed offer to accept.
[2023-11-04] MEDS: Atorvastatin Calcium 10 MG TABLET 5 MG PO (20:08)
[2023-11-05 03:20] VITALS: BP 129/70; PULSE 73; RESP 17; TEMP 36.2; O2SAT 100
[2023-11-05 07:45] VITALS: BP 135/68; PULSE 72; RESP 20; TEMP 36.3; O2SAT 100
--- NOTE | 2023-11-05 08:35 | MHC.CM.PN ---
This CM reviewed EMR, it appears discharge plan has changed to STR. This CM called pts daughter Joann to follow up if she has decided on a facility. Unable to reach her, or leave a voicemail, will attempt to contact her again shortly.
[2023-11-05 09:09] VITALS: BP 120/58
[2023-11-05] MEDS: Multivitamin TABLET 1 TAB PO (09:09)
[2023-11-05] MEDS: 0.9 % Sodium Chloride Flush 3 ML SYRINGE IVFLUSH (09:09)
[2023-11-05] MEDS: amLODIPine Besylate 2.5 MG TABLET PO (09:09)
[2023-11-05] MEDS: predniSONE 20 MG TABLET 40 MG PO (09:09)
[2023-11-05 09:10] VITALS: BP 122/58
[2023-11-05] MEDS: Furosemide 40 MG TABLET PO (09:10)
[2023-11-05] MEDS: Cholecalciferol (Vitamin D3) 25 MCG TABLET PO (09:10)
--- NOTE | 2023-11-05 11:08 | P.DS_ITS ---
DS: Providers Provider Date of Service: 11/05/23 Date of admission: 10/26/23 20:21 Primary care physician: Lyndon Rosario MD Consults: 10/26/23 17:02 Consult to Cardiology Routine Consulting Provider: [facility] [place] [facility] Reason for consultation: Aortic stenosis, CHF Has provider been notified: Yes 10/26/23 19:52 Consult to Hematology / Oncology Routine Consulting Provider: Fabiola Ba Reason for consultation: chf, metastatic breast cancer patient, worsening anemia DS: Diagnosis Discharge Diagnosis (1) Severe aortic stenosis: Status: Acute (2) Acute hypoxemic respiratory failure: Status: Acute (3) CHF exacerbation: Status: Acute (4) Breast cancer metastasized to bone: Status: Chronic (5) Anemia, macrocytic: Status: Acute (6) Hypoxia: Status: Acute DS: Summary Hospital Course Hospital Course: from initial hpi: 86 yo female with past medical history of HLD, HTN, metastatic breast cancer s/p removal/radiation on oral chemotherapy, TAVR w/ bioprosthetic valve, severe aortic stenosis, among others presented to the ED earlier today for evaluation of sudden onset GAMBOA that started this morning while ambulating with a cane. States she has also had intermittent palpitations. NO fevers, chills, abd pain, n/v/d, urinary symptoms, recent illness, lightheadedness, syncope, or chest pain. Denies melena or hematochezia. Pt is oriented x 3 but seems somewhat aloof with poor insight. Pt patient's daughter the patient has been experiencing sob x 2 weeks. She has seen cardiology due to increased for possible TAVR. JOHN performed 10/19 revealed severe with small pericardial effusion with normal LV systolic fx EF 60-65%. She also follows with Dr. Ba with recent diagnosis of bony mets related to breast cancer and is taking ibrance. On arrival, patient was noted to be hypoxic to 70% and was placed on OxyMask and has been weaned to 5 L now maintaining oximetry around 96%. Has had intermittent tachypnea. Vitals otherwise stable. She is a chronic pancytopenia though anemia appears to be worse than baseline with H/H 8.0/23.4% (was 9.9/29.9% on 10/10). Renal function baseline, electrolyte levels normal except for chronic hypercalcemia 10.4. Total bilirubin 2.3, AST 33, ALT 12. Initial troponin 50.2, repeat 66.2. BNP 467. CTA chest negative for PE but shows bilateral interstitial disease with mild bilateral subpleural sparing and sparing of the left superior pulmonary apex and superior segment of left lower pulmonary lobe. Most consistent with small bilateral dependent effusions and interstitial pulmonary edema though viral or atypical pneumonia can not be ruled out. There is also moderate pericardial effusion that appears stable compared to prior imaging among other findings which correlate with prior PET/CT findings. Clinical presentation most suspicious for CHF exacerbation. ED did discuss case with Cardiology recommending admission to medicine. She was given 20 mg of IV Lasix which did allow for further titration of supplemental O2. hospital course: Patient admitted for acute hypoxic respiratory failure secondary to chronic diastolic CHF with severe aortic stenosis with acute decompensation. She was given IV Lasix, respiratory status continued to decline. Seen by Cardiology who considered transfer to [facility] for possible TAVR. Patient has no moderate pericardial effusion which appears stable. Dr Tovar from cardiology upon further evaluation felt that the patient do not really believe that she has a good candidate for TAVR evaluation at this time. and will need to probably be conservative and may need to discuss palliative care/hospice options as well. She was weaned down to room air keeping O2 sat >92% that drops to 88% with ambulation. repeat ct chest - with persistent opacities, likely additional component of penumonitis/ild from chemo vs metastatic lymphangitic disease - will change to po prednisone. Also noted to have acute on chronic pancytopenia, likely due to chemotherapy, transfusing 1 unit PRBC, chemotherapy held. For metastatic breast cancer her chemotherapy has been held for pancytopenia. Her most recent PET scan was reassuring and prognosis is felt to be greater than 6 months specifically for breast cancer. She will not be on chemotherapy while in nursing facility. to follow with oncology as outpatient. For hypertension she was continued on amlodipine. For hyperlipidemia she was continued on statin. MOLST form was signed and her status changed to DNR\DNI Participated with PT who recommended STR. she will be discharged to start therapy consider hospice care as outpatient. Time Attestation Discharge Coordination Time (in mins): 42 Quality: Safe Use of Opioids Does Pt have an Active Cancer Diagnosis on the Problem List?: Yes Opioid Measure Date for CMS Report: 10/06/23 Opioid Measure Time for CMS Report: 11:14 Quality: Stroke Does the patient have a stroke diagnosis?: No Physical Exam Vital Signs: Vital Signs: Last Vital Signs Temp 97.3 F 11/05/23 07:45 Pulse 72 11/05/23 07:45 Resp 20 11/05/23 07:45 BP 122/58 L 11/05/23 09:10 Pulse Ox 100 11/05/23 07:45 O2 Del Method Oxymask 11/05/23 07:45 O2 Flow Rate 2 11/05/23 07:45 BMI result Body Mass Index 17.2 Const: Other: Constitutional : interactive, not in distress Cardiovascular : RRR, no lower extremity edema Respiratory : good bilateral air entry, no crackles Gastrointestinal: soft, lax, Non tender Skin : Warm, Dry Neurological : Alert & oriented to self, No focal deficit DS: Data Imaging Chest x-ray: Radiologist's impression: ITS Impressions Chest X-Ray 10/26/23 12:14 IMPRESSION: Cardiomegaly with pulmonary venous congestion and interstitial pulmonary edema. Viral or atypical pneumonia could have a similar interstitial appearance. Chest CTA 10/26/23 13:56 IMPRESSION: *CT pulmonary angiogram negative for pulmonary emboli. *Bilateral interstitial disease of the lungs with mild bilateral subpleural sparing and sparing of the left superior pulmonary apex and superior segment of the left lower pulmonary lobe. Findings are present in association with small bilateral dependent effusions. Findings are most suspicious for interstitial pulmonary edema. As noted on the comparison chest radiograph, viral or atypical pneumonia could present with similar interstitial disease. However, the extent and relative subpleural sparing favor interstitial pulmonary edema. *Moderate pericardial effusion similar to findings present 05/25/2023. *Vague number scattered subcentimeter rounded pulmonary densities which are without a correlate compared with PET/CT 05/25/2023. Findings are most suspicious for small areas of consolidation overlying extensive interstitial disease. However, pulmonary metastatic disease could have a similar appearance given the history of metastatic breast cancer. Consider further evaluation with dedicated CT of the thorax following resolution of acute pulmonary symptoms presumed to represent interstitial pulmonary edema. *Multifocal skeletal lesions suspicious for metastatic disease unchanged in extent compared with MRI of the thoracic spine 11/06/2022. L1 vertebral body compression deformity with 25% inward deformity of the superior endplate and 4 mm retropulsion is increased in extent compared with 11/06/2022 and may represent a pathologic compression deformity of indeterminate age. *Aortic valve prosthesis in situ. *Partially visualized mild scattered coronary artery calcific atherosclerosis within the left anterior descending coronary artery and posterior descending coronary artery. VTE: negative Chest CT 10/29/23 13:23 IMPRESSION: 1. Diffuse groundglass opacities seen bilaterally. 2. Ill-defined consolidation in the right upper lobe and left upper lobe. 3. Improved pleural effusion on the left. 4. Aneurysmal dilatation of ascending aorta. 5. Small pericardial effusion. 6. Lytic lesions in T5, T11 and compression deformity of L1 vertebral bodies. Fleischner guidelines were followed. Discharge Plan Discharge Anticipated Discharge Date/Time: 10/27/23 08:55 Patient Disposition: er SNF Discharge Diagnosis: hypoxic resp failure, pancytopenia, severe Referrals: Lyndon Rosaroi MD [Primary Care Provider] - 1 Week Discharge Medications: New furosemide 10 mg/mL Solution 40 mg IVPUSH BID@0900,1800 Qty: 0 0RF Protocol: Hold for SBP< HOLD for SBP < : 90 Continued simvastatin 5 mg tablet 5 mg PO BEDTIME Qty: 90 1RF (DME) walker Misc Qty: 1 0RF Rx Instructions: As Directed Ensure Liquid See Rx Instructions .ROUTE .COMPLEX Qty: 60 0RF Rx Instructions: 1 can bid amlodipine 2.5 mg tablet 2.5 mg PO DAILY 90 Days Qty: 90 3RF cetirizine 10 mg tablet 10 mg PO DAILY PRN (Reason: allergy symptoms) 90 Days Qty: 90 3RF Complete Multivitamin Tablet 1 tab PO DAILY cholecalciferol (vitamin D3) 25 mcg (1,000 unit) capsule 25 mcg PO DAILY 90 Days Qty: 90 2RF Discontinued Ibrance 100 mg Tablet 100 mg PO DAILY Qty: 21 3RF Rx Instructions: administer on days 1 through 21 of a 28-day treatment cycle Discharge Orders: Discharge Order (Routine); Ordered 11/05/23 Ordered By: Marcelo Daly Diet: Advance to usual diet Activity on Discharge: As tolerated Stand Alone Forms: Patient Portal Discharge page Print Language: Cameroonian Care Plan Goals: as tolerated physical activity. consider hospice care. Health Concerns: severe Plan of Treatment: As tolerated therapy. Assessment: see above
--- NOTE | 2023-11-05 11:39 | MHC.CM.PN ---
Pt is medically cleared for discharge to [facility] at [facility] today per daughters request and first choice. Pt will transport via BLS/[facility] at 1pm.
[2023-11-05 11:45] VITALS: BP 114/64; PULSE 84; RESP 20; TEMP 36.1; O2SAT 100
--- NOTE | 2023-11-05 15:46 | PC.NURSE ---
Attempted to call [facility] to give report, phone kept on ringing with no answer.
== END 2023-11-05 15:27 | disposition skilled nursing facility (03) | DRG 291 ==
LOC: HO.ED 17:37 → HO.EDOVER 20:22 → HO.IMC 10-27 19:07
PROVIDERS: Internal Medicine; Admitting Provider Physician Assistant; Emergency Provider Emergency Medicine Emergency Medical Services; PCP Internal Medicine; Visit Provider Student in an Organized Health Care Education/Training Program
DX: I11.0 Hypertensive heart disease with heart failure (principal); D61.810 Antineoplastic chemotherapy induced pancytopenia; I50.33 Acute on chronic diastolic (congestive) heart failure; J96.01 Acute respiratory failure with hypoxia; C79.51 Secondary malignant neoplasm of bone; T82.857A Stenosis of other cardiac prosthetic devices, implants and grafts, initial encounter; Z68.1 Body mass index [BMI] 19.9 or less, adult; D59.4 Other nonautoimmune hemolytic anemias; Z66 Do not resuscitate; J70.4 Drug-induced interstitial lung disorders, unspecified; R19.5 Other fecal abnormalities; E87.6 Hypokalemia; R63.6 Underweight; T45.1X5A Adverse effect of antineoplastic and immunosuppressive drugs, initial encounter; Y71.2 Prosthetic and other implants, materials and accessory cardiovascular devices associated with adverse incidents; E83.52 Hypercalcemia; C50.512 Malignant neoplasm of lower-outer quadrant of left female breast; Z17.0 Estrogen receptor positive status [ER+]; Z20.822 Contact with and (suspected) exposure to COVID-19; Z79.899 Other long term (current) drug therapy
CPT/HCPCS: 0241U; 36415; 71045; 71250; 71275; 80048; 80053; 80076; 81003; 82272; 82607; 82728; 82746; 82803; 83010; 83605; 83615; 83690; 83735; 83880; 84484; 85025; 85027; 85045; 85379; 85610; 85730; 86850; 86900; 86901; 86923; 87040; 92950; 93005; 97163; 99285; C9113; J1940; J2919; P9016; Q9967

== ENCOUNTER → 2023-10-26 11:59 | Outpatient (BNV) | payer MEDICARE, OTHER, SELFPAY | PROVIDERS: Emergency Provider Emergency Medicine Emergency Medical Services; PCP Internal Medicine; Visit Provider Physician Assistant | DX: I35.0 Nonrheumatic aortic (valve) stenosis (principal); J96.01 Acute respiratory failure with hypoxia; I50.9 Heart failure, unspecified; C50.912 Malignant neoplasm of unspecified site of left female breast; C79.51 Secondary malignant neoplasm of bone; D53.9 Nutritional anemia, unspecified | CPT/HCPCS: 99223; 99231; 99232; 99233; 99239 ==

== ENCOUNTER → 2023-10-26 20:21 | Outpatient (BNV) | payer MEDICARE, OTHER, SELFPAY | PROVIDERS: Admitting Provider Physician Assistant; Emergency Provider Emergency Medicine Emergency Medical Services; PCP Internal Medicine; Visit Provider Internal Medicine | DX: C50.912 Malignant neoplasm of unspecified site of left female breast (principal) | CPT/HCPCS: 99222; 99231 ==

== ENCOUNTER → 2023-10-26 20:21 | Outpatient (BNV) | payer MEDICARE, OTHER, SELFPAY | PROVIDERS: Admitting Provider Physician Assistant; Emergency Provider Emergency Medicine Emergency Medical Services; PCP Internal Medicine; Visit Provider Internal Medicine Cardiovascular Disease | DX: J96.01 Acute respiratory failure with hypoxia (principal); I35.0 Nonrheumatic aortic (valve) stenosis; I50.9 Heart failure, unspecified; D53.9 Nutritional anemia, unspecified | CPT/HCPCS: 93010; 99223; 99233 ==

== ENCOUNTER 2025-04-01 16:51 | Emergency (ER) | payer MEDICARE, OTHER, SELFPAY ==
--- NOTE | ~2025-04-01 | XR_ITS ---
CLINICAL HISTORY: fall , anterior L knee TTP 4 view left knee Comparison: None provided Findings: Bones intact. No dislocations. Moderate degenerative disease with joint space narrowing, tricompartmental spurring, and chondrocalcinosis. No joint effusion. No radiopaque foreign body. IMPRESSION: 1. No acute findings. 2. Moderate DJD. This document has been electronically signed by: Shiela Lin MD on 04/01/2025 19:34:25
--- NOTE | ~2025-04-01 | XR_ITS ---
CLINICAL HISTORY: L lat hip tender, fall 3 view, pelvis and left hip Comparison: CT/SR - CT ABDOMEN PELVIS WITH IV CONTRAST - 10/25/22 11:41 EDT Findings: No acute fracture or dislocation. No significant arthritic change. Moderate DJD with joint space narrowing and osteophytosis. The soft tissues are unremarkable. IMPRESSION: No evidence of acute fracture or dislocation. Moderate DJD. This document has been electronically signed by: Shiela Lin MD on 04/01/2025 19:33:18
[2025-04-01 17:29] VITALS: BP 128/88; BP 130/75; PULSE 77; PULSE 88; RESP 16; TEMP 36.6; O2SAT 96; O2SAT 98; BMI 18.8
--- NOTE | 2025-04-01 17:30 | ED_ITS ---
HPI - Trauma General Chief Complaint: Fall Stated Complaint: Fall knee pain, -h/s, -LOC, -thinners Time Seen by Provider: 04/01/25 17:00 History of Present Illness ED Provider: flaquito HPI narrative: 89 patient is coming in for low mechanism nonsyncopal fall mainly onto the left knee pain to the left anterior knee and left hip I was told by nursing staff the patient recently placed on hospice for cancer diagnosis. Lives home alone Related Data Home Medications ?Medication ?Instructions ?Recorded ?Confirmed multivitamin,yu-yaml-hwufizou 1 tab PO DAILY 05/01/20 10/26/23 (Complete Multivitamin tablet) Previous Rx's ?Medication ?Instructions ?Recorded cholecalciferol (vitamin D3) 25 25 mcg PO DAILY 90 day s #90 caps 10/29/20 mcg (1,000 unit) capsule walker #1 ea 10/28/22 food supplemt, lactose-reduced See Rx Instructions .Ro yosef 12/23/22 (Ensure oral liquid) .COMPLEX #60 packets amlodipine 2.5 mg tablet 2.5 mg PO DAILY 90 days #90 tabs 06/21/23 cetirizine 10 mg tablet 10 mg PO DAILY PRN allergy 0 10/21/23 symptoms 90 days #90 tabs simvastatin 5 mg tablet 5 mg PO BEDTIME #90 tabs furosemide 10 mg/mL injection 40 mg IVPUSH BID@0900,18 00 #0 mL 10/27/23 solution Allergies Allergy/AdvReac Type Severity Reaction Status Date / Time hydrochlorothiazide Allergy Unknown upset Verified 04/01/25 17:34 stomach,dizziness lisinopril Allergy Unknown SWOLLEN Verified 04/01/25 17:34 THROAT/angioedema metoprolol Allergy Unknown severe Verified 04/01/25 17:34 dizziness esomeprazole (Nexium) AdvReac Unknown headaches Verified 04/01/25 17:34 [facility] Past Medical History 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 History of aortic valve stenosis GERD without esophagitis Pure hypercholesterolemia Benign essential hypertension Vitamin D deficiency Familial hypocalciuric hypercalcemia syndrome Osteoporosis Surgical History Hx of aortic valve replacement (~07/04/12) History of lumpectomy of left breast (~07/02/21) Hx of cataract removal with insertion of prosthetic lens (~08/2017) Family History Family History Father Diabetes CVA (cerebral vascular accident) CVD (cardiovascular disease) Myocardial infarct Mother Emphysema of lung Alcoholism /alcohol abuse Social History Social History Household Members: None Housing: Condominium Are you a primary childcare center director to a significant other at home: No Do you presently have visiting nurse or other home services: No Alcohol intake: current Alcohol intake frequency: holidays/special occasions only Alcohol type: wine Patient Tobacco Use Status: Never used Tobacco e-Cigarette/Vaping Use: Never Used Second Hand Smoke Exposure: Yes Advance Directives: Yes Advance Directives on File: Yes Advance Directives Date on File: 10/26/23 Do you have a plan to hurt others: No Plan service: Yes (thru late ) Current occupational status: retired Cognitive needs: No Hearing needs: Yes Vision needs: Yes Physical Exam Exam: Exam: EXAM: Gen: Alert, awake, well appearing, well hydrated. Frail and very hard of hearing Head: Atraumatic Eyes: Anicteric, Normal conjunctiva. ENT: Moist mucosa, no pallor. ? Neck: Supple. Skin: ?No observable rash or bruising on exposed or examined skin Respiratory: Breathing comfortably, No distress.Clear to auscultation bilaterally, symmetric chest expansion, No wheeze, rales, ronchi. Cardiovascular: Regular rate and rhythm. No murmurs or rub. Well perfused periphery, warm extremities. No edema. ? Abdominal: No focal tenderness. Soft, no objective distension. No palpable masses or obvious organomegaly. ?No guarding, no rebound tenderness or other peritoneal findings. : No flank tenderness. Neuro: Alert. Gross movement of all extremities intact. ? Psych: Calm. Cooperative. MSK: No grossly visible deformity. Mild tenderness over the left lateral hip. Limited ability to flex at the hip while seated. Mild tenderness throughout the anterior left knee. Limited range of motion and she reports secondary to pain. Mild edema to the lower leg. No bruising or abrasion or skin break. No femoral tenderness. Compartments soft of the thigh and lower leg Vital signs: See flowsheet Vital Signs: Vital Signs: Last Vital Signs Temp 0 F L 04/02/25 13:03 Pulse 86 04/02/25 13:03 Resp 14 04/02/25 13:03 BP 124/69 04/02/25 13:03 Pulse Ox 92 04/02/25 13:03 O2 Del Method Room Air 04/02/25 13:03 O2 Flow Rate 2 04/02/25 07:06 BMI result Body Mass Index 18.8 Course Reevaluation(s) Reevaluation #1: 6:14 PM 04/01/2025 (Dr. Ilir RamirezMike): Starting physician observation for case management Time: 07:42 Date: 04/02/25 Provider: STACI Spencer Patient in physician observation for case management needs. Patient received dose of Oxycodone this AM and had episode of desaturation afterwards, placed on OxyMask. We will continue to monitor. Patient is pending placement PT/CM eval. Will continue to monitor. Reevaluation #2: Time: 10:20 Date: 04/02/25 Provider: Jyoti Cruz PA-C Patient in physician observation for case management needs. Patient to discharge home with resumption of hospice. Will continue to monitor as we await discharge. Time: 10:20 Medications Administered Discontinued Medications Generic Name Dose Route Start Last Admin Trade Name Freq PRN Reason Stop Dose Admin Ibuprofen 200 mg 04/01/25 17:30 04/01/25 18:07 Ibuprofen 200 Mg Tablet PO 04/01/25 17:31 200 mg ONCE ONE Administration Oxycodone HCl 2.5 mg 04/01/25 17:30 04/01/25 18:07 Oxycodone Hcl Immed Release 5 Mg Tablet PO 04/01/25 17:31 2.5 mg ONCE ONE Administration Oxycodone HCl 5 mg 04/02/25 05:28 04/02/25 05:47 Oxycodone Hcl Immed Release 5 Mg Tablet PO 5 mg Q6H PRN Administration Pain, Severe (Pain Scale 7-10) Medical Decision Making Medical Decision Making MDM Narrative: Medical Decision Making: [age] female with low mechanism, nonsyncopal fall per million onto the left knee. No head strike or LOC reported. Unable to bear any weight secondary to pain. X-ray without fracture of the hip or knee. We will need case management as patient unable to bear weight and lives alone and is quite frail Preliminary Favored Differential Diagnosis: Knee or hip fracture among additional considered etiologies Testing Interpreted Independently: ?See below for details Radiology or Lab testing Results Reviewed: ?See below for details Consults: ?. PT, case management Independent Historians/External Chart Reviews: ?See below for details Social Determinants of Health Impacting MDM/Planning: ?See below for details Lab Data Labs: Lab Results 04/02/25 Range/Units 10:28 COVID-19 (DYLAN) Negative (Negative) COVID-19 Clin Com See Note Discharge Plan Discharge Clinical Impression: Fall Patient Disposition: Home, Self-Care Additional Instructions: You were evaluated in the ED after having a fall at home and landing on your knees. The x-ray of your left knee was negative for fracture or dislocation. The x-ray of your hip and pelvis was negative for fracture. You had an evaluation by Physical therapy and were determined to be safe to return back home on hospice care. Please follow up with your primary care doctor Please return to the ED if you experience fevers over 100.4?, chest pain, shortness of breath, worsening pain of your left knee, headaches, visual changes, nausea, or any new/worsening/concerning symptoms. Prescriptions: No Action simvastatin 5 mg tablet 5 mg PO BEDTIME Qty: 90 1RF (DME) walker Misc Qty: 1 0RF Rx Instructions: As Directed Ensure Liquid See Rx Instructions .ROUTE .COMPLEX Qty: 60 0RF Rx Instructions: 1 can bid furosemide 10 mg/mL Solution 40 mg IVPUSH BID@0900,1800 Qty: 0 0RF Protocol: Hold for SBP< HOLD for SBP < : 90 amlodipine 2.5 mg tablet 2.5 mg PO DAILY 90 Days Qty: 90 3RF cetirizine 10 mg tablet 10 mg PO DAILY PRN (Reason: allergy symptoms) 90 Days Qty: 90 3RF Complete Multivitamin Tablet 1 tab PO DAILY cholecalciferol (vitamin D3) 25 mcg (1,000 unit) capsule 25 mcg PO DAILY 90 Days Qty: 90 2RF Referrals: Patric VARGAS [Outside] Referral Note: Active with [facility]. Interventions: ED Discharge Assessment Last Done: 04/02/25 13:03 Discharge Date/Time: 04/02/25 13:04 Print Language: Austrian
--- OUTSIDE RECORDS SUMMARY | 2025-04-01 17:58 | XMS_ITS ---
Author Organization [facility] Care Team Providers Care Blade Worker Name Role Phone Deborah Chand Unavailable Unavailable Yadira Yanes Unavailable Unavailable Nayana Esteves Unavailable Sofia Moy Unavailable Unavailable Allergies and adverse reactions Code CodeSystem Substance Reaction Severity StartDate Concern Status 731231 RXNORM Esomeprazole Unknown Unknown active 5487 RXNORM hydroCHLOROthiazide Unknown Unknown acti ve 6918 RXNORM Metoprolol Unknown Unknown active Care Team Name Role Address Phone Organization Dates Yadira Yanes PCP [address] [facility] [address], [place], [address], [place] (Office): : [facility] 11/05/2023 - 11/17/2023 [place], [address], [place] (Office): : [facility] 11/05/2023 - 11/17/2023 Nayana Esteves [place], [facility] 11/05/2023 - 11/17/2023 Sofia Moy [place], [facility] 11/05/2023 - 11/17/2023 Immunizations Immunization Status Vaccine Details Vaccine Code CodeSystem Date Notes COVID-19 Bivalent Vaccine completed SARS-COV-2 (COVID-19) vaccine, mRNA, spike protein, LNP, preservative free, 50 mcg/0.5 mL dose 312 CVX created date: 11/05/2023 administere d date: 02/26/2023 Influenza, high dose seasonal completed Influenza, high-dose, split virus, trivalent, injectable, preservative free 135 CVX created date: 11/05/2023 administere d date: 03/19/2023 pneumococcal polysaccharide PPV23 completed pneumococcal polysaccharide vaccine, 23 valent 33 CVX created date: 11/05/2023 administere d date: 06/20/2015 Pneumococcal conjugate PCV 13 completed pneumococcal conjugate vaccine, 13 valent 133 CVX created date: 11/05/2023 administere d date: 11/18/2018 Mental Status Section Date Assessment Total Score Description 11/17/2023 BIMS 10 moderate cognit ehsan impairment CAM 0 No delirium ind icated PHQ-9 00 11/10/2023 BIMS 10 moderate cognit ehsan impairment CAM 0 No delirium ind icated PHQ-9 01 minimal depress ion Insurance Providers Problems Problem # Description Date of onset Resolved Date Code CodeSystem Concern Status 1 RESPIRATORY FAILURE, UNSPECIFIED WITH HYPOXIA [id number] active 2 AGE-RELATED OSTEOPOROSIS WITHOUT CURRENT PATHOLOGICAL FRACTURE [address] active 3 CHRONIC SYSTOLIC (CONGESTIVE) HEART FAILURE [address] active 4 FAMILIAL HYPERCHOLESTEROLEMIA [address] active 5 GASTRO-ESOPHAGEAL REFLUX DISEASE WITHOUT ESOPHAGITIS [address] active 6 [address]CEMIA [address] active 7 LOBULAR CARCINOMA IN SITU OF LEFT BREAST [address] active 8 NONRHEUMATIC AORTIC (VALVE) STENOSIS [address] active 9 PURE HYPERCHOLESTEROLEMIA, UNSPECIFIED [address] active 10 SECONDARY MALIGNANT NEOPLASM OF BREAST 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 ICD-10-CM active 11 VITAMIN D DEFICIENCY , UNSPECIFIED [address] active 12 CHRONIC COMBINED SYSTOLIC (CONGESTIVE) AND DIASTOLIC (CONGESTIVE) HEART FAILURE [address] active 13 CHRONIC DIASTOLIC (CONGESTIVE) HEART FAILURE [address] active 14 DEPENDENCE ON SUPPLEMENTAL OXYGEN [address] active 15 DIFFICULTY IN WALKIN G, NOT ELSEWHERE CLASSIFIED [address] active 16 ESSENTIAL (PRIMARY) HYPERTENSION [address] active 17 IRON DEFICIENCY ANEMIA, UNSPECIFIED [address] active 18 MALIGNANT NEOPLASM O F UNSPECIFIED SITE OF UNSPECIFIED FEMALE BREAST [address] active 19 OTHER PANCYTOPENIA [address] active 20 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 ICD-10-CM active 21 WEAKNESS [address] active Reason for Referral No Reasons for Referral Entered Social History Social History Observation Description Start Date End Date Code Code System Current Smoking Status Tobacco smoking consumption unknown 860238457 SNOMED CT Sex Assigned At Female 1935 12534-6 [facility] Gender Identity Sexual Orientation Vital Signs Code Code System Vitals Name Values and Units Timing Information 32381-1 [facility] Pain Level Value=0.0 11/17/2023 9279-1 [facility] Respiratory Rate Value=16.0 Units=/m in 11/17/2023 15315-8 [facility] O2 % BldC Oximetry Value=91.0 Units= % 11/17/2023 8462-4 [facility] Blood Pressure-Diastolic Value=80 Un its=mmHg 11/16/2023 8480-6 [facility] Blood Pressure-Systolic Yrtdj=663 Un its=mmHg 11/16/2023 8310-5 [facility] Body Temperature Value=97.6 Units= F 11/16/2023 8867-4 [facility] Heart rate Value=83.0 Units=/min 04/2024 03965-7 [facility] Weight Value=99.0 Units=Lbs 0 01/2024 8302-2 [facility] Height Value=62.0 Units=Inches 11/11/2023
[2025-04-01] MEDS: oxyCODONE HCl Immed Release 5 MG TABLET 2.5 MG PO (18:07)
[2025-04-01 19:39] VITALS: BP 139/59; PULSE 87; RESP 16; O2SAT 96
[2025-04-02] VITALS (10 sets, daily range): BP systolic 113–158; BP diastolic 63–89; PULSE 79–88; RESP 14–16; TEMP -17.7–37; O2SAT 89–97
[2025-04-02] MEDS: oxyCODONE HCl Immed Release 5 MG TABLET PO (05:47)
--- NOTE | 2025-04-02 07:23 | PC.NURSE ---
Assumed care of patient. Pt calm, cooperative. A+Ox4. Pt sts pain is much better now. Pt now on 2L Oximask d/t desat likely from oxycodone, RR even and unlabored, denies CP or SOB.
--- NOTE | 2025-04-02 09:30 | PC.NURSE ---
pt up, eating breakfast. RR even and unlabored. No visible s/s of distress. Pt awaiting d/c around 1130 am
--- NOTE | 2025-04-02 09:33 | MHC.CM.ED ---
Received case management consult overnight. Patient came to the ER due to a fall with knee pain. Work up essentially negative. Physical therapy eval completed. Home with services recommended. Patient is active with [facility]. Met with patient in regards to discharge planning. Patient is very hard of hearing but agreeable to return home with resumption of hospice. T/w spoke with patient's daughter, Joann via telephone at [phone], with patient's consent. Joann will be on-site at 1130am to transport patient home. Amado PEREZ and Jyoti SMALL aware. Continue to monitor for d/c needs.
[2025-04-02 10:51] LABS: COVID-19 Test Negative (Negative); IDNOW Serial# 55D5AD1C
--- NOTE | 2025-04-02 12:33 | PC.NURSE ---
Patient's daughter has not come in yet. Attempted contact with daughter, left voicemail. Pt awaiting daughter to pick her up for d/c
== END 2025-04-02 13:04 | disposition home or self-care (01) ==
PROVIDERS: Emergency Provider Emergency Medicine; PCP Internal Medicine
DX: M25.562 Pain in left knee (principal); M25.552 Pain in left hip; W01.0XXA Fall on same level from slipping, tripping and stumbling without subsequent striking against object, initial encounter; Y93.89 Activity, other specified; Y92.098 Other place in other non-institutional residence as the place of occurrence of the external cause; Y99.8 Other external cause status; M81.0 Age-related osteoporosis without current pathological fracture; C50.912 Malignant neoplasm of unspecified site of left female breast; Z79.899 Other long term (current) drug therapy
CPT/HCPCS: 73502; 73564; 87635; 97162; 99285

== ENCOUNTER → 2025-04-01 17:30 | Outpatient (BNV) | payer MEDICARE, OTHER, SELFPAY | PROVIDERS: Emergency Provider Emergency Medicine; PCP Internal Medicine; Visit Provider Student in an Organized Health Care Education/Training Program | DX: M25.552 Pain in left hip (principal); M25.562 Pain in left knee | CPT/HCPCS: 73502; 73564 ==